=== PATIENT | female | born 1995 | race African-American/Black ===

== ENCOUNTER 2024-11-25 10:48 | Outpatient (OUT) | payer OTHER, SELFPAY ==
--- NOTE | 2024-11-25 10:51 | US_ITS ---
[address] [address] Patient Name: DANA RAVI MRN: [id number] date: 1995 Sex: F Assigned Patient Location: US Current Patient Location: US Accession/Order Number: [id number] Exam Date: 11/25/2024 12:55 Report Date: 11/25/2024 12:56 At the request of: ALFONSO CROWELL DO Procedure: US OB <= 14 weeks fetus OB ultrasound. Reason for exam:Missed menses. Comparison:None Technique: Transabdominal imaging of the gravid uterus was obtained. Findings: Single live intrauterine 10 weeks 6 days by CRL , DIANA 06/17/2025. heart rate 176 bpm. Cervix measures 4.5 cm without funneling. US/US OB <= 14 weeks fetus Impression: Single live intrauterine 10 weeks 6 days by CRL, DIANA 06/17/2025. Impression dictated by: Andrés Guerrero Jr., D.O.11/25/2024 12:56 PM Dictation Location: [address] Electronically authenticated by: [id number] Y Date: 11/25/2024 12:56
== END 2024-11-25 10:49 | disposition home or self-care (01) ==
LOC: US 10:48
PROVIDERS: Visit Provider Obstetrics & Gynecology
DX: Z34.01 Encounter for supervision of normal first pregnancy, first trimester (principal); Z3A.10 10 weeks gestation of pregnancy; N92.6 Irregular menstruation, unspecified
CPT/HCPCS: 76801

== ENCOUNTER 2024-12-02 21:08 | Emergency (ER) | payer OTHER, SELFPAY ==
[2024-12-02 21:14] VITALS: BP 118/78; PULSE 86; TEMP 36.7; O2SAT 99; BMI 24.8
--- NOTE | 2024-12-02 21:33 | ED.GENADUL1 ---
HPI HPI - General Adult General Chief complaint: Nausea/Vomiting/Diarrhea Stated complaint: 11 WKS PG, CRAMPING, NAUSEA Time Seen by Provider: 12/02/24 21:13 Source: patient Mode of arrival: walk-in Limitations: no limitations History of Present Illness HPI narrative: This 29-year-old female who is approximately 12 weeks and recently had an ultrasound on 11/25/2024 that showed a single live intrauterine at 10 weeks 6 days with a normal heart rate presents for evaluation of ongoing nausea and morning sickness. She states that she has been using Zofran but it is not helping her. She states she cannot eat or hardly drink anything. The symptoms have been present since the beginning of her . She is not having any abdominal pain but states she is having some cramps on the left side. There is been no vaginal bleeding or pelvic pain. She is not having any urinary symptoms. She has not had any fever. Related Data Home Medications ?Medication ?Instructions ?Recorded ?Confirmed ondansetron 4 mg disintegrating 4 mg PO Q6H PRN nausea and vomiting 12/02/24 12/02/24 tablet Allergies Allergy/AdvReac Type Severity Reaction Status Date / Time No Known Drug Allergies Allergy Verified 12/02/24 21:14 Opioid HPI Opioid Management Most Recent Opioid Data: No Data to Display Review of Systems ROS Status of ROS 10 or more systems reviewed and unremarkable except as noted in history and below PFSH PFSH Social History Little interest or pleasure in doing things: not at all Feeling down, depressed, or hopeless: not at all Exam Narrative Exam Narrative: Vital signs and Nursing Notes reviewed: Patient is afebrile with a normal pulse, normal blood pressure, she is not hypoxic with pulse ox of 99% on room air General: Thin -Welsh female, no respiratory distress, no active vomiting HEENT: Normocephalic atraumatic, mucous membranes are moist and pink, eyes are clear, normal conjunctiva, vision is grossly intact, posterior pharynx is normal in appearance. Chest: Lungs are clear to auscultation with good air entry, there is no wheezing rhonchi or rales appreciated no accessory muscle use, patient is speaking in complete sentences-no chest wall tenderness to palpation CVS: Regular rate and rhythm S1-S2, no murmurs rubs or gallops, pulses are brisk and equal bilaterally ABD: Soft, nondistended, nontender, no rebound guarding or rigidity, bowel sounds are normal, no pulsatile masses appreciated Extremities: Moving all extremities, no lower extremity tenderness or swelling noted, negative Homans' sign, pulses are brisk and equal bilaterally Skin: Normal in appearance without rash,pallor, petechiae or purpura Neuro: No focal deficits Constitutional Vital Signs, click to edit/add: Last Vital Signs Temp 98.1 F 12/02/24 21:14 Pulse 86 12/02/24 21:14 Resp 16 12/02/24 21:14 BP 118/78 12/02/24 21:14 Pulse Ox 99 12/02/24 21:14 O2 Del Method Room Air 12/02/24 21:14 Course Vital Signs Vital signs: Vital Signs Temperature 98.1 F 12/02/24 21:14 Pulse Rate 86 12/02/24 21:14 Respiratory Rate 16 12/02/24 21:14 Blood Pressure 118/78 12/02/24 21:14 Pulse Oximetry 99 12/02/24 21:14 Oxygen Delivery Method Room Air 12/02/24 21:14 Temperature 98.1 F 12/02/24 21:14 Pulse Rate 86 12/02/24 21:14 Respiratory Rate 16 12/02/24 21:14 Blood Pressure 118/78 12/02/24 21:14 Pulse Oximetry 99 12/02/24 21:14 Oxygen Delivery Method Room Air 12/02/24 21:[address] [facility] Narrative Medical decision making narrative: This 29-year-old female who is approximately 12 weeks presents for evaluation of morning sickness. She states she has been nauseated and cannot eat or drink throughout this . Symptoms started early in her and have persisted since that time. She denies any abdominal pain or vaginal bleeding. She has no abdominal pain but states she has some cramping on the left side of her abdomen. Her physical exam is benign. Vital signs are stable. Her mucous membranes are moist. An IV was placed and she was medicated with IV fluids and Zofran as well as Pepcid. The patient requested something to eat and was given crackers and clear liquids which she tolerated without difficulty. Routine labs are reviewed. She has normal white count and hemoglobin. Electrolytes and liver function tests are normal. Lipase is normal. Urine was ordered but she did not urinate while in the emergency department. On reevaluation she requested to be discharged home stating she was feeling better. She does have Zofran at home which she states has not been helping her so she was given a prescription for Reglan to use as needed. She was encouraged to follow-up closely with Dr. Tellez her [employer], drink plenty of clear liquids to stay hydrated and return to the emergency department as needed for worsening symptoms or any concerns. Lab Data Lab results reviewed: Yes I reviewed the patient's lab results Labs: Lab Results 12/02/24 Range/Units 21:40 WBC 7.3 (4.0-11.0) 10^3/uL RBC 4.16 L (4.20-5.40) 10^6/uL Hgb 12.3 (12.0-16.0) g/dL Hct 35.7 L (36.0-48.0) % MCV 85.8 (81.0-99.0) fL MCH 29.6 (26.7-34.0) pg MCHC 34.5 (29.9-35.2) g/dL RDW 12.1 (11.0-15.0) % Plt Count 215 (150-450) 10^3/uL MPV 9.3 L (9.5-13.5) fL Neut % (Auto) 85.2 H (43.0-75.0) % Lymph % (Auto) 10.3 L (20.5-60.0) % [place] % (Auto) 3.6 (1.7-12.0) % Eos % (Auto) 0.5 L (0.9-7.0) % Baso % (Auto) 0.1 L (0.2-2.0) % Neut # (Auto) 6.2 (1.4-6.5) 10^3/uL Lymph # (Auto) 0.8 L (1.2-3.8) 10^3/uL [place] # (Auto) 0.3 (0.3-0.8) 10^3/uL Eos # (Auto) 0.0 (0.0-0.7) 10^3/uL Baso # (Auto) 0.0 (0.0-0.1) 10^3/uL Abs Immat Gran (auto) 0.02 (0.00-0.03) 10^3/uL Imm/Tot Granulo (auto) 0.3 (0.0-0.5) % Sodium 135 L (136-145) mmol/L Potassium 3.8 (3.5-5.1) mmol/L Chloride 104 (98-107) mmol/L Carbon Dioxide 22.2 (21.0-32.0) mmol/L Anion Gap 12.6 BUN 12.0 (7.0-18.0) mg/dL Creatinine 0.77 (0.55-1.02) mg/dL Est GFR ( Amer) >60 (>=60 mL/min/1.73m^2) Est GFR (Non-Af Amer) >60 (>=60 mL/min/1.73m^2) BUN/Creatinine Ratio 15.6 Glucose 88 (74-106) mg/dL Calcium 8.5 (8.5-10.1) mg/dL Total Bilirubin 0.7 (0.2-1.0) mg/dL AST 13 L (15-37) U/L ALT 7 L (14-59) U/L Alkaline Phosphatase 46 (46-116) U/L Total Protein 7.0 (6.4-8.2) g/dL Albumin 3.4 (3.4-5.0) g/dL Globulin 3.6 g/dL Albumin/Globulin Ratio 0.9 Lipase 53.0 (16.0-77.0) U/L Discharge Plan Discharge Chief Complaint: Nausea/Vomiting/Diarrhea Clinical Impression: Hyperemesis gravidarum Patient Disposition: Home, Self-Care Time of Disposition Decision: 22:53 Condition: Good Prescriptions / Home Meds: No Action ondansetron 4 mg tablet,disintegrating 4 mg PO Q6H PRN (Reason: nausea and vomiting) Print Language: Upper Sorbian Instructions: Hyperemesis Gravidarum (ED) Referrals: Physician,Non-Staff, MD [Primary Care Provider] - 1 week Discharge Date/Time: 12/02/24 23:02
--- OUTSIDE RECORDS SUMMARY | 2024-12-02 21:43 | XMS_ITS | CCD ---
Author Organization [facility] [email or web address] ion Partnership [facility] Care Team Providers Care Division Operations Manager Name Role Phone BHARATI HESS Primary Care Unavailable DR DANNY SMITH Admitting Unavailable SARAH, DR DANNY Kerns Attending Unavailable MAGDI, DR CESAR Davila Consulting Unavailgildardo SMITH, DR DANNY Kerns Consulting Unavailable SHIRA MORENO Consulting Unavailable NO PCP, NO PCP Primary Care Unavailable CHRISTINE RUSSELL Attending Unavailable NO PCP, NO PCP Primary Care Unavailable RYANN CORBETT Attending Unavailable NO PCP, NO PCP Primary Care Unavailable GUERITA CEDEÑO Attending Unavailable Problems Active Problems Problem Classification Problem Date Documented Date Episodic/Chronic Abdominal pain (4 sources) Unspecified abdominal pain; Translations: [UNSPECIFIED ABDOMINAL PAIN] Onset: 07-29-2022 Episodic Alcohol-related disorders (1 source) Alcohol use, unspecified with intoxication, uncomplicated; Translations: [Alcohol use, unspecified with intoxication, uncomplicated] Onset: 09-20-2024 Episodic Noninfectious gastroenteritis (1 source) Noninfective gastroenteritis and colitis, unspecified; Translations: [NONINFECTIVE GE AND COLITIS UNS] Onset: 08-10-2022 Episodic Unclassified (1 source) CONTACT W/AND (SUSP) EXPOS COVID-19; Translations: [CONTACT W/AND (SUSP) EXPOS COVID-19] Onset: 08-10-2022 Unclassified (1 source) Acute Intoxication Onset: 09-20-2024 Urinary tract infections (1 source) Urinary tract infection, site not specified; Translations: [UTI SITE NOT SPECIFIED] Onset: 08-10-2022 Episodic Past or Other Problems Problem Classification Problem Date Documented Da te Episodic/Chronic Nonspecific chest pain (4 sources) Other chest pain; Translations: [Chest pain, unspecified] Onset: 06-06-2024 Episodic Other injuries and conditions due to external causes (1 source) Laceration - injury Onset: 06-22-2024 Episodic Other screening for suspected conditions (not mental disorders or infectious disease) (1 source) Encounter for screening, unspecified; Translations: [Encounter for screening, unspecified] Onset: 06-22-2024 Episodic Results Test Name Value Interpretation Reference Range Facil ity XR CHEST 2 VWSon 06-06-2024 XR CHEST 2 VWS XR CHEST 2 VWS XR CHEST 2 VWS 06/06/2024 2:23 AM INDICATION: chest pain COMPARISON: None. TECHNIQUE: PA upright and lateral view(s) obtained. FINDINGS: Lines/Tubes/Devices: None. Respiratory: No pneumothorax, pleural effusion, or focal consolidation. Cardiomediastinum: Nonenlarged. IMPRESSION: * No acute pulmonary process. Approved by Resident: Fred Corrales MD on 06/06/2024 3:31 AM I, Cesar Ward MD have personally reviewed the image(s) and agree with and/or edited the report Finalized by Cesar Ward MD on 06/06/2024 3:49 AM Normal [facility] CBC W MANUAL DIFFon 07-30-20 22 ATYPICAL LYMPH # Normal [facility] Comment on above: Performed By: #### C MP #### [facility] [address] [place] [address] Dr. Mary Ramsay ATYPICAL LYMPH % Normal [facility] Comment on above: Performed By: #### C MP #### [facility] [address] [address] [address] Mary Ramsay BAND # 2.6 103/ul Critically high 0.0-0.3 [facility] Comment on above: Performed By: #### C MP #### [facility] [address] [address] [address] Mray Ramsay BAND % 12 % Critically high 0-5 [facility] Comment on above: Performed By: #### C MP #### [facility] [address] [place] [address] Dr. Mary Ramsay BASOM # 0.00 103/ul Normal 0.00-0.10 [facility] Comment on above: Performed By: #### C MP #### [facility] [address] [address] [address] Mary Ramsay BASOM % 0.0 % Critically low 0.2-2.0 [facility] Comment on above: Performed By: #### C MP #### [facility] [address] [address] [address] Mary Ramsay BLAST # Normal [facility] Comment on above: Performed By: #### C MP #### [facility] [address] [address] [address] Mary Ramsay BLAST % Normal [facility] Comment on above: Performed By: #### C MP #### [facility] [address] [place] [address] Dr. Mary Ramsay CORRECTED WBC Normal 4.0-11.0 [facility] Comment on above: Performed By: #### C MP #### [facility] [address] [place] [address] Dr. Mary Ramsay EOS # 0.00 103/ul Normal 0.00-0.70 [facility] Comment on above: Performed By: #### C MP #### [facility] [address] [place] [address] Dr. Mary Ramsay EOS% 0.0 % Critically low 0.9-7.0 [facility] Comment on above: Performed By: #### C MP #### [facility] [address] [place] [address] Dr. Mary Ramsay HCT 34.4 % Critically low 36.0-48.0 [facility] Comment on above: Performed By: #### C MP #### [facility] [address] [place] [address] Dr. Mary Ramsay HGB 11.5 g/dl Critically low 12.0-16.0 [facility] Comment on above: Performed By: #### C MP #### [facility] [address] [place] [address] Dr. Mary Ramsay LYMPHM # 0.86 103/ul Critically low 1.20-3.80 [facility] Comment on above: Performed By: #### C MP #### [facility] [address] [address] [address] Mary Ramsay LYMPHM% 4.0 % Critically low 20.5-60.0 [facility] Comment on above: Performed By: #### C MP #### [facility] [address] [place] [address] Dr. Mary Ramsay MCH 29.6 pg Normal 26.7-34.0 [facility] Comment on above: Performed By: #### C MP #### [facility] [address] [place] [address] Dr. Mary Ramsay MCHC 33.4 g/dl Normal 29.9-35.2 [facility] Comment on above: Performed By: #### C MP #### [facility] [address] [place] [address] Dr. Mary Ramsay MCV 88.7 fL Normal 81.0-99.0 [facility] Comment on above: Performed By: #### C MP #### [facility] [address] [place] [address] Dr. Mary Ramsay METAMYELOCYTE # Normal [facility] Comment on above: Performed By: #### C MP #### [facility] [address] [place] [address] Dr. Mary Ramsay METAMYELOCYTE % Normal [facility] Comment on above: Performed By: #### C MP #### [facility] [address] [place] [address] Dr. Mary Ramsay MONOM# 0.21 103/ul Critically low 0.30-0.80 [facility] Comment on above: Performed By: #### C MP #### [facility] [address] [place] [address] Dr. Mary Ramsay MONOM% 1.0 % Critically low 1.7-12.0 [facility] Comment on above: Performed By: #### C MP #### [facility] [address] [place] [address] Dr. Mary Ramsay MPV 10.5 fL Normal 9.5-13.5 [facility] Comment on above: Performed By: #### C MP #### [facility] [address] [address] [address] Mary Ramsay MYELOCYTE # Normal [facility] Comment on above: Performed By: #### C MP #### [facility] [address] [address] [address] Mary Ramsay MYELOCYTE % Normal [facility] Comment on above: Performed By: #### C MP #### [facility] [address] [address] [address] Mary Ramsay NRBC Normal [facility] Comment on above: Performed By: #### C MP #### [facility] [address] [address] [address] Mary Ramsay PLT 195 103/ul Normal 150-450 [facility] Comment on above: Performed By: #### C MP #### [facility] [address] [place] [address] Dr. Mary Ramsay RBC 3.88 106/ul Critically low 4.20-5.40 [facility] Comment on above: Performed By: #### C MP #### [facility] [address] [place] [address] Dr. Mary Ramsay RDW 12.8 % Normal 11.0-15.0 [facility] Comment on above: Performed By: #### C MP #### [facility] [address] [address] [address] Mary Ramsay SEG # 17.76 103/ul Critically high 1.40-6.50 [facility] Comment on above: Performed By: #### C MP #### [facility] [address] [address] [address] Mary Ramsay SEG % 83.0 % Critically high 43.0-75.0 [facility] Comment on above: Performed By: #### C MP #### [facility] [address] [place] [address] Dr. Mary Ramsay WBC 21.4 103/ul Critically high 4.0-11.0 [facility] Comment on above: Performed By: #### C MP #### [facility] [address] [place] [address] Dr. Mary Ramsay IRON AND TIBCon 07-30-2022 % SATURATION 3.6 % Normal [facility] Comment on above: Performed By: #### F ETIBC, VITAD, B12FOL #### [facility] [address] [place] [address] Dr. Mary Ramsay Iron [Mass/Vol] 8.0 ug/dL Critically low 50.0-170.0 [facility] Comment on above: Performed By: #### F ETIBC, VITAD, B12FOL #### [facility] [address] [place] [address] Dr. Mary Ramsay TIBC DIRECT 221.0 ug/dL Critically low 250.0-450.0 [facility] Comment on above: Performed By: #### F ETIBC, VITAD, B12FOL #### [facility] [address] [place] [address] Dr. Mary Ramsay PROF 14(COMP METB)on 022 Albumin [Mass/Vol] 3.0 g/dL Critically low 3.4-5.0 [facility] Comment on above: Performed By: #### C MP #### [facility] [address] [place] [address] Dr. Mary Ramsay Albumin/Globulin [Mass ratio] 0.8 {ratio} Normal [facility] Comment on above: Performed By: #### C MP #### [facility] [address] [place] [address] Dr. Mary Ramsay ALP [Catalytic activity/Vol] 48 U/L Normal 46-116 [facility] Comment on above: Performed By: #### C MP #### [facility] [address] [place] [address] Dr. Mary Ramsay ALT [Catalytic activity/Vol] 9 U/L Critically low 14-59 [facility] Comment on above: Performed By: #### C MP #### [facility] [address] [place] [address] Dr. Mary Ramsay Anion gap [Moles/Vol] 12.2 mmol/L Normal [facility] Comment on above: Performed By: #### C MP #### [facility] [address] [place] [address] Dr. Mary Ramsay AST [Catalytic activity/Vol] 11 U/L Critically low 15-37 [facility] Comment on above: Performed By: #### C MP #### [facility] [address] [place] [address] Dr. Mary Ramsay Bilirubin [Mass/Vol] 0.4 mg/dL Normal 0.2-1.0 [facility] Comment on above: Performed By: #### C MP #### [facility] [address] [place] [address] Dr. Mary Ramsay Calcium [Mass/Vol] 8.2 mg/dL Critically low 8.5-10.1 [facility] Comment on above: Performed By: #### C MP #### [facility] [address] [place] [address] Dr. Mary Ramsay Chloride [Moles/Vol] 103 mmol/L Normal 98-107 [facility] Comment on above: Performed By: #### C MP #### [facility] [address] [place] [address] Dr. Mary Ramsay CO2 [Moles/Vol] 23.4 mmol/L Normal 21.0-32.0 [facility] Comment on above: Performed By: #### C MP #### [facility] [address] [place] [address] Dr. Mary Ramsay Creatinine [Mass/Vol] 0.75 mg/dL Normal 0.55-1.02 [facility] Comment on above: Performed By: #### C MP #### [facility] [address] [place] [address] Dr. Mary Ramsay EGFR-AF SPANISH >60 Normal >=[address] [facility] Comment on above: Performed By: #### C MP #### [facility] [address] [place] [address] Dr. Mary Ramsay EGFR-NON AF SPANISH >60 Normal >=60 [facility] Comment on above: Performed By: #### C MP #### [facility] [address] [address] [address] Mary Ramsay Globulin (S) [Mass/Vol] 3.7 g/dL Normal [facility] Comment on above: Performed By: #### C MP #### [facility] [address] [address] [address] Mary Ramsay Glucose [Mass/Vol] 160 mg/dL Critically high 74-106 T [facility] Comment on above: Performed By: #### C MP #### [facility] [address] [address] [address] Mary Ramsay Potassium [Moles/Vol] 3.6 mmol/L Normal 3.5-5.1 [facility] Comment on above: Performed By: #### C MP #### [facility] [address] [place] [address] Dr. Mary Ramsay Protein [Mass/Vol] 6.7 g/dL Normal 6.4-8.2 [facility] Comment on above: Performed By: #### C MP #### [facility] [address] [place] [address] Dr. Mary Ramsay Sodium [Moles/Vol] 135 mmol/L Critically low 136-145 Th [facility] Comment on above: Performed By: #### C MP #### [facility] [address] [place] [address] Dr. Mary Ramsay Urea nitrogen [Mass/Vol] 15.0 mg/dL Normal 7.0-18.0 [facility] Comment on above: Performed By: #### C MP #### [facility] [address] [place] [address] Dr. Mary Ramsay Urea nitrogen/Creatinine [Mass ratio] 20.0 mg/mg Normal [facility] Comment on above: Performed By: #### C MP #### [facility] [address] [place] [address] Dr. Mary Ramsay VIT B12 AND FOLATEon 022 Cobalamin (Vitamin B12) [Mass/Vol] 221.0 pg/mL Normal 193.0-986.0 [facility] Comment on above: Performed By: #### F ETIBC, VITAD, B12FOL #### [facility] [address] [place] [address] Dr. Mary Ramsay FOLATE 3.00 ng/mL Critically low 8.60-58.90 [facility] Comment on above: Performed By: #### F ETIBC, VITAD, B12FOL #### [facility] [address] [place] [address] Dr. Mary Ramsay VITAMIN D 25 OHon 07-30-2022 VIT D 25-OH 6.7 ng/mL Normal [facility] Comment on above: Performed By: #### F ETIBC, VITAD, B12FOL #### [facility] [address] [place] [address] Dr. Mary Ramsay VIT D RANGES SEE BELOW Normal [facility] Comment on above: Result Comment: <20 ng/mL Vit D deficient 20 - <30 ng/mL Vit D insufficient 30 - 100 ng/mL Vit D sufficient >100 ng/mL Potential Toxicity Performed By: #### F ETIBC, VITAD, B12FOL #### [facility] [address] [place] [address] Dr. Mary Ramsay CBC W MANUAL DIFFon 07-29-20 22 ATYPICAL LYMPH # Normal [facility] Comment on above: Performed By: #### C MP #### [facility] [address] [place] [address] Dr. Mayr Ramsay ATYPICAL LYMPH % Normal [facility] Comment on above: Performed By: #### C MP #### [facility] [address] [place] [address] Dr. Mary Ramsay BAND # 0.3 103/ul Normal 0.0-0.3 [facility] Comment on above: Performed By: #### C MP #### [facility] [address] [place] [address] Dr. Mary Ramsay BAND % 2 % Normal 0-5 [facility] Comment on above: Performed By: #### C MP #### [facility] [address] [place] [address] Dr. Mary Ramsay BASOM # 0.00 103/ul Normal 0.00-0.10 [facility] Comment on above: Performed By: #### C MP #### [facility] [address] [place] [address] Dr. Mary Ramsay BASOM % 0.0 % Critically low 0.2-2.0 [facility] Comment on above: Performed By: #### C MP #### [facility] [address] [place] [address] Dr. Mary Ramsay BLAST # Normal [facility] Comment on above: Performed By: #### C MP #### [facility] [address] [place] [address] Dr. Mary Ramsay BLAST % Normal [facility] Comment on above: Performed By: #### C MP #### [facility] [address] [place] [address] Dr. Mary Ramsay CORRECTED WBC Normal 4.0-11.0 [facility] Comment on above: Performed By: #### C MP #### [facility] [address] [place] [address] Dr. Mary Ramsay EOS # 0.00 103/ul Normal 0.00-0.70 [facility] Comment on above: Performed By: #### C MP #### [facility] [address] [place] [address] Dr. Mary Ramsay EOS% 0.0 % Critically low 0.9-7.0 [facility] Comment on above: Performed By: #### C MP #### [facility] [address] [place] [address] Dr. Mary Ramsay HCT 38.4 % Normal 36.0-48.0 [facility] Comment on above: Performed By: #### C MP #### [facility] [address] [place] [address] Dr. Mary Ramsay HGB 12.9 g/dl Normal 12.0-16.0 [facility] Comment on above: Performed By: #### C MP #### [facility] [address] [place] [address] Dr. Mary Ramsay LYMPHM # 0.64 103/ul Critically low 1.20-3.80 [facility] Comment on above: Performed By: #### C MP #### [facility] [address] [place] [address] Dr. Mary Ramsay LYMPHM% 4.0 % Critically low 20.5-60.0 [facility] Comment on above: Performed By: #### C MP #### [facility] [address] [place] [address] Dr. Mary Ramsay MCH 29.7 pg Normal 26.7-34.0 [facility] Comment on above: Performed By: #### C MP #### [facility] [address] [place] [address] Dr. Mary Ramsay MCHC 33.6 g/dl Normal 29.9-35.2 [facility] Comment on above: Performed By: #### C MP #### [facility] [address] [place] [address] Dr. Mary Ramsay MCV 88.3 fL Normal 81.0-99.0 [facility] Comment on above: Performed By: #### C MP #### [facility] [address] [place] [address] Dr. Mary Ramsay METAMYELOCYTE # Normal [facility] Comment on above: Performed By: #### C MP #### [facility] [address] [place] [address] Dr. Mary Ramsay METAMYELOCYTE % Normal [facility] Comment on above: Performed By: #### C MP #### [facility] [address] [place] [address] Dr. Mary Ramsay MONOM# 0.32 103/ul Normal 0.30-0.80 [facility] Comment on above: Performed By: #### C MP #### [facility] [address] [place] [address] Dr. Mary Ramsay MONOM% 2.0 % Normal 1.7-12.0 [facility] Comment on above: Performed By: #### C MP #### [facility] [address] [place] [address] Dr. Mary Ramsay MPV 10.1 fL Normal 9.5-13.5 [facility] Comment on above: Performed By: #### C MP #### [facility] [address] [place] [address] Dr. Mary Ramsay MYELOCYTE # Normal [facility] Comment on above: Performed By: #### C MP #### [facility] [address] [place] [address] Dr. Mary Ramsay MYELOCYTE % Normal [facility] Comment on above: Performed By: #### C MP #### [facility] [address] [place] [address] Dr. Mary Ramsay NRBC Normal [facility] Comment on above: Performed By: #### C MP #### [facility] [address] [place] [address] Dr. Mary Ramsay PLT 217 103/ul Normal 150-450 [facility] Comment on above: Performed By: #### C MP #### [facility] [address] [place] [address] Dr. Mary Ramsay RBC 4.35 106/ul Normal 4.20-5.40 [facility] Comment on above: Performed By: #### C MP #### [facility] [address] [place] [address] Dr. Mary Ramsay RDW 12.6 % Normal 11.0-15.0 [facility] Comment on above: Performed By: #### C MP #### [facility] [address] [place] [address] Dr. Mary Ramsay SEG # 14.81 103/ul Critically high 1.40-6.50 [facility] Comment on above: Performed By: #### C MP #### [facility] [address] [place] [address] Dr. Mary Ramsay SEG % 92.0 % Critically high 43.0-75.0 [facility] Comment on above: Performed By: #### C MP #### [facility] [address] [place] [address] Dr. Mary Ramsay WBC 16.1 103/ul Critically high 4.0-11.[address] [facility] Comment on above: Performed By: #### C MP #### [facility] [address] [place], [place] [address] Dr. Mary Ramsay CRPon 07-29-2022 CRP 8.1 mg/dL Critically high <=1.0 [facility] Comment on above: Performed By: #### C RP, CMP #### [facility] [address] [place], [place] [address] ABD/PELV W CONon 07-29-20 CT ABD/PELV W CON EXAMINATION: CT ABD/PELV W CON HISTORY: Generalized abdominal pain, cramping, diarrhea, symptoms for one day COMPARISON: CT abdomen and pelvis 09/15/2019. TECHNIQUE: Thin section axial images obtained through the abdomen and pelvis after administration of intravenous contrast. Helical acquisition technique was utilized with multiplanar reformatted images obtained. Dose reduction techniques were achieved by using automated exposure control and/or adjustment of mA and/or kV according to patient size and/or use of iterative reconstruction technique. FINDINGS: CT ABDOMEN: No acute lower lung pathology. Gallbladder, biliary tree are normal. Liver is normal in morphology. Adrenal glands, spleen are normal. Retained fluid is seen within nondistended stomach. Normal pancreas. The visualized abdominal aorta and inferior vena cava are normal in size and morphology. Periaortic abnormality is not evident. No nephrolithiasis, urinary tract calculus, obstructive uropathy is evident. CT PELVIS: Incomplete bladder distention is seen. Focal uterine or adnexal pathology is not evident. There is a paucity of fat in this patient. There is liquid stool within nondistended colon. Fluid-filled small bowel loops are present. Pelvic small bowel loop is mildly increased in caliber up to 3 cm. Transition point is not evident. There is mild wall thickening and mucosal hyperenhancement throughout small bowel loops. Separation of bowel loops is not seen. Appendix is normal in caliber. No secondary signs of acute appendicitis. Bowel pattern is nonobstructive. Lymphadenopathy, free fluid, abscess, ectopic gas are not evident. Dextroconvex thoracolumbar curvature the spine is seen. Acute osseous pathology is not evident. IMPRESSION: 1. There is mild mid small bowel prominence up to 3 cm without transition point. There is apparent mucosal hyperenhancement. Fluid-filled large and small bowel are present throughout with air-fluid levels. Etiology of this process remains indeterminate. Nonspecific enterocolitis is favored. This may be infectious inflammatory or less likely ischemic in morphology. A vascular abnormality is not identified to support ischemic disease. 2. Normal appendix with nonobstructive bowel pattern Electronically authenticated by: SHIRA MORENO Date: 2022-07-29 12:39 Normal The [facility] CULTURE URINEon 07-29-2022 CULTURE URINE Culture Observations: MODERATE GROWTH OF MIXED GENITAL SANNA. NO POTENTIAL PATHOGENS SEEN. Normal [facility] Comment on above: Performed By: #### U RCX #### [facility] [address] [address] [address] Mary Ramsay Covid-19 PCR ([facility])on 07-11 SARS-CoV-2 (COVID-19) RNA MAYRA+probe Ql (Unsp spec) Not detected Normal NOT DETECTED [facility] Comment on above: Result Comment: When diagnostic testing is negative, the possibility of a false negative should be considered in the context of a patient's recent exposures and the presence of clinical signs and symptoms consistent with SARS-CoV-2. This test is not yet approved or cleared by the [place] FDA. When there are no FDA-approved or cleared tests available, and other criteria are met, FDA can make tests available under an emergency access mechanism called an Emergency Use Authorization (EUA). The EUA for this test is supported by the Digital Field Service Technician of Health and Human Service's declaration that circumstances exist to justify the emergency use of in vitro diagnostics for the detection and/or diagnosis of the virus that causes COVID-19. This EUA will remain in effect for the duration of the COVID-19 declaration justifying emergency of IVDs, unless it is terminated or revoked by the FDA (after which the test may no longer be used). Performed By: #### C MP #### [facility] [address], [place] [address] Dr. Mary Ramsay ER URINE PROFILEon 2 Bilirubin Ql (U) Negative Normal NEGATIVE The [facility] Comment on above: Performed By: #### P REGU, ERUR, UMICRO #### [facility] [address] [address] [address] Mary Ramsay Clarity (U) SL CLOUDY Abnormal CLEAR [facility] Comment on above: Result Comment: Prev iously reported as: CLEAR On 07/29/2022 11:44 By [email or web address] Performed By: #### P REGU, ERUR, UMICRO #### [facility] [address] [address] [address] Mary Ramsay Color (U) YELLOW Normal YELLOW [facility] Comment on above: Performed By: #### P REGU, ERUR, UMICRO #### [facility] [address] [address] [address] Mary HADLEY A micrscopic examination will be performed if indicated. Normal [facility] Comment on above: Performed By: #### P REGU, ERUR, UMICRO #### [facility] [address] [address] [address] Mary Ramsay Glucose Ql (U) Negative Normal NEGATIVE [facility] Comment on above: Performed By: #### P REGU, ERUR, UMICRO #### [facility] [address] [address] [address] Mary Ramsay Hemoglobin Ql (U) MODERATE Abnormal NEGATIVE The [facility] Comment on above: Performed By: #### P REGU, ERUR, UMICRO #### [facility] [address] [address] [address] Mary Ramsay Ketones Ql (U) TRACE Abnormal NEGATIVE [facility] Comment on above: Performed By: #### P REGU, ERUR, UMICRO #### [facility] [address] [address] [address] Mary Ramsay LEUKOCYTES SMALL Abnormal NEGATIVE [facility] Comment on above: Performed By: #### P REGU, ERUR, UMICRO #### [facility] [address] [address] [address] Mary Ramsay Nitrite Ql (U) Negative Normal NEGATIVE [facility] Comment on above: Performed By: #### P REGU, ERUR, UMICRO #### [facility] [address] [address] [address] Mary Ramsay pH (U) 5.5 [pH] Normal 5-9 [facility] Comment on above: Performed By: #### P REGU, ERUR, UMICRO #### [facility] [address] [address] [address] Mary Ramsay SPEC GRAVITY 1.030 Abnormal 1.005-<=1.025 [facility] Comment on above: Performed By: #### P REGU, ERUR, UMICRO #### [facility] [address] [address] [address] Mary Ramsay UA PROTEIN TRACE Normal NEGATIVE/ TRACE [facility] Comment on above: Performed By: #### P REGU, ERUR, UMICRO #### [facility] [address] [place] [address] Dr. Mary Ramsay UR MICRO IND INDICATED Normal [facility] Comment on above: Performed By: #### P REGU, ERUR, UMICRO #### [facility] [address] [place] [address] Dr. Mary Ramsay Urobilinogen Qn (U) 0.2 {Obi'U}/dL Normal 0.2 - 1. 0 [facility] Comment on above: Performed By: #### P REGU, ERUR, UMICRO #### [facility] [address] [place] [address] Dr. Mary Ramsay URon 07-29-2022 , QUAL Negative Normal NEGATIVE [facility] Comment on above: Performed By: #### P REGU, ERUR, UMICRO #### [facility] [address] [address] [address] Mary Ramsay PROF 14(COMP METB)on 022 Albumin [Mass/Vol] 4.1 g/dL Normal 3.4-5.0 [facility] Comment on above: Performed By: #### C MP #### [facility] [address] [place] [address] Dr. Mary Ramsay Albumin/Globulin [Mass ratio] 1.1 {ratio} Normal [facility] Comment on above: Performed By: #### C MP #### [facility] [address] [address] [address] Mary Ramsay ALP [Catalytic activity/Vol] 58 U/L Normal 46-116 [facility] Comment on above: Performed By: #### C MP #### [facility] [address] [address] [address] Mary Ramsay ALT [Catalytic activity/Vol] 8 U/L Critically low 14-59 [facility] Comment on above: Performed By: #### C MP #### [facility] [address] [address] [address] Mary Ramsay Anion gap [Moles/Vol] 10.1 mmol/L Normal [facility] Comment on above: Performed By: #### C MP #### [facility] [address] [address] [address] Mary Ramsay AST [Catalytic activity/Vol] 10 U/L Critically low 15-37 [facility] Comment on above: Performed By: #### C MP #### [facility] [address] [address] [address] Mary Ramsay Bilirubin [Mass/Vol] 1.1 mg/dL Critically high 0.2-1.0 [facility] Comment on above: Performed By: #### C MP #### [facility] [address] [address] [address] Mary Ramsay Calcium [Mass/Vol] 8.7 mg/dL Normal 8.5-10.1 [facility] Comment on above: Performed By: #### C MP #### [facility] [address] [address] [address] Mary Ramsay Chloride [Moles/Vol] 104 mmol/L Normal 98-107 [facility] Comment on above: Performed By: #### C MP #### [facility] [address] [address] [address] Mary Ramsay CO2 [Moles/Vol] 26.1 mmol/L Normal 21.0-32.0 [facility] Comment on above: Performed By: #### C MP #### [facility] [address] [address] [address] Mary Ramsay Creatinine [Mass/Vol] 1.06 mg/dL Critically high 0.55-1.02 [facility] Comment on above: Performed By: #### C MP #### [facility] [address] [address] [address] Mary Ramsay EGFR-AF SPANISH >60 Normal >=60 [facility] Comment on above: Performed By: #### C MP #### [facility] [address] [address] [address] Mary Ramsay EGFR-NON AF SPANISH >60 Normal >=60 [facility] Comment on above: Performed By: #### C MP #### [facility] [address] [place] [address] Dr. Mary Ramsay Globulin (S) [Mass/Vol] 3.6 g/dL Normal [facility] Comment on above: Performed By: #### C MP #### [facility] [address] [address] [address] Mary Ramsay Glucose [Mass/Vol] 121 mg/dL Critically high 74-106 [facility] Comment on above: Performed By: #### C MP #### [facility] [address] [place] [address] Dr. Mary Ramsay Potassium [Moles/Vol] 3.2 mmol/L Critically low 3.5-5.1 [facility] Comment on above: Performed By: #### C MP #### [facility] [address] [place] [address] Dr. Mary Ramsay Protein [Mass/Vol] 7.7 g/dL Normal 6.4-8.2 [facility] Comment on above: Performed By: #### C MP #### [facility] [address] [place] [address] Dr. Mary Ramsay Sodium [Moles/Vol] 137 mmol/L Normal 136-145 [facility] Comment on above: Performed By: #### C MP #### [facility] [address] [place] [address] Dr. Mary Ramsay Urea nitrogen [Mass/Vol] 16.0 mg/dL Normal 7.0-18.0 [facility] Comment on above: Performed By: #### C MP #### [facility] [address] [place] [address] Dr. Mary Ramsay Urea nitrogen/Creatinine [Mass ratio] 15.1 mg/mg Normal [facility] Comment on above: Performed By: #### C MP #### [facility] [address] [address] [address] Mary Ramsay URINE MICROSCOPIC ONLYon BACTERIA SMALL Abnormal NONE SEEN [facility] Comment on above: Performed By: #### P REGU ERUR, UMICRO #### [facility] [address] [place] [address] Dr. Mary Ramsay Bacteria identified Cx Nom (U) INDICATED Normal [facility] Comment on above: Performed By: #### P REGU, ERUR, UMICRO #### [facility] [address] [place] [address] Dr. Mary Ramsay CAST NONE SEEN Normal NONE SEEN [facility] Comment on above: Performed By: #### P REGU, ERUR, UMICRO #### [facility] [address] [place] [address] Dr. Mary Ramsay Crystals LM Nom (Urine sed) NONE SEEN Normal NONE SEEN [facility] Comment on above: Performed By: #### P REGU, ERUR, UMICRO #### [facility] [address] [place] [address] Dr. Mary Ramsay Epithelial cells LM Ql (Urine sed) FEW Abnormal NONE SEEN /RARE [facility] Comment on above: Performed By: #### P REGU, ERUR, UMICRO #### [facility] [address] [place] [address] Dr. Mary Ramsay MUCOUS TRACE Abnormal NONE SEEN [facility] Comment on above: Performed By: #### P REGU, ERUR, UMICRO #### [facility] [address] [place] [address] Dr. Mary Ramsay RBC 0-2 Normal 0-2 [facility] Comment on above: Performed By: #### P REGJulian ERUR UMICRO #### [facility] [address], [place] [address] Dr. Mary Ramsay WBC 5-10 Abnormal NONE SEEN [facility] Comment on above: Performed By: #### P REGU, ERUR, UMICRO #### [facility] [address] [place], [place] [address] Dr. Mary Ramsay Encounters Encounter Date Encounter Type Care Provider Facility Start: 09-20-2024 End: 09-20-2024 Emergency department patient visit NO PCP NO PCP [facility] Start: 06-22-2024 End: 06-22-2024 Emergency department patient visit NO PCP NO PCP [facility] Start: 06-06-2024 End: 06-06-2024 Emergency department patient visit NO PCP NO PCP [facility] Start: 07-29-2022 End: 07-30-2022 [facility] Facility: Payers Date Payer Category Payer Unknown [id number] 1996 Unknown [id number] 1996 Unknown [id number] 1996 Unknown [id number] 1959 Unknown [id number] Summary Purpose Family History No Family History Records FoundNo Family History Records Found Advance Directives No Advanced Directives Records FoundNo Advanced Directives Records Found Additional Source Comments INFORMATION SOURCE (unrecogn ized section and content) DATE CREATED AUTHOR 08/11/2022 [facility] DATE CREATED AUTHOR AUTHOR'S ORGANIZ ATION 09/24/2024 [facility] FOR RECORDS PERTAINING TO PATIENTS WHO ARE OR HAVE BEEN ENROLLED IN A CHEMICAL DEPENDENCY/SUBSTANCEABUSE PROGRAM, SOME INFORMATION MAY BE OMITTED. This clinical summary was aggregated from multiple sources. Caution should be exercised in using it in the provision of clinical care. This summary normalizes information from multiple sources, and as a consequence, information in this document may materially change the coding, format and clinical context of patient data. In addition, data may be omitted in some cases. CLINICAL DECISIONS SHOULD BE BASED ON THE PRIMARY CLINICAL RECORDS. [facility]. provides no warranty or guarantee of the accuracy or completeness of information in this document.
[2024-12-02 21:46] LABS: Basophils Percent Auto 0.1 % (0.2-2.0); Eosinophils Percent Auto 0.5 % (0.9-7.0); Hematocrit 35.7 % (36.0-48.0); Hemoglobin 12.3 g/dL (12.0-16.0); Immature Granulocytes Abs Auto 0.02 10^3/uL (0.00-0.03); Immature Granulocytes Pct Auto 0.3 % (0.0-0.5); Lymphocytes Absolute Auto 0.8 10^3/uL (1.2-3.8); Lymphocytes Percent Auto 10.3 % (20.5-60.0); Mean Corpuscular HGB Conc 34.5 g/dL (29.9-35.2); Mean Corpuscular Hemoglobin 29.6 pg (26.7-34.0); Mean Corpuscular Volume 85.8 fL (81.0-99.0); Mean Platelet Volume 9.3 fL (9.5-13.5); Monocytes Absolute Auto 0.3 10^3/uL (0.3-0.8); Monocytes Percent Auto 3.6 % (1.7-12.0); Neutrophils Absolute Auto 6.2 10^3/uL (1.4-6.5); Neutrophils Percent Auto 85.2 % (43.0-75.0); Platelet Count 215 10^3/uL (150-450); Red Blood Count 4.16 10^6/uL (4.20-5.40); Red Cell Distribution Width 12.1 % (11.0-15.0); White Blood Count 7.3 10^3/uL (4.0-11.0)
[2024-12-02] MEDS: 0.9 % SODIUM CHLORIDE 1,000 ML 1000 ML IV (21:47)
[2024-12-02] MEDS: ONDANSETRON PF 4 MG/2 ML VIAL IV (21:47)
[2024-12-02] MEDS: FAMOTIDINE/PF 20 MG/2 ML VIAL IV (21:48)
[2024-12-02 22:02] LABS: Alanine Aminotransferase 7 U/L (14-59); Albumin Globulin Ratio 0.9; Albumin Level 3.4 g/dL (3.4-5.0); Alkaline Phosphatase 46 U/L (46-116); Anion Gap 12.6; Aspartate Amino Transferase 13 U/L (15-37); BUN Creatinine Ratio 15.6; Bilirubin Total 0.7 mg/dL (0.2-1.0); Calcium 8.5 mg/dL (8.5-10.1); Carbon Dioxide 22.2 mmol/L (21.0-32.0); Chloride 104 mmol/L (98-107); Estimated GFR (African America >60 (>=60 mL/min/1.73m^2); Estimated GFR (Non-African Ame >60 (>=60 mL/min/1.73m^2); Globulin 3.6 g/dL; Glucose 88 mg/dL (74-106); Potassium 3.8 mmol/L (3.5-5.1); Sodium 135 mmol/L (136-145)
== END 2024-12-02 23:02 | disposition home or self-care (01) ==
PROVIDERS: Emergency Provider Emergency Medicine
DX: O21.0 Mild hyperemesis gravidarum (principal); Z3A.11 11 weeks gestation of pregnancy
CPT/HCPCS: 36415; 80053; 81001; 83690; 85025; 96361; 96374; 96375; 99285; J2405; J3490

== ENCOUNTER 2024-12-04 14:28 | Outpatient (OUT) | payer OTHER, SELFPAY ==
[2024-12-04 15:30] LABS: Basophils Percent Auto 0.4 % (0.2-2.0); Eosinophils Absolute Auto 0.1 10^3/uL (0.0-0.7); Eosinophils Percent Auto 1.6 % (0.9-7.0); Hematocrit 31.9 % (36.0-48.0); Hemoglobin 11.3 g/dL (12.0-16.0); Immature Granulocytes Abs Auto 0.02 10^3/uL (0.00-0.03); Immature Granulocytes Pct Auto 0.4 % (0.0-0.5); Lymphocytes Absolute Auto 1.5 10^3/uL (1.2-3.8); Lymphocytes Percent Auto 26.7 % (20.5-60.0); Mean Corpuscular HGB Conc 35.4 g/dL (29.9-35.2); Mean Corpuscular Hemoglobin 29.7 pg (26.7-34.0); Mean Corpuscular Volume 83.7 fL (81.0-99.0); Mean Platelet Volume 9.9 fL (9.5-13.5); Monocytes Absolute Auto 0.4 10^3/uL (0.3-0.8); Monocytes Percent Auto 7.3 % (1.7-12.0); Neutrophils Absolute Auto 3.6 10^3/uL (1.4-6.5); Neutrophils Percent Auto 63.6 % (43.0-75.0); Platelet Count 211 10^3/uL (150-450); Red Blood Count 3.81 10^6/uL (4.20-5.40); Red Cell Distribution Width 12.1 % (11.0-15.0); White Blood Count 5.6 10^3/uL (4.0-11.0)
[2024-12-04 15:49] LABS: BOX Test Reference Lab UNITY; BOX Test Sent Out UNITY
[2024-12-04 16:03] LABS: Estimated Average Glucose 111 mg/dL; Glycohemoglobin A1C 5.5 % (4.5-6.2)
[2024-12-04 16:53] LABS: Amphetamine Screen Urine NEGATIVE (NEGATIVE); Barbiturates Screen Urine NEGATIVE (NEGATIVE); Benzodiazepines Screen Urine NEGATIVE (NEGATIVE); Buprenorphine Screen Urine NEGATIVE (NEGATIVE); Cannabinoid Screen Urine NEGATIVE (NEGATIVE); Cocaine Screen Urine NEGATIVE (NEGATIVE); Methadone Screen Urine NEGATIVE (NEGATIVE); Methamphetamines Screen Urine NEGATIVE (NEGATIVE); Opiate Screen Urine NEGATIVE (NEGATIVE); Oxycodone Screen Urine NEGATIVE (NEGATIVE); Phencyclidine Screen Urine NEGATIVE (NEGATIVE); Tricyclic Antidepressant Urine NEGATIVE (NEGATIVE)
[2024-12-05 05:10] LABS: HCV Ab Non Reactive (Non Reactive); HIV Ab/p24 Ag Screen Non Reactive (Non Reactive)
[2024-12-05 06:11] LABS: HBsAg Screen Negative (Negative)
[2024-12-05 11:08] LABS: Rapid Plasma Reagin, Quant Non Reactive titer (NonRea<1:1)
== END 2024-12-04 14:29 | disposition home or self-care (01) ==
LOC: LAB 14:30
PROVIDERS: Visit Provider Obstetrics & Gynecology
DX: Z34.01 Encounter for supervision of normal first pregnancy, first trimester (principal); Z36.0 Encounter for antenatal screening for chromosomal anomalies; N92.6 Irregular menstruation, unspecified
CPT/HCPCS: 36415; 80307; 83036; 85025; 86592; 86762; 86803; 86850; 86900; 86901; 87086; 87340; 87389

== ENCOUNTER 2025-01-08 10:50 | Emergency (ER) | payer OTHER, SELFPAY ==
[2025-01-08 11:05] VITALS: BP 111/68; PULSE 89; TEMP 37; O2SAT 100; BMI 24.1
[2025-01-08 13:50] VITALS: BP 118/66; PULSE 71; O2SAT 100
--- NOTE | 2025-01-08 13:57 | ED.PREGNANC1 ---
HPI - General Chief complaint: OB/Uterine Contractions Stated complaint: ABDOMINAL PAIN, DUE 06/17/25 Time Seen by Provider: 01/08/25 11:26 Source: patient Mode of arrival: walk-in History of Present Illness HPI Narrative: 29 year old female presents to the ED for left lower abdominal pain. Onset was 2-3 days ago. Denies fever, chills, injury, N/V/D, urinary symptoms. Denies vaginal bleeding or discharge. States she is 17 weeks . She is . Related Data Home Medications ?Medication ?Instructions ?Recorded ?Confirmed ondansetron 4 mg disintegrating 4 mg PO Q6H PRN nausea and vomiting 12/02/24 12/02/24 tablet Allergies Allergy/AdvReac Type Severity Reaction Status Date / Time No Known Drug Allergies Allergy Verified 12/02/24 21:14 Review of Systems ROS Constitutional Denies: fever or chills Ears, nose, mouth, and throat Denies: neck pain Cardiovascular Denies: chest pain Respiratory Denies: shortness of breath or cough Gastrointestinal Reports: abdominal pain; Denies: nausea, vomiting or diarrhea Genitourinary Denies: painful urination, urinary frequency, urinary urgency, urinary incontinence, blood in urine, vaginal bleeding, vaginal discharge or vaginal odor Musculoskeletal Denies: back pain Integumentary/Breast Denies: rash Neurological Denies: headache or dizziness PFSH PFSH Social History Little interest or pleasure in doing things: not at all Feeling down, depressed, or hopeless: not at all Exam Constitutional Vital Signs, click to edit/add: Last Vital Signs Temp 98.6 F 01/08/25 11:05 Pulse 71 01/08/25 13:50 Resp 16 01/08/25 13:50 BP 118/66 01/08/25 13:50 Pulse Ox 100 01/08/25 13:50 O2 Del Method Room Air 01/08/25 11:05 Common normals: no apparent distress and oriented x3 General appearance: cooperative HENMT Common normals: moist oral mucous membranes Eye Common normals: conjunctivae normal and no scleral icterus Neck & C-Spine Common normals: supple Chest Chest: symmetrical chest wall rise Respiratory Common normals: normal respiratory effort Effort & inspection: able to speak in complete sentences and symmetric chest movement Cardio Common normals: regular rate and regular rhythm GI Common normals: soft to palpation and non-tender Neuro Common normals: oriented x3, moves all extremities and no focal motor deficits Sensorium/orientation: awake and alert Speech: speech normal Course Vital Signs Vital signs: Vital Signs Temperature 98.6 F 01/08/25 11:05 Pulse Rate 89 01/08/25 11:05 Respiratory Rate 16 01/08/25 11:05 Blood Pressure 111/68 01/08/25 11:05 Pulse Oximetry 100 01/08/25 11:05 Oxygen Delivery Method Room Air 01/08/25 11:05 Temperature 98.6 F 01/08/25 11:05 Pulse Rate 71 01/08/25 13:50 Respiratory Rate 16 01/08/25 13:50 Blood Pressure 118/66 01/08/25 13:50 Pulse Oximetry 100 01/08/25 13:50 Oxygen Delivery Method Room Air 01/08/25 11:05 MDM - OB/Uterine Contractions MDM Narrative Medical decision making narrative: CBC, BMP, and urinalysis were unremarkable. Ultrasound was unremarkable. The patient was discussed with the ED attending who reported she was cleared to be discharged. Findings were discussed with the patient. She was encouraged to follow up with her CLOTHING WORKER for a recheck, further evaluation and treatment. Medical Records Attestation: I reviewed the patient's medical records. Lab Data Attestation: I reviewed the patient's lab results. Labs: Lab Results 01/08/25 01/08/25 Range/Units 14:05 14:08 WBC 8.1 (4.0-11.0) 10^3/uL RBC 3.51 L (4.20-5.40) 10^6/uL Hgb 10.5 L (12.0-16.0) g/dL Hct 30.3 L (36.0-48.0) % MCV 86.3 (81.0-99.0) fL MCH 29.9 (26.7-34.0) pg MCHC 34.7 (29.9-35.2) g/dL RDW 12.7 (11.0-15.0) % Plt Count 206 (150-450) 10^3/uL MPV 9.4 L (9.5-13.5) fL Neut % (Auto) 64.2 (43.0-75.0) % Lymph % (Auto) 28.0 (20.5-60.0) % [place] % (Auto) 6.2 (1.7-12.0) % Eos % (Auto) 1.2 (0.9-7.0) % Baso % (Auto) 0.2 (0.2-2.0) % Neut # (Auto) 5.2 (1.4-6.5) 10^3/uL Lymph # (Auto) 2.3 (1.2-3.8) 10^3/uL [place] # (Auto) 0.5 (0.3-0.8) 10^3/uL Eos # (Auto) 0.1 (0.0-0.7) 10^3/uL Baso # (Auto) 0.0 (0.0-0.1) 10^3/uL Abs Immat Gran (auto) 0.02 (0.00-0.03) 10^3/uL Imm/Tot Granulo (auto) 0.2 (0.0-0.5) % Sodium 136 (136-145) mmol/L Potassium 3.4 L (3.5-5.1) mmol/L Chloride 103 (98-107) mmol/L Carbon Dioxide 23.3 (21.0-32.0) mmol/L Anion Gap 13.1 BUN 9.0 (7.0-18.0) mg/dL Creatinine 0.55 (0.55-1.02) mg/dL Est GFR ( Amer) >60 (>=60 mL/min/1.73m^2) Est GFR (Non-Af Amer) >60 (>=60 mL/min/1.73m^2) BUN/Creatinine Ratio 16.4 Glucose 76 (74-106) mg/dL Calcium 8.3 L (8.5-10.1) mg/dL Urine Color Lt. yellow (YELLOW) Urine Clarity Clear (CLEAR) Urine pH 6.5 (5.0-9.0) Ur Specific [place] 1.020 (1.005-1.025) Urine Protein Negative (NEG/TRACE) mg/dL Urine Glucose (UA) Negative (NEGATIVE) mg/dL Urine Ketones Trace A (NEGATIVE) mg/dL Urine Occult Blood Negative (NEGATIVE) Urine Nitrite Negative (NEGATIVE) Urine Bilirubin Negative (NEGATIVE) Urine Urobilinogen 1.0 (0.2-1.0) EU/dL Ur Leukocyte Esterase Negative (NEGATIVE) Imaging Data US - abdomen: Attestation: I have reviewed the pertinent imaging results. Radiologist's impression: 1. Single live IUP seen wt EGA of 17 weeks 1 day. 2. No acute complication seen. Discharge Plan Discharge Chief Complaint: OB/Uterine Contractions Clinical Impression: Abdominal pain during Patient Disposition: Home, Self-Care Time of Disposition Decision: 15:06 Condition: Good Mode of Transportation: Private Vehicle Prescriptions / Home Meds: No Action ondansetron 4 mg tablet,disintegrating 4 mg PO Q6H PRN (Reason: nausea and vomiting) Print Language: Ethiopian Instructions: Abdominal Pain in (ED) Referrals: Sarath Tellez DO [Physician, CLOTHING WORKER] - 01/09/25 Physician,Non-Staff, MD [Primary Care Provider] - 1 week
[2025-01-08 14:16] LABS: Basophils Percent Auto 0.2 % (0.2-2.0); Eosinophils Absolute Auto 0.1 10^3/uL (0.0-0.7); Eosinophils Percent Auto 1.2 % (0.9-7.0); Hematocrit 30.3 % (36.0-48.0); Hemoglobin 10.5 g/dL (12.0-16.0); Immature Granulocytes Abs Auto 0.02 10^3/uL (0.00-0.03); Immature Granulocytes Pct Auto 0.2 % (0.0-0.5); Lymphocytes Absolute Auto 2.3 10^3/uL (1.2-3.8); Mean Corpuscular HGB Conc 34.7 g/dL (29.9-35.2); Mean Corpuscular Hemoglobin 29.9 pg (26.7-34.0); Mean Corpuscular Volume 86.3 fL (81.0-99.0); Mean Platelet Volume 9.4 fL (9.5-13.5); Monocytes Absolute Auto 0.5 10^3/uL (0.3-0.8); Monocytes Percent Auto 6.2 % (1.7-12.0); Neutrophils Absolute Auto 5.2 10^3/uL (1.4-6.5); Neutrophils Percent Auto 64.2 % (43.0-75.0); Platelet Count 206 10^3/uL (150-450); Red Blood Count 3.51 10^6/uL (4.20-5.40); Red Cell Distribution Width 12.7 % (11.0-15.0); White Blood Count 8.1 10^3/uL (4.0-11.0)
[2025-01-08 14:29] LABS: Bilirubin Urine NEGATIVE (NEGATIVE); Blood Urine NEGATIVE (NEGATIVE); Clarity Urine CLEAR (CLEAR); Color Urine LT. YELLOW (YELLOW); Glucose Urine UA NEGATIVE (NEGATIVE); Ketones Urine TRACE mg/dL (NEGATIVE); Leukocyte Esterase Urine NEGATIVE (NEGATIVE); Nitrite Urine NEGATIVE (NEGATIVE); Protein Urine NEGATIVE (NEG/TRACE); pH Urine 6.5 (5.0-9.0)
[2025-01-08 14:34] LABS: Urine Microscopic Indicated NO
[2025-01-08 14:34] LABS: Anion Gap 13.1; BUN Creatinine Ratio 16.4; Calcium 8.3 mg/dL (8.5-10.1); Carbon Dioxide 23.3 mmol/L (21.0-32.0); Chloride 103 mmol/L (98-107); Estimated GFR (African America >60 (>=60 mL/min/1.73m^2); Estimated GFR (Non-African Ame >60 (>=60 mL/min/1.73m^2); Glucose 76 mg/dL (74-106); Potassium 3.4 mmol/L (3.5-5.1); Sodium 136 mmol/L (136-145)
== END 2025-01-08 15:29 | disposition home or self-care (01) ==
PROVIDERS: Nurse Practitioner Family; Emergency Provider Emergency Medicine
DX: O26.892 Other specified pregnancy related conditions, second trimester (principal); R10.32 Left lower quadrant pain; Z3A.13 13 weeks gestation of pregnancy
CPT/HCPCS: 36415; 76815; 80048; 81003; 85025; 99285

== ENCOUNTER 2025-01-29 15:13 | Outpatient (REF) | payer OTHER, SELFPAY ==
--- OUTSIDE RECORDS SUMMARY | 2025-01-29 11:26 | XMS_ITS ---
Author Name Auto Generated Organization OHIP Care Team Providers Care Mortuary Technician Name Role Phone ALFONSO CROWELL Attending Unavailable CHARLINE SHIELDS Attending Unavailable NO PCP, NO PCP Primary Care Unavailable CHRISTINE RUSSELL Attending Unavailable NO PCP, NO PCP Primary Care Unavailable RYANN CORBETT Attending Unavailable NO PCP, NO PCP Primary Care Unavailable GUERITA CEDEÑO Attending Unavailable NO PCP, NO PCP Primary Care Unavailable RYANN CORBETT Attending Unavailable PROBLEMS DATE TYPE CONDITION / CODE ATTENDING STATUS [facility] 01/05/2025 Unknown Left lower quadr ant pain / R10.32(ICD-10) RYANN CORBETT [facility] 01/05/2025 Unknown Unspecified cond ition associated with female genital organs and menstrual cycle / N94.9(ICD-10) RYANN CORBETT [facility] 01/05/2025 Unknown Abdominal Pain / FREETEXT(AOF) RYANN CORBETT [facility] 09/20/2024 Unknown Alcohol use, unspecified with intoxication, uncomplicated / F10.920(ICD-10) GUERITA CEDEÑO [facility] 09/20/2024 Unknown Acute Intoxicati on / FREETEXT(AOF) GUERITA CEDEÑO [facility] 06/22/2024 Unknown Encounter for screening, unspecified / Z13.9(ICD-10) RYANN CORBETT [facility] 06/22/2024 Unknown Laceration / FREETEXT(AOF) RYANN CORBETT [facility] 06/06/2024 Unknown Other chest pain / R07.89(ICD-10) YVONNECHRISTINE [facility] 06/06/2024 Unknown Chest pain, unsp ecified / R07.9(ICD-10) DAIN RUSSELLA Naty [facility] 06/06/2024 Unknown Chest Pain / FREETEXT(AOF) CHRISTINE RUSSELL [facility] 06/06/2024 Unknown Chestpain / UNK(Unknown) YVONNE [facility] PROCEDURES No Procedure Records Found RESULTS POCT NURSING URINE MACROSCOPIC UA Collected: 01/05/2025 4:54 AM Status: COMPLETED Source: [facility] TYPE CODE TESTS RESULT OUT OF RANGE REFERENCE UNITS LAB SPGRN SPECIFIC GRAVITY KYLAH >=1.030 Abnormal (none) LAB LESTN LEUKOCYTE ESTERASE [facility] Negative Negative LAB NITN NITRITE [facility] Negative Negative LAB PHURN PH [facility] 6.0 5.0, 6.0, 6.5, 7.0, 7.5, 8.0, 8.5, 5.5 LAB PRURN PROTEIN KY[facility] 100 mg/dL Abnormal Negative LAB GLURN GLUCOSE [facility] Negative Negative LAB KETN KETONES [facility] Negative Negative LAB UROBN UROBILINOGEN [facility] 0.2 E.U./dL 0.2 E.U./dL, 1.0 E.U./dL LAB BILEN BILIRUBIN [facility] Negative Negative LAB BLURN BLOOD/HGB [facility] Trace Abnormal Negative Performed By: #### NUM #### [facility] ([facility]) [address] [place], [place] [address] [place] [address] VIR POCT NURSING URINE MACROSCOPIC UA Collected: 01/05/2025 4:54 AM Status: COMPLETED Source: [facility] TYPE CODE TESTS RESULT OUT OF RANGE REFERENCE UNITS LAB SPGRN SPECIFIC GRAVITY KYLAH >=1.030 Abnormal (none) LAB LESTN LEUKOCYTE ESTERASE [facility] Negative Negative LAB NITN NITRITE [facility] Negative Negative LAB PHURN PH [facility] 6.0 5.0, 6.0, 6.5, 7.0, 7.5, 8.0, 8.5, 5.5 LAB PRURN PROTEIN [facility] 100 mg/dL Abnormal Negative LAB GLURN GLUCOSE [facility] Negative Negative LAB KETN KETONES [facility] Negative Negative LAB UROBN UROBILINOGEN [facility] 0.2 E.U./dL 0.2 E.U./dL, 1.0 E.U./dL LAB BILEN BILIRUBIN [facility] Negative Negative LAB BLURN BLOOD/HGB [facility] Trace Abnormal Negative Performed By: #### NUM #### [address] [place] [address] VIR CBC WITH AUTO DIFFERENTIAL Collected: 0 01/05/2025 4:47 AM Status: COMPLETED Source: [facility] TYPE CODE TESTS RESULT OUT OF RANGE REFERENCE UNITS LAB WBC WBC 8.0 4-11 x10E9/L LAB RBC RBC COUNT 3.64 Low 3.8-5.2 X10E12/L LAB HGB HEMOGLOBIN 11.1 Low 11.7-15.5 g/dL LAB HCT HEMATOCRIT 31.6 Low 35-47 % LAB MCV MCV 87 80-100 fL LAB MCH MCH 30.5 27-34 pg LAB MCHC MCHC 35.1 32-36 g/dL LAB RDW RDW 13.3 11.5-15 % LAB PLTC PLATELET COUNT 230 150-450 X10E9/L LAB MPV MPV 7.7 7-12 fL LAB NEUT NEUTROPHILS RELATIVE PERCENT BY AUTOMATED COUNT 73.6 % LAB LYMP LYMPHOCYTES RELATIVE PERCENT BY AUTOMATED COUNT 19.6 % LAB MONO MONOCYTES RELATIVE PERCENT BY AUTOMATED COUNT 5.2 % LAB EOS EOSINOPHILS RELATIVE PERCENT BY AUTOMATED COUNT 1.3 % LAB BASO BASOPHILS RELATIVE PERCENT BY AUTOMATED COUNT 0.3 % LAB ANEUT NEUTROPHILS ABSOLUTE COUNT BY AUTOMATED COUNT 5.9 10*3/uL LAB ALYMP LYMPHOCYTES ABSOLUTE COUNT (10*3/UL) BY AUTOMATED COUNT 1.6 10*3/uL LAB AMONO MONOCYTES ABSOLUTE COUNT (10*3/UL) BY AUTOMATED COUNT 0.4 10*3/uL LAB AEOS EOSINOPHILS ABSOLUTE COUNT (10*3/UL) BY AUTOMATED COUNT 0.1 10*3/uL LAB ABASO BASOPHILS ABSOLUTE COUNT (10*3/UL) BY AUTOMATED COUNT 0.0 10*3/uL LAB DTYPE CELLAVISION DIFFERENTIAL TYPE AUTOMATED DIFFERENTIAL Performed By: #### CBCA #### [facility] ([facility]) [address] [place] [address]. [place] [address] VIR BASIC METABOLIC PANEL Collected: 01/05/2025 4:4 7 AM Status: COMPLETED Source: [facility] TYPE CODE TESTS RESULT OUT OF RANGE REFERENCE UNITS LAB NA SODIUM 133 Low 134-146 mmol/L LAB K POTASSIUM 3.6 3.5-5.0 mmol/L LAB CL CHLORIDE 108 98-109 mmol/L LAB CO2 CARBON DIOXIDE 21 Low 22-32 mmol/L LAB AGAP ANION GAP 4 Low 5-15 mmol/L LAB BUN BLOOD UREA NITROGEN 13 5-23 mg/dL LAB CRET CREATININE 0.68 0.40-1.00 mg/dL Result Comment: METHOD TRACE ABLE TO IDMS STANDARD LAB GLU GLUCOSE 93 65-99 mg/dL LAB CA CALCIUM 8.2 Low 8.5-10.5 mg/dL LAB EGFR EGFR (CKD-EPI) NON-RACE DEPENDENT >^90 >=60 ml/min/1. 73sq.m Result Comment: eGFR not rep orted due to non-numeric value for Creatinine. Reported eGFR is based on the CKD-EPI 2020 equation that does not use a race coefficient. Performed By: #### BMP #### [facility] ([address] [place] [address] VIR XR CHEST 2 VWS Observed: 06/06/2024 2:23 AM Status: COMPLETED Source: [facility] XR CHEST 2 VWS XR CHEST 2 [...] Cesar Ward MD on 06/06/2024 3:49 AM ALLERGIES DATE TYPE / CODE NAME / CODE REACTION SEVERITY SOURCE Drug Class/[id number](SNO MED CT) NO KNOWN ALLERGIES [facility] ENCOUNTERS ADMIT/DISCHARGE ACCOUNT NUMBER ADMITTING ENCOUNTER CLASS LOCATION SOURCE 01/29/2025/01/30/20 [id number] Ambulatory Building:[facility] 01/05/2025/01/06/20 [id number] Emergency Building:PFM _EDRoom: 12Bed: 12 [facility] 01/01/2025/01/02/20 [id number] Ambulatory Building:[facility] 12/04/2024/12/05/19 [id number] Ambulatory Building:[facility] 09/20/2024/09/20/19 [id number] Emergency Building:PFM _EDRoom: 3Bed: 03 [facility] 06/22/2024/06/22/20 24 [id number] Emergency Building:PFM _EDRoom: 10Bed: 10 [facility] 06/06/2024/06/06/20 24 [id number] Emergency Building:PFM _EDRoom: 6Bed: 06 [facility] PAYERS ENCOUNTER GUARANTOR PAYER SUBSCRIBER SOURCE 01/29/2025 [facility] [place] [place] [address]Wci: () Primary Insurance:[place] [employer] MEDICAIDPolicy Number: [id number] Date:2018-12-09 DANA ZHOUMANDOB: [id number] [place] [address] [facility] EPIC 01/05/2025 DANA [facility] [place] [address]Vdv: (HP) Primary Insurance:[place] MEDICAIDPolicy Number: [id number] Date:2018-12-09 [facility]NA [facility]: [id number] [facility] [place] [address]Oge: (WP) [facility] 01/01/2025 [facility], [place] [address]Ceg: (HP) Primary Insurance:[place] [employer] MEDICAIDPolicy Number: [id number] Date:2018-12-09 [facility]: [id number] [facility] [place] [address] [facility] 12/04/2024 [facility], [place] [address]Wcy: (HP) Primary Insurance:[place] MEDICAIDPolicy Number: [id number] Date:2018-12-09 [facility]NA [facility]: [id number] [facility] [address] [facility] 09/20/2024 [facility] [place] [address]Cof: (HP) Primary Insurance:[place] MEDICAIDPolicy Number: [id number] Date:2018-12-09 [facility]: [id number] [facility] [place] [address]Lpf: (HP) (WP) [facility] 06/22/2024 [facility] [address] [facility] [address]Nyi: (HP) Primary Insurance:[place] MEDICAIDPolicy Number: [id number] Date:2018-12-09 [facility]: [id number] [address] [facility] [address]Xgp: (HP) (WP) [facility] 06/06/2024 [facility] [address]Zea: (HP) Primary Insurance:[place] MEDICAIDPolicy Number: [id number] Date:2018-12-09 [facility]: [id number] [address] [facility] [address]Lay: (HP) (WP) [facility]
--- OUTSIDE RECORDS SUMMARY | 2025-01-29 11:30 | XMS_ITS | Encounter Summary ---
Author Organization [facility] Address [address] [place] [address] Care Team Providers Care Wax Room Supervisor Name Role Phone Unavailable Primary Care Provider Unavailabl e Reason for Visit * Reason Comments Routine Visit Encounter Details Date Type Department Care Team (Latest Contact Info) Description 01/29/2025 11:30 AM EDT Routine [facility] [address] [place] [address] Yee N[place] PA [address] [place] [address] 20 weeks gestation of ; Second trimester ; Screening, , for anatomic survey; Well woman exam with routine gynecological exam; Vaginal discharge; Exposure to STD Social History Tobacco Use Types Packs/Day Years Used Date Smoking Tobacco: Never Assessed Estimated Date of Delivery Comme nts Yes 06/17/2025 Based on Ultraso und Sex and Gender Information Value Date Recorded Sex Assigned at Not on file Legal Sex Female 11:47 PM EDT Gender Identity Not on file Sexual Orientation Not on file documented as of this encounter Last Filed Vital Signs Vital Sign Reading Time Taken Comments Blood Pressure 100/68 01/29/2025 12:02 PM EDT Pulse - - Temperature - - Respiratory Rate - - Oxygen Saturation - - Inhaled Oxygen Concentration - - Weight 64.1 kg (141 lb 6.4 oz) 01/29/2025 12:02 PM EDT Height - - Body Mass Index - - documented in this encounter Progress Notes * LUIGI Lyons - 01/29/2025 11:30 AM EDT Reason for Appointment: Patient ID: Melissa Chen is a 29 y.o. female who presents for Routine Visit Patient presents today for Annual Exam. and Return OB appointment. MEDICATIONS Current Outpatient Medications Medication Instructions metoclopramide (Reglan) 10 MG tablet metoclopramide (REGLAN) 10 mg, Oral, 3 times daily before meals, Take 1 tablet by mouth 30 minutes prior to meals 3 times daily as needed for nausea. ondansetron ODT (ZOFRAN-ODT) 4 mg, Oral, Every 6 hours PRN ALLERGIES No Known Allergies PROBLEMS Active Ambulatory Problems Diagnosis Date Noted Nausea and vomiting in 11/25/2024 Resolved Ambulatory Problems Diagnosis Date Noted No Resolved Ambulatory Problems No Additional Past Medical History HISTORY PAST MEDICAL HISTORY SOCIAL HISTORY History reviewed. No pertinent past medical history. Social History Tobacco Use Smoking status: Not on file Smokeless tobacco: Not on file Substance Use Topics Alcohol use: Not on file Drug use: Not on file FAMILY HISTORY No family history on file. SURGICAL HISTORY History reviewed. No pertinent surgical history. REVIEW OF SYSTEMS Review of Systems: Review of Systems Constitutional: Negative. HENT: Negative. Eyes: Negative. Respiratory: Negative. Cardiovascular: Negative. Gastrointestinal: Negative. Genitourinary: Negative. Musculoskeletal: Negative. Skin: Negative. Neurological: Negative. All other systems reviewed and are negative. Hematological: Negative. Endocrine: Negative. Allergic/Immunologic: Negative. OBJECTIVE Objective: Physical Exam Constitutional: Appearance: Normal appearance. She is normal weight. Genitourinary: Breasts: Breasts are soft. Right: Normal. Left: Normal. HENT: Head: Normocephalic. Cardiovascular: Rate and Rhythm: Normal rate. Pulses: Normal pulses. Pulmonary: Effort: Pulmonary effort is normal. Breath sounds: Normal breath sounds. Abdominal: Palpations: Abdomen is soft. Musculoskeletal: General: Normal range of motion. Neurological: General: No focal deficit present. Mental Status: She is alert and oriented to person, place, and time. Psychiatric: Mood and Affect: Mood normal. Behavior: Behavior normal. Thought Content: Thought content normal. Judgment: Judgment normal. Vitals and nursing note reviewed. Vitals: There is no height or weight on file to calculate BMI. BP: 100/68 Patient's last menstrual period was 10/09/2024. ASSESSMENT & PLAN ICD-10-CM 1. 20 weeks gestation of Z3A.20 POCT urinalysis dipstick manually resulted Alpha fetoprotein, maternal Alpha fetoprotein, maternal CANCELED: POCT urinalysis dipstick manually resulted 2. Second trimester Z34.92 POCT urinalysis dipstick manually resulted Alpha fetoprotein, maternal Alpha fetoprotein, maternal CANCELED: POCT urinalysis dipstick manually resulted 3. Screening, , for anatomic survey Z36.89 US OB 14+ weeks anatomy scan 4. Well woman exam with routine gynecological exam Z01.419 Pap Smear 5. Vaginal discharge N89.8 CHLAMYDIA TRACHOMATIS (GENITO/STI) Neisseria gonorrhea DNA probe, direct 6. Exposure to STD Z20.2 SURESWAB(R) ADVANCED VAGINITIS PLUS, TMA Return OB/Annual Exam: Patient presents today for an annual exam/routine obstetrics appointment. Patient is currently 20w1d . Patient is doing well and states she has no complaints. Pap/cultures was obtained without difficulty and patient was given [facility] order to have obtained. Patient voiced abdominal pain and recommended that patient obtain Patient going to obtain work note to be placed in a position at work that allows to bend/lift/turn.Patient would benefit from a position that Orders Placed This Encounter Procedures US OB 14+ weeks anatomy scan CHLAMYDIA TRACHOMATIS (GENITO/STI) Neisseria gonorrhea DNA probe, direct Alpha fetoprotein, maternal POCT urinalysis dipstick manually resulted Follow Up: Patient is to return to our office in 4 weeks for routine OB appointment Documented by Caryl Díaz LPN on behalf of: LUIGI Loyns documented in this encounter Plan of Treatment Upcoming Encounters Date Type Department Care Team (Late st Contact Info) Description 02/12/2025 11:00 AM EDT Ancillary Procedure [facility] [address] [place] [address] 02/26/2025 11:10 AM EDT Routine [facility] OB [address] [place] [address] Sarath Tellez, DO [address] [place] [address] Scheduled Orders Name Type Priority Associated Diagnoses Orde r Schedule SURESWAB(R) ADVANCED VAGINITIS PLUS, TMA Pathology and Cytology Routine Exposure to STD Ordered: 01/29/2025 CHLAMYDIA TRACHOMATIS (GENITO/STI) Lab Routine Vaginal discharge Ordered: 01/29/2025 Neisseria gonorrhea DNA probe, direct Lab Routine Vaginal discharge Ordered: 01/29/2025 Pap Smear Pathology and Cytology Routine Well woman exam with routine gynecological exam Ordered: 01/29/2025 US OB 14+ weeks anatomy scan Imaging Routine Screening, , for anatomic survey Expected: 01/29/2025, Expires: 05/01/2025 Alpha fetoprotein, maternal Lab Routine 20 weeks gestation of Second trimester Expected: 01/29/2025 (Approximate), Expires: 03/01/2025 documented as of this encounter Procedures Procedure Name Priority Date/Time Associated Diagnosis Comments POCT URINALYSIS DIPSTICK Routine 01/29/2025 12:09 PM EDT 20 weeks gestation of Second trimester documented in this encounter Results * POCT urinalysis dipstick manually resulted (01/29/2025 12:09 PM EDT) Color, UA Yellow Clarity, UA Cloudy Glucose, UA Negative Negative - 2000(110) ++++ mg/dL Bilirubin, UA Negative Negative - 4(70) +++ mg/dL Ketones, UA Negative Negative - 160(16) ++++ mg/dL Spec Grav, UA 1.020 1 - 1.03 Blood, UA Negative Negative - 50 Zack/mcL pH, UA 7.0 5 - 9 Protein, UA Negative Negative - 2000(20) ++++ mg/dL Urobilinogen, UA 0.2 0.2 - 12 mg/dL Leukocytes, UA Negative Negative - 500+++ Robi/mcL Nitrite, UA Negative Negative - Positive Urine 01/29/2025 12:0 9 PM EDT Yee MEYERS POINT OF CARE TEST ENTER/EDIT OR DERABLES Final Result documented in this encounter Visit Diagnoses Diagnosis 20 weeks gestation of Second trimester state, incidental Screening, , for anatomic survey Encounter for anatomic survey Well woman exam with routine gynecological exam Routine gynecological examination Vaginal discharge Leukorrhea, not specified as infective Exposure to STD documented in this encounter
--- OUTSIDE RECORDS SUMMARY | 2025-01-29 15:15 | XMS_ITS | Encounter Summary ---
Author Organization [facility] Address [address] [place] [address] Care Team Providers Care Gas Station Clerk Name Role Phone Unavailable Primary Care Provider Unavailabl e Encounter Details Date Type Department Care Team (Late st Contact Info) Description 12/11/2024 Abstract [facility] OB [address] [place] [address] Sarath Tellez DO [facility] [address] [place], [facility] Social History Tobacco Use Types Packs/Day Years Used Date Smoking Tobacco: Never Assessed Estimated Date of Delivery Comme nts Yes 06/17/2025 Based on Ultraso und Sex and Gender Information Value Date Recorded Sex Assigned at Not on file Legal Sex Female 11:47 PM EDT Gender Identity Not on file Sexual Orientation Not on file documented as of this encounter Plan of Treatment Upcoming Encounters Date Type Department Care Team (Late st Contact Info) Description 02/12/2025 11:00 AM EDT Ancillary Procedure [facility] OB [address] [place] [phone] 02/26/2025 11:10 AM EDT Routine [facility] OB [address] [place] [address] Sarath Tellez DO [address] [place] [address] documented as of this encounter Visit Diagnoses Not on filedocumented in this encounter
--- OUTSIDE RECORDS SUMMARY | 2025-01-29 15:15 | XMS_ITS | Encounter Summary ---
Author Organization [employer] [facility] Address [id number] [address] [place] [address] Care Team Providers Care Streetcar Motorman Name Role Phone No Pcp, No Pcp Primary Care Provider Unavailabl e Reason for Referral * Diagnostic Imaging (Routine) - Closed Specialty Diagnoses / Procedures Referred By Marj fields Referred To Contact Radiology Diagnoses Pain Procedures CT abdomen and pelvis with contrast [facility] [address] [place] [address] Phone: tel: fax: Referral ID Status Reason Start Date Expiration Date Visits Re quested Visits Authorized [id number] Closed 08/08/2022 08/08/2023 1 1 Encounter Details Date Type Department Care Team (Late st Contact Info) Description 08/08/2022 Orders Only [facility] [address] [place] [address] Transcribe, Orders Support User Pain (Primary Dx) Social History Tobacco Use Types Packs/Day Years Used Date Smoking Tobacco: Never Smokeless Tobacco: Never Alcohol Use Standard Drinks/Week Comments Not Currently 0 (1 standard drink = 0.6 oz pur e alcohol) Occasional PHQ-2 Answer Date Recorded Total Score 0 03/16/2022 Childcare Answer Date Recorded Childcare Unknown 02/19/2019 Employment Answer Date Recorded Employment Unknown 02/19/2019 Purpose - Life Answer Date Recorded Purpose and direction in life Unknown Comments No Sex and Gender Information Value Date Recorded Sex Assigned at Not on file Legal Sex Female 11:52 AM EDT Gender Identity Not on file Sexual Orientation Not on file COVID-19 Exposure Response Date Recorded In the last month, have you been in contact with someone who was confirmed or suspected to have Coronavirus / COVID-19? No / Unsure 08/08/2022 8:20 AM EST documented as of this encounter Plan of Treatment Not on file documented as of this encounter Results * CT abdomen and pelvis with contrast (07/29/2022 12:00 PM EST) us Scanning Provider External IMG CT ORDERABLES Fin al Result documented in this encounter Visit Diagnoses Diagnosis Pain- Primary Generalized pain documented in this encounter Additional Health Concerns Infection Onset Date Last Indicated Resolved Time COVID-19 Rule-Out 09/26/2022 09/26/2022 09/26/2022 10:48 AM EST Influenza 09/26/2022 09/26/2022 10/03/2022 11:1 3 PM EST Assessment Noted Time PHQ-9 Depression Total Score: 0 03/16/20 22 3:21 PM EDT documented as of this encounter Care Teams Streetcar Motorman Relationship Specialty Start Date End Date No Pcp, [place] [address] PCP - General Family Medicine 01/05/25 documented as of this encounter
--- OUTSIDE RECORDS SUMMARY | 2025-01-29 15:15 | XMS_ITS | Encounter Summary ---
Author Organization [employer] Address [id number] [address] [place] [address] Care Team Providers Care Vapor Coater Name Role Phone No Pcp, No Pcp Primary Care Provider Unavailabl e Encounter Details Date Type Department Care Team (Late st Contact Info) Description 10/05/2022 Telephone [facility] [address] [place] [phone] [place] [address] [place] [address], [address] [place] [address] Social History Tobacco Use Types Packs/Day Years [...] have Coronavirus / COVID-19? No / Unsure 10/05/2022 10:15 AM EST documented as of this encounter Miscellaneous Notes * Telephone Encounter - Kavita Javi - 10/05/2022 12:56 PM EST After OV scheduled COLON with BA for 11/16 at 1PM LUCRECIA. Instructions explained and given in office. Bowel prep sent to Patti Bradley. documented in this encounter Plan of Treatment Not on file documented as of this encounter Visit Diagnoses Not on filedocumented in this encounter Additional Health Concerns Assessment Noted Time PHQ-9 Depression Total Score: 0 03/16/20 22 3:21 PM EDT documented as of this encounter Care Teams Vapor Coater Relationship Specialty Start Date End Date No Pcp, [place] [address] PCP - General Family Medicine 01/05/25 documented as of this encounter
--- OUTSIDE RECORDS SUMMARY | 2025-01-29 15:15 | XMS_ITS | Encounter Summary ---
Author Organization [facility] [facility] Address [id number] [address] [place] [address] Care Team Providers Care Qlikview Developer Name Role Phone No Pcp, No Pcp Primary Care Provider Unavailabl e Encounter Details Date Type Department Care Team (Late st Contact Info) Description [facility] [address] [place] [address] [address] Craig Pritchard CMA Social History Tobacco Use Types Packs/Day Years Used Date Smoking Tobacco: Never Smokeless Tobacco: Never Alcohol Use Standard Drinks/Week Comments Yes 0 (1 standard drink = 0.6 oz pur e alcohol) Occasional PHQ-2 Answer Date Recorded Total Score 0 08/11/2021 Childcare Answer Date Recorded Childcare Unknown 02/19/2019 [...] have Coronavirus / COVID-19? No / Unsure 08/24/2021 9:19 AM EST documented as of this encounter Plan of Treatment Not on file documented as of this encounter Visit Diagnoses Not on filedocumented in this encounter Additional Health Concerns Infection Onset Date Last Indicated Resolved Time COVID-19 Rule-Out 09/26/2022 09/26/2022 09/26/2022 10:48 AM EST Influenza 09/26/2022 09/26/2022 10/03/2022 11:1 3 PM EST Assessment Noted Time PHQ-9 Depression Total Score: 0 08/11/20 21 9:13 AM EST documented as of this encounter Care Teams Qlikview Developer Relationship Specialty Start Date End Date No Pcp, [place] [address] PCP - General Family Medicine 01/05/25 documented as of this encounter
--- OUTSIDE RECORDS SUMMARY | 2025-01-29 15:15 | XMS_ITS | Encounter Summary ---
Author Organization [employer] [facility] Address [id number] [address] [place] [address] Care Team Providers Care Geography Teacher Name Role Phone No Pcp, No Pcp Primary Care Provider Unavailabl e Encounter Details Date Type Department Care Team (Late st Contact Info) Description 08/08/2022 Orders Only [facility] [address] [place] [address] [place] [address] External, Scanning Provider Social History Tobacco Use Types Packs/Day Years [...] documented as of this encounter Care Teams Geography Teacher Relationship Specialty Start Date End Date No Pcp, [place] [address] PCP - General Family Medicine 01/05/25 documented as of this encounter
--- OUTSIDE RECORDS SUMMARY | 2025-01-29 15:15 | XMS_ITS | Encounter Summary ---
Author Organization [employer] [facility] Address [facility]-[id number] [address] [place] [address] Care Team Providers Care Bearing Inspector Name Role Phone No Pcp, No Pcp Primary Care Provider Unavailabl e Encounter Details Date Type Department Care Team (Late st Contact Info) Description 09/21/2020 [facility] [address] [place] [address] Craig Pritchard CMA Social History Tobacco Use Types Packs/Day Years Used Date Smoking Tobacco: Never Smokeless Tobacco: Never Alcohol Use Standard Drinks/Week Comments Yes 0 (1 standard drink = 0.6 oz pur e alcohol) Occasional PHQ-2 Answer Date Recorded Total Score 0 07/27/2020 Childcare Answer Date Recorded Childcare Unknown 02/19/2019 Employment Answer Date Recorded Employment Unknown 02/19/2019 Purpose - Life Answer Date Recorded Purpose and direction in life Unknown Comments No Sex and Gender Information Value Date Recorded Sex Assigned at Not on file Legal Sex Female 11:52 AM EDT Gender Identity Not on file Sexual Orientation Not on file documented as of this encounter Miscellaneous Notes * Telephone Encounter - Craig Pritchard CMA - 09/21/2020 3:18 PM EST Patient wanted appt for nausea, fatigue, headache x 1 week. I advised she may need covid test first. Advise? Craig Pritchard CMA 09/21/20 1519 * Telephone Encounter - Jhoana Penny APRN-[employer] - 09/21/2020 3:18 PM EST Yes needs covid test * Telephone Encounter - Craig Pritchard CMA - 09/21/2020 3:18 PM EST Sent to [place], [facility] aware documented in this encounter Plan of Treatment Not on file documented as of this encounter Visit Diagnoses Not on filedocumented in this encounter Additional Health Concerns Infection Onset Date Last Indicated Resolved Time COVID-19 Rule-Out 09/26/2022 09/26/2022 09/26/2022 10:48 AM EST Influenza 09/26/2022 09/26/2022 10/03/2022 11:1 3 PM EST Assessment Noted Time PHQ-9 Depression Total Score: 0 07/27/20 20 3:00 PM EST documented as of this encounter Care Teams Bearing Inspector Relationship Specialty Start Date End Date No Pcp, [place] [address] PCP - General Family Medicine 01/05/25 documented as of this encounter
--- OUTSIDE RECORDS SUMMARY | 2025-01-29 15:15 | XMS_ITS | Encounter Summary ---
Author Organization [employer] [facility] Address [facility] [id number] [address] [place] [address] Care Team Providers Care Hand Stonecutter Name Role Phone No Pcp, No Pcp Primary Care Provider Unavailabl e Encounter Details Date Type Department Care Team (Late st Contact Info) Description 03/22/2021 Telephone [facility] [address] [place] [address] [place] [address] Dwight Johnson CMA Social History Tobacco Use Types Packs/Day [...] have Coronavirus / COVID-19? No / Unsure 03/22/2021 1:30 PM EDT documented as of this encounter Miscellaneous Notes * Telephone Encounter - Dwight Holman CMA - 03/22/2021 3:33 PM EDT Called pt to schedule er follow up next week for her headaches. No answer, couldn't leave a voicemail documented in this encounter Plan of Treatment [...] documented as of this encounter Care Teams Hand Stonecutter Relationship Specialty Start Date End Date No Pcp, [place] [address] PCP - General Family Medicine 01/05/25 documented as of this encounter
--- OUTSIDE RECORDS SUMMARY | 2025-01-29 15:15 | XMS_ITS ---
Author Organization [employer] Source Produ ction (ClinicalSummary Clone) Address Unknown Care Team Providers Care Billing Specialist Name Role Phone Unavailable Primary Care Physician Unavailab le Results * [UNITY] ANEUPLOIDY NIPT Performed by: [employer] Component Value Range Date Fraction 11.3% 12/11/2024 06 :17 am UT Rh(D) NIPT RhD DETECTED 12/11/2024 06:1 7 am UT Sex Chromosome Aneuploidy NOT DETECTED 06:17 am UT Monosomy X LOW RISK <1 in 10,000 2024 06:17 am UTC Trisomy 13 LOW RISK <1 in 10,000 2024 06:17 am UTC Trisomy 18 LOW RISK <1 in 10,000 2024 06:17 am UT Trisomy 21 LOW RISK <1 in 10,000 2024 06:17 am UT Sex MALE 12/11/2024 06:1 7 am UT Gestation SANCHEZ 12/12/19 06:17 am [facility] For detailed report, see PDF See PDF 12/11/2024 06:17 am UTC 12/11/2024 06:1 7 am [facility] Social History Observation Value Start Date End Date
--- OUTSIDE RECORDS SUMMARY | 2025-01-29 15:15 | XMS_ITS | Encounter Summary ---
Author Organization [facility] Address [address] [place] [address] Care Team Providers Care Senior Control Systems Engineer Name Role Phone Unavailable Primary Care Provider Unavailabl e Encounter Details Date Type Department Care Team (Late st Contact Info) Description 12/02/2024 Abstract [facility] [address] [place] [id number] Sarath Tellez DO [facility] Charles Gustafson, [facility] Social History Tobacco Use Types Packs/Day Years Used Date Smoking Tobacco: Never Assessed Comments Unknown Sex and Gender Information Value Date Recorded Sex Assigned at Not on file Legal Sex Female 11:47 PM EDT Gender Identity Not on file Sexual Orientation Not on file documented as of this encounter Plan of Treatment Upcoming Encounters Date Type Department Care Team (Late st Contact Info) Description 02/12/2025 11:00 AM EDT Ancillary Procedure [facility] [address] [place] [phone] 02/26/2025 11:10 AM EDT Routine [facility] [address] [place] [id number] Sarath Tellez DO [address], [facility] documented as of this encounter Visit Diagnoses Not on filedocumented in this encounter
--- OUTSIDE RECORDS SUMMARY | 2025-01-29 15:15 | XMS_ITS | Encounter Summary ---
Author Organization [employer] [facility] Address [id number] [address] [place] [address] Care Team Providers Care Electrical Accessories Assembler Name Role Phone No Pcp, No Pcp Primary Care Provider Unavailabl e Encounter Details Date Type Department Care Team (Late st Contact Info) Description 10/05/2020 [facility] [address] [place] [address] [place] [address] Ref Prov, [place] [address] Social History Tobacco Use Types Packs/Day Years [...] have Coronavirus / COVID-19? No / Unsure 10/04/2020 9:48 AM EST documented as of this encounter Plan of Treatment Not on file documented as of this encounter Procedures Procedure Name Priority Date/Time Associated Diagnosis Comments SARS COV 2 (COVID-19) Routine 10/05/2020 documented in this encounter Results * SARS COV 2 (COVID-19) (10/05/2020) NASOPHARYNGEAL us Not In System Ref Prov MICROBIOLOGY - GENERAL OR DERABLES Final Result MANUALLY TRANSCRIBED RESULTS documented in this encounter Visit Diagnoses Not on filedocumented in this encounter Additional Health Concerns Infection Onset Date Last Indicated Resolved Time COVID-19 Rule-Out 09/26/2022 09/26/2022 09/26/2022 10:48 AM EST Influenza 09/26/2022 09/26/2022 10/03/2022 11:1 3 PM EST Assessment Noted Time PHQ-9 Depression Total Score: 0 07/27/20 20 3:00 PM EST documented as of this encounter Care Teams Electrical Accessories Assembler Relationship Specialty Start Date End Date No Pcp, [place] [address] PCP - General Family Medicine 01/05/25 documented as of this encounter
--- OUTSIDE RECORDS SUMMARY | 2025-01-29 15:16 | XMS_ITS | Encounter Summary ---
Author Organization [facility] Address [address] [facility] [place] [address] Care Team Providers Care Mortgage Manager Name Role Phone Unavailable Primary Care Provider Unavailabl e Encounter Details Date Type Department Care Team (Late st Contact Info) Description 01/29/2025 Bamboo flowsheet [facility] [address] [facility] [place] [address] Yee Nj PA [address] [facility] [address] [place], [facility] Social History Tobacco Use Types Packs/Day Years [...] 02/12/2025 11:00 AM EDT Ancillary Procedure [facility] [address] [place] [address] [place] [address] 02/26/2025 11:10 AM EDT Routine [facility] [address] [place], [place] [address] [address] Sarath Tellez DO [address] [facility] [address] Gustafson, [facility] documented as of this encounter Visit Diagnoses Not on filedocumented in this encounter
--- OUTSIDE RECORDS SUMMARY | 2025-01-29 15:16 | XMS_ITS | Clinical Summary ---
Author Organization [facility] Healthcare Address [address] [address] Care Team Providers Care Wet Mixer Name Role Phone Unavailable Primary Care Provider Unavailabl e Allergies No known active allergies Medications ondansetron ODT (Zofran-ODT) 4 MG disintegrating tabletIndications: Nausea and vomiting in Take 1 tablet (4 mg) by mouth every 6 (six) hours if needed for nausea or vomiting for up to 30 doses 30 tablet 2 11/26/19 25 Active metoclopramide (Reglan) 10 MG tablet 12/04/19 25 Active metoclopramide (Reglan) 10 MG tabletIndications: Nausea Take 1 tablet (10 mg) by mouth in the morning and 1 tablet (10 mg) at noon and 1 tablet (10 mg) in the evening. Take before meals. Take 1 tablet by mouth 30 minutes prior to meals 3 times daily as needed for nausea. 90 tablet 01/02/20 25 025 Active naproxen (Naprosyn) 500 MG tablet Take 500 mg by mouth in the morning and 500 mg in the evening. Take with meals. 06/06/20 24 025 Discontinued MV & Min w/FA-DHA ( Gummies) 0.18-25 MG chewable tabletIndications: Encounter for supervision of normal first in first trimester Chew 1 tablet Daily 30 tablet 11 12/05/19 25 025 Active Problems Problem Noted Date Diagnosed Date Nausea and vomiting in 11/25/2024 Estimated Date of Delivery Comme nts Yes 06/17/2025 Based on Ultraso und Encounters Date Type Department Care Team Description 01/29/2025 11:30 AM EDT Routine [facility] [address] [place] [address] Yee Nj PA 20 weeks gestation of ; Second trimester ; Screening, , for anatomic survey; Well woman exam with routine gynecological exam; Vaginal discharge; Exposure to STD 01/29/2025 Bamboo flowsheet [facility] [address] [place] [address] Yee Nj PA 01/08/2025 Telephone [facility] [address] [place] [place] [address] Kasandra Mcdonough MA 01/01/2025 11:20 AM EDT Routine [facility] [address] [place] [address] Alfonso Tellez, Second trimester ; 16 weeks gestation of ; Nausea 01/01/2025 Bamboo flowsheet [facility] [address] [place] [address] Alfonso Tellez, 12/18/2024 Telephone [facility] [address] [place] [place] [address] Dana Flores MA 12/11/2024 Abstract [facility] [address] [place] [address] Alfonso Tellez, 12/04/2024 2:00 PM EDT Initial [facility] OB [address] [place] [address] GA: 12w1d 12/04/2024 Clinisync Result Encounter [facility] External Department Unsolicited Alfonso Tellez, DO 12/02/2024 Abstract [facility] OB [address] [place] [address] Alfonso Tellez, DO 11/25/2024 Clinisync Result Encounter [facility]S External Department Unsolicited Alfonso Tellez, DO 11/25/2024 Telephone [facility] [address] [place] [address] Caryl Díaz LPN 11/21/2024 Telephone [facility] [address] [place] [address] Kasandra Mcdonough MA from Last 3 Months Social History Tobacco Use Types Packs/Day Years Used Date Smoking Tobacco: Never Assessed Estimated Date of Delivery Comme nts Yes 06/17/2025 Based on Ultraso und Sex and Gender Information Value Date Recorded Sex Assigned at Not on file Legal Sex Female 11:47 PM EDT Gender Identity Not on file Sexual Orientation Not on file Last Filed Vital Signs Vital Sign Reading Time Taken Comments Blood Pressure 100/68 01/29/2025 12:02 PM EDT Pulse - - Temperature - - Respiratory Rate - - Oxygen Saturation - - Inhaled Oxygen Concentration - - Weight 64.1 kg (141 lb 6.4 oz) 01/29/2025 12:02 PM EDT Height - - Body Mass Index - - Plan of Treatment Upcoming Encounters Date Type Department Care Team (Late st Contact Info) Description 02/12/2025 11:00 AM EDT Ancillary Procedure [facility] [address] [place] [place] [address] 02/26/2025 11:10 AM EDT Routine [facility] [address] [place] [address] Alfonso Tellez, DO [address] [place] [address] [place] [address] Procedures Procedure Name Priority Date/Time Associated Diagnosis Comments POCT URINALYSIS DIPSTICK Routine 01/29/2025 12:09 PM EDT 20 weeks gestation of Second trimester POCT URINALYSIS DIPSTICK Routine 01/01/2025 11:54 AM EDT Second trimester HBSAG SCREEN Routine 12/04/2024 2:51 PM EDT RAPID PLASMA REAGIN, QUANT Routine 12/04/2024 2:51 PM EDT HCV ANTIBODY RFX TO QUANT PCR Routine 12/04/2024 2:51 PM EDT HIV AB/P24 AG WITH REFLEX Routine 12/04/2024 2:51 PM EDT ALL RUBELLA IGG AB Routine 12/04/2024 2: 51 PM EDT MLR HEMOGLOBIN A1C Routine 12/04/2024 2: 51 PM EDT ALL TYPE AND SCREEN Routine 12/04/2024 2 :51 PM EDT BOX TEST Routine 12/04/2024 2:51 PM EDT ALL CBC WITH AUTO DIFF Routine 12/04/2024 2:51 PM EDT [facility] DRUG SCREEN RAPID (URINE) Routine 12/04/2024 2:35 PM EDT POCT URINALYSIS DIPSTICK Routine 12/04/2024 2:25 PM EDT Missed menses POCT , URINE Routine 12/04/2024 2:24 PM EDT Missed menses US OB L= 14 WEEKS FETUS 11/25/2024 12:56 PM EDT from Last 3 Months Results * POCT urinalysis dipstick manually resulted (01/29/2025 12:09 PM EDT) Only the most recent of3 resultswithin the time period is included. Color, UA Yellow Clarity, UA Cloudy Glucose, UA Negative Negative - 1999(110) ++++ mg/dL Bilirubin, UA Negative Negative - 4(70) +++ mg/dL Ketones, UA Negative Negative - 160(16) ++++ mg/dL Spec Grav, UA 1.020 1 - 1.03 Blood, UA Negative Negative - 50 Zack/mcL pH, UA 7.0 5 - 9 Protein, UA Negative Negative - 1999(20) ++++ mg/dL Urobilinogen, UA 0.2 0.2 - 12 mg/dL Leukocytes, UA Negative Negative - 500+++ Robi/mcL Nitrite, UA Negative Negative - Positive Urine 01/29/2025 12:0 9 PM EDT Yee MEYERS POINT OF CARE TEST ENTER/EDIT OR DERABLES Final Result * BOX TEST (12/04/2024 2:51 PM EDT) [facility] BOX TEST SENT OUT [facility] BOX1 [facility] B[address] 12/04/2024 [facility] 12/04/2024 2:51 PM EDT 12/04/2024 3:02 PM EDT [facility] - 12/04/2024 3:50 PM EDT [facility] Result [facility] Alfonso Rosalinda DO LAB BLOOD ORDERABLES Final Resul t Performing Organization Address [facility]/ZIP Co de Phone Number [facility] * HBSAG SCREEN (12/04/2024 2:51 PM EDT) [facility] HBSAG SCREEN Negative Negative [facility] Comment: Performed at: [address] [id number] Mortgage Originator: Alin Chávez PhD, Phone: [phone] 12/04/2024 2:51 PM EDT 12/04/2024 3:02 PM EDT Narrative [facility] - 12/05/2024 11:08 AM EDT Result [facility] Alfonso Rosalinda DO LAB BLOOD ORDERABLES Final Resul t [facility] * RAPID PLASMA REAGIN, QUANT (12/04/2024 2:51 PM EDT) [facility] RAPID PLASMA REAGIN, QUANT Non Reactive NonRea<1: 1 titer [facility] Comment: Please Note: This test does not meet current guidelines for screening and diagnosis of syphilis. This test is intended for following treatment response in patients being treated for syphilis infection. To screen for syphilis infection, a reflex cascade that includes both RPR and a treponema-specific assay should be utilized, such as Treponema pallidum (Syphilis) Screening [place] (683296) or Rapid Plasma Reagin (RPR) Test With Reflex to Quantitative RPR and Confirmatory Treponema pallidum Antibodies (454504). Performed at: [address] [id number] Mortgage Originator: Alin Chávez PhD, Phone: [phone] 12/04/2024 2:51 PM EDT 12/04/2024 3:02 PM EDT Narrative [facility] - 12/05/2024 11:08 AM EDT Alfonso Rosalinda DO LAB BLOOD ORDERABLES Final Resul t Performing Organization Address [facility] Co de Phone Number [facility] * HIV AB/P24 AG WITH REFLEX (12/04/2024 2:51 PM EDT) Pathologist [facility] HIV AB/P24 AG SCREEN Non Reactive Non Reactive [facility] Comment: HIV-1/HIV-2 antibodies and HIV-1 p24 antigen were NOT detected. There is no laboratory evidence of HIV infection. HIV Negative Performed at: [address] [id number] Mortgage Originator: Alin Chávez PhD, Phone: [phone] 12/04/2024 2:51 PM EDT 12/04/2024 3:02 PM EDT Narrative [facility] - 12/05/2024 5:10 AM EDT us Alfonso Rosalinda DO LAB BLOOD ORDERABLES Final Resul t Performing Organization Address City/[facility]/ZIP Co de Phone Number [facility] * HCV ANTIBODY RFX TO QUANT PCR (12/04/2024 2:51 PM EDT) Pathologist [facility] HCV AB Non Reactive Non Reactive [facility] INTERPRETATION: Comment . TB Comment: Not infected with HCV unless early or acute infection is suspected (which may be delayed in an immunocompromised individual), or other evidence exists to indicate HCV infection. 12/04/2024 2:51 PM EDT 12/04/2024 3:02 PM EDT Narrative [facility] - 12/05/2024 5:10 AM EDT Alfonso Rosalinda DO LAB BLOOD ORDERABLES Final Resul t Performing Organization Address City/[facility]/ZIP Co de Phone Number [facility] * MLR HEMOGLOBIN A1C (12/04/2024 2:51 PM EDT) [facility] GLYCOHEMOGLOBIN A1C 5.5 4.5 - 6.2 % [facility] Comment: ADA RECOMMENDED LIMIT 4.0 - 6.0 ADA THERAPEUTIC TARGET < 7.0 ACTION SUGGESTED > 7.0 ESTIMATED AVERAGE GLUCOSE 111 mg/dL TB 12/04/2024 2:51 PM EDT 12/04/2024 3:02 PM EDT Narrative [facility] - 12/04/2024 4:09 PM EDT [facility] Rosalinda DO CLINISYNC Final Result Performing Organization Address [facility] de Phone Number [facility] * ALL TYPE AND SCREEN (12/04/2024 2:51 PM EDT) [facility] BLOOD TYPE A Positive [facility] ANTIBODY SCREEN NEGATIVE TB 12/04/2024 2:51 PM EDT 12/04/2024 3:02 PM EDT Narrative [facility] - 12/04/2024 4:05 PM EDT [facility] , Alfonso Rosalinda DO CLINISYNC Final Result Performing Organization Address City/[facility] de Phone Number [facility] * ALL RUBELLA IGG AB (12/04/2024 2:51 PM EDT) [facility] RUBELLA ANTIBODIES, IGG 13.70 Immune >0.99 index [facility] Comment: Non-immune <0.90 Equivocal 0.90 - 0.99 Immune >0.99 Performed at: [facility] [address] [id number] Mortgage Originator: Alin Chávez PhD, Phone: [phone] 12/04/2024 2:51 PM EDT 12/04/2024 3:02 PM EDT Narrative [facility] - 12/05/2024 5:10 AM EDT us Alfonso Rosalinda DO CLINISYNC Final Result [facility]NC [facility] * (ABNORMAL) ALL CBC WITH AUTO DIFF (12/04/2024 2:51 PM EDT) TB WBC 5.6 4.0 - 11.0 10 3/uL TBH TBH RBC 3.81(L) 4.20 - 5.40 10 6/uL TBH TBH HGB 11.3(L) 12.0 - 16.0 g/dL TBH TBH HCT 31.9(L) 36.0 - 48.0 % TBH TBH MCV 83.7 81.0 - 99.0 fL TBH TBH MCH 29.7 26.7 - 34.0 pg TBH TBH MCHC 35.4(H) 29.9 - 35.2 g/dL TBH TBH RDW 12.1 11.0 - 15.0 % TBH TBH PLT 211 150 - 450 10 3/uL TBH TBH MPV 9.9 9.5 - 13.5 fL TBH NEUTROPHILS PERCENT AUTO 63.6 43.0 - 75.0 % TBH LYMPHOCYTES PERCENT AUTO 26.7 20.5 - 60.0 % TBH MONOCYTES PERCENT AUTO 7.3 1.7 - 12.0 % TBH TBH EO % 1.6 0.9 - 7.0 % TBH BASOPHILS PERCENT AUTO 0.4 0.2 - 2.0 % TBH IMMATURE GRANULOCYTES PCT AUTO 0.4 0.0 - 0.5 % TBH NEUTROPHILS ABSOLUTE AUTO 3.6 1.4 - 6.5 10 3/uL TBH LYMPHOCYTES ABSOLUTE AUTO 1.5 1.2 - 3.8 10 3/uL TBH MONOCYTES ABSOLUTE AUTO 0.4 0.3 - 0.8 10 3/uL TBH TBH EO # 0.1 0.0 - 0.7 10 3/uL TBH BASOPHILS ABSOLUTE AUTO 0.0 0.0 - 0.1 10 3/uL TBH IMMATURE GRANULOCYTES ABS AUTO 0.02 0.00 - 0.03 10 3/uL [facility]H 12/04/2024 2:51 PM EDT 12/04/2024 3:02 PM EDT Narrative [facility] - 12/04/2024 3:49 PM EDT Alfonso Rosalinda DO CLINISYNC Final Result [facility] TB * TBH DRUG SCREEN RAPID (URINE) (12/04/2024 2:35 PM EDT) CANNABINOID SCREEN URINE NEGATIVE NEGATIVE TBH PHENCYCLIDINE SCREEN URINE NEGATIVE NEGATIVE TBH COCAINE SCREEN URINE NEGATIVE NEGATIVE TBH METHAMPHETAMINES SCREEN URINE NEGATIVE NEGATIVE TBH OPIATE SCREEN URINE NEGATIVE NEGATIVE TBH AMPHETAMINE SCREEN URINE NEGATIVE NEGATIVE TBH BENZODIAZEPINES SCREEN URINE NEGATIVE NEGATIVE TBH TRICYCLIC ANTIDEPRESSANT URINE NEGATIVE NEGATIVE TBH METHADONE SCREEN URINE NEGATIVE NEGATIVE TBH BARBITURATES SCREEN URINE NEGATIVE NEGATIVE TBH OXYCODONE SCREEN URINE NEGATIVE NEGATIVE TBH BUPRENORPHINE SCREEN URINE NEGATIVE NEGATIVE TBH Comment: DRUG CLASS TEST SYSTEM CUT-OFF CONCENTRATIONS ARE FOLLOWS: AMP (Amphetamine): 500 ng/mL BAR (Barbiturates): 200 ng/mL BZO (Benzodiazepines): 150 ng/mL BUP (Buprenorphine): 10 ng/mL MARYANN (Cocaine): 150 ng/mL mAMP (Methamphetamine): 500 ng/mL MTD (Methadone): 200 ng/mL OPI (Opiates): 100 ng/mL OXY (Oxycodone): 100 ng/mL PCP (Phencyclidine): 25 ng/mL THC (Cannabinoids): 50 ng/mL TCA (Trycyclic Antidepressants): 300 ng/mL 12/04/2024 2:35 PM EDT 12/04/2024 3:02 PM EDT Narrative [facility] - 12/04/2024 4:53 PM EDT us Alfonso Rosalinda DO CLINISYNC Final Result [facility] TB * (ABNORMAL) POCT , urine manually resulted (12/04/2024 2:24 PM EDT) Preg Test, Ur Positive Negative Urine 12/04/2024 2:24 PM EDT us Alfonso Tellez DO POINT OF CARE TEST ENTER/EDIT OR DERABLES Final Result * US OB L= 14 WEEKS FETUS (11/25/2024 12:56 PM EDT) Anatomical Region Laterality Modality Other 11/25/2024 12:5 6 PM EDT Narrative 11/25/2024 12:59 [place] [address] Ultrasound Report Signed Patient: MELISSA RAVI MR#: [id number] : 1995 Acct:[id number] Age/Sex: 29 / F ADM Date: 11/25/24 Loc: US Attending Dr: Alfonso Tellez D.O. Ordering Physician: Alfonso Tellez D.O. Date of Service: 11/25/24 Procedure(s): US OB <= 14 weeks fetus Accession Number(s): [id number] cc: Alfonso Tellez D.O.; Physician,Non-Staff MBernard [address] [address] Patient Name: MELISSA RAVI MRN: [facility]:[id number] date: 1995 Sex: F Assigned Patient Location: US Current Patient Location: US Accession/Order Number: [id number] Exam Date: 11/25/2024 12:55 Report Date: 11/25/2024 12:56 At the request of: ALFONSO TELLEZ DO Procedure: US OB <= 14 weeks fetus OB ultrasound. Reason for exam:Missed menses. Comparison:None Technique: Transabdominal imaging of the gravid uterus was obtained. Findings: Single live intrauterine 10 weeks 6 days by CRL , DIANA 06/17/2025. heart rate 176 bpm. Cervix measures 4.5 cm without funneling. US/US OB <= 14 weeks fetus Impression: Single live intrauterine 10 weeks 6 days by CRL, DIANA 06/17/2025. Impression dictated by: Andrés Guerrero Jr., D.O.11/25/2024 12:56 PM Dictation Location: [place] [address] Electronically authenticated by: [id number] Y Date: 11/25/2024 12:56 Dictated By: Andrés Guerrero M.D. Signed By: 11/25/24 1259 DD/ 1256 TD/TT: Instrument Man: Procedure Note Radiology, Radiologist, MD - 11/25/2024 [place] [address] Ultrasound Report Signed Patient: MELISSA RAVI NMR#: [id number] : 1995Acct:[id number] Age/Sex: 29 / FADM Date: 11/25/24 Loc: US Attending Dr: Alfonso Tellez D.O. Ordering Physician: Alfonso Tellez D.O. Date of Service: 11/25/24 Procedure(s): US OB <= 14 weeks fetus Accession Number(s): [id number] cc: Alfonso Tellez D.O.; Physician,Non-Staff Manoj The [address] [id number] Patient Name: MELISSA RAVI MRN: [facility]:[id number] date: 1995 Sex: F Assigned Patient Location: US Current Patient Location: US Accession/Order Number: [id number] Exam Date: 11/25/2024 12:55 Report Date: 11/25/2024 12:56 At the request of: ALFONSO TELLEZ DO Procedure: US OB <= 14 weeks fetus OB ultrasound. Reason for exam:Missed menses. Comparison:None Technique: Transabdominal imaging of the gravid uterus was obtained. Findings: Single live intrauterine 10 weeks 6 days by CRL , DIANA 06/17/2025. heart rate 176 bpm. Cervix measures 4.5 cm without funneling. US/US OB <= 14 weeks fetus Impression: Single live intrauterine 10 weeks 6 days by CRL, DIANA 06/17/2025. Impression dictated by: Andrés Guerrero Jr., D.O.11/25/2024 12:56 PM Dictation Location: [place] [address] Electronically authenticated by: [id number] Y Date: 2:56 Dictated By: Andrés Guerrero M.D. Signed By:11/25/24 1259 DD/ 1256 TD/TT: Instrument Man: us Alfonso Rosalinda DO [facility] IMAGING Final Result from Last 3 Months Insurance [employer]
[2025-02-03 12:08] LABS: Age Gdln ACOG Testing Note (.); IGP, rfx Aptima HPV ASCU Note (.)
== END 2025-01-29 15:14 | disposition home or self-care (01) ==
LOC: LAB 15:13
PROVIDERS: Visit Provider Physician Assistant
DX: Z01.419 Encounter for gynecological examination (general) (routine) without abnormal findings (principal)
CPT/HCPCS: 88175

== ENCOUNTER 2025-05-18 08:42 | Observation (INO) | payer OTHER, SELFPAY ==
--- OUTSIDE RECORDS SUMMARY | 2025-05-12 10:50 | XMS_ITS | Encounter Summary ---
Author Organization [facility] Address [address] [place] [address] Care Team Providers Care Receivable Executive Name Role Phone Jj Mitchell FOOD WRITER Unavailable Reason for Visit * Reason Comments Routine Visit Encounter Details Date Type Department Care Team (Late st Contact Info) Description 05/12/2025 10:50 AM EDT Routine [facility] Janay OBQUINN [address] [place] [phone] Yee Nj PA [address] [place], [facility] 34 weeks gestation of ([facility]); Third trimester ([facility]); H/O cold sores Social History Tobacco Use Types Packs/Day Years [...] Sign Reading Time Taken Comments Blood Pressure 110/70 05/12/2025 11:20 AM EDT Pulse - - Temperature - - Respiratory Rate - - Oxygen Saturation - - Inhaled Oxygen Concentration - - Weight 67.5 kg (148 lb 12.8 oz) 025 11:20 AM EDT Height - - Body Mass Index 26.36 03/11/2025 4:18 PM EDT documented in this encounter Progress Notes * LUIGI Lyons - 05/12/2025 10:50 AM EDT Reason for Appointment: Patient ID: Melissa Chen is a 29 y.o. female who presents for Routine Visit Patient presents today for Post Follow Up appointment. MEDICATIONS Current Outpatient Medications Medication Instructions metoclopramide (Reglan) 10 MG tablet metoclopramide (REGLAN) 10 mg, Oral, 3 times daily before meals, Take 1 tablet by mouth 30 minutes prior to meals 3 times daily as needed for nausea. ondansetron ODT (ZOFRAN-ODT) 4 mg, Oral, Every 6 hours PRN Vit-Fe Fumarate-FA ( 19) chewable tablet valACYclovir (VALTREX) 500 mg, Oral, Daily ALLERGIES No Known Allergies PROBLEMS Active Ambulatory Problems Diagnosis Date Noted Nausea and vomiting in ([facility]) 11/25/2024 History of canker sores 03/11/2025 Resolved Ambulatory Problems Diagnosis Date Noted No Resolved Ambulatory Problems Past Medical History: Diagnosis Date H/O cold sores HISTORY PAST MEDICAL HISTORY SOCIAL HISTORY Past Medical History: Diagnosis Date H/O cold sores Verified with pt 04/27/2025 Social History Tobacco Use Smoking status: Not [...] Appearance: Normal appearance. She is normal weight. HENT: Head: Normocephalic. Cardiovascular: Rate and Rhythm: [...] normal. Vitals and nursing note reviewed. Vitals: Estimated body mass index is 26.36 kg/m?? as calculated from the following: Height as of 7/2/25: 5' 3 . Weight as of this encounter: 148 lb 12.8 oz. BP: 110/70 Patient's last menstrual period was 10/09/2024. ASSESSMENT & PLAN ICD-10-CM 1. 34 weeks gestation of ([facility]) Z3A.34 POCT urinalysis dipstick manually resulted 2. Third trimester ([facility]) Z34.93 POCT urinalysis dipstick manually resulted 3. H/O cold sores Z86.19 Return OB: Patient presents today for a routine obstetrics appointment. Patient is currently 34w6d . Patient states she is doing well but has complaints of being tired due to current . Patient has verbalizes frequent movement. labor precautions was discussed/given and patient was instructed to perform kick counts three times a day. Orders Placed This Encounter Procedures POCT urinalysis dipstick manually resulted Follow Up: Patient is to return to office in 2 week for routine OB appointment. Documented by LUIGI Lyons on behalf of: LUIGI Lyons documented in this encounter Plan of Treatment Upcoming Encounters Date Type Department Care Team (Late st Contact Info) Description 05/26/2025 10:50 AM EDT Routine [facility] Janay OBGYN [address] [place] [phone] Sarath Tellez DO [address] [place], [place] [id number] documented as of this encounter Procedures Procedure Name Priority Date/Time Associated Diagnosis Comments POCT URINALYSIS DIPSTICK Routine 05/12/2025 11:27 AM EDT 34 weeks gestation of ([facility]) Third trimester ([facility]) documented in this encounter Results * (ABNORMAL) POCT urinalysis dipstick manually resulted (05/12/2025 11:27 AM EDT) Color, UA [place] Clarity, UA Clear Glucose, UA Negative Negative - 2000(110) ++++ mg/dL Bilirubin, UA Negative Negative - 4(70) +++ mg/dL Ketones, UA Negative Negative - 160(16) ++++ mg/dL Spec Grav, UA 1.030 1 - 1.03 Blood, UA Negative Negative - 50 Zack/mcL pH, UA 6.0 5 - 9 Protein, UA Positive Negative - 2000(20) ++++ mg/dL Urobilinogen, UA >=8.0 0.2 - 12 mg/dL Comment:17 Leukocytes, UA Negative Negative - 500+++ Robi/mcL Nitrite, UA Negative Negative - Positive Urine 05/12/2025 11:2 7 AM EDT Yee MEYERS POINT OF CARE TEST ENTER/EDIT OR DERABLES Final Result documented in this encounter Visit Diagnoses Diagnosis 34 weeks gestation of ([facility]) Third trimester ([facility]) state, incidental H/O cold sores documented in this encounter Care Teams Receivable Executive Relationship Specialty Start Date End Date Jj Mitchell NP PCP - [facility] 12/09/2408/09 documented as of this encounter
--- OUTSIDE RECORDS SUMMARY | 2025-05-18 08:45 | XMS_ITS | Encounter Summary ---
Author Organization [employer] [facility] Address [id number] [address] [place] [address] Care Team Providers Care Marketing Development Representative Name Role Phone No Pcp, No Pcp Primary Care Provider Unavailabl e Reason for Referral * Diagnostic Imaging (Routine) - Closed Specialty Diagnoses / Procedures Referred By Marj fields Referred To Contact Radiology Diagnoses Pain Procedures CT abdomen and pelvis with contrast [facility] [address] [place] [address] Phone: tel: fax: Referral ID Status Reason Start Date Expiration Date Visits Re quested Visits Authorized [id number] Closed 08/08/2022 08/08/2023 1 1 Encounter Details Date Type Department Care Team (Late st Contact Info) Description 08/08/2022 Orders Only [facility] [address] [place] [address] Transcribe, Orders Support User Pain [...] documented as of this encounter Care Teams Marketing Development Representative Relationship Specialty Start Date End Date No Pcp, [place] [address] PCP - General Family Medicine 01/05/25 documented as of this encounter
--- OUTSIDE RECORDS SUMMARY | 2025-05-18 08:45 | XMS_ITS | Encounter Summary ---
Author Organization [employer] [facility] Address [id number] [address] [place] [address] Care Team Providers Care Forensic Computer Examiner Name Role Phone No Pcp, No Pcp Primary Care Provider Unavailabl e Encounter Details Date Type Department Care Team (Late st Contact Info) Description 10/05/2020 [facility] [address] [place] [address] [address] [address] Ref Prov, [place] [address] Social History Tobacco Use Types Packs/Day Years [...] documented as of this encounter Care Teams Forensic Computer Examiner Relationship Specialty Start Date End Date No Pcp, [place] [address] PCP - General Family Medicine 01/05/25 documented as of this encounter
--- OUTSIDE RECORDS SUMMARY | 2025-05-18 08:45 | XMS_ITS | Encounter Summary ---
Author Organization [facility] Address [id number] [address] [place] [address] Care Team Providers Care Generating Plant Superintendent Name Role Phone No Pcp, No Pcp Primary Care Provider Unavailabl e Encounter Details Date Type Department Care Team (Late st Contact Info) Description 03/22/2021 Telephone [facility] [address] [place] [address] Dwight Johnson CMA Social History [...] documented as of this encounter Care Teams Generating Plant Superintendent Relationship Specialty Start Date End Date No Pcp, [place] [address] PCP - General Family Medicine 01/05/25 documented as of this encounter
--- OUTSIDE RECORDS SUMMARY | 2025-05-18 08:45 | XMS_ITS | Encounter Summary ---
Author Organization [facility] Address [address] [place] [address] Care Team Providers Care Motor Polarizer Name Role Phone Jj Mitchell SCRAP COLLECTOR Unavailable Encounter Details Date Type Department Care Team (Late st Contact Info) Description 02/10/2025 Orders Only SENAIT LEBRON [address] [place] [address] Robyn Welch LPN [address] [place] [facility]11 Social History Tobacco Use Types Packs/Day Years [...] Info) Description 05/26/2025 10:50 AM EDT Routine NOMBenji LEBRON [address] [facility] [place] [address] Sarath Tellez DO [address] [facility] [address] [place], [place] [address] documented as of this encounter Procedures Procedure Name Priority Date/Time Associated Diagnosis Comments PAP SMEAR Routine 01/29/2025 12:00 AM EDT documented in this encounter Results * Pap Smear (01/29/2025 12:00 AM EDT) Swab Cervical swab / Unknown us Rosalinda Nurse Noms Bcp Ob LAB CYTOLOGY ORDERABLES Final Result EXTERNAL LAB documented in this encounter Visit Diagnoses Not on filedocumented in this encounter Care Teams Motor Polarizer Relationship Specialty Start Date End Date Jj Mitchell [facility] 12/09/2408/09 documented as of this encounter
--- OUTSIDE RECORDS SUMMARY | 2025-05-18 08:45 | XMS_ITS | Encounter Summary ---
Author Organization [employer] [facility] Address [id number] [address] [place] [address] Care Team Providers Care Security Control Assessor Name Role Phone No Pcp, No Pcp Primary Care Provider Unavailabl e Encounter Details Date Type Department Care Team (Late st Contact Info) Description 08/23/2021 [facility]phone [facility] [address] [place] [address] [address] [place] [address] Craig Pritchard CMA Social History [...] documented as of this encounter Care Teams Security Control Assessor Relationship Specialty Start Date End Date No Pcp, [place] [address] PCP - General Family Medicine 01/05/25 documented as of this encounter
--- OUTSIDE RECORDS SUMMARY | 2025-05-18 08:45 | XMS_ITS | Encounter Summary ---
Author Organization [facility] Address [address] [place] [address] Care Team Providers Care Stone And Plate Preparer Apprentice Name Role Phone Jj Mitchell TICKET DISPATCHER Unavailable Encounter Details Date Type Department Care Team (Late st Contact Info) Description 03/18/2025 Abstract NOMBenji LEBRON [address] [facility] [place] [address] Dana Flores MA Social History Tobacco Use Types Packs/Day Years [...] Info) Description 05/26/2025 10:50 AM EDT Routine SENAIT LEBRON [address] [facility] [place] [phone] Sarath Tellez DO [address] [facility] [address] [place], [place] [phone] documented as of this encounter Visit Diagnoses Not on filedocumented in this encounter Care Teams Stone And Plate Preparer Apprentice Relationship Specialty Start Date End Date Jj Mitchell NP PCP - [facility] 12/09/2408/09 documented as of this encounter
--- OUTSIDE RECORDS SUMMARY | 2025-05-18 08:45 | XMS_ITS | Clinical Summary ---
Author Organization [facility] Address [address] [place] [address] Care Team Providers Care Otologist Name Role Phone Edwin Mitchell PHARMACY SERVICE ASSOCIATE Unavailable Allergies No known active allergies Medications ondansetron ODT (Zofran-ODT) 4 MG disintegrating tabletIndications:N ausea and vomiting in ([facility]) Take 1 tablet (4 mg) by mouth every 6 (six) hours if needed for nausea or vomiting for up to 30 doses 30 tablet 2 5 Active metoclopramide (Reglan) 10 MG tablet 5 Active metoclopramide (Reglan) 10 MG tabletIndications:N ausea Take 1 tablet (10 mg) by mouth in the morning and 1 tablet (10 mg) at noon and 1 tablet (10 mg) in the evening. Take before meals. Take 1 tablet by mouth 30 minutes prior to meals 3 times daily as needed for nausea. 90 tablet 5 Active Vit-Fe Fumarate-FA ( 19) chewable tablet 5 Active valACYclovir (Valtrex) 500 MG tabletIndications:H /O cold sores Take 1 tablet (500 mg) by mouth Daily 30 tablet 11 5 05/27/20 25 Active Active Problems Problem Noted Date Diagnosed Date History of canker sores 03/11/2025 Nausea and vomiting in ([facility]) 11/25 Estimated Date of Delivery Comme nts Yes 06/17/2025 Based on Ultraso und Encounters Date Type Department Care Team Description 05/12/2025 10:50 AM EDT Routine SENAIT Gustafson OBGYWilli [address] [facility] [facility] [place] [address] Yee Nj PA 34 weeks gestation of ([facility]); Third trimester ([facility]); H/O cold sores 05/12/2025 Bamboo flowsheet [facility] Janay LEBRON [address] [place] [address] Yee Nj PA 04/27/2025 10:50 AM EDT Routine [facility] Janay Skinner [facility] [place] [address] Sarath Tellez, Third trimester ([facility]); 32 weeks gestation of ([facility]); H/O cold sores 04/27/2025 Bamboo flowsheet [facility] Janay Skinner [facility] [place] [address] Sarath Tellez DO 04/09/2025 9:40 AM EDT Routine [facility] Janay Skinner [facility] [place] [address] Yee Nj PA Third trimester ([facility]); 30 weeks gestation of ([facility]) 04/09/2025 9:00 AM EDT Ancillary Procedure [facility] Janay Skinner [facility] [place] [address] Size of fetus inconsistent with dates in first trimester ([facility]) 03/26/2025 2:00 PM EDT Routine [facility] Janay Skinner [facility] [place] [address] Yee Nj PA Size of fetus inconsistent with dates in first trimester ([facility]) (Primary Dx); Third trimester ([facility]); 28 weeks gestation of ([facility]) 03/26/2025 Bamboo flowsheet [facility] Janay DUPREEGYN [address] [facility] [place] [address] Yee Nj PA 03/18/2025 Abstract [facility] Janay Skinner [facility] [place] [address] Dana Flores MA 03/11/2025 4:00 PM EDT [facility] [address] [place] [address] [place] [phone] Sarath Tellez DO Third trimester ([facility] 26 weeks gestation of ([facility]); History of canker sores; Diabetes mellitus screening 03/11/2025 Bamboo flowsheet N[facility] Janay LEBRON [address] [place] [address] [place] [phone] Sarath Tellez DO 03/10/2025 Abstract [place] [address] [place] [address] Yee Chen LPN 03/10/2025 Patient Outreach [place] [address] [place] [address] Yee Chen LPN from Last 3 Months Social History Tobacco [...] 12.8 oz) 025 11:20 AM EDT Height 160 cm (5' 3 ) 03/11/2025 4:18 PM EDT Body Mass Index 26.36 03/11/2025 4:18 PM EDT Plan of Treatment Upcoming Encounters Date Type Department Care Team (Late st Contact Info) Description 05/26/2025 10:50 AM EDT [facility] [address] [place] [address] [place] [phone] Sarath Tellez DO [address] [facility] [place] [address] Health Maintenance Due Date Last Done Comments Influenza Vaccine (#1) 2025 Procedures Procedure Name Priority Date/Time Associated Diagnosis Comments POCT URINALYSIS DIPSTICK Routine 05/12/2025 11:27 AM EDT 34 weeks gestation of ([facility]) Third trimester ([facility]) POCT URINALYSIS DIPSTICK Routine 04/27/2025 1:44 PM EDT Third trimester ([facility]) 32 weeks gestation of ([facility]) US OB FOLLOW UP TRANSABDOMINAL APPROACH Routine 04/09/2025 9:25 AM EDT Size of fetus inconsistent with dates in first trimester ([facility]) GLU 1 H POST 50G LOAD ([facility]) Routine 03/17/2025 9:44 AM EDT CBC WITH AUTO DIFFERENTIAL Routine 03/17/2025 9:44 AM EDT POCT URINALYSIS DIPSTICK Routine 03/11/2025 4:23 PM EDT Third trimester ([facility]) from Last 3 Months Results * (ABNORMAL) POCT urinalysis dipstick manually resulted (05/12/2025 11:27 AM EDT) Only the most recent of3 resultswithin the time period is included. Color, UA [place]ara Clarity, UA Clear Glucose, UA Negative Negative - 1999(110) ++++ mg/dL Bilirubin, UA Negative Negative - 4(70) +++ mg/dL Ketones, UA Negative Negative - 160(16) ++++ mg/dL Spec Grav, UA 1.030 1 - 1.03 Blood, UA Negative Negative - 50 Zack/mcL pH, UA 6.0 5 - 9 Protein, UA Positive Negative - 1999(20) ++++ mg/dL Urobilinogen, UA >=8.0 0.2 - 12 mg/dL Comment:17 Leukocytes, UA Negative Negative - 500+++ Robi/mcL Nitrite, UA Negative Negative - Positive Urine 05/12/2025 11:2 7 AM EDT Yee MEYERS POINT OF CARE TEST ENTER/EDIT OR DERABLES Final Result * US OB follow up transabdominal approach (04/09/2025 9:25 AM EDT) Anatomical Region Laterality Modality Body Ultrasound 04/10/2025 8:26 AM EDT Narrative 04/10/2025 8:26 AM EDT EXAM: US OB FOLLOW UP TRANSABDOMINAL APPROACH HISTORY: Inconsistent size. COMPARISON: Ob ultrasound 02/12/2025. TECHNIQUE: Two-dimensional transabdominal grayscale ultrasound imaging of the pelvis was performed. FINDINGS: Gestation: Single Presentation: Cephalic Cardiac Activity: 138 beats per minute Amniotic Fluid Index: 17.7 cm MEASUREMENTS: BPD: 7.0 cm EGA: 28 weeks 2 days HC: 26.8 cm EGA: 29 weeks 1 days AC: 26.0 cm EGA: 30 weeks 1 days FL: 5.8 cm EGA: 30 weeks 4 days HC/AC Ratio: 1.03 The gestational age by today's ultrasound is 29 weeks 4 days (+/- 14 days gestation). Estimated Weight: 1498 grams, +/- 225 grams ( 3 lb 5 oz). Weight Percentile for gestational age: 33 % IMPRESSION: 1. Single, live intrauterine gestation 30 weeks, 1 days by LMP. Today's ultrasound measurements correlate with a gestational age of 29 weeks 4 days. Estimated weight is 1498 grams, +/- 225 grams ( 3 lb 5 oz) which correlates to 33 %. DIANA by today's ultrasound is 06/21/2025. Interpreted by: Electronically signed by EDWIN GATICA II, MD, PHD at 10-Apr-2025 08:25:24 AM [facility] Procedure Note Edwin Gatica MD - 04/10/2025 EXAM: US OB FOLLOW UP TRANSABDOMINAL APPROACH HISTORY: Inconsistent size. COMPARISON: Ob ultrasound 02/12/2025. TECHNIQUE: Two-dimensional transabdominal grayscale ultrasound imaging ofthe pelvis was performed. FINDINGS: Gestation: Single Presentation: Cephalic Cardiac Activity: 138 beats per minute Amniotic Fluid Index: 17.7 cm MEASUREMENTS: BPD: 7.0 cm EGA: 28 weeks 2 days HC: 26.8 cm EGA: 29 weeks 1 days AC: 26.0 cm EGA: 30 weeks 1 days FL: 5.8 cm EGA: 30 weeks 4 days HC/AC Ratio: 1.03 The gestational age by today's ultrasound is 29 weeks 4 days (+/- 14 daysgestation). Estimated Weight: 1498 grams, +/- 225 grams ( 3 lb 5 oz). Weight Percentile for gestational age: 33 % IMPRESSION: 1. Single, live intrauterine gestation 30 weeks, 1 days by LMP. Today'sultrasound measurements correlate with a gestational age of 29 weeks 4days. Estimated weight is 1498 grams, +/- 225 grams ( 3 lb 5 oz)which correlates to 33 %. DIANA by today's ultrasound is 06/21/2025. Interpreted by: Electronically signed by EDWIN GATICA II, MD, PHD [id number] 08:25:24 AM [facility] us Yee MEYERS IMG OB US PROCEDURES Final Resul t * GLU 1 H POST 50G LOAD ([facility]) (03/17/2025 9:44 AM EDT) GLU 1 H POST 50G LOAD 132 65 - 139 mg/dL [facility] Comment: PERFORMED AT [facility] [address],[place] [address] 03/17/2025 9:44 AM EDT 03/17/2025 12:56 PM EDT us Sarath Rosalinda DO LAB BLOOD ORDERABLES Final Resul t [facility] * (ABNORMAL) CBC auto differential (03/17/2025 9:44 AM EDT) WHITE BLOOD CELL COUNT, WBC 8.8 4 - 11 x10E9/L [facility] RED BLOOD CELL COUNT, RBC 3.79(L) 3.8 - 5.2 X10E12/L [facility] HEMOGLOBIN 11.4(L) 11.7 - 15.5 g/dL [facility] HEMATOCRIT 33.3(L) 35 - 47 % [facility] MEAN CELL VOLUME, MCV 88 80 - 100 fL [facility] MEAN CELL HEMOGLOBIN, MCH 29.9 27 - 34 pg [facility] MEAN CELL HEMOGLOGIN CONCENTRATION, MCHC 34.1 32 - 36 g/dL [facility] RED CELL DISTRIBUTION WIDTH, RDW 13.2 11.5 - 15 % [facility] PLATELET COUNT 201 150 - 450 X10E9/L [facility] MEAN PLATELET VOLUME, MPV 9.1 7 - 12 fL [facility] % NEUTROPHILS 74.9 % [facility] % LYMPHOCYTES 18.9 % [facility] % MONOCYTES 4.8 % [facility] % EOSINOPHILS 1.2 % [facility] % BASOPHILS 0.2 % [facility] ABSOLUTE NEUTROPHIL 6.6 1.5 - 6.6 10*3/uL [facility] ABSOLUTE LYMPHOCYTE 1.7 1.0 - 3.5 10*3/uL [facility] ABSOLUTE MONOCYTE 0.4 0.0 - 0.9 10*3/uL [facility] ABSOLUTE EOSINOPHIL 0.1 0.0 - 0.4 10*3/uL [facility] ABSOLUTE BASOPHIL 0.0 0.0 - 0.2 10*3/uL [facility] DIFFERENTIAL TYPE AUTOMATED DIFFERENTIAL [facility] Comment: PERFORMED AT [facility] [address],[place] [address] 03/17/2025 9:44 AM EDT 03/17/2025 12:56 PM EDT us Sarath Rosalinda DO LAB BLOOD ORDERABLES Final Resul t [facility] from Last 3 Months Insurance [employer] Care Teams Otologist Relationship Specialty Start Date End Date Edwin Mitchell NP [facility] 12/09/2408/09
--- OUTSIDE RECORDS SUMMARY | 2025-05-18 08:45 | XMS_ITS ---
Author Organization [facility] Source Produ ction (ClinicalSummary Clone) Address Unknown Care Team Providers Care Tank House Operator Name Role Phone Unavailable Primary Care Physician Unavailab le Results * [UNITY] ANEUPLOIDY NIPT Performed by: [employer] Value Range Date Fraction 11.3% 12/11/2024 [...] am UT Gestation SANCHEZ 12/12/19 06:17 am [facility] For detailed report, see PDF See PDF 12/11/2024 06:17 am UTC 12/11/2024 06:1 7 am [facility] Social History Observation Value Start Date End Date
--- OUTSIDE RECORDS SUMMARY | 2025-05-18 08:45 | XMS_ITS | Encounter Summary ---
Author Organization [facility] Address [address] [place] [address] Care Team Providers Care Collection Specialist Name Role Phone Jj Mitchell RECREATION THERAPIST Unavailable Encounter Details Date Type Department Care Team (Late st Contact Info) Description 12/11/2024 Abstract NOMBenji LEBRON [address] [facility] [place] [phone] Sarath Tellez DO [address] [facility] [address] [place], [place] [address] Social History Tobacco Use Types Packs/Day Years [...] 10:50 AM EDT Routine SENAIT LEBRON [address] [facility] [place] [phone] Sarath Tellez DO [address] [facility] [address] [place], [place] [address] documented as of this encounter Visit Diagnoses Not on filedocumented in this encounter Care Teams Collection Specialist Relationship Specialty Start Date End Date jJ Mitchell NP PCP - [facility] 12/09/2408/09 documented as of this encounter
--- OUTSIDE RECORDS SUMMARY | 2025-05-18 08:45 | XMS_ITS | Clinical Summary ---
Author Organization [employer] Address [id number] [address] [place] [address] Care Team Providers Care Professional Application Designer Name Role Phone No Pcp, No Pcp Primary Care Provider Unavailabl e Allergies No known active allergies Medications ondansetron (ZOFRAN) 4 mg tablet Take 1 tablet (4 mg total) by mouth every 8 (eight) hours as needed for nausea or vomiting. Active Active Problems Problem Noted Date Diagnosed Date Lower abdominal pain 08/08/2022 Family history of Crohn's disease 08/08/2022 Slow transit constipation 08/08/2022 Enterocolitis 08/08/2022 Herpes simplex infection 12/07/2021 Vaginal burning 08/24/2021 Dysuria 08/24/2021 Cold sore 08/17/2021 Gardnerella associated vaginal discharge 021 Exposure to genital herpes 08/11/2021 Well woman exam with routine gynecological exam 08/11/2021 Vitamin B 12 deficiency 05/03/2021 Urinary frequency 05/02/2021 Vaginal itching 05/02/2021 Chronic daily headache 10/04/2020 Nausea 09/21/2020 Other headache syndrome 09/21/2020 Corns and callus 07/27/2020 History of self-harm 07/11/2017 Estimated Date of Delivery Comme nts Yes 06/17/2025 Based on Ultraso und Resolved Problems Problem Noted Date Diagnosed Date Resolved Date Wound check, abscess 04/14/2020 021 Poor growth affecting management of mother in second trimester 08/10/2017 10/04/2020 Late care affecting in second trimester 05/30/2017 10/04/2020 Encounters Date Type Department Care Team Description 04/05/2025 11:28 PM EDT - 04/06/2025 1:31 AM EDT Hospital Encounter [facility] [address] [place] [phone] Shanelle Varma, ALEXEI-Hanna Lacey MD Discharge Disposition: Home 03/17/2025 Travel from Last 3 Months Family History Medical History Relation Name Comments No Known Problems Brother Diabetes Mother Hypertension Mother No Known Problems Sister Relation Name Status Comments Brother Mother Sister Social History Tobacco Use Types Packs/Day Years Used Date Smoking Tobacco: Never Smokeless Tobacco: Never Tobacco Cessation:Counseling Given: Not Answered Alcohol Use Standard Drinks/Week Comments Not Currently 0 (1 standard drink = 0.6 oz pur e alcohol) Occasional PHQ-2 Answer Date Recorded Total Score 0 03/16/2022 Housing Instability Answer Date Recorde d Are you worried or concerned that in the next two months you may not have stable housing that you own, rent or stay in as a part of a household? No 04/05/2025 Childcare Answer Date Recorded Childcare Unknown 02/19/2019 Employment Answer Date Recorded Employment Unknown 02/19/2019 Hunger Screening Answer Date Recorded Within the past 12 months we worried whether our food would run out before we got money to buy more. Never True 04/05/2025 Within the past 12 months th e food we bought just didn't last and we didn't have money to get more. Never True 04/05/2025 Purpose - Life Answer Date Recorded Purpose and direction in life Unknown Estimated Date of Delivery Comme nts Yes 06/17/2025 Based on Ultraso und Sex and Gender Information Value Date Recorded Sex Assigned at Not on file Legal Sex Female 11:52 AM EDT Gender Identity Not on file Sexual Orientation Not on file Last Filed Vital Signs Vital Sign Reading Time Taken Comments Blood Pressure 118/68 04/05/2025 11:37 PM EDT Pulse 90 04/05/2025 11:37 PM EDT Temperature 36.7 C (98 F) 04/05/2025 11:37 PM EDT Respiratory Rate 18 04/05/2025 11:37 PM EDT Oxygen Saturation 100% 04/05/2025 11:37 PM EDT Inhaled Oxygen Concentration - - Weight 61.7 kg (136 lb) 01/05/2025 4:30 AM EDT Height 160 cm (5' 3 ) 01/05/2025 4:30 AM EDT Body Mass Index 24.09 01/05/2025 4:30 AM EDT Plan of Treatment Health Maintenance Due Date Last Done Comments Depression Screening 2008 DTaP,Tdap and Td Vaccines (1 - Tdap) 2015 Influenza Vaccine 05/11/2025 Adult BMI Screening 01/05/2026 01/05/2025 Tobacco Screening 04/06/2026 04/06/2025 Pap Smear 01/30/2028 01/29/2025, 08/11/2021 Medical Devices Not on file Procedures Procedure Name Priority Date/Time Associated Diagnosis Comments URINALYSIS STAT 04/06/2025 12:09 AM EDT URINE CULTURE STAT 04/06/2025 12:09 AM EDT GLU 1H POST 50G LOAD Routine 03/17/2025 9:44 AM EDT Encounter for screening for diabetes mellitus CBC WITH AUTO DIFFERENTIAL Routine 03/17/2025 9:44 AM EDT Encounter for screening for diabetes mellitus GLUCOSE TOLERANCE, 1 HR 50GM LOAD ( PATIENTS ONLY) Routine 03/17/2025 9:44 AM EDT Encounter for screening for diabetes mellitus PAP SMEAR Routine 08/11/2021 10:45 AM EST Well woman exam with routine gynecological exam from Last 3 Months or Most Recently Relevant to Health Maintenance Results * Urinalysis (04/06/2025 12:09 AM EDT) COLOR Yellow Yellow, Colorless 04/06/2025 1:02 AM EDT [facility] TURBIDITY Clear Clear 04/06/2025 1:02 AM EDT [facility] SPECIFIC GRAVITY 1.025 1.003 - 1.035 04/06 1:02 AM EDT [facility] NITRITE Negative Negative 04/06/2025 1:02 AM EDT [facility] PH,URINE 6.0 5.0 - 8.5 04/06/2025 1:02 AM EDT [facility] LEUKOCYTE ESTERASE Negative Negative 04/06/2025 1:02 AM EDT [facility] PROTEIN Negative Negative 04/06/2025 1:02 AM EDT [facility] KETONES (URINE) Negative Negative 1:02 AM EDT [facility] UROBILINOGEN 1.0 eu/dL 0.2 eu/dL, 1.0 eu/dL 04/06/2025 1:02 AM EDT [facility] BILIRUBIN (URINE) Negative Negative 04/06/2025 1:02 AM EDT [facility] BLOOD/HGB Negative Negative 04/06/2025 1:02 AM EDT [facility] GLUCOSE (URINE) Negative Negative, 250 mg/dL 04/06/2025 1:02 AM EDT [facility] Urine Urine specimen collection, clean catch / Unknown 04/06/2025 12:09 AM EDT 04/06/2025 12:14 AM EDT us Shanelle STEVENS URINE ORDERABLES Fin al Result [facility] [address] [place] [address], [place] * Urine Culture Urine, Clean Catch Midstream (04/06/2025 12:09 AM EDT) CULTURE RESULTS 10-50,000 ORGANISMS/mL NORMAL UROGENITAL SUNDEEP 04/07/2025 6:36 AM EDT [facility] Urine Urine specimen collection, clean catch / Unknown 04/06/2025 12:09 AM EDT 04/06/2025 12:14 AM EDT Shanelle A Kojo READING INTERVENTION TEACHER-CNM MICROBIOLOGY - GENER AL ORDERABLES Final Result [facility] [address] [place] [address], * Glucose 1h post 50g load (03/17/2025 9:44 AM EDT) GLUCOSE, 1HR POST 50GM LOAD 132 65 - 139 mg/dL 03/17/2025 2:01 PM EDT [facility] Blood Venous blood / Unknown Venipuncture / Unknown 03/17/2025 9:44 AM EDT 03/17/2025 9:44 AM EDT us Sarath Tellez DO LAB BLOOD ORDERABLES Final Resu lt Performing Organization Address City/[facility]/ZIP Co de Phone Number [facility] [address] [place] [address], * (ABNORMAL) CBC auto differential (03/17/2025 9:44 AM EDT) WBC 8.8 4 - 11 x10E9/L 03/17/2025 1:18 PM EDT [facility] RBC Count 3.79(L) 3.8 - 5.2 X10E12/L 03/17/2025 1:18 PM EDT [facility] Hemoglobin 11.4(L) 11.7 - 15.5 g/dL 03/17/2025 1:18 PM EDT [facility] Hematocrit 33.3(L) 35 - 47 % 03/17/2025 1:18 PM EDT [facility] MCV 88 80 - 100 fL 03/17/2025 1:18 PM EDT [facility] MCH 29.9 27 - 34 pg 03/17/2025 1:18 PM EDT [facility] MCHC 34.1 32 - 36 g/dL 03/17/2025 1:18 PM EDT [facility] RDW 13.2 11.5 - 15 % 03/17/2025 1:18 PM EDT [facility] Platelet Count 201 150 - 450 X10E9/L 03/17/2025 1:18 PM EDT [facility] MPV 9.1 7 - 12 fL 03/17/2025 1:18 PM EDT [facility] Neutrophils % 74.9 % 03/17/2025 1:18 PM EDT [facility] Lymphocytes % 18.9 % 03/17/2025 1:18 PM EDT [facility] Monocytes % 4.8 % 03/17/2025 1:18 PM EDT [facility] Eosinophils % 1.2 % 03/17/2025 1:18 PM EDT [facility] Basophils % 0.2 % 03/17/2025 1:18 PM EDT [facility] Neutrophils Absolute (A) 6.6 1.5 - 6.6 10*3/uL 03/17/2025 1:18 PM EDT [facility] Lymphocytes Absolute 1.7 1.0 - 3.5 10*3/uL 03/17/2025 1:18 PM EDT [facility] Monocytes Absolute 0.4 0.0 - 0.9 10*3/uL 03/17/2025 1:18 PM EDT [facility] Eosinophils Absolute 0.1 0.0 - 0.4 10*3/uL 03/17/2025 1:18 PM EDT [facility] Basophils Absolute 0.0 0.0 - 0.2 10*3/uL 03/17/2025 1:18 PM EDT [facility] Differential Type AUTOMATED DIFFERENTIAL 03/17/2025 1:18 PM EDT [facility] Blood Venous blood / Unknown Venipuncture / Unknown 03/17/2025 9:44 AM EDT 03/17/2025 9:44 AM EDT us Sarath R Rosalinda DO LAB BLOOD ORDERABLES Final Resu lt [facility] [address] [place] [address], * Pap Smear (08/11/2021 10:45 AM EST) 08/11/2021 10:4 5 AM EST 08/12/2021 10:46 AM EST Narrative COP[facility] - 08/16/2021 1:56 PM EST [facility] [address] [place] [address] Gynecologic Cytology Consultation Patient Name: MELISSA RAVI : 1995 (Age: 25) Gender: F Taken: 08/11/2021 Reported: 08/16/2021 Physician(s): Jhoana Penny CNP ([phone]) Copy To: [facility]. Rec. #: [id number] Acct: # [id number] Final Cytologic Interpretation ThinPrep Pap Test (Vaginal/Cervical): Satisfactory for evaluation. A transformation zone component was not noted. NEGATIVE FOR INTRAEPITHELIAL LESION OR MALIGNANCY. Shift in sundeep suggestive of bacterial vaginosis. Anucleate squamous cells consistent with hyperkeratosis are present. Comment: This ThinPrep slide could not be successfully imaged by the [employer] Imaging System so it was manually screened. [facility]/08/16/2021 Interpretation performed at [facility], [address] [place] [address], License number: [id number]. Electronically Signed Out By PILAR Emmanuel(ASCP) Date of Last Menstrual Period: 08/03/2021 Other Clinical Conditions: Z01.419 Ordering Machine Operator exam wo/abn findings Source of Specimen ThinPrep Pap Test (Vaginal/Cervical) Thin Prep Pap (GAS TRANSFER OPERATOR) Fee Code(s): G0145, G0145 <CR>, G0123 The Pap test is a screening test with an inherent, but low, probability of error. The Pap test is primarily effective for the diagnosis and prevention of squamous cell carcinoma. Regular screening is critical for prevention. ThinPrep liquid-based slides, which meet the Store Receiving Specialist criteria for automated screening, have been screened by the ThinPrep Imaging System (as of 05/27/07) along with an additional manual rescreening by a conveyor belt operator and, if indicated, by a pathologist. Jhoana Penny READING INTERVENTION TEACHER-COAL DRIER OPERATOR PATHOLOGY/CYTOLOGY ORDERABLES Final Result [facility] from Last 3 Months or Most Recently Relevant to Health Maintenance Insurance [place] [employer] [employer] Care Teams Professional Application Designer Relationship Specialty Start Date End Date No Pcp, No Pcp JUAN [place] [id number] PCP - General Family Medicine 01/05/25
--- OUTSIDE RECORDS SUMMARY | 2025-05-18 08:45 | XMS_ITS | Encounter Summary ---
Author Organization [employer] [facility] Address [id number] [address] [place] [address] Care Team Providers Care Sedimentationist Name Role Phone No Pcp, No Pcp Primary Care Provider Unavailabl e Encounter Details Date Type Department Care Team (Late st Contact Info) Description 08/08/2022 Orders Only [facility] [address] [place] [address] [address] [place] [address] External, Scanning Provider Social History [...] documented as of this encounter Care Teams Sedimentationist Relationship Specialty Start Date End Date No Pcp, [place] [id number] PCP - General Family Medicine 01/05/25 documented as of this encounter
--- OUTSIDE RECORDS SUMMARY | 2025-05-18 08:45 | XMS_ITS | Encounter Summary ---
Author Organization [facility] Address [address] [place] [address] Care Team Providers Care Slitting Machine Operator Helper Name Role Phone Jj Mitchell SMALL KICK PRESS OPERATOR Unavailable Encounter Details Date Type Department Care Team (Late st Contact Info) Description 03/10/2025 Abstract [facility] [address] [place] [id number] Yee Chen, SANDRA [address] [facility] [address] Social History Tobacco Use Types Packs/Day Years [...] AM EDT Routine [facility] [address] [place] [address] Sarath Tellez DO [address] [place] [address] documented as of this encounter Visit Diagnoses Not on filedocumented in this encounter Care Teams Slitting Machine Operator Helper Relationship Specialty Start Date End Date Jj Mitchell NP PCP - [facility] 12/09/2408/09 documented as of this encounter
--- OUTSIDE RECORDS SUMMARY | 2025-05-18 08:45 | XMS_ITS | Encounter Summary ---
Author Organization [facility] Address [address] [place] [address] Care Team Providers Care Hotel Operation Manager Name Role Phone Jj Mitchell QUALITY ASSURANCE MONITOR CHASSIS Unavailable Encounter Details Date Type Department Care Team (Late st Contact Info) Description 12/02/2024 Abstract [facility] [address] [place] [address] [place] [phone] Sarath Tellez DO [facility] [address] [place], [facility] Social History Tobacco Use Types Packs/Day Years [...] 05/26/2025 10:50 AM EDT Routine [facility] LE[facility] [address] [place], [place] [address] [phone] Sarath Tellez DO [address] [place], [place] [address] documented as of this encounter Visit Diagnoses Not on filedocumented in this encounter Care Teams Hotel Operation Manager Relationship Specialty Start Date End Date Jj Mitchell NP PCP - [facility] 12/09/2408/09 documented as of this encounter
--- OUTSIDE RECORDS SUMMARY | 2025-05-18 08:45 | XMS_ITS | Encounter Summary ---
Author Organization [facility] Address [address] [facility] [place] [address] Care Team Providers Care Form Grader Name Role Phone Jj Mitchell HEEL CASER Unavailable Encounter Details Date Type Department Care Team (Late st Contact Info) Description 05/12/2025 Bamboo flowsheet [facility]ON [address] [place] [place] [address] Yee Nj PA [address] [place], [place] [address] Social History Tobacco Use Types Packs/Day Years [...] 10:50 AM EDT Routine [facility] LE[facility]ON [address] [place], [phone] Sarath Tellez DO [address] [place], [place] [address] documented as of this encounter Visit Diagnoses Not on filedocumented in this encounter Care Teams Form Grader Relationship Specialty Start Date End Date Jj Mitchell NP PCP - [facility] 12/09/2408/09 documented as of this encounter
--- OUTSIDE RECORDS SUMMARY | 2025-05-18 08:45 | XMS_ITS | Encounter Summary ---
Author Organization [email or web address] Address [id number] [address] [place] [address] Care Team Providers Care Wire Lather Name Role Phone No Pcp, No Pcp Primary Care Provider Unavailabl e Encounter Details Date Type Department Care Team (Late st Contact Info) Description 10/05/2022 Telephone [facility] [address] [place] [phone] [place] [address] [place] [address], [address] [place] [address] Social History Tobacco Use Types [...] documented as of this encounter Care Teams Wire Lather Relationship Specialty Start Date End Date No Pcp, [place] [address] PCP - General Family Medicine 01/05/25 documented as of this encounter
--- OUTSIDE RECORDS SUMMARY | 2025-05-18 08:48 | XMS_ITS | CCD ---
Author Organization [facility] Care Team Providers Care Sales Support Representative Name Role Phone BHARATI HESS Primary Care Unavailable DR DANNY SMITH Admitting Unavailable SARAH, DR DANNY Kerns Attending Unavailable MAGDI, DR CESAR Davila Consulting Unavailabl e NADERER, DR DANNY Kerns Consulting Unavailable SHIRA MORENO Consulting Unavailable Unavailable Primary Care Provider Unavailabl e NO PCP, NO PCP Primary Care Unavailable CHRISTINE RUSSLEL Attending Unavailable NO PCP, NO PCP Primary Care Unavailable RYANN CORBETT Attending Unavailable NO PCP, NO PCP Primary Care Unavailable GUERITA CEDEÑO Attending Unavailable NO PCP, NO PCP Primary Care Unavailable RYANN CORBETT Attending Unavailable ALFONSO TELLEZ Referring Unavailable NO PCP, NO PCP Primary Care Unavailable JOSH HATFIELD Admitting Unavailable JOSH HATFIELD Attending Unavailable NO PCP, NO PCP Primary Care Unavailable Edwin Mitchell NP Unavailable ALFONSO TELLEZ Attending Unavailable YEE SHIELDS Attending Unavailable ALFONSO TELLEZ Attending Unavailable YEE SHIELDS Attending Unavailable YEE SHIELDS Attending Unavailable ALFONSO TELLEZ Attending Unavailable YEE SHIELDS Attending Unavailable Medications Current Medications Medication Drug Class(es) Dates Sig (Normalized) Sig (Original) metoclopramide 10 mg oral tablet (20 sources) Dopamine-2 Receptor Antagonist Start: 12-03-2024 End: 01-31-2025 metoclopramide (Reglan) 10 MG tablet Indications: Nausea Take 1 tablet (10 mg) by mouth in the morning and 1 tablet (10 mg) at noon and 1 tablet (10 mg) in the evening. Take before meals. Take 1 tablet by mouth 30 minutes prior to meals 3 times daily as needed for nausea. 90 tablet 01/01/2025 Active naproxen 500 mg oral tablet (5 sources) Nonsteroidal Anti-inflammatory Drug Start: 06-06-2024 take 1 tablet by mouth in the morning naproxen (Naprosyn) 500 MG tablet Take 500 mg by mouth in the morning and 500 mg in the evening. Take with meals. 06/06/2024 Active ondansetron 4 mg disintegrating oral tablet (20 sources) Serotonin-3 Receptor Antagonist Start: 11-25-2024 take 1 tablet by mouth every six hours for nausea ondansetron ODT (Zofran-ODT) 4 MG disintegrating tablet Indications: Nausea and vomiting in ([facility]) Take 1 tablet (4 mg) by mouth every 6 (six) hours if needed for nausea or vomiting for up to 30 doses 30 tablet 2 11/25/2024 Active Vit-Fe Fumarate-FA ( 19) chewable tablet (13 sources) Start: 12-08-2024 Vit-Fe Fumarate-FA ( 19) chewable tablet 12/08/2024 Active valACYclovir 500 mg oral tablet (5 sources) Herpesvirus Nucleoside Analog DNA Polymerase Inhibitor, Herpes Simplex Virus Nucleoside Analog DNA Polymerase Inhibitor, Herpes Zoster Virus Nucleoside Analog DNA Polymerase Inhibitor Start: 04-27-2025 End: 05-27-2025 take 1 tablet by mouth once daily valACYclovir (Valtrex) 500 MG tablet Indications: H/O cold sores Take 1 tablet (500 mg) by mouth Daily 30 tablet 11 04/27/2025 05/27/2025 Active Completed/Discontinued Medications Medication Drug Class(es) Dates Sig (Normalized) Sig (Original) MV & Min w/FA-DHA ( Gummies) 0.18-25 MG chewable tablet (5 sources) Start: 12-04-2024 End: 01-03-2025 MV & Min w/FA-DHA ( Gummies) 0.18-25 MG chewable tablet Indications: Encounter for supervision of normal first in first trimester Chew 1 tablet Daily 30 tablet 11 12/04/2024 01/03/2025 Start: 12-04-2024 End: 01-03-2025 MV & Min w/FA-DHA ( Gummies) 0.18-25 MG chewable tablet Indications: Encounter for supervision of normal first in first trimester Chew 1 tablet Daily 30 tablet 11 12/04/2024 01/03/2025 Active Problems Active Problems Problem Classification Problem Date Documented Da te Episodic/Chronic Abdominal pain (7 sources) Unspecified abdominal pain; Translations: [Right lower quadrant pain] Onset: 07-29-2022 Episodic Menstrual disorders (1 source) Missed period; Translations: [Irregular menstruation, unspecified] 12-04-2024 Chronic Nausea and vomiting (2 sources) Nausea; Translations: [Nausea] 01-01-2025 Episodic Noninfectious gastroenteritis (1 source) Noninfective gastroenteritis and colitis, unspecified; Translations: [NONINFECTIVE GE AND COLITIS UNS] Onset: 08-10-2022 Episodic Other complications of (2 sources) size does not accord with dates; Translations: [Uterine size-date discrepancy, first trimester] 03-26-2025 Episodic Other complications of (1 source) Other specified related conditions, third trimester; Translations: [Other specified related conditions, third trimester] Onset: 04-05-2025 Episodic Other gastrointestinal disorders (15 sources) H/O: Disorder; Translations: [Personal history of other diseases of the digestive system] Onset: 03-11-2025 03-11-2025 Episodic Other infections; including parasitic (4 sources) H/O: viral illness; Translations: [Personal history of other infectious and parasitic diseases] 04-27-2025 Episodic Other and delivery including normal (14 sources) ; Translations: [Encounter for supervision of normal , unspecified, unspecified trimester] 12-04-2024 Episodic Other screening for suspected conditions (not mental disorders or infectious disease) (4 sources) Patient encounter status; Translations: [Encounter for screening for diabetes mellitus] Onset: 06-22-2024 03-11-2025 Episodic Residual codes; unclassified (2 sources) Gestation period, 16 weeks; Translations: [16 weeks gestation of ] 01-01-2025 Episodic Residual codes; unclassified (2 sources) Gestation period, 26 weeks; Translations: [26 weeks gestation of ] 03-11-2025 Episodic Residual codes; unclassified (2 sources) Gestation period, 28 weeks; Translations: [28 weeks gestation of ] 03-26-2025 Episodic Residual codes; unclassified (2 sources) Gestation period, 30 weeks; Translations: [30 weeks gestation of ] 04-09-2025 Episodic Residual codes; unclassified (2 sources) Gestation period, 32 weeks; Translations: [32 weeks gestation of ] 04-27-2025 Episodic Residual codes; unclassified (2 sources) Gestation period, 34 weeks; Translations: [34 weeks gestation of ] 05-12-2025 Episodic Unclassified (1 source) CONTACT W/AND (SUSP) EXPOS COVID-19; Translations: [CONTACT W/AND (SUSP) EXPOS COVID-19] Onset: 08-10-2022 Unclassified (1 source) Acute Intoxication Onset: 09-20-2024 Urinary tract infections (1 source) Urinary tract infection, site not specified; Translations: [UTI SITE NOT SPECIFIED] Onset: 08-10-2022 Episodic Past or Other Problems Problem Classification Problem Date Documented Da te Episodic/Chronic Alcohol-related disorders (1 source) Alcohol use, unspecified with intoxication, uncomplicated; Translations: [Alcohol use, unspecified with intoxication, uncomplicated] Onset: 09-20-2024 Episodic Nonspecific chest pain (4 sources) Other chest pain; Translations: [Chest pain, unspecified] Onset: 06-06-2024 Episodic Other complications of (20 sources) Vomiting of , unspecified; Translations: [Unspecified vomiting of , unspecified as to episode of care or not applicable] Onset: 11-25-2024 11-25-2024 Episodic Other female genital disorders (1 source) Unspecified condition associated with female genital organs and menstrual cycle; Translations: [Unspecified condition associated with female genital organs and menstrual cycle] Onset: 01-05-2025 Episodic Other injuries and conditions due to external causes (1 source) Laceration - injury Onset: 06-22-2024 Episodic Results Test Name Value Interpretation Reference Range Facility Urinalysis macro (dipstick) panel (U)on 05-12-2025 Bilirubin, UA Negative Negative - 4(70) +++ mg/dL [facility] Blood, UA Negative Negative - 50 Zack/mcL [facility] Clarity, UA Clear [facility] Color, UA [facility] Glucose, UA Negative Negative - 2000(110) ++++ mg/dL [facility] Interpretation and review of laboratory results Abnormal [facility] Ketones, UA Negative Negative - 160(16) ++++ mg/dL [facility] Leukocytes, UA Negative Negative - 500+++ Robi/mcL [facility] Nitrite, UA Negative Negative - Positive [facility] pH, UA 6 5 - 9 [facility] Protein, UA Positive Negative - 1999(20) ++++ mg/dL [facility] Spec Grav, UA 1.03 1 - 1.03 [facility] Urobilinogen, UA >=8.0 0.2 - 12 mg/dL [facility] Comment on above: 17 [facility] Urinalysis macro (dipstick) panel (U)on 04-27-2025 Bilirubin, UA Negative Negative - 4(70) +++ mg/dL [facility] Blood, UA Negative Negative - 50 Zakc/mcL [facility] Clarity, UA Clear [facility] re Color, UA Yellow [facility] Gl[facility], UA Negative Negative - 1999(110) ++++ mg/dL [facility] Interpretation and review of laboratory results Normal [facility] Ketones, UA Negative Negative - 160(16) ++++ mg/dL [facility] Leukocytes, UA Negative Negative - 500+++ Robi/mcL [facility] Nitrite, UA Negative Negative - Positive [facility] pH, UA 5.5 5 - 9 [facility] Protein, UA Negative Negative - 1999(20) ++++ mg/dL [facility] Spec Grav, UA 1.02 1 - 1.03 [facility] Urobilinogen, UA 1.0 0.2 - 12 mg/dL [facility] OB FOLLOW UP TRANSABDOMIN AL APPROACHon 04-09-2025 US OB FOLLOW UP TRANSABDOMINAL APPROACH EXAM: US OB FOLLOW UP TRANSABDOMINAL APPROACH [...] II, MD, PHD at 10-Apr-2025 08:25:24 AM [facility] Normal Not Available Comment on above: Order Comment: US OB SCAN FOR GROWTH Estimated Date of Delivery: 06/17/25 Gestational Age as of 03/26/2025: 28w1d URINALYSISon 04-06-2025 Bilirubin Ql (U) Negative Normal Negative [facility] Comment on above: Performed By: #### U A #### [facility] ([address] [address] VIR BLOOD/HGB Negative Normal Negative [facility] Comment on above: Performed By: #### U A #### [facility] ([address] [address] VIR Color (U) Yellow Normal Yellow, Colorless [facility] Comment on above: Performed By: #### U A #### [facility] ([address] [address] VIR Glucose Ql (U) Negative Normal Negative, 250 mg/dL [facility] Comment on above: Performed By: #### U A #### [facility] ([address] [address] VIR Ketones Ql (U) Negative Normal Negative [facility] Comment on above: Performed By: #### U A #### [facility] ([address] [address] VIR Leukocyte esterase Test strip Ql (U) Negative Normal Negative [facility] Comment on above: Performed By: #### U A #### [facility] ([facility]) [address] [place] [address] VIR Nitrite Ql (U) Negative Normal Negative [facility] Comment on above: Performed By: #### U A #### [facility] ([facility]) [address] [place] [address] [place] [address] VIR PH,URINE 6.0 Normal 5.0-8.5 [facility] Comment on above: Performed By: #### U A #### [facility] ([facility]) [address] [place] [address] [place] [address] VIR Protein Ql (U) Negative Normal Negative [facility] Comment on above: Performed By: #### U A #### [facility] ([facility]) [address] [place] [address] [place] [address] VIR Specific gravity (U) [Rel density] 1.025 Normal 1.003-1.035 [facility] Comment on above: Performed By: #### U A #### [facility] ([facility]) [address] [place] [address]. [place] [address] VIR TURBIDITY Clear Normal Clear [facility] Comment on above: Performed By: #### U A #### [facility] ([facility]) [address] [place] [address]. [place] [address] VIR UROBILINOGEN 1.0 eu/dL Normal 0.2 eu/dL, 1.0 eu/dL [facility] Comment on above: Performed By: #### U A #### [facility] ([facility]) [address] [place] [address]. [place] [address] VIR URINE CULTUREon 04-06-2025 Bacteria identified Cx Nom (U) CULTURE RESULTS 10-50,000 ORGANISMS/mL NORMAL UROGENITAL SANNA Normal [facility] Comment on above: Performed By: #### U C #### [facility] ([facility]) [address] [place] [address] VIR CBC WITH AUTO DIFFERENTIALon 03-17-2025 BASOPHILS ABSOLUTE COUNT (10*3/UL) BY AUTOMATED COUNT 0.0 10*3/uL Normal 0.0-0.2 [facility] Comment on above: Performed By: #### C BCA #### [facility] ([facility]) [address] [place] [address] VIR BASOPHILS RELATIVE PERCENT BY AUTOMATED COUNT 0.2 % Normal [facility] Comment on above: Performed By: #### C BCA #### [facility] ([facility]) [address] [place] [address] VIR CELLAVISION DIFFERENTIAL TYPE AUTOMATED DIFFERENTIAL Normal [facility] Comment on above: Performed By: #### C BCA #### [facility] ([facility]) [address] [place] [address] VIR Eosinophils (Bld) [#/Vol] 0.1 10*3/uL Normal 0.0-0.4 [facility] Comment on above: Performed By: #### C BCA #### [facility] ([facility]) [address] [place] [address] VIR EOSINOPHILS RELATIVE PERCENT BY AUTOMATED COUNT 1.2 % Normal [facility] Comment on above: Performed By: #### C BCA #### [facility] ([facility]) [address] [place] [address] VIR Erythrocyte distribution width (RBC) [Ratio] 13.2 % Normal 11.5-15 [facility] Comment on above: Performed By: #### C BCA #### [facility] ([facility]) [address] [place] [address] VIR Hematocrit (Bld) [Volume fraction] 33.3 % Low 35-47 [facility] Comment on above: Performed By: #### C BCA #### [facility] ([facility]) [address] [place] [address] VIR Hemoglobin (Bld) [Mass/Vol] 11.4 g/dL Low 11.7-15.5 [facility] Comment on above: Performed By: #### C BCA #### [facility] ([facility]) [address] [place] [address] VIR LYMPHOCYTES ABSOLUTE COUNT (10*3/UL) BY AUTOMATED COUNT 1.7 10*3/uL Normal 1.0-3.5 [facility] Comment on above: Performed By: #### C BCA #### [facility] ([facility]) [address] [place] [address] VIR LYMPHOCYTES RELATIVE PERCENT BY AUTOMATED COUNT 18.9 % Normal [facility] Comment on above: Performed By: #### C BCA #### [facility] ([facility]) [address] [place] [address] VIR MCH (RBC) [Entitic mass] 29.9 pg Normal 27-34 [facility] Comment on above: Performed By: #### C BCA #### [facility] ([facility]) [address] [place] [address] VIR MCHC (RBC) [Mass/Vol] 34.1 g/dL Normal 32-36 [facility] Comment on above: Performed By: #### C BCA #### [facility] ([facility]) [address] [place] [address] VIR MCV (RBC) [Entitic vol] 88 fL Normal 80-100 [facility] Comment on above: Performed By: #### C BCA #### [facility] ([facility]) [address] [place] [address] VIR MONOCYTES ABSOLUTE COUNT (10*3/UL) BY AUTOMATED COUNT 0.4 10*3/uL Normal 0.0-0.9 [facility] Comment on above: Performed By: #### C BCA #### [facility] ([facility]) [address] [place] [address] VIR MONOCYTES RELATIVE PERCENT BY AUTOMATED COUNT 4.8 % Normal [facility] Comment on above: Performed By: #### C BCA #### [facility] ([facility]) [address] [place] [address] VIR NEUTROPHILS ABSOLUTE COUNT BY AUTOMATED COUNT 6.6 10*3/uL Normal 1.5-6.6 [facility] Comment on above: Performed By: #### C BCA #### [facility] ([facility]) [address] [place] [address] VIR NEUTROPHILS RELATIVE PERCENT BY AUTOMATED COUNT 74.9 % Normal [facility] Comment on above: Performed By: #### C BCA #### [facility] ([facility]) [address] [place] [address] VIR Platelet mean volume (Bld) [Entitic vol] 9.1 fL Normal 7-12 [facility] Comment on above: Performed By: #### C BCA #### [facility] ([facility]) [address] [place] [address] VIR Platelets (Bld) [#/Vol] 201 10*3/uL Normal 150-450 [facility] Comment on above: Performed By: #### C BCA #### [facility] ([facility]) [address] [place] [address] VIR RBC COUNT 3.79 X10E12/L Low 3.8-5.2 [facility] Comment on above: Performed By: #### C BCA #### [facility] ([facility]) [address] [place] [address] VIR WBC (Bld) [#/Vol] 8.8 10*3/uL Normal 4-11 [facility] Comment on above: Performed By: #### C BCA #### [facility] ([facility]) [address] [place] [address] VIR GLU 1H POST 50G LOADon 03-17 GLUCOSE, 1HR POST 50GM LOAD 132 mg/dL Normal 65-139 [facility] Comment on above: Performed By: #### G L1 #### [facility] ([facility]) [address] [place] [address] VIR Urinalysis macro (dipstick) panel (U)on 03-11-2025 Bilirubin, UA Negative Negative - 4(70) +++ mg/dL [facility] Blood, UA Negative Negative - 50 Zack/mcL [facility] Clarity, UA Clear [facility] Color, UA Yellow [facility] Glucose, UA Negative Negative - 1999(110) ++++ mg/dL [facility] Interpretation and review of laboratory results Normal [facility] Ketones, UA Negative Negative - 160(16) ++++ mg/dL [facility] Leukocytes, UA Negative Negative - 500+++ Robi/mcL [facility] Nitrite, UA Negative Negative - Positive [facility] pH, UA 6 5 - 9 [facility] Protein, UA Negative Negative - 2000(20) ++++ mg/dL [facility] Spec Grav, UA 1.025 1 - 1.03 [facility] Urobilinogen, UA 1.0 0.2 - 12 mg/dL [facility] US OB 14+ WEEKS ANATOMY SCAN on 02-12-2025 US OB 14+ WEEKS ANATOMY SCAN EXAM: US OB 14+ WEEKS ANATOMY SCAN HISTORY: anatomy. COMPARISON: None available. TECHNIQUE: Two-dimensional transabdominal grayscale ultrasound imaging of the pelvis was performed. FINDINGS: Gestation: Single Presentation: Cephalic Cardiac Activity: 150 beats per minute Placental Location: Anterior with no sonographic abnormalities identified. Distance from Placental Tip to Cervix: 3.6 cm Cervical Length: 4.1 cm Amniotic Fluid: Appears adequate MEASUREMENTS: BPD: 5.2 cm EGA: 21 weeks 6 days HC: 19.3 cm EGA: 21 weeks 4 days AC: 16.9 cm EGA: 21 weeks 6 days FL: 3.9 cm EGA: 22 weeks 4 days HC/AC Ratio: 1.14 The gestational age by today's ultrasound is 22 weeks 0 days (+/- 11 days gestation). Estimated Weight: 475 grams, +/- 71 grams ( 1 lb 1 oz). Weight Percentile for gestational age: 41 % ANATOMY C-Spine: Unremarkable T-Spine: Unremarkable L-Spine: Unremarkable Sacrum: Unremarkable Four Chamber Heart: Unremarkable LVOT: Unremarkable RVOT: Unremarkable Stomach: Unremarkable Kidneys: Unremarkable Bladder: Unremarkable Diaphragm: Unremarkable Cord insertion: Unremarkable Cord vessels: Three Lateral Ventricles: Unremarkable Cerebellum: Unremarkable Cisterna Magna: Unremarkable Posterior Fossa: Unremarkable Right Femur: Unremarkable Left Femur: Unremarkable Right Tib/Fib: Unremarkable Left Tib/Fib: Unremarkable Right Rad/Ulnar: Unremarkable Left Rad/Ulnar: Unremarkable Right Humerus: Unremarkable Left Humerus: Unremarkable Nose/Lips: Unremarkable Profile: Unremarkable Orbits: Unremarkable IMPRESSION: 1. Single, live intrauterine gestation 22 weeks, 1 days by LMP. Today's ultrasound measurements correlate with a gestational age of 22 weeks 0 days. Estimated weight is 475 grams, +/- 71 grams ( 1 lb 1 oz) which correlates to 41 %. DIANA is 06/18/2025. 2. Unremarkable ultrasound of the anatomy. Interpreted by: Electronically signed by EDWIN GATICA II, MD, PHD at 13-Feb-2025 08:26:15 AM [facility] Normal Not Available Comment on above: Order Comment: US OB ANATOMY SINGLE W US OB CERVICAL LENGTH Estimated Date of Delivery: 06/17/25 Gestational Age as of 01/29/2025: 20w1d IGP,APTIMA HPV,AGE GDLNon AGE GDLN ACOG TESTING Note . [facility] Comment on above: TESTS RESULT FLAG UN ITS REF RANGE LAB Clinician Provided Cytology Information Source.............End[facility]ix Other.............. No. of containers..01 ThinPrep Vial Age Algo ACOG Teresa... FLAG LEGEND: L-Low Normal,H-High Normal,LL-Alert Low,HH-Alert High <-Panic Low,>-Panic High,A-Abnormal,AA-Critical Abnormal Performed at: 01 =G [facility] [place] [address] Anju Capps MD, IGP, RFX APTIMA HPV ASCU Note . [facility] Comment on above: TESTS RESULT FLAG UN ITS REF RANGE LAB DIAGNOSIS: 02 NEGATIVE FOR INTRAEPITHELIAL LESION OR MALIGNANCY. THIS SPECIMEN WAS RESCREENED PART OF OUR [employer]AC[employer] MEMBER PROGRAM. Specimen adequacy: 02 Satisfactory for evaluation. Endocervical and/or squamous metaplastic cells (endocervical component) are present. Performed by: Maru Charles, Strategic Communications Specialist QC reviewed by: Maru Sargent, Strategic Communications Specialist ([facility]) . 02 Note: Note 02 The Pap smear is a screening test designed to aid in the detection of premalignant and malignant conditions of the uterine cervix. It is not a diagnostic procedure and should not be used as the sole means of detecting cervical cancer. Both false-positive and false-negative reports do occur. Test Methodology: Note 02 This liquid based ThinPrep(R) pap test was screened with the use of an image guided system. . 02 The HPV DNA reflex criteria were not met with this specimen result therefore, no HPV testing was performed. FLAG LEGEND: L-Low Normal,H-High Normal,LL-Alert Low,HH-Alert High <-Panic Low,>-Panic High,A-Abnormal,AA-Critical Abnormal Performed at: [address] [facility] [address] [address] Anju Capps MD, Performed at: =G - [facility] [address] [id number] Building Wrecker: Anju Capps MD, Phone: [phone] Performed at: - [facility] [address] [id number] Building Wrecker: Anju Capps MD, Phone: [phone] [facility] BASIC METABOLIC PANELon -2 Anion gap [Moles/Vol] 4 mmol/L Low 5-15 [facility] Comment on above: Performed By: #### B MP #### [facility] ([address] [address] VIR Calcium [Mass/Vol] 8.2 mg/dL Low 8.5-10.5 [facility] Comment on above: Performed By: #### B MP #### [facility] ([address] [place] [address] VIR Chloride [Moles/Vol] 108 mmol/L Normal 98-109 [facility] Comment on above: Performed By: #### B MP #### [facility] ([address] [place] [address] VIR CO2 [Moles/Vol] 21 mmol/L Low 22-32 [facility] Comment on above: Performed By: #### B MP #### [facility] ([address] [place] [address] VIR Creatinine [Mass/Vol] 0.68 mg/dL Normal 0.40-1.00 [facility] Comment on above: Result Comment: METH OD TRACEABLE TO IDMS STANDARD Performed By: #### B MP #### [facility] ([address] [address] VIR EGFR (CKD-EPI) NON-RACE DEPENDENT >^90 Normal >=60 [facility] Comment on above: Result Comment: eGFR not reported due to non-numeric value for Creatinine. Reported eGFR is based on the CKD-EPI 2020 equation that does not use a race coefficient. Performed By: #### B MP #### [facility] ([address] [address] VIR Glucose [Mass/Vol] 93 mg/dL Normal 65-99 [facility] Comment on above: Performed By: #### B MP #### [address] [address] VIR Potassium [Moles/Vol] 3.6 mmol/L Normal 3.5-5.0 [facility] Comment on above: Performed By: #### B MP #### [facility] ([address] [address] VIR Sodium [Moles/Vol] 133 mmol/L Low 134-146 [facility] Comment on above: Performed By: #### B MP #### [facility] ([address] [address] VIR Urea nitrogen [Mass/Vol] 13 mg/dL Normal 5-23 [facility] Comment on above: Performed By: #### B MP #### [facility] ([address] [address] VIR CBC WITH AUTO DIFFERENTIALon 01-05-2025 BASOPHILS ABSOLUTE COUNT (10*3/UL) BY AUTOMATED COUNT 0.0 10*3/uL Normal [facility] Comment on above: Performed By: #### C BCA #### [facility] ([facility]) [address] [place], [place] [address] [address] VIR BASOPHILS RELATIVE PERCENT BY AUTOMATED COUNT 0.3 % Normal [facility] Comment on above: Performed By: #### C BCA #### [facility] ([facility]) [address] [place] [address] [place] [address] VIR CELLAVISION DIFFERENTIAL TYPE AUTOMATED DIFFERENTIAL Normal [facility] Comment on above: Performed By: #### C BCA #### [facility] ([facility]) [address] [place], [place] [address]E. [place] [address] VIR Eosinophils (Bld) [#/Vol] 0.1 10*3/uL Normal [facility] Comment on above: Performed By: #### C BCA #### [facility] ([address] [place] [address] VIR EOSINOPHILS RELATIVE PERCENT BY AUTOMATED COUNT 1.3 % Normal [facility] Comment on above: Performed By: #### C BCA #### [facility] ([address] [place] [address] VIR Erythrocyte distribution width (RBC) [Ratio] 13.3 % Normal 11.5-15 [facility] Comment on above: Performed By: #### C BCA #### [facility] ([address] [place] [address] VIR Hematocrit (Bld) [Volume fraction] 31.6 % Low 35-47 [facility] Comment on above: Performed By: #### C BCA #### [facility] ([facility]) [address] [place] [address] [place] [address] VIR Hemoglobin (Bld) [Mass/Vol] 11.1 g/dL Low 11.7-15.5 [facility] Comment on above: Performed By: #### C BCA #### [facility] ([address] [place] [address] VIR LYMPHOCYTES ABSOLUTE COUNT (10*3/UL) BY AUTOMATED COUNT 1.6 10*3/uL Normal [facility] Comment on above: Performed By: #### C BCA #### [facility] ([address] [address] VIR LYMPHOCYTES RELATIVE PERCENT BY AUTOMATED COUNT 19.6 % Normal [facility] Comment on above: Performed By: #### C BCA #### [facility] ([address] [address] VIR MCH (RBC) [Entitic mass] 30.5 pg Normal 27-34 [facility] Comment on above: Performed By: #### C BCA #### [facility] ([address] [address] VIR MCHC (RBC) [Mass/Vol] 35.1 g/dL Normal 32-36 [facility] Comment on above: Performed By: #### C BCA #### [facility] ([address] [address] VIR MCV (RBC) [Entitic vol] 87 fL Normal 80-100 [facility] Comment on above: Performed By: #### C BCA #### [facility] ([address] [address] VIR MONOCYTES ABSOLUTE COUNT (10*3/UL) BY AUTOMATED COUNT 0.4 10*3/uL Normal [facility] Comment on above: Performed By: #### C BCA #### [facility] ([address] [address] VIR MONOCYTES RELATIVE PERCENT BY AUTOMATED COUNT 5.2 % Normal [facility] Comment on above: Performed By: #### C BCA #### [facility] ([address] [address] VIR NEUTROPHILS ABSOLUTE COUNT BY AUTOMATED COUNT 5.9 10*3/uL Normal [facility] Comment on above: Performed By: #### C BCA #### [facility] ([address] [place] [address] VIR NEUTROPHILS RELATIVE PERCENT BY AUTOMATED COUNT 73.6 % Normal [facility] Comment on above: Performed By: #### C BCA #### [facility] ([address] [place] [address] VIR Platelet mean volume (Bld) [Entitic vol] 7.7 fL Normal 7-12 [facility] Comment on above: Performed By: #### C BCA #### [facility] ([address] [place] [address] VIR Platelets (Bld) [#/Vol] 230 10*3/uL Normal 150-450 [facility] Comment on above: Performed By: #### C BCA #### [facility] ([address] [address] VIR RBC COUNT 3.64 X10E12/L Low 3.8-5.2 [facility] Comment on above: Performed By: #### C BCA #### [facility] ([address] [address] VIR WBC (Bld) [#/Vol] 8.0 10*3/uL Normal 4-11 [facility] Comment on above: Performed By: #### C BCA #### [facility] ([address] [address] VIR POCT NURSING URINE MACROSCOP IC UAon 01-05-2025 BILIRUBIN KYLAH Negative Normal Negative [facility] Comment on above: Performed By: #### N UM #### [facility] ([address] [address] VIR BLOOD/HGB KYLAH Trace Abnormal Negative [facility] Comment on above: Performed By: #### N UM #### [facility] ([address] [place] [address] VIR GLUCOSE [place] Negative Normal Negative [facility] Comment on above: Performed By: #### N UM #### [facility] ([address] [place] [address] VIR KETONES [place] Negative Normal Negative [facility] Comment on above: Performed By: #### N UM #### [facility] ([address] [place] [address] VIR LEUKOCYTE ESTERASE [place] Negative Normal Negative [facility] Comment on above: Performed By: #### N UM #### [facility] ([address] [place] [address] VIR NITRITE [place] Negative Normal Negative [facility] Comment on above: Performed By: #### N UM #### [facility] ([address] [place] [address] VIR PH KYLAH 6.0 Normal 5.0, 6.0, 6.5, 7.0, 7.5, 8.0, 8.5, 5.5 [facility] Comment on above: Performed By: #### N UM #### [facility] ([address] [place] [address] VIR PROTEIN KYLAH 100 mg/dL Abnormal Negative [facility] Comment on above: Performed By: #### N UM #### [facility] ([address] [place] [address] VIR SPECIFIC GRAVITY KYLAH >=1.030 Abnormal (none) [facility] Comment on above: Performed By: #### N UM #### [facility] ([address] [place] [address] VIR UROBILINOGEN KYLAH 0.2 E.U./dL Normal 0.2 E.U./dL , 1.0 E.U./dL [facility] Comment on above: Performed By: #### N UM #### [facility] ([facility]) [address] [place] [address] VIR Urinalysis macro (dipstick) panel (U)on 01-01-2025 Bilirubin, UA Negative Negative - 4(70) +++ mg/dL [facility] Blood, UA Negative Negative - 50 Zack/mcL [facility] Clarity, UA Clear [facility], UA Yellow [facility] Healthcar e Glucose, UA Negative Negative - 1999(110) ++++ mg/dL [facility] Interpretation and review of laboratory results Abnormal [facility] Ketones, UA Positive Negative - 160(16) ++++ mg/dL [facility] Comment on above: 160mg/dL Leukocytes, UA Negative Negative - 500+++ Robi/mcL [facility] Nitrite, UA Negative Negative - Positive [facility] pH, UA 5.5 5 - 9 [facility] Protein, UA Positive Negative - 1999(20) ++++ mg/dL [facility] Comment on above: 30mg/dL Spec Grav, UA 1.03 1 - 1.03 [facility] Urobilinogen, UA 0.2 0.2 - 12 mg/dL [facility] Healthcar e ALL CBC WITH AUTO DIFFon BASOPHILS ABSOLUTE AUTO 0 [facility] Basophils/100 WBC (Bld) 0.4 % 0.2 - 2.0 % [facility] Eosinophils/100 WBC (Bld) 1.6 % 0.9 - 7.0 % [facility] Erythrocyte distribution width (RBC) [Ratio] 12.1 % 11.0 - 15.0 % [facility] Hematocrit (Bld) [Volume fraction] 31.9 % Low 36.0 - 48.0 % [facility] Health[facility] e Hemoglobin (Bld) [Mass/Vol] 11.3 g/dL Low 12.0 - 16.0 g/dL [facility] IMMATURE GRANULOCYTES ABS AUTO 0.02 [facility] Immature granulocytes/100 WBC (Bld) 0.4 % 0.0 - 0.5 % [facility] Interpretation and review of laboratory results Abnormal [facility] LYMPHOCYTES ABSOLUTE AUTO 1.5 [facility] Lymphocytes/100 WBC (Bld) 26.7 % 20.5 - 60.0 % [facility] MCH (RBC) [Entitic mass] 29.7 pg 26.7 - 34.0 pg [facility] MCHC (RBC) [Mass/Vol] 35.4 g/dL High 29.9 - 35.2 g/dL [facility] MCV (RBC) [Entitic vol] 83.7 fL 81.0 - 99.0 fL [facility] MONOCYTES ABSOLUTE AUTO 0.4 [facility] Monocytes/100 WBC (Bld) 7.3 % 1.7 - 12.0 % [facility] NEUTROPHILS ABSOLUTE AUTO 3.6 [facility] Neutrophils/100 WBC (Bld) 63.6 % 43.0 - 75.0 % [facility] Platelet mean volume (Bld) [Entitic vol] 9.9 fL 9.5 - 13.5 fL [facility] EO # 0.1 [facility] TB PLT 211 [facility] TB RBC 3.81 Low [facility] e TB WBC 5.6 [facility] e [facility]IS[facility]NC [facility] e BOX TESTon 12-04-2024 BOX TEST SENT OUT [facility]care BOX1 [facility] e BOX2 12/04/2024 [facility] e UNITY BOX [facility] e HCG ( test) Ql (U)o n 12-04-2024 Interpretation and review of laboratory results Abnormal [facility] Preg Test, Ur Positive Negative [facility] Urinalysis macro (dipstick) panel (U)on 12-04-2024 Bilirubin, UA Negative Negative - 4(70) +++ mg/dL [facility] Blood, UA Negative Negative - 50 Zack/mcL [facility] Clarity, UA Clear [facility] re Color, UA Yellow [facility] e Glucose, UA Negative Negative - 1999(110) ++++ mg/dL [facility] Interpretation and review of laboratory results Normal [facility] Ketones, UA Negative Negative - 160(16) ++++ mg/dL [facility] Leukocytes, UA Negative Negative - 500+++ Robi/mcL [facility] Nitrite, UA Negative Negative - Positive [facility] pH, UA 7.5 5 - 9 [facility] e Protein, UA Negative Negative - 1999(20) ++++ mg/dL [facility] Spec Grav, UA 1.02 1 - 1.03 [facility] Urobilinogen, UA 1.0 0.2 - 12 mg/dL [facility] XR CHEST 2 VWSon 06-06-2024 XR CHEST [...] Ward MD on 06/06/2024 3:49 AM Normal [facility] CBC W MANUAL DIFFon 07-30-20 ATYPICAL LYMPH # Normal [facility] Comment on above: Performed By: #### C MP #### [facility] [address] [place] [address] Dr. Mary Ramsay ATYPICAL LYMPH % Normal [facility] Comment on above: Performed By: #### C MP #### [facility] [address] [address] [address] Mary Ramsay BAND # 2.6 103/ul Critically high 0.0-0.3 [facility] Comment on above: Performed By: #### C MP #### [facility] [address] [address] [address] Mary Ramsay BAND % 12 % Critically high 0-5 [facility] Comment on above: Performed By: #### C MP #### [facility] [address] [address] [address] Mary Ramsay BASOM # 0.00 103/ul Normal 0.00-0.10 [facility] Comment on above: Performed By: #### C MP #### [facility] [address] [place] [address] Dr. Mary Ramsay BASOM % 0.0 % Critically low 0.2-2.0 [facility] Comment on above: Performed By: #### C MP #### [facility] [address] [address] [address] Mary Ramsay BLAST # Normal [facility] Comment on above: Performed By: #### C MP #### [facility] [address] [address] [address] Mary Ramsay BLAST % Normal [facility] Comment on above: Performed By: #### C MP #### [facility] [address] [place] [address] Dr. Mary Ramsay CORRECTED WBC Normal 4.0-11.0 [facility] Comment on above: Performed By: #### C MP #### [facility] [address] [place] [address] Dr. Mary Ramsay EOS # 0.00 103/ul Normal 0.00-0.70 [facility] Comment on above: Performed By: #### C MP #### [facility] [address] [place] [address] Dr. Mary Ramsay EOS% 0.0 % Critically low 0.9-7.0 [facility] Comment on above: Performed By: #### C MP #### [facility] [address] [place] [address] Dr. Mary Ramsay HCT 34.4 % Critically low 36.0-48.0 [facility] Comment on above: Performed By: #### C MP #### [facility] [address] [place] [address] Dr. Mary Ramsay HGB 11.5 g/dl Critically low 12.0-16.0 [facility] Comment on above: Performed By: #### C MP #### [facility] [address] [place] [address] Dr. Mary Ramsay LYMPHM # 0.86 103/ul Critically low 1.20-3.80 [facility] Comment on above: Performed By: #### C MP #### [facility] [address] [place] [address] Dr. Mary Ramsay LYMPHM% 4.0 % Critically low 20.5-60.0 [facility] Comment on above: Performed By: #### C MP #### [facility] [address] [place] [address] Dr. Mary Ramsay MCH 29.6 pg Normal 26.7-34.0 [facility] Comment on above: Performed By: #### C MP #### [facility] [address] [place] [address] Dr. Mary Ramsay MCHC 33.4 g/dl Normal 29.9-35.2 [facility] Comment on above: Performed By: #### C MP #### [facility] [address] [place] [address] Dr. Mary Ramsay MCV 88.7 fL Normal 81.0-99.0 [facility] Comment on above: Performed By: #### C MP #### [facility] [address] [place] [address] Dr. Mary Ramsay METAMYELOCYTE # Normal [facility] Comment on above: Performed By: #### C MP #### [facility] [address] [place] [address] Dr. Mary Ramsay METAMYELOCYTE % Normal [facility] Comment on above: Performed By: #### C MP #### [facility] [address] [place] [address] Dr. Mary Ramsay MONOM# 0.21 103/ul Critically low 0.30-0.80 [facility] Comment on above: Performed By: #### C MP #### [facility] [address] [place] [address] Dr. Mary Ramsay MONOM% 1.0 % Critically low 1.7-12.0 [facility] Comment on above: Performed By: #### C MP #### [facility] [address] [place] [address] Dr. Mary Ramsay MPV 10.5 fL Normal 9.5-13.5 [facility] Comment on above: Performed By: #### C MP #### [facility] [address] [place] [address] Dr. Mary Ramsay MYELOCYTE # Normal [facility] Comment on above: Performed By: #### C MP #### [facility] [address] [address] [address] Mary Ramsay MYELOCYTE % Normal [facility] Comment on above: Performed By: #### C MP #### [facility] [address] [address] [address] Mary Ramsay NRBC Normal [facility] Comment on above: Performed By: #### C MP #### [facility] [address] [address] [address] Mary Ramsay PLT 195 103/ul Normal 150-450 [facility] Comment on above: Performed By: #### C MP #### [facility] [address] [address] [address] Mary Ramsay RBC 3.88 106/ul Critically low 4.20-5.40 [facility] Comment on above: Performed By: #### C MP #### [facility] [address] [address] [address] Mary Ramsay RDW 12.8 % Normal 11.0-15.0 [facility] Comment on above: Performed By: #### C MP #### [facility] [address] [address] [address] Mary Ramsay SEG # 17.76 103/ul Critically high 1.40-6.50 [facility] Comment on above: Performed By: #### C MP #### [facility] [address] [address] [address] Mary Ramsay SEG % 83.0 % Critically high 43.0-75.0 [facility] Comment on above: Performed By: #### C MP #### [facility] [id number] Mary Ramsay WBC 21.4 103/ul Critically high 4.0-11.0 [facility] Comment on above: Performed By: #### C MP #### [facility] [address] [address] [address] Mary Ramsay IRON AND TIBCon 11-20-2022 % SATURATION 3.6 % Normal [facility] Comment on above: Performed By: #### F ETIBC, VITAD, B12FOL #### [facility] [address] [place] [address] Dr. Mary Ramsay Iron [Mass/Vol] 8.0 ug/dL Critically low 50.0-170.0 [facility] Comment on above: Performed By: #### F ETIBC, VITAD, B12FOL #### [facility] [address] [place] [address] Dr. Mary Ramsay TIBC DIRECT 221.0 ug/dL Critically low 250.0-450.0 [facility] Comment on above: Performed By: #### F ETIBC, VITAD, B12FOL #### [facility] [address] [place] [address] Dr. Mary Ramsay PROF 14(COMP METB)on 022 Albumin [Mass/Vol] 3.0 g/dL Critically low 3.4-5.0 [facility] Comment on above: Performed By: #### C MP #### [facility] [address] [place] [address] Dr. Mary Ramsay Albumin/Globulin [Mass ratio] 0.8 {ratio} Normal [facility] Comment on above: Performed By: #### C MP #### [facility] [address] [place] [address] Dr. Mary Ramsay ALP [Catalytic activity/Vol] 48 U/L Normal 46-116 [facility] Comment on above: Performed By: #### C MP #### [facility] [address] [place] [address] Dr. Mary Ramsay ALT [Catalytic activity/Vol] 9 U/L Critically low 14-59 [facility] Comment on above: Performed By: #### C MP #### [facility] [address] [place] [address] Dr. Mary Ramsay Anion gap [Moles/Vol] 12.2 mmol/L Normal [facility] Comment on above: Performed By: #### C MP #### [facility] [address] [place] [address] Dr. Mary Ramsay AST [Catalytic activity/Vol] 11 U/L Critically low 15-37 [facility] Comment on above: Performed By: #### C MP #### [facility] [address] [address] [address] Mary Ramsay Bilirubin [Mass/Vol] 0.4 mg/dL Normal 0.2-1.0 [facility] Comment on above: Performed By: #### C MP #### [facility] [address] [address] [address] Mary Ramsay Calcium [Mass/Vol] 8.2 mg/dL Critically low 8.5-10.1 [facility] Comment on above: Performed By: #### C MP #### [facility] [address] [place] [address] Dr. Mary Ramsay Chloride [Moles/Vol] 103 mmol/L Normal 98-107 [facility] Comment on above: Performed By: #### C MP #### [facility] [address] [address] [address] Mary Ramsay CO2 [Moles/Vol] 23.4 mmol/L Normal 21.0-32.0 [facility] Comment on above: Performed By: #### C MP #### [facility] [address] [place] [address] Dr. Mary Ramsay Creatinine [Mass/Vol] 0.75 mg/dL Normal 0.55-1.02 [facility] Comment on above: Performed By: #### C MP #### [facility] [address] [address] [address] Mary Ramsay EGFR-AF TRISTANIAN >60 Normal >=60 [facility] Comment on above: Performed By: #### C MP #### [facility] [address] [place] [address] Dr. Mary Ramsay EGFR-NON AF TRISTANIAN >60 Normal >=60 [facility] Comment on above: Performed By: #### C MP #### [facility] [address] [place] [address] Dr. Mary Ramsay Globulin (S) [Mass/Vol] 3.7 g/dL Normal [facility] Comment on above: Performed By: #### C MP #### [facility] [address] [address] [address] Mary Ramsay Glucose [Mass/Vol] 160 mg/dL Critically high 74-[address] [facility] Comment on above: Performed By: #### C MP #### [facility] [address] [address] [address] Mary Ramsay Potassium [Moles/Vol] 3.6 mmol/L Normal 3.5-5.1 [facility] Comment on above: Performed By: #### C MP #### [facility] [address] [address] [address] Mary Ramsay Protein [Mass/Vol] 6.7 g/dL Normal 6.4-8.2 [facility] Comment on above: Performed By: #### C MP #### [facility] [address] [place] [address] Dr. Mary Ramsay Sodium [Moles/Vol] 135 mmol/L Critically low 136-145 [facility] Comment on above: Performed By: #### C MP #### [facility] [address] [place] [address] Dr. Mary Ramsay Urea nitrogen [Mass/Vol] 15.0 mg/dL Normal 7.0-18.0 [facility] Comment on above: Performed By: #### C MP #### [facility] [address] [place] [address] Dr. Mary Ramsay Urea nitrogen/Creatinine [Mass ratio] 20.0 mg/mg Normal [facility] Comment on above: Performed By: #### C MP #### [facility] [address] [address] [address] Mary Ramsay VIT B12 AND FOLATEon 022 Cobalamin (Vitamin B12) [Mass/Vol] 221.0 pg/mL Normal 193.0-986.0 [facility] Comment on above: Performed By: #### F ETIBC, VITAD, B12FOL #### [facility] [address] [place] [address] Dr. Mary Ramsay FOLATE 3.00 ng/mL Critically low 8.60-58.90 [facility] Comment on above: Performed By: #### F ETIBC, VITAD, B12FOL #### [facility] [address] [place] [address] Dr. Mary Ramsay VITAMIN D 25 OHon 07-30-2022 VIT D 25-OH 6.7 ng/mL Normal [facility] Comment on above: Performed By: #### F ETIBC, VITAD, B12FOL #### [facility] [address] [place] [address] Dr. Mary Ramsay VIT D RANGES SEE BELOW Normal [facility] Comment on above: Result Comment: <20 ng/mL Vit D deficient 20 - <30 ng/mL Vit D insufficient 30 - 100 ng/mL Vit D sufficient >100 ng/mL Potential Toxicity Performed By: #### F ETIBC, VITAD, B12FOL #### [facility] [address] [place] [address] Dr. Mary Ramsay CBC W MANUAL DIFFon 07-29-20 ATYPICAL LYMPH # Normal [facility] Comment on above: Performed By: #### C MP #### [facility] [address] [place] [address] Dr. Mary Ramsay ATYPICAL LYMPH % Normal [facility] Comment on above: Performed By: #### C MP #### [facility] [address] [place] [address] Dr. Mary Ramsay BAND # 0.3 103/ul Normal 0.0-0.3 [facility] Comment on above: Performed By: #### C MP #### [facility] [address] [place] [address] Dr. Mary Ramsay BAND % 2 % Normal 0-5 [facility] Comment on above: Performed By: #### C MP #### [facility] [address] [place] [address] Dr. Mary Ramsay BASOM # 0.00 103/ul Normal 0.00-0.10 [facility] Comment on above: Performed By: #### C MP #### [facility] [address] [place] [address] Dr. Mary Ramsay BASOM % 0.0 % Critically low 0.2-2.0 [facility] Comment on above: Performed By: #### C MP #### [facility] [address] [place] [address] Dr. Mary Ramsay BLAST # Normal [facility] Comment on above: Performed By: #### C MP #### [facility] [address] [place] [address] Dr. Mary Ramsay BLAST % Normal [facility] Comment on above: Performed By: #### C MP #### [facility] [address] [place] [address] Dr. Mary Ramsay CORRECTED WBC Normal 4.0-11.0 [facility] Comment on above: Performed By: #### C MP #### [facility] [address] [place] [address] Dr. Mary Ramsay EOS # 0.00 103/ul Normal 0.00-0.70 [facility] Comment on above: Performed By: #### C MP #### [facility] [address] [place] [address] Dr. Mary Ramsay EOS% 0.0 % Critically low 0.9-7.0 [facility] Comment on above: Performed By: #### C MP #### [facility] [address] [place] [address] Dr. Mary Ramsay HCT 38.4 % Normal 36.0-48.0 [facility] Comment on above: Performed By: #### C MP #### [facility] [address] [place] [address] Dr. Mary Ramsay HGB 12.9 g/dl Normal 12.0-16.0 [facility] Comment on above: Performed By: #### C MP #### [facility] [address] [place] [address] Dr. Mary Ramsay LYMPHM # 0.64 103/ul Critically low 1.20-3.80 [facility] Comment on above: Performed By: #### C MP #### [facility] [address] [address] [address] Mary Ramsay LYMPHM% 4.0 % Critically low 20.5-60.0 [facility] Comment on above: Performed By: #### C MP #### [facility] [address] [place] [address] Dr. Mary Ramsay MCH 29.7 pg Normal 26.7-34.0 [facility] Comment on above: Performed By: #### C MP #### [facility] [address] [place] [address] Dr. Mary Ramsay MCHC 33.6 g/dl Normal 29.9-35.2 [facility] Comment on above: Performed By: #### C MP #### [facility] [address] [place] [address] Dr. Mary Ramsay MCV 88.3 fL Normal 81.0-99.0 [facility] Comment on above: Performed By: #### C MP #### [facility] [address] [place] [address] Dr. Mary Ramsay METAMYELOCYTE # Normal [facility] Comment on above: Performed By: #### C MP #### [facility] [address] [place] [address] Dr. Mary Ramsay METAMYELOCYTE % Normal [facility] Comment on above: Performed By: #### C MP #### [facility] [address] [place] [address] Dr. Mary Ramsay MONOM# 0.32 103/ul Normal 0.30-0.80 [facility] Comment on above: Performed By: #### C MP #### [facility] [address] [place] [address] Dr. Mary Ramsay MONOM% 2.0 % Normal 1.7-12.0 [facility] Comment on above: Performed By: #### C MP #### [facility] [address] [place] [address] Dr. Mary Ramsay MPV 10.1 fL Normal 9.5-13.5 [facility] Comment on above: Performed By: #### C MP #### [facility] [address] [address] [address] Mary Ramsay MYELOCYTE # Normal [facility] Comment on above: Performed By: #### C MP #### [facility] [address] [address] [address] Mary Ramsay MYELOCYTE % Normal [facility] Comment on above: Performed By: #### C MP #### [facility] [address] [address] [address] Mary Ramsay NRBC Normal [facility] Comment on above: Performed By: #### C MP #### [facility] [address] [address] [address] Mary Ramsay PLT 217 103/ul Normal 150-450 [facility] Comment on above: Performed By: #### C MP #### [facility] [address] [address] [address] Mary Ramsay RBC 4.35 106/ul Normal 4.20-5.40 [facility] Comment on above: Performed By: #### C MP #### [facility] [address] [address] [address] Mary Ramsay RDW 12.6 % Normal 11.0-15.0 [facility] Comment on above: Performed By: #### C MP #### [facility] [address] [address] [address] Mary Ramsay SEG # 14.81 103/ul Critically high 1.40-6.50 [facility] Comment on above: Performed By: #### C MP #### [facility] [address] [place] [address] Dr. Mary Ramsay SEG % 92.0 % Critically high 43.0-75.0 [facility] Comment on above: Performed By: #### C MP #### [facility] [address] [address] [address] Mary Ramsay WBC 16.1 103/ul Critically high 4.0-11.0 [facility] Comment on above: Performed By: #### C MP #### [facility] [address] [address] [address] Mary Ramsay CRPon 07-29-2022 CRP 8.1 mg/dL Critically high <=1.0 [facility] Comment on above: Performed By: #### C RP, CMP #### [facility] [address] [place], [place] [address] ABD/PELV W CONon [...] Date: 2022-07-29 12:39 Normal [facility] CULTURE URINEon 07-29-2022 CULTURE URINE Culture Observations: MODERATE GROWTH OF MIXED GENITAL SANNA. NO POTENTIAL PATHOGENS SEEN. Normal [facility] Comment on above: Performed By: #### U RCX #### [facility] [address] [place] [address] Dr. Mary Ramsay Covid-19 PCR ([facility])on 07-11 SARS-CoV-2 (COVID-19) RNA MAYRA+probe Ql (Unsp spec) Not detected Normal NOT DETECTED [facility] Comment on above: Result Comment: When diagnostic [...] for this test is supported by the [employer] of Health and Human Service's declaration that [...] By: #### C MP #### [facility] [address] [place] [id number] [address] Mary Ramsay ER URINE PROFILEon 2 Bilirubin Ql (U) Negative Normal NEGATIVE [facility] Comment on above: Performed By: #### P CAMILO MILLIGAN UMICRO #### [facility] [address] [place] [id number] [address] Mary Ramsay Clarity (U) SL CLOUDY Abnormal CLEAR [facility] Comment on above: Result Comment: Prev iously reported as: CLEAR On 07/29/2022 11:44 By [email or web address] Performed By: #### P REGU, ERUR, UMICRO #### [facility] [address] [address] [address] Mary Ramsay Color (U) YELLOW Normal YELLOW [facility] Comment on above: Performed By: #### P REGU, ERUR, UMICRO #### [facility] [address] [address] [address] Mary HADLEY A micrscopic examination will be performed if indicated. Normal [facility] Comment on above: Performed By: #### P REGU, ERUR, UMICRO #### [facility] [address] [place] [address] Dr. Mary Ramsay Glucose Ql (U) Negative Normal NEGATIVE [facility] Comment on above: Performed By: #### P REGU, ERUR, UMICRO #### [facility] [address] [place] [address] Dr. Mary Ramsay Hemoglobin Ql (U) MODERATE Abnormal NEGATIVE [facility] Comment on above: Performed By: #### P REGU, ERUR, UMICRO #### [facility] [address] [address] [address] Mary Ramsay Ketones Ql (U) TRACE Abnormal NEGATIVE [facility] Comment on above: Performed By: #### P REGU, ERUR, UMICRO #### [facility] [address] [address] [address] Mary Ramsay LEUKOCYTES SMALL Abnormal NEGATIVE [facility] Comment on above: Performed By: #### P REGU, ERUR, UMICRO #### [facility] [address] [address] [address] Mary Ramsay Nitrite Ql (U) Negative Normal NEGATIVE [facility] Comment on above: Performed By: #### P REGU, ERUR, UMICRO #### [facility] [address] [address] [address] Mary Ramsay pH (U) 5.5 [pH] Normal 5-9 [facility] Comment on above: Performed By: #### P REGU, ERUR, UMICRO #### [facility] [address] [place] [address] Dr. Mary Ramsay SPEC GRAVITY 1.030 Abnormal 1.005-<=1.025 [facility] Comment on above: Performed By: #### P REGU, ERUR, UMICRO #### [facility] [address] [place] [address] Dr. Mary Ramsay UA PROTEIN TRACE Normal NEGATIVE/ TRACE [facility] Comment on above: Performed By: #### P REGU, ERUR, UMICRO #### [facility] [address] [place] [address] Dr. Mary Ramsay UR MICRO IND INDICATED Normal [facility] Comment on above: Performed By: #### P REGU, ERUR, UMICRO #### [facility] [address] [place] [address] Dr. Mary Ramsay Urobilinogen Qn (U) 0.2 {Obi'U}/dL Normal 0.2 - 1. 0 [facility] Comment on above: Performed By: #### P REGU, ERUR, UMICRO #### [facility] [address] [place] [address] Dr. Mary Ramsay URon 07-29-2022 , QUAL Negative Normal NEGATIVE [facility] Comment on above: Performed By: #### P REGU, ERUR, UMICRO #### [facility] [address] [place] [address] Dr. Mary Ramsay PROF 14(COMP METB)on 022 Albumin [Mass/Vol] 4.1 g/dL Normal 3.4-5.0 [facility] Comment on above: Performed By: #### C MP #### [facility] [address] [place] [address] Dr. Mary Ramsay Albumin/Globulin [Mass ratio] 1.1 {ratio} Normal [facility] Comment on above: Performed By: #### C MP #### [facility] [address] [place] [address] Dr. Mary Ramsay ALP [Catalytic activity/Vol] 58 U/L Normal 46-116 [facility] Comment on above: Performed By: #### C MP #### [facility] [address] [address] [address] Mary Ramsay ALT [Catalytic activity/Vol] 8 U/L Critically low 14-59 [facility] Comment on above: Performed By: #### C MP #### [facility] [address] [address] [address] Mayr Ramsay Anion gap [Moles/Vol] 10.1 mmol/L Normal [facility] Comment on above: Performed By: #### C MP #### [facility] [address] [address] [address] Mary Ramsay AST [Catalytic activity/Vol] 10 U/L Critically low 15-37 [facility] Comment on above: Performed By: #### C MP #### [facility] [address] [address] [address] Mary Ramsay Bilirubin [Mass/Vol] 1.1 mg/dL Critically high 0.2-1.0 [facility] Comment on above: Performed By: #### C MP #### [facility] [address] [place] [address] Dr. Mary Ramsay Calcium [Mass/Vol] 8.7 mg/dL Normal 8.5-10.1 [facility] Comment on above: Performed By: #### C MP #### [facility] [address] [address] [address] Mary Ramsay Chloride [Moles/Vol] 104 mmol/L Normal 98-107 [facility] Comment on above: Performed By: #### C MP #### [facility] [address] [address] [address] Mary Ramsay CO2 [Moles/Vol] 26.1 mmol/L Normal 21.0-32.0 [facility] Comment on above: Performed By: #### C MP #### [facility] [address] [address] [address] Mary Ramsay Creatinine [Mass/Vol] 1.06 mg/dL Critically high 0.55-1.02 [facility] Comment on above: Performed By: #### C MP #### [facility] [address] [address] [address] Mary Ramsay EGFR-AF TRISTANIAN >60 Normal >=60 [facility] Comment on above: Performed By: #### C MP #### [facility] [address] [address] [address] Mary Ramsay EGFR-NON AF TRISTANIAN >60 Normal >=60 [facility] Comment on above: Performed By: #### C MP #### [facility] [address] [address] [address] Mary Ramsay Globulin (S) [Mass/Vol] 3.6 g/dL Normal [facility] Comment on above: Performed By: #### C MP #### [facility] [address] [address] [address] Mary Ramasy Glucose [Mass/Vol] 121 mg/dL Critically high 74-106 [facility] Comment on above: Performed By: #### C MP #### [facility] [address] [address] [address] Mary Ramsay Potassium [Moles/Vol] 3.2 mmol/L Critically low 3.5-5.1 [facility] Comment on above: Performed By: #### C MP #### [facility] [address] [address] [address] Mary Ramsay Protein [Mass/Vol] 7.7 g/dL Normal 6.4-8.2 [facility] Comment on above: Performed By: #### C MP #### [facility] [address] [address] [address] Mary Ramsay Sodium [Moles/Vol] 137 mmol/L Normal 136-145 [facility] Comment on above: Performed By: #### C MP #### [facility] [address] [address] [address] Mary Ramsay Urea nitrogen [Mass/Vol] 16.0 mg/dL Normal 7.0-18.0 [facility] Comment on above: Performed By: #### C MP #### [facility] [address] [address] [address] Mary Ramsay Urea nitrogen/Creatinine [Mass ratio] 15.1 mg/mg Normal [facility] Comment on above: Performed By: #### C MP #### [facility] [address] [address] [address] Mary Ramsay URINE MICROSCOPIC ONLYon BACTERIA SMALL Abnormal NONE SEEN [facility] Comment on above: Performed By: #### P REGU, ERUR, UMICRO #### [facility] [address] [address] [address] Mary Ramsay Bacteria identified Cx Nom (U) INDICATED Normal [facility] Comment on above: Performed By: #### P REGU, ERUR, UMICRO #### [facility] [address] [address] [address] Mary Ramsay CAST NONE SEEN Normal NONE SEEN [facility] Comment on above: Performed By: #### P REGU, ERUR, UMICRO #### [facility] [address] [address] [address] Mary Ramsay Crystals LM Nom (Urine sed) NONE SEEN Normal NONE SEEN [facility] Comment on above: Performed By: #### P REGU, ERUR, UMICRO #### [facility] [address] [address] [address] Mary Ramsay Epithelial cells LM Ql (Urine sed) FEW Abnormal NONE SEEN /RARE [facility] Comment on above: Performed By: #### P REGU, ERUR, UMICRO #### [facility] [address] [address] [address] Mary Ramsay MUCOUS TRACE Abnormal NONE SEEN [facility] Comment on above: Performed By: #### P REGU, ERUR, UMICRO #### [facility] [address] [address] [address] Mary Ramsay RBC 0-2 Normal 0-2 [facility] Comment on above: Performed By: #### P REGU, ERUR, UMICRO #### [facility] [address] [address] [address] Mary Ramsay WBC 5-10 Abnormal NONE SEEN [facility] Comment on above: Performed By: #### P CAMILO MILLIGAN UMICRO #### [facility] [address] [address] [address] Mary Ramsay Vital Signs Date Time Vital Sign Value Performing Clinician Gavin coelho 05-12-2025 11:20-0400 Body mass index (BMI) [Ratio] 26.36 kg/m2 Yee MEYERS Work Phone: [facility] 05-12-2025 11:20-0400 Body weight 67.5 kg Yee Shields PA Work Phone: [facility] 05-12-2025 11:20-0400 Diastolic blood pressure 70 mm[Hg] Yee Shields PA Work Phone: [facility] 05-12-2025 11:20-0400 Systolic blood pressure 110 mm[Hg] Yee Shields PA Work Phone: [facility] 04-27-2025 11:04-0400 Body mass index (BMI) [Ratio] 26.11 kg/m2 Alfonso Rosalinda DO Work Phone: [facility] 04-27-2025 11:04-0400 Body weight 66.86 kg Alfonso Rosalinda DO Work Phone: [facility] 04-27-2025 11:04-0400 Diastolic blood pressure 72 mm[Hg] Alfonso Rosalinda DO Work Phone: [facility] 04-27-2025 11:04-0400 Systolic blood pressure 110 mm[Hg] Alfonso Rosalinda DO Work Phone: [facility] 04-09-2025 09:37-0400 Body mass index (BMI) [Ratio] 25.86 kg/m2 Yee Shields PA Work Phone: [facility] 04-09-2025 09:37-0400 Body weight 66.22 kg Yee MEYERS Work Phone: [facility] 04-09-2025 09:37-0400 Diastolic blood pressure 74 mm[Hg] Yee Shields PA Work Phone: [facility] 04-09-2025 09:37-0400 Systolic blood pressure 116 mm[Hg] Yee Shields PA Work Phone: [facility] 03-26-2025 14:14-0400 Body mass index (BMI) [Ratio] 25.24 kg/m2 Yee Clem PA Work Phone: [facility] 03-26-2025 14:14-0400 Body weight 64.64 kg Yee Shields PA Work Phone: [facility] 03-26-2025 14:14-0400 Diastolic blood pressure 70 mm[Hg] Yee Shields PA Work Phone: [facility] 03-26-2025 14:14-0400 Systolic blood pressure 102 mm[Hg] Yee Shields PA Work Phone: [facility] 03-11-2025 16:18-0400 Body height 160 cm Alfonso Rosalinda DO Work Phone: [facility] 03-11-2025 16:17-0400 Body mass index (BMI) [Ratio] 24.98 kg/m2 Alfonso Rosalinda DO Work Phone: [facility] 03-11-2025 16:17-0400 Body weight 63.96 kg Alfonso Rosalinda DO Work Phone: [facility] 03-11-2025 16:17-0400 Diastolic blood pressure 68 mm[Hg] Alfonso Rosalinda DO Work Phone: [facility] 03-11-2025 16:17-0400 Systolic blood pressure 110 mm[Hg] Alfonso Rosalinda DO Work Phone: [facility] 01-01-2025 11:40-0400 Body weight 59.88 kg Alfnoso Rosalinda DO Work Phone: [facility] 01-01-2025 11:40-0400 Diastolic blood pressure 76 mm[Hg] Alfonso Rosalinda DO Work Phone: [facility] 01-01-2025 11:40-0400 Systolic blood pressure 100 mm[Hg] Alfonso Rosalinda DO Work Phone: [facility] 12-04-2024 14:18-0400 Body weight 62.14 kg Noms Nurse [facility] 12-04-2024 14:18-0400 Diastolic blood pressure 62 mm[Hg] Noms Nurse [facility] 12-04-2024 14:18-0400 Systolic blood pressure 116 mm[Hg] Noms Nurse [facility] Encounters Encounter Date Encounter Type Care Provider Facility Start: 05-12-2025 End: 05-12-2025 Bamboo flowsheet Yee MEYERS Work Phone: [facility] Start: 05-12-2025 End: 05-12-2025 Bamboo flowsheet Yee MEYERS Work Phone: [facility] Start: 05-12-2025 End: 05-12-2025 ambulatory YEE SHIELDS Not Available Start: 05-12-2025 End: 05-12-2025 Office outpatient visit 15 minutes Yee MEYERS Work Phone: [facility] Comment on above: 34 weeks gestation o f ([facility]); Third trimester ([facility]); H/O cold sores Start: 04-27-2025 End: 04-27-2025 Bamboo flowsheet Alfonso Rosalinda DO Work Phone: [facility] Start: 04-27-2025 End: 04-27-2025 Bamboo flowsheet Alfonso Rosalinda DO Work Phone: [facility] Start: 04-27-2025 End: 04-27-2025 ambulatory ALFONSO ROSALINDA Not Available Start: 04-27-2025 End: 04-27-2025 Office outpatient visit 15 minutes Alfonso Rosalinda DO Work Phone: [facility] Comment on above: Third trimester preg scott ([facility]); 32 weeks gestation of ([facility]); H/O cold sores Start: 04-09-2025 End: 04-09-2025 Office outpatient visit 15 minutes Yee MEYERS Work Phone: [facility] Comment on above: Third trimester preg scott ([facility] 30 weeks gestation of ([facility]) Start: 04-09-2025 End: 04-09-2025 ambulatory YEE SHIELDS Not Available Start: 04-05-2025 End: 04-06-2025 ambulatory [facility] Start: 03-26-2025 End: 03-26-2025 Bamboo flowsheet Yee MEYERS Work Phone: [facility] Start: 03-26-2025 End: 03-26-2025 Bamboo flowsheet Yee MEYERS Work Phone: [facility] Start: 03-26-2025 End: 03-26-2025 Office outpatient visit 15 minutes Yee MEYERS Work Phone: [facility] Comment on above: Size of fetus incons istent with dates in first trimester ([facility]) (Primary Dx); Third trimester ([facility]); 28 weeks gestation of ([facility]) Start: 03-26-2025 End: 03-26-2025 ambulatory YEE SHIELDS Not Available Start: 03-17-[address] [facility] Start: 03-11-2025 End: 03-11-2025 ambulatory ALFONSO ROSALINDA Not Available Start: 03-11-2025 End: 03-11-2025 Office outpatient visit 15 minutes Alfonso Rosalinda DO Work Phone: [facility] Comment on above: Third trimester preg scott ([facility]); 26 weeks gestation of ([facility]); History of canker sores; Diabetes mellitus screening Start: 03-11-2025 End: 03-11-2025 Bamboo flowsheet Alfonso Rosalinda DO Work Phone: [facility] Start: 03-11-2025 End: 03-11-2025 Bamboo flowsheet Alfonso Rosalinda DO Work Phone: [facility] Start: 02-12-2025 End: 02-12-2025 ambulatory ALFONSO ROSALINDA Not Available Start: 01-29-2025 End: 02-03-2025 Clinisync Result Encounter Yee Shields LUIGI Work Phone: [facility] Unsolicited Start: 01-29-2025 End: 02-03-2025 Clinisync Result Encounter Yee Shields LUIGI Work Phone: [facility] Unsolicited Start: 01-29-2025 End: 01-29-2025 ambulatory YEE SHIELDS Not Available Start: 01-05-2025 End: 01-05-2025 Emergency department patient visit NO PCP NO PCP [facility] Start: 01-01-2025 End: 01-01-2025 Bamboo flowsheet Alfonso Rosalinda DO Work Phone: [facility] Start: 01-01-2025 End: 01-01-2025 Bamboo flowsheet Alfonso Rosalinda DO Work Phone: [facility] Start: 01-01-2025 End: 01-01-2025 ambulatory ALFONSO ROSALINDA Not Available Start: 01-01-2025 End: 01-01-2025 Office outpatient visit 15 minutes Alfonso Rosalinda DO Work Phone: [facility] Comment on above: Second trimester pre gnancy; 16 weeks gestation of ; Nausea Start: 12-04-2024 End: 12-04-2024 Clinisync Result Encounter Alfonso Rosalinda DO Work Phone: [facility] Unsolicited Start: 12-04-2024 End: 12-04-2024 Clinisync Result Encounter Alfonso Rosalinda DO Work Phone: [facility] Unsolicited Start: 12-04-2024 End: 12-04-2024 Office outpatient visit 5 minutes [facility] Rosalinda Nurse [facility] Comment on above: GA: 12w1d Start: 12-04-2024 End: 12-04-2024 ambulatory ALFONSO ROSALINDA Not Available Start: 09-20-2024 End: 09-20-2024 Emergency department patient visit NO PCP NO PCP [facility] Start: 06-22-2024 End: 06-22-2024 Emergency department patient visit NO PCP NO PCP [facility] Start: 06-06-2024 End: 06-06-2024 Emergency department patient visit NO PCP NO PCP [facility] Start: 07-29-2022 End: 07-30-2022 ambulatory [facility] Facility:H1 Procedures Date Procedure Procedure Detail Performing Clinician Start: 05-12-2025 Urnls dip stick/tabl et rgnt non-auto w/o micrscp Yee MEYERS Work Phone: Start: 04-27-2025 Urnls dip stick/tabl et rgnt non-auto w/o micrscp Alfonso Rosalinda DO Work Phone: Start: 03-11-2025 Urnls dip stick/tabl et rgnt non-auto w/o micrscp Alfonso Rosalinda DO Work Phone: Start: 01-29-2025 IGP,APTIMA HPV,AGE GDLN Yee MEYERS Work Phone: Start: 01-01-2025 Urnls dip stick/tabl et rgnt non-auto w/o micrscp Alfonso Rosalinda DO Work Phone: Start: 12-04-2024 ALL CBC WITH AUTO DIFF Alfonso Rosalinda DO Work Phone: Start: 12-04-2024 BOX TEST Alfonso Fazi o DO Work Phone: Start: 12-04-2024 End: 12-04-2024 Urnls dip stick/tablet rgnt non-auto w/o micrscp Alfonso Rosalinda DO Work Phone: Plan of Treatment Date Care Activity Detail Author Start: 05-26-2025 End: 05-26-2025 Patient encounter procedure 05/26/2025 10:50 AM EDT Routine [facility] [address] [place] [phone] Alfonso Tellez, DO [address] [place] [address] [facility] [place] [facility] Start: 05-12-2025 End: 05-12-2025 Patient encounter procedure 05/12/2025 10:50 AM EDT Routine [facility] [address] [phone] Yee Shields, PA [address] [place], [facility] Start: 05-11-2025 Influenza vaccination Influenza Vacc ine (#1) [facility] Start: 04-27-2025 End: 04-27-2025 Patient encounter procedure 04/27/2025 10:50 AM EDT Routine [facility] [address] [facility] [phone] Alfonso Tellez, DO [address] [facility] [address] [place], [place] [id number] [facility] Start: 03-26-2025 End: 03-26-2025 Patient encounter procedure 03/26/2025 2:00 PM EDT Routine [facility] [address] [facility] [phone] Yee Shields, PA [address] [place] [address] [facility] Start: 03-26-2025 End: 07-27-2025 US for US OB follow up transabdominal approach Imaging Routine Size of fetus inconsistent with dates in first trimester ([facility]) Expected: 03/26/2025, Expires: 07/27/2025 [facility] Work Phone: Comment on above: Expected: 03/26/2025 , Expires: 07/27/2025 Start: 03-11-2025 End: 03-11-2026 CBC panel - Blood by Automated count CBC Lab Routine Diabetes mellitus screening Expected: 03/11/2025 (Approximate), Expires: 03/11/2026 [facility] Work Phone: Comment on above: Expected: 03/11/2025 (Approximate), Expires: 03/11/2026 Start: 03-11-2025 End: 03-11-2026 Measurement of glucose 1 hour after glucose challenge for glucose tolerance test Glucose tolerance, 1 hour Lab Routine Diabetes mellitus screening Expected: 03/11/2025 (Approximate), Expires: 03/11/2026 [facility] Comment on above: Expected: 03/11/2025 (Approximate), Expires: 03/11/2026 Start: 02-26-2025 End: 02-26-2025 Patient encounter procedure 02/26/2025 11:10 AM EDT Routine [facility] [address] [facility] [address] [place] [place] [phone] Alfonso Tellez DO [address] [place] [address] [facility] Start: 02-12-2025 End: 02-12-2025 Professional / ancillary services management 02/12/2025 11:00 AM EDT Ancillary Procedure [facility] [address] [place] [phone] [facility] Start: 01-29-2025 End: 01-29-2025 Patient encounter procedure 01/29/2025 11:30 AM EDT Routine [facility] [address] [place] [phone] Yee Shields PA [address] [place] [address] [facility] Start: 01-01-2025 End: 01-01-2025 Patient encounter procedure 01/01/2025 11:20 AM EDT Routine [facility] [address] [facility] [phone] Alfonso Tellez, DO [address] [place] [address] [place] [address] [facility] Start: 12-04-2024 End: 12-04-2025 ABO/Rh ABO/Rh Lab Routine Missed menses , unspecified gestational age Expected: 12/04/2024 (Approximate), Expires: 12/04/2025 [facility] Comment on above: Expected: 12/04/2024 (Approximate), Expires: 12/04/2025 Start: 12-04-2024 End: 12-04-2025 Blood type and Indirect antibody screen panel - Blood Type and screen Lab Routine Missed menses , unspecified gestational age Expected: 12/04/2024 (Approximate), Expires: 12/04/2025 [facility] Work Phone: Comment on above: Expected: 12/04/2024 (Approximate), Expires: 12/04/2025 Start: 12-04-2024 End: 12-04-2025 Drugs of abuse panel - Urine by Screen method Rapid drug screen, urine Lab Routine , unspecified gestational age Encounter for supervision of normal first in first trimester Expected: 12/04/2024 (Approximate), Expires: 12/04/2025 [facility] Comment on above: Expected: 12/04/2024 (Approximate), Expires: 12/04/2025 Bacteria identified in Urine by Culture Urine culture Microbiology Routine Missed menses Ordered: 12/04/2024 [facility] Comment on above: Ordered: 12/04/2024 CBC W Auto Different ial panel - Blood CBC and differential Lab Routine Missed menses , unspecified gestational age Ordered: 12/04/2024 [facility] Comment on above: Ordered: 12/04/2024 Hemoglobin A1c/Hemoglobin.total in Blood Hemoglobin A1c Lab Routine Missed menses , unspecified gestational age Ordered: 12/04/2024 [facility] Comment on above: Ordered: 12/04/2024 Hepatitis B virus surface Ag [Presence] in Serum or Plasma by Immunoassay Hepatitis B surface antigen Lab Routine Missed menses , unspecified gestational age Ordered: 12/04/2024 [facility] Comment on above: Ordered: 12/04/2024 Hepatitis C virus Ab [Presence] in Serum or Plasma by Immunoassay Hepatitis C antibody Lab Routine Missed menses , unspecified gestational age Ordered: 12/04/2024 [facility] Comment on above: Ordered: 12/04/2024 HIV-1/HIV-2 antigen/antibody combination immunoassay HIV-1 and HIV-2 antibodies Lab Routine Missed menses , unspecified gestational age Ordered: 12/04/2024 [facility] Comment on above: Ordered: 12/04/2024 Reagin Ab [Presence] in Serum by RPR RPR Lab Routine Missed menses , unspecified gestational age Ordered: 12/04/2024 [facility] Comment on above: Ordered: 12/04/2024 Rubella antibody, IgG Rubella an tibody, IgG Lab Routine Missed menses , unspecified gestational age Ordered: 12/04/2024 [facility] Comment on above: Ordered: 12/04/2024 Payers Date Payer Category Payer Medicaid (Managed Care) [employer] [id number] 1996 Unknown [id number] [id number]. 593 1996 Unknown [id number] 2.16.840.1.413668.3.579.2. 1286 1996 Unknown [id number] 2.16.840.1.343285.3.579.2. 1286 1996 Unknown [id number] 2.16.840.1.591009.3.579.2. 1286 1996 Unknown [id number] 2.16.840.1.629419.3.579.2. 1286 1996 Unknown [id number] 2.16.840.1.379066.3.579.2. 1286 1996 Unknown [id number] 2.16.840.1.294034.3.579.2. 1286 1996 Unknown [id number] 2.16.840.1.953675.3.579.2. 1259 1996 Unknown [id number] 2.16.840.1.829631.3.579.2. 9 1996 Unknown [id number] 2.16.840.1.507228.3.579.2. 9 1996 Unknown [id number] 2.16.840.1.065113.3.579.2. 9 1996 Unknown [id number] 2.16.840.1.283790.3.579.2. 9 1996 Unknown [id number] 2.16.840.1.298396.3.579.2. 9 1996 Unknown [id number] 2.16.840.1.589770.3.579.2. 9 1996 Unknown [id number] 2.16.840.1.287683.3.579.2. 9 1996 Unknown [id number] 2.16.840.1.334588.3.579.2. 9 1996 Unknown [id number] 2.16.840.1.037253.3.579.2. 9 1959 Unknown [id number] Social History Date Type Detail Facility Tobacco smoking stat [facility] Tobacco smoking consumption unknown [facility] Start: 09-24-2024 [facility] Start: 1996 Sex assigned at Not on file [facility] Gender identity Not on file [facility] Clinical Notes 12-04-2024 to 05-12-2025 Yee Shields, LUIGI - 05/12/2025 10:50 AM JESUSElzajohn Bre, LUMBER TAILER - 04/27/2025 10:50 AM LUIGI Newton - 04/09/2025 9:40 AM Belinda Shields, LUIGI - 03/26/2025 2:00 PM EDTJulianna Cloud, LUMBER TAILER - 03/11/2025 4:00 PM EDT Note Date & Type Note Facility 05-12-2025 History of Presen t illness Narrative Reason for Appointment: Patient ID: Melissa Chen [...] Diagnosis Date Noted Nausea and vomiting in ([facility]) 11/25/2024 History of canker sores 03/11/2025 Resolved [...] Vitals: Estimated body mass index is 26.36 kg/m as calculated from the following: Height as of 03/11/25: 5' 3 . Weight as of this encounter: 148 lb 12.8 oz. BP: 110/70 Patient's last menstrual period was 10/09/2024. ASSESSMENT & PLAN ICD-10-CM 1. 34 weeks gestation of ([facility]) Z3A.34 POCT urinalysis dipstick manually resulted 2. Third trimester ([facility]) Z34.93 POCT urinalysis dipstick manually resulted [...] of: LUIGI Lyons documented in this encounter [facility] 04-27-2025 History of Presen t illness Narrative Reason for Appointment: Patient ID: Melissa Chen is a 29 y.o. female who presents for Routine Visit Patient presents today for Return OB appointment. MEDICATIONS Current Outpatient Medications Medication Instructions metoclopramide (Reglan) 10 MG tablet metoclopramide (REGLAN) 10 mg, Oral, 3 times daily before meals, Take 1 tablet by mouth 30 minutes prior to meals 3 times daily as needed for nausea. ondansetron ODT (ZOFRAN-ODT) 4 mg, Oral, Every 6 hours PRN Vit-Fe Fumarate-FA ( 19) chewable tablet ALLERGIES No Known Allergies PROBLEMS Active Ambulatory Problems Diagnosis Date Noted Nausea and vomiting in ([facility]) 11/25/2024 History of canker sores 03/11/2025 Resolved [...] Exam Constitutional: Appearance: Normal appearance. She is well-developed. Cardiovascular: Rate and Rhythm: Normal rate and regular rhythm. Pulmonary: Effort: Pulmonary effort is normal. Breath sounds: Normal breath sounds. Abdominal: General: Bowel sounds are normal. There is no distension. Palpations: Abdomen is soft. Tenderness: There is no abdominal tenderness. There is no guarding or rebound. Musculoskeletal: General: No swelling. Normal range of motion. Right lower leg: No edema. Left lower leg: No edema. Neurological: Mental Status: She is alert and oriented to person, place, and time. Skin: General: Skin is warm and dry. Psychiatric: Mood and Affect: Mood normal. Behavior: Behavior normal. Vitals and nursing note reviewed. Exam conducted with a lace tearing supervisor present. Vitals: Estimated body mass index is 26.11 kg/m as calculated from the following: Height as of 03/11/25: 5' 3 . Weight as of this encounter: 147 lb 6.4 oz. BP: 110/72 Patient's last menstrual period was 10/09/2024. ASSESSMENT & PLAN ICD-10-CM 1. Third trimester ([facility]) Z34.93 POCT urinalysis dipstick manually resulted 2. 32 weeks gestation of ([facility]) Z3A.32 POCT urinalysis dipstick manually resulted Patient presents today for a routine obstetrics appointment. Patient is currently 32w5d with a Estimated Date of Delivery: 06/17/25. Patient to start medication for cold sores. Patient had last scan on 04/09/25 and baby was 33%tile. Patient to return to clinic in 2 weeks for routine OB appointment. Documented by Caryl Díaz LPN on behalf of: Alfonso Tellez DO documented in this encounter [facility] 04-09-2025 History of Presen t illness Narrative Reason for Appointment: Patient ID: Melissa Chen is a 29 y.o. female who presents for Routine Visit Patient presents today for Return OB appointment. MEDICATIONS Current Outpatient Medications Medication Instructions metoclopramide (Reglan) 10 MG tablet metoclopramide (REGLAN) 10 mg, Oral, 3 times daily before meals, Take 1 tablet by mouth 30 minutes prior to meals 3 times daily as needed for nausea. ondansetron ODT (ZOFRAN-ODT) 4 mg, Oral, Every 6 hours PRN Vit-Fe Fumarate-FA ( 19) chewable tablet ALLERGIES No Known Allergies PROBLEMS Active Ambulatory Problems Diagnosis Date Noted Nausea and vomiting in ([facility]) 11/25/2024 History of canker sores 03/11/2025 Resolved Ambulatory Problems Diagnosis Date Noted No Resolved Ambulatory Problems No Additional Past Medical History HISTORY PAST MEDICAL HISTORY SOCIAL HISTORY No past medical history on file. Social History Tobacco Use Smoking status: Not on file Smokeless tobacco: Not on file Substance Use Topics Alcohol use: Not on file Drug use: Not on file FAMILY HISTORY No family history on file. SURGICAL HISTORY No past surgical history on file. REVIEW OF SYSTEMS Review of Systems: Review [...] reviewed. Vitals: Estimated body mass index is 25.86 kg/m as calculated from the following: Height as of 03/11/25: 5' 3 . Weight as of this encounter: 146 lb. BP: 116/74 Patient's last menstrual period was 10/09/2024. ASSESSMENT & PLAN ICD-10-CM 1. Third trimester ([facility]) Z34.93 2. 30 weeks gestation of ([facility]) Z3A.30 Return OB: Patient presents today for a routine obstetrics appointment. Patient is currently 30w1d . Patient states she is doing well but has complaints of being tired due to current . Patient has verbalizes frequent movement. labor precautions was discussed/given and patient was instructed to perform kick counts three times a day. No orders of the defined types were placed in this encounter. Follow Up: Patient is to return to office in 2 week for routine OB appointment. Documented by LUIGI Lyons on behalf of: LUIGI Lyons documented in this encounter [facility] 03-26-2025 History of Presen t illness Narrative Reason for Appointment: Patient ID: Melissa Chen is a 29 y.o. female who presents for Routine Visit Patient presents today for Return OB appointment. MEDICATIONS Current Outpatient Medications Medication Instructions metoclopramide (Reglan) 10 MG tablet metoclopramide (REGLAN) 10 mg, Oral, 3 times daily before meals, Take 1 tablet by mouth 30 minutes prior to meals 3 times daily as needed for nausea. ondansetron ODT (ZOFRAN-ODT) 4 mg, Oral, Every 6 hours PRN Vit-Fe Fumarate-FA ( 19) chewable tablet ALLERGIES No Known Allergies PROBLEMS Active Ambulatory Problems Diagnosis Date Noted Nausea and vomiting in ([facility]) 11/25/2024 History of canker sores 03/11/2025 Resolved Ambulatory Problems Diagnosis Date Noted No Resolved Ambulatory Problems No Additional Past Medical History HISTORY PAST MEDICAL HISTORY SOCIAL HISTORY No past medical history on file. Social History Tobacco Use Smoking status: Not on file Smokeless tobacco: Not on file Substance Use Topics Alcohol use: Not on file Drug use: Not on file FAMILY HISTORY No family history on file. SURGICAL HISTORY No past surgical history on file. REVIEW OF SYSTEMS Review of Systems: Review [...] reviewed. Vitals: Estimated body mass index is 25.24 kg/m as calculated from the following: Height as of 03/11/25: 5' 3 . Weight as of this encounter: 142 lb 8 oz. BP: 102/70 Patient's last menstrual period was 10/09/2024. ASSESSMENT & PLAN ICD-10-CM 1. Size of fetus inconsistent with dates in first trimester ([facility]) O26.841 US OB follow up transabdominal approach 2. Third trimester ([facility]) Z34.93 3. 28 weeks gestation of ([facility]) Z3A.28 Documented by LUIGI Lyons on behalf of: LUIGI Lyons documented in this encounter [facility] 03-11-2025 History of Presen t illness Narrative Reason for Appointment: Patient ID: Melissa Chen is a 29 y.o. female who presents for Routine Visit Patient presents today for Return OB appointment. MEDICATIONS Current Outpatient Medications Medication Instructions metoclopramide (Reglan) 10 MG tablet metoclopramide (REGLAN) 10 mg, Oral, 3 times daily before meals, Take 1 tablet by mouth 30 minutes prior to meals 3 times daily as needed for nausea. ondansetron ODT (ZOFRAN-ODT) 4 mg, Oral, Every 6 hours PRN Vit-Fe Fumarate-FA ( 19) chewable tablet ALLERGIES No Known Allergies PROBLEMS Active Ambulatory Problems Diagnosis Date Noted Nausea and vomiting in ([facility]) 11/25/2024 History of canker sores 03/11/2025 Resolved Ambulatory Problems Diagnosis Date Noted No Resolved Ambulatory Problems No Additional Past Medical History HISTORY PAST MEDICAL HISTORY SOCIAL HISTORY No past medical history on file. Social History Tobacco Use Smoking status: Not [...] Exam Constitutional: Appearance: Normal appearance. She is well-developed. Cardiovascular: Rate and Rhythm: Normal rate and regular rhythm. Pulmonary: Effort: Pulmonary effort is normal. Breath sounds: Normal breath sounds. Abdominal: General: Bowel sounds are normal. There is no distension. Palpations: Abdomen is soft. Tenderness: There is no abdominal tenderness. There is no guarding or rebound. Musculoskeletal: General: No swelling. Normal range of motion. Right lower leg: No edema. Left lower leg: No edema. Neurological: Mental Status: She is alert and oriented to person, place, and time. Skin: General: Skin is warm and dry. Psychiatric: Mood and Affect: Mood normal. Behavior: Behavior normal. Vitals and nursing note reviewed. Exam conducted with a lace tearing supervisor present. Vitals: Estimated body mass index is 24.98 kg/m as calculated from the following: Height as of this encounter: 5' 3 . Weight as of this encounter: 141 lb. BP: 110/68 Patient's last menstrual period was 10/09/2024. ASSESSMENT & PLAN ICD-10-CM 1. Third trimester ([facility]) Z34.93 POCT urinalysis dipstick manually resulted 2. 26 weeks gestation of ([facility]) Z3A.26 3. History of canker sores Z87.19 4. Diabetes mellitus screening Z13.1 CBC Glucose tolerance, 1 hour CBC Glucose tolerance, 1 hour Return OB: Patient presents today for a routine obstetrics appointment. Patient is currently 26w0d . Patient states she is doing well but has complaints of being tired due to current . Patient has verbalizes frequent movement. labor precautions was discussed/given. Pt given glucola and cbc orders to have obtained. Orders Placed This Encounter Procedures CBC Glucose tolerance, 1 hour POCT urinalysis dipstick manually resulted Follow Up: Patient is to return to office in 2 week for routine OB appointment. Documented by Julianna Cloud LPN on behalf of: Alfonso Tellez DO documented in this encounter [facility] 01-01-2025 History of Presen t illness Narrative Reason for Appointment: Patient ID: Melissa Chen is a 29 y.o. female who presents for Routine Visit Patient presents today for Return OB appointment. MEDICATIONS Current Outpatient Medications Medication Instructions metoclopramide (Reglan) 10 MG tablet naproxen (NAPROSYN) 500 mg, 2 times daily with meals ondansetron ODT (ZOFRAN-ODT) 4 mg, Oral, Every 6 hours PRN MV & Min w/FA-DHA ( Gummies) 0.18-25 MG chewable tablet 1 tablet, Oral, Daily ALLERGIES No Known Allergies PROBLEMS Active Ambulatory Problems Diagnosis Date Noted Nausea and vomiting in 11/25/2024 Resolved Ambulatory Problems Diagnosis Date Noted No Resolved Ambulatory Problems No Additional Past Medical History HISTORY PAST MEDICAL HISTORY SOCIAL HISTORY No past medical history on file. Social History Tobacco Use Smoking status: Not on file Smokeless tobacco: Not on file Substance Use Topics Alcohol use: Not on file Drug use: Not on file FAMILY HISTORY No family history on file. SURGICAL HISTORY No past surgical history on file. REVIEW OF SYSTEMS Review of Systems: Review of Systems OBJECTIVE Objective: OBGyn Exam Vitals: There is no height or weight on file to calculate BMI. BP: 100/76 Patient's last menstrual period was 10/09/2024. ASSESSMENT & PLAN ICD-10-CM 1. Second trimester Z34.92 POCT urinalysis dipstick manually resulted 2. 16 weeks gestation of Z3A.16 New OB: Patient presents today for 1st time obstetrics appointment with provider. Patient is currently 16w1d . Patients history has been reviewed in great detail including any potential risks. Patient stated she currently has no complaints. Expectations throughout regarding labs, ultrasounds, and appointments have been discussed with the patient in detail. It was reiterated that the patient is to drink 6-8 glasses of water a day, eat 6 small meals a day, do not consume raw or undercooked meat, and stay away from formerly [facility]. Patient has been consulted regarding any further do's and don'ts of . Patient voiced understanding and all questions and concerns were answered. --Patient to start Valtrex at 32 weeks gestation, and patient to contact office if she has outbreak throughout .-- Orders Placed This Encounter Procedures POCT urinalysis dipstick manually resulted Follow Up: Patient is to return in 4 weeks for routine OB appointment. Documented by Caryl Díaz LPN on behalf of: Alfonso Tellez DO documented in this encounter [facility] 12-04-2024 History of Presen t illness Narrative Reason for Appointment: Patient ID: Melissa Chen is a 29 y.o. female who presents for Amenorrhea Patient presents today for a Nurse OB Intake appointment. Patient is 12w1d with a Estimated Date of Delivery: 06/17/25 OB History Para Term AB Living 3 1 1 1 1 SAB IAB Ectopic Multiple Live Births 1 1 # Outcome Date GA Lbr Sergio/2nd Weight Sex Type Anes PTL Lv 3 Current 2 IAB 2019 1 Term 11/02/17 38w6d 5 lb 13 oz M Vag-Spont EPI [facility] Current Medications: has a current medication list which includes the following prescription(s): metoclopramide, naproxen, ondansetron odt, and gummies. Medical History: Active Ambulatory Problems Diagnosis Date Noted Nausea and vomiting in 11/25/2024 Resolved Ambulatory Problems Diagnosis Date Noted No Resolved Ambulatory Problems No Additional Past Medical History No family history on file. Social History Tobacco Use Smoking status: Not on file Smokeless tobacco: Not on file Substance Use Topics Alcohol use: Not on file Drug use: Not on file No past surgical history on file. No Known Allergies Vitals: There is no height or weight on file to calculate BMI. BP: 116/62 Patient's last menstrual period was 10/09/2024. Assessment/Plan Diagnoses and all orders for this visit: Missed menses - Type and screen; Future - ABO/Rh; Future - CBC and differential - Hemoglobin A1c - RPR - Rubella antibody, IgG - Hepatitis B surface antigen - Hepatitis C antibody - HIV-1 and HIV-2 antibodies - Urine culture - POCT , urine manually resulted - POCT urinalysis dipstick manually resulted , unspecified gestational age - Type and screen; Future - ABO/Rh; Future - CBC and differential - Hemoglobin A1c - RPR - Rubella antibody, IgG - Hepatitis B surface antigen - Hepatitis C antibody - HIV-1 and HIV-2 antibodies - Rapid drug screen, urine; Future Encounter for supervision of normal first in first trimester - Rapid drug screen, urine; Future - MV & Min w/FA-DHA ( Gummies) 0.18-25 MG chewable tablet; Chew 1 tablet Daily Nurse Note: Pt desires pills to be sent to pharmacy. Pt desires [place] billion to one. Pt was advised to have both the labs and [place] done at the same time. PVU. OB Intake: Patient presents today for first OB visit. Patients history has been reviewed in great detail including any potential risks. Patient signed consent forms and patient desires testing in both trimesters. Patient currently has no complaints and has been advised to drink 6-8 glasses of water a day, eat no raw or undercooked meat, and stay away from [facility]. Patient has also been advised to not change litter boxes and eat 6 small meals a day. Patient has been consulted regarding the do's and don'ts of . Patient was given labs and all questions and concerns were answered. Follow Up: Patient is to return in 4 weeks for routine OB appointment. Follow Up: Patient is to have labs drawn at directed and return to office for initial OB appointment with provider. Patient may call office as needed with any concerns or questions. Nurse Visit Completed by: Kasandra Mcdonough MA documented in this encounter [facility] Healthcare Evaluation note Diagnosis Missed menses , unspecified gestational age Encounter for supervision of normal first in first trimester documented [facility] Diagnosis Second trimester state, incidental 16 weeks gestation of Nausea Nausea alone documented [facility] this [facility]* Diagnosis Third trimester ([facility]HS-HCC) state, incidental 26 weeks gestation of (HHS-HCC) History of canker sores Diabetes mellitus screening Screening for diabetes mellitus documented in this [facility]* Diagnosis Size of fetus inconsistent with dates in first trimester (HHS-HCC)- Primary Third trimester (HHS-HCC) state, incidental 28 weeks gestation of ([facility]HS-HCC) documented [facility]* Diagnosis Third trimester (HHS-HCC) state, incidental 30 weeks gestation of ([facility]HS-HCC) documented [facility]* Diagnosis Third trimester (HHS-HCC) state, incidental 32 weeks gestation of (HHS-HCC) H/O cold sores documented in this [facility]* Diagnosis 34 weeks gestation of (HHS-HCC) Third trimester (HHS-HCC) state, incidental H/O cold sores documented in this encounter [facility] Summary Purpose Family History No Family History Records FoundNo Family History Records FoundNo Family History Records Found Advance Directives No Advanced Directives Records FoundNo Advanced Directives Records FoundNo Advanced Directives Records Found Additional Source Comments INFORMATION SOURCE (unrecogn ized section and content) DATE CREATED AUTHOR 08/11/2022 [facility] DATE CREATED AUTHOR AUTHOR'S ORGANIZ ATION 04/08/2025 [facility] DATE CREATED AUTHOR AUTHOR'S ORGANIZ ATION 05/13/2025 [facility] EPIC Reason for Visit (unrecogniz ed section and content) Reason Comments Amenorrhea Reason Comments Routine Visit Care Teams (unrecognized sec tion and content) Sales Support Representative Relationship Specialty Start Date End Date Edwin iMtchell NP PCP [facility] 12/09/2408/09 Sales Support Representative Relationship Specialty Start Date End Date Edwin Mitchell NP [facility] 12/09/2408/09 Sales Support Representative Relationship Specialty Start Date End Date Edwin Mitchell NP [facility] 12/09/2408/09 Sales Support Representative Relationship Specialty Start Date End Date Edwin Mitchell NP [facility] 12/09/2408/09 FOR RECORDS PERTAINING TO PATIENTS WHO ARE [...] BE BASED ON THE PRIMARY CLINICAL RECORDS. [facility] [employer] provides no warranty or guarantee of the accuracy or completeness of information in this document.
[2025-05-18 08:56] VITALS: BP 101/65; PULSE 91; TEMP 36.7
[2025-05-18 10:15] LABS: Glucose Urine UA NEGATIVE (NEGATIVE)
== END 2025-05-18 11:52 | disposition home or self-care (01) ==
PROVIDERS: Admitting Provider Obstetrics & Gynecology; Visit Provider Obstetrics & Gynecology
DX: O47.03 False labor before 37 completed weeks of gestation, third trimester (principal); Z3A.35 35 weeks gestation of pregnancy
CPT/HCPCS: 59025; 81003; G0378; G0379

== ENCOUNTER 2025-05-26 19:53 | Outpatient (REF) | payer OTHER, SELFPAY ==
--- OUTSIDE RECORDS SUMMARY | 2025-05-26 10:50 | XMS_ITS | Encounter Summary ---
Author Organization [facility] Address [address] [place] [address] Care Team Providers Care Tune Up Mechanic Name Role Phone Jj Mitchell STRUCTURES ENGINEER Unavailable Reason for Visit * Reason Comments Routine Visit Encounter Details Date Type Department Care Team (Late st Contact Info) Description 05/26/2025 10:50 AM EDT Routine [facility] [address] [place] [address] Sarath Tellez DO [address] [facility] [address] [place] [phone] Third trimester ([facility]); 36 weeks gestation of ([facility]) Social History Tobacco Use Types Packs/Day Years [...] Sign Reading Time Taken Comments Blood Pressure 106/68 05/26/2025 11:22 AM EDT Pulse - - Temperature - - Respiratory Rate - - Oxygen Saturation - - Inhaled Oxygen Concentration - - Weight 71.8 kg (158 lb 6.4 oz) 05/26/2025 11:22 AM EDT Height - - Body Mass Index 28.06 03/11/2025 4:18 PM EDT documented in this encounter Progress Notes * Julianna Cloud LPN - 05/26/2025 10:50 AM EDT Reason for Appointment: Patient [...] Noted Nausea and vomiting in ([facility]) 11/25/2024 [...] Constitutional: Appearance: Normal appearance. She is well-developed. Genitourinary: Vulva normal. Cardiovascular: Rate and Rhythm: Normal rate and [...] nursing note reviewed. Exam conducted with a 7th grade teacher present. Vitals: Estimated body mass index is 28.06 kg/m?? as calculated from the following: Height as of 03/11/25: 5' 3 . Weight as of this encounter: 158 lb 6.4 oz. BP: 106/68 Patient's last menstrual period was 10/09/2024. ASSESSMENT & PLAN ICD-10-CM 1. Third trimester ([facility]) Z34.93 POCT urinalysis dipstick manually resulted CULTURE, GROUP B STREP WITH SUSCEPTIBLITY CULTURE, GROUP B STREP WITH SUSCEPTIBLITY 2. 36 weeks gestation of ([facility]) Z3A.36 POCT urinalysis dipstick manually resulted Patient is doing well but has complaints of being tired and having maternal discomfort due to . Patient verbalized frequent movement and was instructed to perform kick counts three times per day. labor precautions were given, LARC consent was signed/declined, and GBS was obtained. Cervical check was performed and patient is 0cm dilated. Orders Placed This Encounter Procedures CULTURE, GROUP B STREP WITH SUSCEPTIBLITY POCT urinalysis dipstick manually resulted Follow Up: Patient is to return to office in 1 week for routine OB appointment Documented by Julianna Cloud LPN on behalf of: Yee Nj PA-C documented in this encounter Plan of Treatment Upcoming Encounters Date Type Department Care Team (Late st Contact Info) Description 06/01/2025 9:30 AM EDT Routine [facility] [address] [place] [address] Sarath Tellez DO [address] [facility] [place] [address] Scheduled Orders Name Type Priority Associated Diagnoses Orde r Schedule CULTURE, GROUP B STREP WITH SUSCEPTIBLITY Lab Routine Third trimester ([facility]) Expected: 05/26/2025, Expires: 05/26/2026 documented as of this encounter Procedures Procedure Name Priority Date/Time Associated Diagnosis Comments POCT URINALYSIS DIPSTICK Routine 05/26/2025 11:30 AM EDT Third trimester (HHS-HCC) 36 weeks gestation of ([facility]) documented in this encounter Results * (ABNORMAL) POCT urinalysis dipstick manually resulted (05/26/2025 11:30 AM EDT) Color, UA Yellow Clarity, UA Clear Glucose, UA Negative Negative - 2000(110) ++++ mg/dL Bilirubin, UA Negative Negative - 4(70) +++ mg/dL Ketones, UA Negative Negative - 160(16) ++++ mg/dL Spec Grav, UA 1.020 1 - 1.03 Blood, UA Negative Negative - 50 Zack/mcL pH, UA 6.5 5 - 9 Protein, UA Trace Negative - 2000(20) ++++ mg/dL Urobilinogen, UA 1.0 0.2 - 12 mg/dL Leukocytes, UA Negative Negative - 500+++ Robi/mcL Nitrite, UA Negative Negative - Positive Urine 05/26/2025 11:3 0 AM EDT us Sarath Tellez DO POINT OF CARE TEST ENTER/EDIT OR DERABLES Final Result documented in this encounter Visit Diagnoses Diagnosis Third trimester ([facility]) state, incidental 36 weeks gestation of ([facility]) documented in this encounter Care Teams Tune Up Mechanic Relationship Specialty Start Date End Date Jj Mitchell NP PCP - Brayan Horvath [facility] 12/09/2408/09 documented as of this encounter
--- OUTSIDE RECORDS SUMMARY | 2025-05-29 08:44 | XMS_ITS | Encounter Summary ---
Author Organization [facility] Address [address] [place] [address] Care Team Providers Care Utility Assembler Name Role Phone Jj Mitchell MANAGER CHINESE Unavailable Encounter Details Date Type Department Care Team (Late st Contact Info) Description 05/18/2025 Clinisync Result Encounter [facility] External Department Unsolicited Sarath Tellez DO [address] [place] [address] [place], [place] [phone] Social History Tobacco Use Types Packs/Day Years [...] Info) Description 06/01/2025 9:30 AM EDT Routine [facility] [place] [facility] [address] [place] [address] [place] [phone] Sarath Tellez DO [address] [place] [address] [place] [address] documented as of this encounter Procedures Procedure Name Priority Date/Time Associated Diagnosis Comments TBH UA (CLEAN/CATCH) CLOTH EXAMINER MACHINE/MICRO IF IND. Routine 05/18/2025 9:55 AM EDT documented in this encounter Results * TBH UA (CLEAN/CATCH) CLOTH EXAMINER MACHINE/MICRO IF IND. (05/18/2025 9:55 AM EDT) COLOR URINE LT. YELLOW YELLOW TBH CLARITY URINE CLEAR CLEAR TBH SPECIFIC GRAVITY URINE 1.015 1.005 - 1.025 TBH PH URINE 6.0 5.0 - 9.0 TBH PROTEIN URINE NEGATIVE NEG/TRACE mg/dL TBH GLUCOSE URINE UA NEGATIVE NEGATIVE mg/dL TBH BILIRUBIN URINE NEGATIVE NEGATIVE TBH KETONES URINE NEGATIVE NEGATIVE mg/dL TBH BLOOD URINE NEGATIVE NEGATIVE TBH NITRITE URINE NEGATIVE NEGATIVE TBH UROBILINOGEN URINE 1.0 0.2 - 1.0 EU/dL TBH LEUKOCYTE ESTERASE URINE NEGATIVE NEGATIVE TBH URINE MICROSCOPIC INDICATED NO TBH 05/18/2025 9:55 AM EDT 05/18/2025 10:03 AM EDT Narrative [facility] - 05/18/2025 10:16 AM EDT us Sarath Rosalinda DO [facility] Final Result Performing Organization Address City/State/[facility] Co de Phone Number [facility] documented in this encounter Visit Diagnoses Not on filedocumented in this encounter Care Teams Utility Assembler Relationship Specialty Start Date End Date Jj Mitchell NP PCP - Brayan Horvath [facility] 12/09/2408/09 documented as of this encounter
--- OUTSIDE RECORDS SUMMARY | 2025-05-29 08:44 | XMS_ITS | Encounter Summary ---
Author Organization [facility] Address [id number] [address] [place] [address] Care Team Providers Care Petroleum Geologist Name Role Phone No Pcp, No Pcp Primary Care Provider Unavailabl e Encounter Details Date Type Department Care Team (Late st Contact Info) Description 10/05/2020 [facility] [address] [place] [address] [place] [address] Ref Prov, [place] [address] Social History Tobacco Use Types Packs/Day Years [...] documented as of this encounter Care Teams Petroleum Geologist Relationship Specialty Start Date End Date No Pcp, [place] [address] PCP - General Family Medicine 01/05/25 documented as of this encounter
--- OUTSIDE RECORDS SUMMARY | 2025-05-29 08:44 | XMS_ITS | Encounter Summary ---
Author Organization [facility] Address [id number] [address] [place] [address] Care Team Providers Care Corrections Unit Supervisor Name Role Phone No Pcp, No Pcp Primary Care Provider Unavailabl e Encounter Details Date Type Department Care Team (Late st Contact Info) Description 09/21/2020 [facility] [address] [place] [address] [address] [place] [address] Craig Pritchard CMA Social History [...] [phone] * Telephone Encounter - Jhoana Penny APRN-STEAM CLEANER - 09/21/2020 3:18 PM EST Yes needs covid test * Telephone Encounter - Craig Pritchard CMA - 09/21/2020 3:18 PM EST Sent to [place], [facility] aware documented in this encounter Plan of [...] documented as of this encounter Care Teams Corrections Unit Supervisor Relationship Specialty Start Date End Date No Pcp, [place] [address] PCP - General Family Medicine 01/05/25 documented as of this encounter
--- OUTSIDE RECORDS SUMMARY | 2025-05-29 08:44 | XMS_ITS | Encounter Summary ---
Author Organization [facility] Address [id number] [address] [place] [address] Care Team Providers Care Residential Carpet Installer Name Role Phone No Pcp, No Pcp Primary Care Provider Unavailabl e Encounter Details Date Type Department Care Team (Late st Contact Info) Description 03/22/2021 Telephone [facility] [address] [place] [address] [place] [address] Dwight Johnson CMA Social History [...] documented as of this encounter Care Teams Residential Carpet Installer Relationship Specialty Start Date End Date No Pcp, [place] [address] PCP - General Family Medicine 01/05/25 documented as of this encounter
--- OUTSIDE RECORDS SUMMARY | 2025-05-29 08:44 | XMS_ITS | Encounter Summary ---
Author Organization [facility] Address [address] [place] [address] Care Team Providers Care Party Coordinator Name Role Phone Jj Mitchell SAPPHIRE STYLUS GRINDER Unavailable Encounter Details Date Type Department Care Team (Late st Contact Info) Description 05/20/2025 Telephone [facility]ay [facility] [place] [place] [address] Keily Mulligan LPN [address] [place] [address] Social History Tobacco Use Types Packs/Day Years [...] encounter Miscellaneous Notes * Telephone Encounter - Keily Mulligan LPN - 05/20/2025 1:20 PM EDT Pt called wanting to be taken off of work. She said she has been having contractions here and thereand is just ready to be done working. I told her we could do that and explained to her that this will cut into her maternity leave. PVU Pt then had questions about short term disability and I transferred her to our orientation and mobility specialist. documented in this encounter Plan of Treatment Upcoming Encounters Date Type Department Care Team (Late st Contact Info) Description 06/01/2025 9:30 AM EDT Routine [facility] [place] [address] Sarath Tellez, [address] [place] [address] documented as of this encounter Visit Diagnoses Not on filedocumented in this encounter Care Teams Party Coordinator Relationship Specialty Start Date End Date Jj Mitchell NP PCP - [facility] 12/09/2408/09 documented as of this encounter
--- OUTSIDE RECORDS SUMMARY | 2025-05-29 08:44 | XMS_ITS | Encounter Summary ---
Author Organization [facility] Address [address] [place] [address] Care Team Providers Care Cattle Care Worker Name Role Phone Jj Mitchell DECONTAMINATION WORKER Unavailable Encounter Details Date Type Department Care Team (Late st Contact Info) Description 05/26/2025 Bamboo flowsheet [facility] [address] [facility] [place] [address] Sarath Tellez, DO [address] [facility] [address] [place], [facility] Social History Tobacco Use Types [...] Description 06/01/2025 9:30 AM EDT Routine SENAIT LEBRON [address] [facility] [place] [phone] Sarath Tellez, DO [address] [facility] [address] [place], [facility] documented as of this encounter Visit Diagnoses Not on filedocumented in this encounter Care Teams Cattle Care Worker Relationship Specialty Start Date End Date Jj Mitchell NP PCP - [facility] 12/09/2408/09 documented as of this encounter
--- OUTSIDE RECORDS SUMMARY | 2025-05-29 08:45 | XMS_ITS | Encounter Summary ---
Author Organization [facility] Address [address] [place] [address] Care Team Providers Care Physically Impaired Teacher Name Role Phone Jj Mitchell REAL ESTATE INSTRUCTOR Unavailable Encounter Details Date Type Department Care Team (Late st Contact Info) Description 03/10/2025 Abstract [facility] [address] [place] [phone] Yee Chen, SANDRA [address] [place] [place] [address] Social History Tobacco Use Types Packs/Day Years [...] AM EDT Routine [facility] [address] [facility] [place] [phone] Sarath Tellez DO [address] [facility] [place] [address] documented as of this encounter Visit Diagnoses Not on filedocumented in this encounter Care Teams Physically Impaired Teacher Relationship Specialty Start Date End Date Jj Mitchell NP PCP - [facility] 12/09/2408/09 documented as of this encounter
--- OUTSIDE RECORDS SUMMARY | 2025-05-29 08:45 | XMS_ITS | CCD ---
Author Organization [facility] Care Team Providers Care Bellows Charger Assembler Name Role Phone BHARATI HESS Primary Care Unavailable DR DANNY SMITH Admitting Unavailable SARAH, DR DANNY Kerns Attending Unavailable MAGDI, DR CESAR Davila Consulting Unavailabl e NADERER, DR DANNY Kerns Consulting Unavailable SHIRA MORENO Unavailable Unavailable Primary Care Provider Unavailabl e [...] TELLEZ Attending Unavailable YEE SHIELDS Attending Unavailable ROSALINDA, ALFONSO Attending Unavailable YEE SHIELDS Attending Unavailable YEE SHIELDS Attending Unavailable ALFONSO TELLEZ Attending Unavailable YEE SHIELDS Attending Unavailable ALFONSO TELLEZ Attending Unavailable Medications Current Medications Medication Drug [...] disintegrating tablet Indications: Nausea and vomiting in ([facility]) Take 1 tablet (4 mg) by mouth every 6 (six) hours if needed for nausea or vomiting for up to 30 doses 30 tablet 2 11/25/2024 Active Vit-Fe Fumarate-FA ( 19) chewable tablet (17 sources) Start: 12-08-2024 Vit-Fe Fumarate-FA ( 19) chewable tablet 12/08/2024 Active valACYclovir 500 mg oral tablet (9 sources) Herpesvirus Nucleoside Analog DNA Polymerase Inhibitor, [...] trimester] Onset: 04-05-2025 Episodic Other gastrointestinal disorders (19 sources) H/O: Disorder; Translations: [Personal history of other diseases of the digestive system] Onset: 03-11-2025 03-11-2025 Episodic Other infections; including parasitic (4 sources) H/O: viral illness; Translations: [Personal history of other infectious and parasitic diseases] 04-27-2025 Episodic Other and delivery including normal (16 sources) ; Translations: [Encounter for supervision of [...] [34 weeks gestation of ] 05-12-2025 Episodic Residual codes; unclassified (2 sources) Gestation period, 36 weeks; Translations: [36 weeks gestation of ] 05-26-2025 Episodic Unclassified (1 source) CONTACT W/AND (SUSP) [...] Range Facility Urinalysis macro (dipstick) panel (U)on 05-26-2025 Bilirubin, UA Negative Negative - 4(70) +++ mg/dL [facility] Blood, UA Negative Negative - 50 Zack/mcL [facility] Clarity, UA Clear [facility] re Color, UA Yellow [facility]car [facility] Glucose, UA Negative Negative - 2000(110) ++++ mg/dL [facility] Interpretation and review of laboratory results Abnormal [facility] Ketones, UA Negative Negative - 160(16) ++++ mg/dL [facility] Leukocytes, UA Negative Negative - 500+++ Robi/mcL [facility] Nitrite, UA Negative Negative - Positive [facility] pH, UA 6.5 5 - 9 [facility] Healthcar e Protein, UA Trace Negative - 1999(20) ++++ mg/dL [facility] Spec Grav, UA 1.02 1 - 1.03 [facility] Urobilinogen, UA 1.0 0.2 - 12 mg/dL [facility] UA (CLEAN/CATCH) DUMP MOTORMAN/MERI RO IF IND.on 05-18-2025 BILIRUBIN URINE Negative NEGATIVE [facility] thcare BLOOD URINE Negative NEGATIVE [facility] Healthca re Clarity (U) CLEAR CLEAR [facility] Health[facility] re Color (U) LT. YELLOW YELLOW [facility] Healthcar e GLUCOSE URINE UA Negative NEGATIVE mg/dL [facility] Ketones Ql (U) Negative NEGATIVE mg/dL [facility] Leukocyte esterase Test strip Ql (U) Negative NEGATIVE [facility] Healthcar e NITRITE URINE Negative NEGATIVE [facility] Health care pH (U) 6.0 [pH] 5.0 - 9.0 [facility] Healthcar e PROTEIN URINE Negative NEG/TRACE mg/dL [facility] SPECIFIC GRAVITY URINE 1.015 1.005 - 1.025 [facility] URINE MICROSCOPIC INDICATED NO [facility] UROBILINOGEN URINE 1.0 EU/dL 0.2 - 1.0 EU/dL [facility] Healthcar e Urinalysis macro (dipstick) panel (U)on 05-12-2025 Bilirubin, UA Negative Negative - 4(70) +++ mg/dL [facility] Blood, UA Negative Negative - 50 Zack/mcL [facility] Clarity, UA Clear [facility] Healthca re Color, UA [place] [facility] Glucose, UA Negative Negative - 1999(110) ++++ mg/dL [facility] Interpretation and review of laboratory results Abnormal [facility] Ketones, UA Negative Negative - 160(16) ++++ mg/dL [facility] Leukocytes, UA Negative Negative - 500+++ Robi/mcL [facility] Nitrite, UA Negative Negative - Positive [facility] pH, UA 6 5 - 9 [facility] Protein, UA Positive Negative - 1999(20) ++++ mg/dL [facility] Spec Grav, UA 1.03 1 - 1.03 [facility] Urobilinogen, UA >=8.0 0.2 - 12 mg/dL [facility] Comment on above: 17 [facility] Urinalysis macro (dipstick) panel (U)on 04-27-2025 Bilirubin, UA Negative Negative - 4(70) +++ mg/dL [facility] Blood, UA Negative Negative - 50 Zack/mcL [facility] Clarity, UA Clear [facility] re Color, UA Yellow [facility] Glucose, UA Negative Negative - 1999(110) ++++ mg/dL [facility] Interpretation and review of laboratory results Normal [facility] Ketones, UA Negative Negative - 160(16) ++++ mg/dL [facility] Leukocytes, UA Negative Negative - 500+++ Robi/mcL [facility] Nitrite, UA Negative Negative - Positive [facility] pH, UA 5.5 5 - 9 [facility] e Protein, UA Negative Negative - 1999(20) ++++ mg/dL [facility] Spec Grav, UA 1.02 1 - 1.03 [facility] Urobilinogen, UA 1.0 0.2 - 12 mg/dL [facility] Health[facility] e US OB FOLLOW UP TRANSABDOMIN [...] II, MD, PHD at 10-Apr-2025 08:25:24 AM [facility] Normal Not Available Comment on above: Order Comment: US OB SCAN FOR GROWTH Estimated Date of Delivery: 06/17/25 Gestational Age as of 03/26/2025: 28w1d URINALYSISon 04-06-2025 Bilirubin Ql (U) Negative Normal Negative [facility] Comment on above: Performed By: #### U A #### [facility] ([address] [address] VIR BLOOD/HGB Negative Normal Negative [facility] Comment on above: Performed By: #### U A #### [facility] ([address] [address] VIR Color (U) Yellow Normal Yellow, Colorless [facility] Comment on above: Performed By: #### U A #### [facility] ([address] [address] VIR Glucose Ql (U) Negative Normal Negative, 250 mg/dL [facility] Comment on above: Performed By: #### U A #### [facility] ([address] [address] VIR Ketones Ql (U) Negative Normal Negative [facility] Comment on above: Performed By: #### U A #### [facility] ([address] [address] VIR Leukocyte esterase Test strip Ql (U) Negative Normal Negative [facility] Comment on above: Performed By: #### U A #### [facility] ([address] [place] [address] VIR Nitrite Ql (U) Negative Normal Negative [facility] Comment on above: Performed By: #### U A #### [facility] ([address] [address] VIR PH,URINE 6.0 Normal 5.0-8.5 [facility] Comment on above: Performed By: #### U A #### [facility] ([address] [address] VIR Protein Ql (U) Negative Normal Negative [facility] Comment on above: Performed By: #### U A #### [facility] ([address] [address] VIR Specific gravity (U) [Rel density] 1.025 Normal 1.003-1.035 [facility] Comment on above: Performed By: #### U A #### [facility] ([address] [address] VIR TURBIDITY Clear Normal Clear [facility] Comment on above: Performed By: #### U A #### [facility] ([address] [address] VIR UROBILINOGEN 1.0 eu/dL Normal 0.2 eu/dL, 1.0 eu/dL [facility] Comment on above: Performed By: #### U A #### [facility] ([address] [address] VIR URINE CULTUREon 04-06-2025 Bacteria identified Cx Nom (U) CULTURE RESULTS 10-50,000 ORGANISMS/mL NORMAL UROGENITAL SANNA Normal [facility] Comment on above: Performed By: #### U C #### [facility] ([facility]) [address] [place] [address] VIR CBC WITH AUTO DIFFERENTIALon 03-17-2025 BASOPHILS ABSOLUTE COUNT (10*3/UL) BY AUTOMATED COUNT 0.0 10*3/uL Normal 0.0-0.2 [facility] Comment on above: Performed By: #### C BCA #### [facility] ([facility]) [address] [place] [address] VIR BASOPHILS RELATIVE PERCENT BY AUTOMATED COUNT 0.2 % Normal [facility] Comment on above: Performed By: #### C BCA #### [facility] ([facility]) [address] [place] [address] VIR CELLAVISION DIFFERENTIAL TYPE AUTOMATED DIFFERENTIAL Normal [facility] Comment on above: Performed By: #### C BCA #### [facility] ([facility]) [address] [place] [address] VIR Eosinophils (Bld) [#/Vol] 0.1 10*3/uL Normal 0.0-0.4 [facility] Comment on above: Performed By: #### C BCA #### [facility] ([facility]) [address] [place] [address] VIR EOSINOPHILS RELATIVE PERCENT BY AUTOMATED COUNT 1.2 % Normal [facility] Comment on above: Performed By: #### C BCA #### [facility] ([facility]) [address] [place] [address] VIR Erythrocyte distribution width (RBC) [Ratio] 13.2 % Normal 11.5-15 [facility] Comment on above: Performed By: #### C BCA #### [facility] ([facility]) [address] [place] [address] VIR Hematocrit (Bld) [Volume fraction] 33.3 % Low 35-47 [facility] Comment on above: Performed By: #### C BCA #### [facility] ([facility]) [address] [place] [address] VIR Hemoglobin (Bld) [Mass/Vol] 11.4 g/dL Low 11.7-15.5 [facility] Comment on above: Performed By: #### C BCA #### [facility] ([facility]) [address] [place] [address] VIR LYMPHOCYTES ABSOLUTE COUNT (10*3/UL) BY AUTOMATED COUNT 1.7 10*3/uL Normal 1.0-3.5 [facility] Comment on above: Performed By: #### C BCA #### [facility] ([facility]) [address] [place] [address] VIR LYMPHOCYTES RELATIVE PERCENT BY AUTOMATED COUNT 18.9 % Normal [facility] Comment on above: Performed By: #### C BCA #### [facility] ([facility]) [address] [place] [address] VIR MCH (RBC) [Entitic mass] 29.9 pg Normal 27-34 [facility] Comment on above: Performed By: #### C BCA #### [facility] ([facility]) [address] [place] [address] VIR MCHC (RBC) [Mass/Vol] 34.1 g/dL Normal 32-36 [facility] Comment on above: Performed By: #### C BCA #### [facility] ([facility]) [address] [place] [address] VIR MCV (RBC) [Entitic vol] 88 fL Normal 80-100 [facility] Comment on above: Performed By: #### C BCA #### [facility] ([facility]) [address] [place] [address] VIR MONOCYTES ABSOLUTE COUNT (10*3/UL) BY AUTOMATED COUNT 0.4 10*3/uL Normal 0.0-0.9 [facility] Comment on above: Performed By: #### C BCA #### [facility] ([facility]) [address] [place] [address] VIR MONOCYTES RELATIVE PERCENT BY AUTOMATED COUNT 4.8 % Normal [facility] Comment on above: Performed By: #### C BCA #### [facility] ([facility]) [address] [place] [address] VIR NEUTROPHILS ABSOLUTE COUNT BY AUTOMATED COUNT 6.6 10*3/uL Normal 1.5-6.6 [facility] Comment on above: Performed By: #### C BCA #### [facility] ([facility]) [address] [place] [address] VIR NEUTROPHILS RELATIVE PERCENT BY AUTOMATED COUNT 74.9 % Normal [facility] Comment on above: Performed By: #### C BCA #### [facility] ([facility]) [address] [place] [address] VIR Platelet mean volume (Bld) [Entitic vol] 9.1 fL Normal 7-12 [facility] Comment on above: Performed By: #### C BCA #### [facility] ([facility]) [address] [place] [address] VIR Platelets (Bld) [#/Vol] 201 10*3/uL Normal 150-450 [facility] Comment on above: Performed By: #### C BCA #### [facility] ([facility]) [address] [place] [address] VIR RBC COUNT 3.79 X10E12/L Low 3.8-5.2 [facility] Comment on above: Performed By: #### C BCA #### [facility] ([facility]) [address] [place] [address] VIR WBC (Bld) [#/Vol] 8.8 10*3/uL Normal 4-11 [facility] Comment on above: Performed By: #### C BCA #### [facility] ([facility]) [address] [place] [address] VIR GLU 1H POST 50G LOADon 03-17 GLUCOSE, 1HR POST 50GM LOAD 132 mg/dL Normal 65-139 [facility] Comment on above: Performed By: #### G L1 #### [facility] ([facility]) [address] [place] [address] VIR Urinalysis macro (dipstick) panel (U)on 03-11-2025 Bilirubin, UA Negative Negative - 4(70) +++ mg/dL [facility] Blood, UA Negative Negative - 50 Zack/mcL [facility] Clarity, UA Clear [facility] Healthca re Color, UA Yellow [facility] Glucose, UA Negative Negative - 1999(110) ++++ mg/dL [facility] Interpretation and review of laboratory results Normal [facility] Ketones, UA Negative Negative - 160(16) ++++ mg/dL [facility] Leukocytes, UA Negative Negative - 500+++ Robi/mcL [facility] Nitrite, UA Negative Negative - Positive [facility] pH, UA 6 5 - 9 [facility] e Protein, UA Negative Negative - 1999(20) ++++ mg/dL [facility] Spec Grav, UA 1.025 1 - 1.03 [facility] Urobilinogen, UA 1.0 0.2 - 12 mg/dL [facility] Health[facility] US OB 14+ WEEKS ANATOMY [...] II, MD, PHD at 13-Feb-2025 08:26:15 AM [facility] Normal Not Available Comment on above: Order Comment: US OB ANATOMY SINGLE W US OB CERVICAL LENGTH Estimated Date of Delivery: 06/17/25 Gestational Age as of 01/29/2025: 20w1d IGP,APTIMA HPV,AGE GDLNon AGE GDLN ACOG TESTING Note . [facility] Comment on above: TESTS RESULT FLAG UN ITS REF RANGE LAB Clinician Provided Cytology Information Source.............[employer] Other.............. No. of containers..01 ThinPrep Vial Age Algo ACOG Teresa... -08 10 FLAG LEGEND: L-Low Normal,H-High Normal,LL-Alert Low,HH-Alert High <-Panic Low,>-Panic High,A-Abnormal,AA-Critical Abnormal Performed at: 01 =[facility] [address] [facility] [place] [address] Anju Capps MD, IGP, RFX APTIMA HPV ASCU Note . [facility] Comment on above: TESTS RESULT FLAG UN ITS REF RANGE LAB DIAGNOSIS: 02 NEGATIVE FOR INTRAEPITHELIAL LESION OR MALIGNANCY. THIS SPECIMEN WAS RESCREENED PART OF OUR GLASS CUT OFF TENDER PROGRAM. Specimen adequacy: 02 Satisfactory for evaluation. Endocervical and/or squamous metaplastic cells (endocervical component) are present. Performed by: Maru Charles Acute Care Nurse QC reviewed by: Maru Sargent, Acute Care Nurse ([facility]) . 02 Note: Note 02 The [...] Low,>-Panic High,A-Abnormal,AA-Critical Abnormal Performed at: [address] [facility] [address] [id number] Anju Capps MD, Performed at: =G - [facility] [address] [id number] Custom Furrier: Anju Capps MD, Phone: [phone] Performed at: WB - [facility] [address] [id number] Custom Furrier: Anju Capps MD, Phone: [phone] [facility] BASIC METABOLIC PANELon 12-10 Anion gap [Moles/Vol] 4 mmol/L Low 5-15 [facility] Comment on above: Performed By: #### B MP #### [facility] ([address] [address] VIR Calcium [Mass/Vol] 8.2 mg/dL Low 8.5-10.5 [facility] Comment on above: Performed By: #### B MP #### [facility] ([address] [address] VIR Chloride [Moles/Vol] 108 mmol/L Normal 98-109 [facility] Comment on above: Performed By: #### B MP #### [facility] ([address] [address] VIR CO2 [Moles/Vol] 21 mmol/L Low 22-32 [facility] Comment on above: Performed By: #### B MP #### [facility] ([address] [address] VIR Creatinine [Mass/Vol] 0.68 mg/dL Normal 0.40-1.00 [facility] Comment on above: Result Comment: METH OD TRACEABLE TO IDMS STANDARD Performed By: #### B MP #### [facility] ([address] [place] [address] VIR EGFR (CKD-EPI) NON-RACE DEPENDENT >^90 Normal >=60 [facility] Comment on above: Result Comment: eGFR not reported due to non-numeric value for Creatinine. Reported eGFR is based on the CKD-EPI 2020 equation that does not use a race coefficient. Performed By: #### B MP #### [facility] ([address] [place] [address] VIR Glucose [Mass/Vol] 93 mg/dL Normal 65-99 [facility] Comment on above: Performed By: #### B MP #### [address] [place] [address] VIR Potassium [Moles/Vol] 3.6 mmol/L Normal 3.5-5.0 [facility] Comment on above: Performed By: #### B MP #### [facility] ([address] [place] [address] VIR Sodium [Moles/Vol] 133 mmol/L Low 134-146 [facility] Comment on above: Performed By: #### B MP #### [facility] ([address] [place] [address] VIR Urea nitrogen [Mass/Vol] 13 mg/dL Normal 5-23 [facility] Comment on above: Performed By: #### B MP #### [facility] ([address] [place] [address] VIR CBC WITH AUTO DIFFERENTIALon 01-05-2025 BASOPHILS ABSOLUTE COUNT (10*3/UL) BY AUTOMATED COUNT 0.0 10*3/uL Normal [facility] Comment on above: Performed By: #### C BCA #### [facility] ([address] [place] [address] VIR BASOPHILS RELATIVE PERCENT BY AUTOMATED COUNT 0.3 % Normal [facility] Comment on above: Performed By: #### C BCA #### [facility] ([address] [address] VIR CELLAVISION DIFFERENTIAL TYPE AUTOMATED DIFFERENTIAL Normal [facility] Comment on above: Performed By: #### C BCA #### [facility] ([address] [address] VIR Eosinophils (Bld) [#/Vol] 0.1 10*3/uL Normal [facility] Comment on above: Performed By: #### C BCA #### [facility] ([address] [address] VIR EOSINOPHILS RELATIVE PERCENT BY AUTOMATED COUNT 1.3 % Normal [facility] Comment on above: Performed By: #### C BCA #### [facility] ([address] [address] VIR Erythrocyte distribution width (RBC) [Ratio] 13.3 % Normal 11.5-15 [facility] Comment on above: Performed By: #### C BCA #### [facility] ([address] [address] VIR Hematocrit (Bld) [Volume fraction] 31.6 % Low 35-47 [facility] Comment on above: Performed By: #### C BCA #### [facility] ([address] [address] VIR Hemoglobin (Bld) [Mass/Vol] 11.1 g/dL Low 11.7-15.5 [facility] Comment on above: Performed By: #### C BCA #### [facility] ([address] [address] VIR LYMPHOCYTES ABSOLUTE COUNT (10*3/UL) BY AUTOMATED COUNT 1.6 10*3/uL Normal [facility] Comment on above: Performed By: #### C BCA #### [facility] ([address] [place] [address] VIR LYMPHOCYTES RELATIVE PERCENT BY AUTOMATED COUNT 19.6 % Normal [facility] Comment on above: Performed By: #### C BCA #### [facility] ([address] [place] [address] VIR MCH (RBC) [Entitic mass] 30.5 pg Normal 27-34 [facility] Comment on above: Performed By: #### C BCA #### [facility] ([address] [place] [address] VIR MCHC (RBC) [Mass/Vol] 35.1 g/dL Normal 32-36 [facility] Comment on above: Performed By: #### C BCA #### [facility] ([address] [place] [address] VIR MCV (RBC) [Entitic vol] 87 fL Normal 80-100 [facility] Comment on above: Performed By: #### C BCA #### [facility] ([address] [place] [address] VIR MONOCYTES ABSOLUTE COUNT (10*3/UL) BY AUTOMATED COUNT 0.4 10*3/uL Normal [facility] Comment on above: Performed By: #### C BCA #### [facility] ([address] [place] [address] VIR MONOCYTES RELATIVE PERCENT BY AUTOMATED COUNT 5.2 % Normal [facility] Comment on above: Performed By: #### C BCA #### [facility] ([address] [place] [address] VIR NEUTROPHILS ABSOLUTE COUNT BY AUTOMATED COUNT 5.9 10*3/uL Normal [facility] Comment on above: Performed By: #### C BCA #### [facility] ([address] [place] [address] VIR NEUTROPHILS RELATIVE PERCENT BY AUTOMATED COUNT 73.6 % Normal [facility] Comment on above: Performed By: #### C BCA #### [facility] ([facility]) [address] [place], [place] [address]. [place] [address] VIR Platelet mean volume (Bld) [Entitic vol] 7.7 fL Normal 7-12 [facility] Comment on above: Performed By: #### C BCA #### [facility] ([address] [place] [address] VIR Platelets (Bld) [#/Vol] 230 10*3/uL Normal 150-450 [facility] Comment on above: Performed By: #### C BCA #### [facility] ([address] [place] [address] VIR RBC COUNT 3.64 X10E12/L Low 3.8-5.2 [facility] Comment on above: Performed By: #### C BCA #### [facility] ([address] [place] [address] VIR WBC (Bld) [#/Vol] 8.0 10*3/uL Normal 4-11 [facility] Comment on above: Performed By: #### C BCA #### [facility] ([address] [place] [address] VIR POCT NURSING URINE MACROSCOP IC UAon 01-05-2025 BILIRUBIN [place]LA[place] Negative Normal Negative [facility] Comment on above: Performed By: #### N UM #### [facility] ([address] [place] [address] VIR BLOOD/HGB [place] Trace Abnormal Negative [facility] Comment on above: Performed By: #### N UM #### [facility] ([facility]) [address] [place] [address]. [place] [address] VIR GLUCOSE KYLA[facility] Negative Normal Negative [facility] Comment on above: Performed By: #### N UM #### [facility] ([address] [place] [address] VIR KETONES [place] Negative Normal Negative [facility] Comment on above: Performed By: #### N UM #### [facility] ([address] [place] [address] VIR LEUKOCYTE ESTERASE [place] Negative Normal Negative [facility] Comment on above: Performed By: #### N UM #### [facility] ([address] [place] [address] VIR NITRITE [place] Negative Normal Negative [facility] Comment on above: Performed By: #### N UM #### [facility] ([address] [place] [address] VIR PH KYLAH 6.0 Normal 5.0, 6.0, 6.5, 7.0, 7.5, 8.0, 8.5, 5.5 [facility] Comment on above: Performed By: #### N UM #### [facility] ([address] [place] [address] VIR PROTEIN KYLAH 100 mg/dL Abnormal Negative [facility] Comment on above: Performed By: #### N UM #### [facility] ([address] [place] [address] VIR SPECIFIC GRAVITY KYLAH >=1.030 Abnormal (none) [facility] Comment on above: Performed By: #### N UM #### [facility] ([address] [place] [address] VIR UROBILINOGEN KYLAH 0.2 E.U./dL Normal 0.2 E.U./dL , 1.0 E.U./dL [facility] Comment on above: Performed By: #### N UM #### [facility] ([address] [place] [address] VIR Urinalysis macro (dipstick) panel (U)on 01-01-2025 Bilirubin, UA Negative Negative - 4(70) +++ mg/dL [facility] Blood, UA Negative Negative - 50 Zack/mcL [facility] Clarity, UA Clear Located within [facility] re Color, UA Yellow [facility] Healthcar e Glucose, UA Negative Negative - 1999(110) ++++ mg/dL [facility] Interpretation and review of laboratory results Abnormal [facility] Ketones, UA Positive Negative - 160(16) ++++ mg/dL [facility] Comment on above: 160mg/dL Leukocytes, UA Negative Negative - 500+++ Robi/mcL [facility] Nitrite, UA Negative Negative - Positive [facility] pH, UA 5.5 5 - 9 [facility] e Protein, UA Positive Negative - 1999(20) ++++ mg/dL [facility] Comment on above: 30mg/dL Spec Grav, UA 1.03 1 - 1.03 [facility] Urobilinogen, UA 0.2 0.2 - 12 mg/dL [facility] Healthcar e ALL CBC WITH AUTO DIFFon BASOPHILS ABSOLUTE AUTO 0 [facility] Basophils/100 WBC (Bld) 0.4 % 0.2 - 2.0 % [facility] Eosinophils/100 WBC (Bld) 1.6 % 0.9 - 7.0 % [facility] Erythrocyte distribution width (RBC) [Ratio] 12.1 % 11.0 - 15.0 % [facility] Hematocrit (Bld) [Volume fraction] 31.9 % Low 36.0 - 48.0 % [facility] Hemoglobin (Bld) [Mass/Vol] 11.3 g/dL Low 12.0 - 16.0 g/dL [facility] IMMATURE GRANULOCYTES ABS AUTO 0.02 [facility] Immature granulocytes/100 WBC (Bld) 0.4 % 0.0 - 0.5 % [facility] Interpretation and review of laboratory results Abnormal [facility] LYMPHOCYTES ABSOLUTE AUTO 1.5 [facility] Lymphocytes/100 WBC (Bld) 26.7 % 20.5 - 60.0 % [facility] MCH (RBC) [Entitic mass] 29.7 pg 26.7 - 34.0 pg [facility] MCHC (RBC) [Mass/Vol] 35.4 g/dL High 29.9 - 35.2 g/dL [facility] MCV (RBC) [Entitic vol] 83.7 fL 81.0 - 99.0 fL [facility] MONOCYTES ABSOLUTE AUTO 0.4 [facility] Monocytes/100 WBC (Bld) 7.3 % 1.7 - 12.0 % [facility] NEUTROPHILS ABSOLUTE AUTO 3.6 [facility] Neutrophils/100 WBC (Bld) 63.6 % 43.0 - 75.0 % [facility] Platelet mean volume (Bld) [Entitic vol] 9.9 fL 9.5 - 13.5 fL [facility]H EO # 0.1 [facility] TBH PLT 211 [facility] TB RBC 3.81 Low [facility] TB WBC 5.6 [facility] e [facility] BOX TESTon 12-04-2024 BOX TEST SENT OUT [facility] BOX1 [facility] e BOX2 12/04/2024 [facility] HAY[facility] BOX [facility] HCG ( test) Ql (U)o n 12-04-2024 Interpretation and review of laboratory results Abnormal [facility] Preg Test, Ur Positive Negative [facility] Urinalysis macro (dipstick) panel (U)on 12-04-2024 Bilirubin, UA Negative Negative - (70) +++ mg/dL [facility] Blood, UA Negative Negative - 50 Zack/mcL [facility] Clarity, UA Clear Located within [facility] re Color, UA Yellow [facility] Glucose, UA Negative Negative - 1999(110) ++++ mg/dL [facility] Interpretation and review of laboratory results Normal [facility] Ketones, UA Negative Negative - 160(16) ++++ mg/dL [facility] Leukocytes, UA Negative Negative - 500+++ Robi/mcL [facility] Nitrite, UA Negative Negative - Positive [facility] pH, UA 7.5 5 - 9 [facility] Healthcar e Protein, UA Negative Negative - 1999(20) ++++ mg/dL [facility] Spec Grav, UA 1.02 1 - 1.03 [facility] Urobilinogen, UA 1.0 0.2 - 12 mg/dL [facility] XR CHEST 2 VWSon 09-27-2024 XR CHEST 2 VWS XR CHEST 2 [...] Ward MD on 06/06/2024 3:49 AM Normal [facility] CBC W MANUAL DIFFon 07-30-20 ATYPICAL LYMPH # Normal [facility] Comment on above: Performed By: #### C MP #### [facility] [address] [place] [address] Dr. Mary Ramsay ATYPICAL LYMPH % Normal [facility] Comment on above: Performed By: #### C MP #### [facility] [address] [place] [address] Dr. Mary Ramsay BAND # 2.6 103/ul Critically high 0.0-0.3 [facility] Comment on above: Performed By: #### C MP #### [facility] [address] [place] [address] Dr. Mary Ramsay BAND % 12 % Critically high 0-5 [facility] Comment on above: Performed By: #### C MP #### [facility] [address] [place] [address] Dr. Mary Ramsay BASOM # 0.00 103/ul Normal 0.00-0.10 [facility] Comment on above: Performed By: #### C MP #### [facility] [address] [place] [address] Dr. Mary Ramsay BASOM % 0.0 % Critically low 0.2-2.0 The [facility] Comment on above: Performed By: #### C MP #### [facility] [address] [address] [address] Mary Ramsay BLAST # Normal [facility] Comment on above: Performed By: #### C MP #### [facility] [address] [place] [address] Dr. Mary Ramsay BLAST % Normal [facility] Comment on above: Performed By: #### C MP #### [facility] [address] [place] [address] Dr. Mary Ramsay CORRECTED WBC Normal 4.0-11.0 [facility] Comment on above: Performed By: #### C MP #### [facility] [address] [place] [address] Dr. Mary Ramsay EOS # 0.00 103/ul Normal 0.00-0.70 [facility] Comment on above: Performed By: #### C MP #### [facility] [address] [place] [address] Dr. Mary Ramsay EOS% 0.0 % Critically low 0.9-7.0 [facility] Comment on above: Performed By: #### C MP #### [facility] [address] [place] [address] Dr. Mary Ramsay HCT 34.4 % Critically low 36.0-48.0 [facility] Comment on above: Performed By: #### C MP #### [facility] [address] [place] [address] Dr. Mary Ramsay HGB 11.5 g/dl Critically low 12.0-16.0 The [facility] Comment on above: Performed By: #### C MP #### [facility] [address] [place] [address] Dr. Mary Ramsay LYMPHM # 0.86 103/ul Critically low 1.20-3.80 [facility] Comment on above: Performed By: #### C MP #### [facility] [address] [place] [address] Dr. Mary Ramsay LYMPHM% 4.0 % Critically low 20.5-60.0 The [facility] Comment on above: Performed By: #### C MP #### [facility] [address] [address] [address] Mary Ramsay MCH 29.6 pg Normal 26.7-34.0 [facility] Comment on above: Performed By: #### C MP #### [facility] [address] [address] [address] Mary Ramsay MCHC 33.4 g/dl Normal 29.9-35.2 [facility] Comment on above: Performed By: #### C MP #### [facility] [address] [address] [address] Mary Ramsay MCV 88.7 fL Normal 81.0-99.0 [facility] Comment on above: Performed By: #### C MP #### [facility] [address] [place] [address] Dr. Mary Ramsay METAMYELOCYTE # Normal [facility] Comment on above: Performed By: #### C MP #### [facility] [address] [place] [address] Dr. Mary Ramsay METAMYELOCYTE % Normal [facility] Comment on above: Performed By: #### C MP #### [facility] [address] [place] [address] Dr. Mary Ramsay MONOM# 0.21 103/ul Critically low 0.30-0.80 [facility] Comment on above: Performed By: #### C MP #### [facility] [address] [place] [address] Dr. Mary Ramsay MONOM% 1.0 % Critically low 1.7-12.0 The [facility] Comment on above: Performed By: #### C MP #### [facility] [address] [place] [address] Dr. Mary Ramsay MPV 10.5 fL Normal 9.5-13.5 [facility] Comment on above: Performed By: #### C MP #### [facility] [address] [place] [address] Dr. Mary Ramsay MYELOCYTE # Normal [facility] Comment on above: Performed By: #### C MP #### [facility] [address] [address] [address] Mary Ramsay MYELOCYTE % Normal [facility] Comment on above: Performed By: #### C MP #### [facility] [address] [address] [address] Mary Ramsay NRBC Normal [facility] Comment on above: Performed By: #### C MP #### [facility] [address] [address] [address] Mary Ramsay PLT 195 103/ul Normal 150-450 [facility] Comment on above: Performed By: #### C MP #### [facility] [address] [address] [address] Mary Ramsay RBC 3.88 106/ul Critically low 4.20-5.40 [facility] Comment on above: Performed By: #### C MP #### [facility] [address] [place] [address] Dr. Mary Ramsay RDW 12.8 % Normal 11.0-15.0 [facility] Comment on above: Performed By: #### C MP #### [facility] [address] [address] [address] Mary Ramsay SEG # 17.76 103/ul Critically high 1.40-6.50 [facility] Comment on above: Performed By: #### C MP #### [facility] [address] [address] [address] Mary Ramsay SEG % 83.0 % Critically high 43.0-75.0 [facility] Comment on above: Performed By: #### C MP #### [facility] [address] [place] [address] Dr. Mary Ramsay WBC 21.4 103/ul Critically high 4.0-11.[address] [facility] Comment on above: Performed By: #### C MP #### [facility] [address] [place] [address] Dr. Mary Ramsay IRON AND TIBCon 07-30-2022 % SATURATION 3.6 % Normal [facility] Comment on above: Performed By: #### F ETIBC, VITAD, B12FOL #### [facility] [address] [address] [address] Mary Ramsay Iron [Mass/Vol] 8.0 ug/dL Critically low 50.0-170.[address] [facility] Comment on above: Performed By: #### F ETIBC, VITAD, B12FOL #### [facility] [address] [address] [address] Mary Ramsay TIBC DIRECT 221.0 ug/dL Critically low 250.0-450.0 [facility] Comment on above: Performed By: #### F ETIBC, VITAD, B12FOL #### [facility] [address] [address] [address] Mary Ramsay PROF 14(COMP METB)on 022 Albumin [Mass/Vol] 3.0 g/dL Critically low 3.4-5.0 [facility] Comment on above: Performed By: #### C MP #### [facility] [address] [place] [address] Dr. Mary Ramsay Albumin/Globulin [Mass ratio] 0.8 {ratio} Normal [facility] Comment on above: Performed By: #### C MP #### [facility] [address] [place] [address] Dr. Mary Ramsay ALP [Catalytic activity/Vol] 48 U/L Normal 46-116 [facility] Comment on above: Performed By: #### C MP #### [facility] [address] [address] [address] Mary Ramsay ALT [Catalytic activity/Vol] 9 U/L Critically low 14-59 [facility] Comment on above: Performed By: #### C MP #### [facility] [address] [address] [address] Mary Ramsay Anion gap [Moles/Vol] 12.2 mmol/L Normal [facility] Comment on above: Performed By: #### C MP #### [facility] [address] [place] [address] Dr. Mary Ramsay AST [Catalytic activity/Vol] 11 U/L Critically low 15-37 [facility] Comment on above: Performed By: #### C MP #### [facility] [address] [address] [address] Mary Ramsay Bilirubin [Mass/Vol] 0.4 mg/dL Normal 0.2-1.0 [facility] Comment on above: Performed By: #### C MP #### [facility] [address] [address] [address] Mary Ramsay Calcium [Mass/Vol] 8.2 mg/dL Critically low 8.5-10.1 [facility] Comment on above: Performed By: #### C MP #### [facility] [address] [address] [address] Mary Ramsay Chloride [Moles/Vol] 103 mmol/L Normal 98-107 [facility] Comment on above: Performed By: #### C MP #### [facility] [address] [place] [address] Dr. Mary Ramsay CO2 [Moles/Vol] 23.4 mmol/L Normal 21.0-32.0 [facility] Comment on above: Performed By: #### C MP #### [facility] [address] [address] [address] Mary Ramsay Creatinine [Mass/Vol] 0.75 mg/dL Normal 0.55-1.02 [facility] Comment on above: Performed By: #### C MP #### [facility] [address] [address] [address] Mary Ramsay EGFR-AF SURINAMESE >60 Normal >=[address] [facility] Comment on above: Performed By: #### C MP #### [facility] [address] [address] [address] Mary Ramsay EGFR-NON AF SURINAMESE >60 Normal >=60 [facility] Comment on above: Performed By: #### C MP #### [facility] [address] [place] [address] Dr. Mary Ramsay Globulin (S) [Mass/Vol] 3.7 g/dL Normal [facility] Comment on above: Performed By: #### C MP #### [facility] [address] [address] [address] Mary Ramsay Glucose [Mass/Vol] 160 mg/dL Critically high 74-106 [facility] Comment on above: Performed By: #### C MP #### [facility] [address] [place] [address] Dr. Mary Ramsay Potassium [Moles/Vol] 3.6 mmol/L Normal 3.5-5.1 [facility] Comment on above: Performed By: #### C MP #### [facility] [address] [place] [address] Dr. Mary Ramsay Protein [Mass/Vol] 6.7 g/dL Normal 6.4-8.2 [facility] Comment on above: Performed By: #### C MP #### [facility] [address] [place] [address] Dr. Mary Ramsay Sodium [Moles/Vol] 135 mmol/L Critically low 136-145 Th [facility] Comment on above: Performed By: #### C MP #### [facility] [address] [place] [address] Dr. Mary Ramsay Urea nitrogen [Mass/Vol] 15.0 mg/dL Normal 7.0-18.0 [facility] Comment on above: Performed By: #### C MP #### [facility] [address] [place] [address] Dr. Mary Ramsay Urea nitrogen/Creatinine [Mass ratio] 20.0 mg/mg Normal [facility] Comment on above: Performed By: #### C MP #### [facility] [address] [place] [address] Dr. Mary Ramsay VIT B12 AND FOLATEon 022 Cobalamin (Vitamin B12) [Mass/Vol] 221.0 pg/mL Normal 193.0-986.0 [facility] Comment on above: Performed By: #### F ETIBC, VITAD, B12FOL #### [facility] [address] [place] [address] Dr. Mary Ramsay FOLATE 3.00 ng/mL Critically low 8.60-58.90 [facility] Comment on above: Performed By: #### F ETIBC, VITAD, B12FOL #### [facility] [address] [place] [address] Dr. Mary Ramsay VITAMIN D 25 OHon 07-30-2022 VIT D 25-OH 6.7 ng/mL Normal [facility] Comment on above: Performed By: #### F ETIBC, VITAD, B12FOL #### [facility] [address] [place] [address] Dr. Mary Ramsay VIT D RANGES SEE BELOW Normal [facility] Comment on above: Result Comment: <20 ng/mL Vit D deficient 20 - <30 ng/mL Vit D insufficient 30 - 100 ng/mL Vit D sufficient >100 ng/mL Potential Toxicity Performed By: #### F ETIBC, VITAD, B12FOL #### [facility] [address] [place] [address] Dr. Mary Ramsay CBC W MANUAL DIFFon 07-29-20 ATYPICAL LYMPH # Normal [facility] Comment on above: Performed By: #### C MP #### [facility] [address] [place] [address] Dr. Mary Ramsay ATYPICAL LYMPH % Normal [facility] Comment on above: Performed By: #### C MP #### [facility] [address] [place] [address] Dr. Mary Ramsay BAND # 0.3 103/ul Normal 0.0-0.3 [facility] Comment on above: Performed By: #### C MP #### [facility] [address] [place] [address] Dr. Mary Ramsay BAND % 2 % Normal 0-5 [facility] Comment on above: Performed By: #### C MP #### [facility] [address] [place] [address] Dr. Mary Ramsay BASOM # 0.00 103/ul Normal 0.00-0.10 [facility] Comment on above: Performed By: #### C MP #### [facility] [address] [place] [address] Dr. Mary Ramsay BASOM % 0.0 % Critically low 0.2-2.0 [facility] Comment on above: Performed By: #### C MP #### [facility] [address] [address] [address] Mary Ramsay BLAST # Normal [facility] Comment on above: Performed By: #### C MP #### [facility] [address] [address] [address] Mary Ramsay BLAST % Normal [facility] Comment on above: Performed By: #### C MP #### [facility] [address] [address] [address] Mary Ramsay CORRECTED WBC Normal 4.0-11.0 [facility] Comment on above: Performed By: #### C MP #### [facility] [address] [place] [address] Dr. Mary Ramsay EOS # 0.00 103/ul Normal 0.00-0.70 [facility] Comment on above: Performed By: #### C MP #### [facility] [address] [place] [address] Dr. Mary Ramsay EOS% 0.0 % Critically low 0.9-7.0 [facility] Comment on above: Performed By: #### C MP #### [facility] [address] [place] [address] Dr. Mary Ramsay HCT 38.4 % Normal 36.0-48.0 [facility] Comment on above: Performed By: #### C MP #### [facility] [address] [place] [address] Dr. Mary Ramsay HGB 12.9 g/dl Normal 12.0-16.0 [facility] Comment on above: Performed By: #### C MP #### [facility] [address] [address] [address] Mary Ramsay LYMPHM # 0.64 103/ul Critically low 1.20-3.80 [facility] Comment on above: Performed By: #### C MP #### [facility] [address] [place] [address] Dr. Mary Ramsay LYMPHM% 4.0 % Critically low 20.5-60.0 The [facility] Comment on above: Performed By: #### C MP #### [facility] [address] [address] [address] Mary Ramsay MCH 29.7 pg Normal 26.7-34.0 [facility] Comment on above: Performed By: #### C MP #### [facility] [address] [place] [address] Dr. Mary Ramsay MCHC 33.6 g/dl Normal 29.9-35.2 [facility] Comment on above: Performed By: #### C MP #### [facility] [address] [place] [address] Dr. Mary Ramsay MCV 88.3 fL Normal 81.0-99.0 [facility] Comment on above: Performed By: #### C MP #### [facility] [address] [place] [address] Dr. Mary Ramsay METAMYELOCYTE # Normal [facility] Comment on above: Performed By: #### C MP #### [facility] [address] [place] [address] Dr. Mary Ramsay METAMYELOCYTE % Normal [facility] Comment on above: Performed By: #### C MP #### [facility] [address] [place] [address] Dr. Mary Ramsay MONOM# 0.32 103/ul Normal 0.30-0.80 [facility] Comment on above: Performed By: #### C MP #### [facility] [address] [place] [address] Dr. Mary Ramsay MONOM% 2.0 % Normal 1.7-12.0 [facility] Comment on above: Performed By: #### C MP #### [facility] [address] [place] [address] Dr. Mary Ramsay MPV 10.1 fL Normal 9.5-13.5 [facility] Comment on above: Performed By: #### C MP #### [facility] [address] [place] [address] Dr. Mary Ramsay MYELOCYTE # Normal [facility] Comment on above: Performed By: #### C MP #### [facility] [address] [address] [address] Mary Ramsay MYELOCYTE % Normal [facility] Comment on above: Performed By: #### C MP #### [facility] [address] [address] [address] Mary Ramsay NRBC Normal [facility] Comment on above: Performed By: #### C MP #### [facility] [address] [address] [address] Mary Ramsay PLT 217 103/ul Normal 150-450 [facility] Comment on above: Performed By: #### C MP #### [facility] [address] [address] [address] Mary Ramsay RBC 4.35 106/ul Normal 4.20-5.40 [facility] Comment on above: Performed By: #### C MP #### [facility] [address] [address] [address] Mary Ramsay RDW 12.6 % Normal 11.0-15.0 [facility] Comment on above: Performed By: #### C MP #### [facility] [address] [address] [address] Mary Ramsay SEG # 14.81 103/ul Critically high 1.40-6.50 [facility] Comment on above: Performed By: #### C MP #### [facility] [address] [address] [address] Mary Ramsay SEG % 92.0 % Critically high 43.0-75.0 The [facility] Comment on above: Performed By: #### C MP #### [facility] [address] [address] [address] Mary Ramsay WBC 16.1 103/ul Critically high 4.0-11.0 [facility] Comment on above: Performed By: #### C MP #### [facility] [address] [address] [address] Mary Ramsay CRPon 07-29-2022 CRP 8.1 mg/dL Critically high <=1.0 [facility] Comment on above: Performed By: #### C RP, [facility] #### [facility] [address] [address] [address] ABD/PELV W CONon [...] SHIRA MORENO Date: 2022-07-29 12:39 Normal The [facility] CULTURE URINEon 07-29-2022 CULTURE URINE Culture Observations: MODERATE GROWTH OF MIXED GENITAL SANNA. NO POTENTIAL PATHOGENS SEEN. Normal The [facility] Comment on above: Performed By: #### U RCX #### [facility] [address], [place] [address] Dr. Mary Ramsay Covid-19 PCR ([facility])on 07-11 SARS-CoV-2 (COVID-19) RNA MAYRA+probe Ql (Unsp spec) Not detected Normal NOT DETECTED The [facility] Comment on above: Result Comment: When diagnostic [...] for this test is supported by the [employer] of Health and Human Service's declaration that [...] used). Performed By: #### C MP #### [facility] [address] [address] [address] Mary Ramsay ER URINE PROFILEon 2 Bilirubin Ql (U) Negative Normal NEGATIVE The [facility] Comment on above: Performed By: #### P CAMILO MILLIGAN UMICRO #### [facility] [address], [place] [address] Dr. Mary Ramsay Clarity (U) SL CLOUDY Abnormal CLEAR The [facility] Comment on above: Result Comment: Prev iously reported as: CLEAR On 07/29/2022 11:44 By [email or web address] Performed By: #### P CAMILO MILLIGAN UMICRO #### [facility] [address] [address] [address] Mary Ramsay Color (U) YELLOW Normal YELLOW The [facility] Comment on above: Performed By: #### P REGU, ERUR, UMICRO #### [facility] [address] [address] [address] Mary HADLEY A micrscopic examination will be performed if indicated. Normal The [facility] Comment on above: Performed By: #### P REGU, ERUR, UMICRO #### [facility] [address] [address] [address] Mary Ramsay Glucose Ql (U) Negative Normal NEGATIVE The [facility] Comment on above: Performed By: #### P REGU, ERUR, UMICRO #### [facility] [address] [address] [address] Mary Ramsay Hemoglobin Ql (U) MODERATE Abnormal NEGATIVE The [facility] Comment on above: Performed By: #### P REGU, ERUR, UMICRO #### [facility] [address] [address] [address] Mary Ramsay Ketones Ql (U) TRACE Abnormal NEGATIVE The [facility] Comment on above: Performed By: #### P REGU, ERUR, UMICRO #### [facility] [address] [place] [address] Dr. Mary Ramsay LEUKOCYTES SMALL Abnormal NEGATIVE The [facility] Comment on above: Performed By: #### P REGU, ERUR, UMICRO #### [facility] [address] [address] [address] Mary Ramsay Nitrite Ql (U) Negative Normal NEGATIVE The [facility] Comment on above: Performed By: #### P REGU, ERUR, UMICRO #### [facility] [address] [address] [address] Mary Ramsay pH (U) 5.5 [pH] Normal 5-9 [facility] Comment on above: Performed By: #### P REGU, ERUR, UMICRO #### [facility] [address] [address] [address] Mary Ramsay SPEC GRAVITY 1.030 Abnormal 1.005-<=1.025 The [facility] Comment on above: Performed By: #### P CAMILO MILLIGAN UMICRO #### [facility] [address] [place] [address] Dr. Mary Ramsay UA PROTEIN TRACE Normal NEGATIVE/ TRACE [facility] Comment on above: Performed By: #### P REGLISSETH JordanR, UMICRO #### [facility] [address] [place] [address] Dr. Mary Ramsay UR MICRO IND INDICATED Normal [facility] Comment on above: Performed By: #### P REGLISSETH JordanR UMICRO #### [facility] [address] [place] [address] Dr. Mary Ramsay Urobilinogen Qn (U) 0.2 {Obi'U}/dL Normal 0.2 - 1. 0 [facility] Comment on above: Performed By: #### P CAMILO MILLIGAN UMICRO #### [facility] [address] [place] [address] Dr. Mary Ramsay URon 07-29-2022 , QUAL Negative Normal NEGATIVE The [facility] Comment on above: Performed By: #### P CAMILO MILLIGAN, UMICRO #### [facility] [address] [place] [address] Dr. Mary Ramsay PROF 14(COMP METB)on 022 Albumin [Mass/Vol] 4.1 g/dL Normal 3.4-5.0 [facility] Comment on above: Performed By: #### C MP #### [facility] [address] [place] [address] Dr. Mary Ramsay Albumin/Globulin [Mass ratio] 1.1 {ratio} Normal The [facility] Comment on above: Performed By: #### C MP #### [facility] [address] [place] [address] Dr. Mary Ramsay ALP [Catalytic activity/Vol] 58 U/L Normal 46-116 [facility] Comment on above: Performed By: #### C MP #### [facility] [address] [address] [address] Mary Ramsay ALT [Catalytic activity/Vol] 8 U/L Critically low 14-59 [facility] Comment on above: Performed By: #### C MP #### [facility] [address] [address] [address] Mary Ramsay Anion gap [Moles/Vol] 10.1 mmol/L Normal [facility] Comment on above: Performed By: #### C MP #### [facility] [address] [address] [address] Mary Ramsay AST [Catalytic activity/Vol] 10 U/L Critically low 15-37 [facility] Comment on above: Performed By: #### C MP #### [facility] [address] [address] [address] Mary Ramsay Bilirubin [Mass/Vol] 1.1 mg/dL Critically high 0.2-1.0 [facility] Comment on above: Performed By: #### C MP #### [facility] [address] [address] [address] Mary Ramsay Calcium [Mass/Vol] 8.7 mg/dL Normal 8.5-10.1 [facility] Comment on above: Performed By: #### C MP #### [facility] [address] [address] [address] Mary Ramsay Chloride [Moles/Vol] 104 mmol/L Normal 98-107 [facility] Comment on above: Performed By: #### C MP #### [facility] [address] [address] [address] Mary Ramsay CO2 [Moles/Vol] 26.1 mmol/L Normal 21.0-32.[address] [facility] Comment on above: Performed By: #### C MP #### [facility] [address] [address] [address] Mary Ramsay Creatinine [Mass/Vol] 1.06 mg/dL Critically high 0.55-1.02 [facility] Comment on above: Performed By: #### C MP #### [facility] [address] [address] [address] Mary Ramsay EGFR-AF SURINAMESE >60 Normal >=60 [facility] Comment on above: Performed By: #### C MP #### [facility] [address] [address] [address] Mary Ramsay EGFR-NON AF SURINAMESE >60 Normal >=60 [facility] Comment on above: Performed By: #### C MP #### [facility] [address] [address] [address] Mary Ramsay Globulin (S) [Mass/Vol] 3.6 g/dL Normal [facility] Comment on above: Performed By: #### C MP #### [facility] [address] [address] [address] Mary Ramsay Glucose [Mass/Vol] 121 mg/dL Critically high 74-106 [facility] Comment on above: Performed By: #### C MP #### [facility] [address] [address] [address] Mary Ramsay Potassium [Moles/Vol] 3.2 mmol/L Critically low 3.5-5.1 [facility] Comment on above: Performed By: #### C MP #### [facility] [address] [address] [address] Mary Ramsay Protein [Mass/Vol] 7.7 g/dL Normal 6.4-8.2 [facility] Comment on above: Performed By: #### C MP #### [facility] [address] [address] [address] Mary Ramsay Sodium [Moles/Vol] 137 mmol/L Normal 136-145 [facility] Comment on above: Performed By: #### C MP #### [facility] [address] [address] [address] Mayr Ramsay Urea nitrogen [Mass/Vol] 16.0 mg/dL Normal 7.0-18.0 [facility] Comment on above: Performed By: #### C MP #### [facility] [address] [address] [address] Mary Ramsay Urea nitrogen/Creatinine [Mass ratio] 15.1 mg/mg Normal [facility] Comment on above: Performed By: #### C MP #### [facility] [address] [address] [address] Mary Ramsay URINE MICROSCOPIC ONLYon BACTERIA SMALL Abnormal NONE SEEN The [facility] Comment on above: Performed By: #### P REGU, ERUR, UMICRO #### [facility] [address] [place] [address] Dr. Mary Ramsay Bacteria identified Cx Nom (U) INDICATED Normal [facility] Comment on above: Performed By: #### P REGU, ERUR, UMICRO #### [facility] [address] [place] [address] Dr. Mary Ramsay CAST NONE SEEN Normal NONE SEEN The [facility] Comment on above: Performed By: #### P REGU, ERUR, UMICRO #### [facility] [address] [place] [address] Dr. Mary Ramsay Crystals LM Nom (Urine sed) NONE SEEN Normal NONE SEEN The [facility] Comment on above: Performed By: #### P REGU, ERUR, UMICRO #### [facility] [address] [place] [address] Dr. Mary Ramsay Epithelial cells LM Ql (Urine sed) FEW Abnormal NONE SEEN /RARE The [facility] Comment on above: Performed By: #### P REGU, ERUR, UMICRO #### [facility] [address] [place] [address] Dr. Mary Ramsay MUCOUS TRACE Abnormal NONE SEEN The [facility] Comment on above: Performed By: #### P REGU, ERUR, UMICRO #### [facility] [address] [address] [address] Mary Ramsay RBC 0-2 Normal 0-2 [facility] Comment on above: Performed By: #### P REGU, ERUR, UMICRO #### [facility] [address] [place] [address] Dr. Mary Ramsay WBC 5-10 Abnormal NONE SEEN The [facility] Comment on above: Performed By: #### P REGU, ERURLESLEY #### [facility] [address] [place] [address] Dr. Mary Ramsay Vital Signs Date Time Vital Sign Value Performing Clinician Gavin coelho 05-26-2025 11:22-0400 Body mass index (BMI) [Ratio] 28.06 kg/m2 Alfonso Rosalinda DO Work Phone: [facility] 05-26-2025 11:22-0400 Body weight 71.85 kg Alfonso Rosalinda DO Work Phone: [facility] 05-26-2025 11:22-0400 Diastolic blood pressure 68 mm[Hg] Alfonso Rosalinda DO Work Phone: [facility] 05-26-2025 11:22-0400 Systolic blood pressure 106 mm[Hg] Alfonso Rosalinda DO Work Phone: [facility] 05-12-2025 11:20-0400 Body mass index (BMI) [Ratio] 26.36 kg/m2 Yee MEYERS Work Phone: [facility] 05-12-2025 11:20-0400 Body weight 67.5 kg Yee Shields PA Work Phone: [facility] 05-12-2025 11:20-0400 Diastolic blood pressure 70 mm[Hg] Yee Shields PA Work Phone: [facility] 05-12-2025 11:20-0400 Systolic blood pressure 110 mm[Hg] Yee Shields PA Work Phone: [facility] 04-27-2025 11:04-0400 Body mass index (BMI) [Ratio] 26.11 kg/m2 Alfonso Rosalinda DO Work Phone: [facility] 04-27-2025 11:04-0400 Body weight 66.86 kg Alfonso Rosalinda DO Work Phone: [facility] 04-27-2025 11:04-0400 Diastolic blood pressure 72 mm[Hg] Alfonso Rosalinda DO Work Phone: [facility] 04-27-2025 11:04-0400 Systolic blood pressure 110 mm[Hg] Alfonso Rosalinda DO Work Phone: [facility] 04-09-2025 09:37-0400 Body mass index (BMI) [Ratio] 25.86 kg/m2 Yee Clem PA Work Phone: [facility] 04-09-2025 09:37-0400 Body weight 66.22 kg Yee Clem PA Work Phone: [facility] 04-09-2025 09:37-0400 Diastolic blood pressure 74 mm[Hg] Yee Mantador PA Work Phone: [facility] 04-09-2025 09:37-0400 Systolic blood pressure 116 mm[Hg] Yee Mantador PA Work Phone: [facility] 03-26-2025 14:14-0400 Body mass index (BMI) [Ratio] 25.24 kg/m2 Yee Clem PA Work Phone: [facility] 03-26-2025 14:14-0400 Body weight 64.64 kg Yee Clem PA Work Phone: [facility] 03-26-2025 14:14-0400 Diastolic blood pressure 70 mm[Hg] Yee Mantador PA Work Phone: [facility] 03-26-2025 14:14-0400 Systolic blood pressure 102 mm[Hg] Yee Clem PA Work Phone: [facility] 03-11-2025 16:18-0400 Body height 160 cm Alfonso Rosalinda DO Work Phone: [facility] 03-11-2025 16:17-0400 Body mass index (BMI) [Ratio] 24.98 kg/m2 Alfonso Rosalinda DO Work Phone: [facility] 03-11-2025 16:17-0400 Body weight 63.96 kg Alfonso Rosalinda DO Work Phone: [facility] 03-11-2025 16:17-0400 Diastolic blood pressure 68 mm[Hg] Alfonso Rosalinda DO Work Phone: [facility] 03-11-2025 16:17-0400 Systolic blood pressure 110 mm[Hg] Alfonso Rosalinda DO Work Phone: [facility] 01-01-2025 11:40-0400 Body weight 59.88 kg Alfonso Rosalinda DO Work Phone: [facility] 01-01-2025 11:40-0400 Diastolic blood pressure 76 mm[Hg] Alfonso Rosalinda DO Work Phone: [facility] 01-01-2025 11:40-0400 Systolic blood pressure 100 mm[Hg] Alfonso Rosalinda DO Work Phone: [facility] 12-04-2024 14:18-0400 Body weight 62.14 kg Noms Nurse [facility] 12-04-2024 14:18-0400 Diastolic blood pressure 62 mm[Hg] Noms Nurse [facility] 12-04-2024 14:18-0400 Systolic blood pressure 116 mm[Hg] [facility] Encounters Encounter Date Encounter Type Care Provider Facility Start: 05-26-2025 End: 05-26-2025 Bamboo flowsheet Alfonso Rosalinda DO Work Phone: [facility] Start: 05-26-2025 End: 05-26-2025 Bamboo flowsheet Alfonso Rosalinda DO Work Phone: [facility] Start: 05-26-2025 End: 05-26-2025 ambulatory ALFONSO ROSALINDA Not Available Start: 05-26-2025 End: 05-26-2025 Office outpatient visit 15 minutes Alfonso Rosalinda DO Work Phone: [facility] Comment on above: Third trimester preg scott ([facility]); 36 weeks gestation of ([facility]) Start: 05-18-2025 End: 05-18-2025 Clinisync Result Encounter Alfonso Rosalinda DO Work Phone: [facility] External Department Unsolicited Start: 05-18-2025 End: 05-18-2025 Clinisync Result Encounter Alfonso Rosalinda DO Work Phone: [facility] External Department Unsolicited Start: 05-12-2025 End: 05-12-2025 Bamboo flowsheet Yee Shields PA Work Phone: [facility] Start: 05-12-2025 End: 05-12-2025 Bamboo flowsheet Yee MEYERS Work Phone: [facility] Start: 05-12-2025 End: 05-12-2025 ambulatory YEE SHIELDS Not Available Start: 05-12-2025 End: 05-12-2025 Office outpatient visit 15 minutes Yee MEYERS Work Phone: [facility] Comment on above: 34 weeks gestation o f ([facility]); Third trimester ([facility]); H/O cold sores Start: 04-27-2025 End: 04-27-2025 Bamboo flowsheet Alfonso Rosalinda DO Work Phone: [facility] Start: 04-27-2025 End: 04-27-2025 Bamboo flowsheet Alfonso Rosalinda DO Work Phone: [facility] Start: 04-27-2025 End: 04-27-2025 ambulatory ALFONSO ROSALINDA Not Available Start: 04-27-2025 End: 04-27-2025 Office outpatient visit 15 minutes Alfonso Rosalinda DO Work Phone: [facility] Comment on above: Third trimester preg scott ([facility]); 32 weeks gestation of ([facility]); H/O cold sores Start: 04-09-2025 End: 04-09-2025 Office outpatient visit 15 minutes Yee MEYERS Work Phone: [facility] Comment on above: Third trimester preg scott ([facility]); 30 weeks gestation of ([facility]) Start: 04-09-2025 End: 04-09-2025 ambulatory YEE SHIELDS Not Available Start: 04-05-2025 End: 04-06-2025 ambulatory JOSH HATFIELD [facility] Start: 03-26-2025 End: 03-26-2025 Bamboo flowsheet Yee MEYERS Work Phone: [facility] Start: 03-26-2025 End: 03-26-2025 Bamboo flowsheet Yee MEYERS Work Phone: [facility] Start: 03-26-2025 End: 03-26-2025 Office outpatient visit 15 minutes Yee MEYERS Work Phone: [facility] Comment on above: Size of fetus incons istent with dates in first trimester ([facility]) (Primary Dx); Third trimester ([facility]); 28 weeks gestation of ([facility]) Start: 03-26-2025 End: 03-26-2025 ambulatory YEE SHIELDS Not Available Start: 03-17-2025 [facility] Start: 03-11-2025 End: 03-11-2025 ambulatory ALFONSO ROSALINDA Not Available Start: 03-11-2025 End: 03-11-2025 Office outpatient visit 15 minutes Alfonso Rosalinda DO Work Phone: [facility] Comment on above: Third trimester preg scott ([facility]); 26 weeks gestation of ([facility]); History of canker sores; Diabetes mellitus screening Start: 03-11-2025 End: 03-11-2025 Bamboo flowsheet Alfonso Rosalinda DO Work Phone: [facility] Start: 03-11-2025 End: 03-11-2025 Bamboo flowsheet Alfonso Rosalinda DO Work Phone: [facility] Start: 02-12-2025 End: 02-12-2025 ambulatory ALFONSO ROSALINDA Not Available Start: 01-29-2025 End: 02-03-2025 Clinisync Result Encounter Yee MEYERS Work Phone: [facility] External Department Unsolicited Start: 01-29-2025 End: 02-03-2025 Clinisync Result Encounter Yee Shields PA Work Phone: [facility] External Department Unsolicited Start: 01-29-2025 End: 01-29-2025 ambulatory YEE SHIELDS Not Available Start: 01-05-2025 End: 01-05-2025 Emergency department patient visit NO PCP NO PCP [facility] Start: 01-01-2025 End: 01-01-2025 Bamboo flowsheet Alfonso [...] department patient visit NO PCP NO PCP [facility] Start: 06-22-2024 End: 06-22-2024 Emergency department patient visit NO PCP NO PCP [facility] Start: 06-06-2024 End: 06-06-2024 Emergency department patient visit NO PCP NO PCP [facility] Start: 07-29-2022 End: 07-30-2022 ambulatory BHARATI WESTONLER Facility:[facility]1 Procedures Date Procedure Procedure Detail Performing Clinician Start: 05-26-2025 Urnls dip stick/tabl et rgnt non-auto w/o micrscp Alfonso Rosalinda DO Work Phone: Start: 05-18-2025 [facility] UA (CLEAN/CATCH) DUMP MOTORMAN/MICRO IF IND. Alfonso Rosalinda DO Work Phone: Start: 05-12-2025 Urnls dip stick/tabl et rgnt non-auto w/o micrscp Yee MEYERS Work Phone: Start: 04-27-2025 Urnls dip stick/tabl et rgnt non-auto w/o micrscp Alfonso Rosalinda DO Work Phone: Start: 03-11-2025 Urnls dip stick/tabl et rgnt non-auto w/o micrscp Alfonso Rosalnida DO Work Phone: Start: 01-29-2025 IGP,APTIMA HPV,AGE [...] Treatment Date Care Activity Detail Author Start: 06-01-2025 End: 06-01-2025 Patient encounter procedure 06/01/2025 9:30 AM EDT Routine [facility] [address] [place] [address] [place] [phone] Alfonso Tellez, DO [address] [place] [address] [facility] Start: 05-26-2025 End: 05-26-2026 CULTURE, GROUP B STREP WITH SUSCEPTIBLITY CULTURE, GROUP B STREP WITH SUSCEPTIBLITY Lab Routine Third trimester ([facility]) Expected: 05/26/2025, Expires: 05/26/2026 [facility] Work Phone: Comment on above: Expected: 05/26/2025 , Expires: 05/26/2026 Start: 05-26-2025 End: 05-26-2025 Patient encounter procedure 05/26/2025 10:50 AM EDT Routine [facility] [address] [place] [phone] Alfonso Tellez, DO [address] [place] [address] [facility] Start: 05-12-2025 End: 05-12-2025 Patient encounter procedure 05/12/2025 10:50 AM EDT Routine [facility] [address] [place] [phone] Yee Shields PA [address] [place] [address] [facility] Start: 05-11-2025 Influenza vaccination Influenza Vacc ine (#1) [facility] Start: 04-27-2025 End: 04-27-2025 Patient encounter procedure 04/27/2025 10:50 AM EDT Routine [facility] [address] [place] [phone] Alfonso Tellez, DO [address] [place], [place] [id number] [facility] [place] [facility] Start: 03-26-2025 End: 03-26-2025 Patient encounter procedure 03/26/2025 2:00 PM EDT Routine [facility] [address] [place] [phone] Yee Shields PA [address] [place], [place] [id number] [facility] Start: 03-26-2025 End: 07-27-2025 US for US OB follow up transabdominal approach Imaging Routine Size of fetus inconsistent with dates in first trimester ([facility]) Expected: 03/26/2025, Expires: 07/27/2025 [facility] Work Phone: Comment on above: Expected: 03/26/2025 , Expires: 07/27/2025 Start: 03-11-2025 End: 03-11-2026 CBC panel - Blood by Automated count CBC Lab Routine Diabetes mellitus screening Expected: 03/11/2025 (Approximate), Expires: 03/11/2026 [facility] Work Phone: Comment on above: Expected: 03/11/2025 (Approximate), Expires: 03/11/2026 Start: 03-11-2025 End: 03-11-2026 Measurement of glucose 1 hour after glucose challenge for glucose tolerance test Glucose tolerance, 1 hour Lab Routine Diabetes mellitus screening Expected: 03/11/2025 (Approximate), Expires: 03/11/2026 [facility] Comment on above: Expected: 03/11/2025 (Approximate), Expires: 03/11/2026 Start: 02-26-2025 End: 02-26-2025 Patient encounter procedure 02/26/2025 11:10 AM EDT Routine [facility] [address] [place] [phone] Alfonso Tellez DO [address] [place] [address] [facility] Start: 02-12-2025 End: 02-12-2025 Professional / ancillary services management 02/12/2025 11:00 AM EDT Ancillary Procedure [facility] [address] [place] [phone] [facility] OB Start: 01-29-2025 End: 01-29-2025 Patient encounter procedure 01/29/2025 11:30 AM EDT Routine [facility] [address] [place] [phone] Yee Shields PA [address] [place] [address] [facility] OB Start: 01-01-2025 End: 01-01-2025 Patient encounter procedure 01/01/2025 11:20 AM EDT Routine [facility] [address] [place] [phone] Alfonso Tellez DO [address] [place] [address] [facility] OB Start: 12-04-2024 End: 12-04-2025 ABO/Rh ABO/Rh Lab Routine Missed menses , unspecified gestational age Expected: 12/04/2024 (Approximate), Expires: 12/04/2025 [facility] Comment on above: Expected: 12/04/2024 (Approximate), Expires: 12/04/2025 Start: 12-04-2024 End: 12-04-2025 Blood type and Indirect antibody screen panel - Blood Type and screen Lab Routine Missed menses , unspecified gestational age Expected: 12/04/2024 (Approximate), Expires: 12/04/2025 [facility] Work Phone: Comment on above: Expected: 12/04/2024 (Approximate), Expires: 12/04/2025 Start: 12-04-2024 End: 12-04-2025 Drugs of abuse panel - Urine by Screen method Rapid drug screen, urine Lab Routine , unspecified gestational age Encounter for supervision of normal first in first trimester Expected: 12/04/2024 (Approximate), Expires: 12/04/2025 [facility] Comment on above: Expected: 12/04/2024 (Approximate), Expires: 12/04/2025 Bacteria identified in Urine by Culture Urine culture Microbiology Routine Missed menses Ordered: 12/04/2024 [facility] Comment on above: Ordered: 12/04/2024 CBC W Auto Different ial panel - Blood CBC and differential Lab Routine Missed menses , unspecified gestational age Ordered: 12/04/2024 [facility] Comment on above: Ordered: 12/04/2024 Hemoglobin A1c/Hemoglobin.total in Blood Hemoglobin A1c Lab Routine Missed menses , unspecified gestational age Ordered: 12/04/2024 [facility] Comment on above: Ordered: 12/04/2024 Hepatitis B virus surface Ag [Presence] in Serum or Plasma by Immunoassay Hepatitis B surface antigen Lab Routine Missed menses , unspecified gestational age Ordered: 12/04/2024 [facility] Comment on above: Ordered: 12/04/2024 Hepatitis C virus Ab [Presence] in Serum or Plasma by Immunoassay Hepatitis C antibody Lab Routine Missed menses , unspecified gestational age Ordered: 12/04/2024 [facility] Comment on above: Ordered: 12/04/2024 HIV-1/HIV-2 antigen/antibody combination immunoassay HIV-1 and HIV-2 antibodies Lab Routine Missed menses , unspecified gestational age Ordered: 12/04/2024 [facility] Comment on above: Ordered: 12/04/2024 Reagin Ab [Presence] in Serum by RPR RPR Lab Routine Missed menses , unspecified gestational age Ordered: 12/04/2024 [facility] Comment on above: Ordered: 12/04/2024 Rubella antibody, IgG Rubella an tibody, IgG Lab Routine Missed menses , unspecified gestational age Ordered: 12/04/2024 [facility] Comment on above: Ordered: 12/04/2024 Payers Date Payer Category Payer Medicaid (Managed Care) [employer] [id number] 1995 Unknown [id number] 2.16.840.1.995987.3.579.2. 593 1996 Unknown [id number] 2.16.840.1.049490.3.579.2. 1286 1996 Unknown [id number] 2.16.840.1.162122.3.579.2. 1285 1996 Unknown [id number] 2.16.840.1.328121.3.579.2. 1285 1996 Unknown [id number] 2.16.840.1.898363.3.579.2. 1285 1996 Unknown [id number] 2.16.840.1.743206.3.579.2. 6 1996 Unknown [id number] 2.16.840.1.930308.3.579.2. 1285 1996 Unknown [id number] 2.16.840.1.948737.3.579.2. 9 1996 Unknown [id number] 2.16.840.1.264084.3.579.2. 1258 1996 Unknown [id number] 2.16.840.1.396818.3.579.2. 9 1996 Unknown [id number] 2.16.840.1.093582.3.579.2. 1258 1996 Unknown [id number] 2.16.840.1.172064.3.579.2. 9 1996 Unknown [id number] 2.16.840.1.875839.3.579.2. 1258 1996 Unknown [id number] 2.16.840.1.479082.3.579.2. 1259 1996 Unknown [id number] 2.16.840.1.969854.3.579.2. 1259 1996 Unknown [id number] 2.16.840.1.050934.3.579.2. 1259 1996 Unknown [id number] 2.16.840.1.140507.3.579.2. 1259 1996 Unknown [id number] 2.16.840.1.799671.3.579.2. 1259 1959 Unknown [id number] Social History Date Type Detail Facility Tobacco smoking stat [facility] Tobacco smoking consumption unknown [facility] Start: 09-24-2024 [facility] Start: 1995 Sex assigned at Not on file [facility] Gender identity Not on file [facility] Clinical Notes 12-04-2024 to 05-26-2025 Julianna Cloud, [facility] - 05/26/2025 10:50 AM LUIGI Newton - 05/12/2025 10:50 AM EDTSsean Díaz TWINE REELING MACHINE OPERATOR - 04/27/2025 10:50 AM LUIGI Newton - 04/09/2025 9:40 AM EDT Note Date & Type Note Facility 05-26-2025 History of Presen t illness Narrative Reason [...] Diagnosis Date Noted Nausea and vomiting in ([facility]) 11/25/2024 History of canker sores 03/11/2025 [...] nursing note reviewed. Exam conducted with a corrosion control specialist present. Vitals: Estimated body mass index is 28.06 kg/m as calculated from the following: Height as of 03/11/25: 5' 3 . Weight as of this encounter: 158 lb 6.4 oz. BP: 106/68 Patient's last menstrual period was 10/09/2024. ASSESSMENT & PLAN ICD-10-CM 1. Third trimester ([facility]) Z34.93 POCT urinalysis dipstick manually resulted CULTURE, GROUP B STREP WITH SUSCEPTIBLITY CULTURE, GROUP B STREP WITH SUSCEPTIBLITY 2. 36 weeks gestation of ([facility]) Z3A.36 POCT urinalysis dipstick manually resulted Patient [...] Julianna Cloud LPN on behalf of: Yee Shields PA-C documented in this encounter [facility] 05-12-2025 History of Presen t illness Narrative [...] Diagnosis Date Noted Nausea and vomiting in ([facility]) 11/25/2024 History of canker sores 03/11/2025 [...] calculated from the following: Height as of 25: 5' 3 . Weight as of this encounter: 148 lb 12.8 oz. BP: 110/70 Patient's last menstrual period was 10/09/2024. ASSESSMENT & PLAN ICD-10-CM 1. 34 weeks gestation of ([facility]) Z3A.34 POCT urinalysis dipstick manually resulted 2. Third trimester ([facility]) Z34.93 POCT urinalysis dipstick manually resulted [...] of: LUIGI Lyons documented in this encounter [facility] 04-27-2025 History of Presen t illness Narrative [...] Diagnosis Date Noted Nausea and vomiting in ([facility]) 11/25/2024 History of canker sores 03/11/2025 [...] nursing note reviewed. Exam conducted with a corrosion control specialist present. Vitals: Estimated body mass index is 26.11 kg/m as calculated from the following: Height as of 03/11/25: 5' 3 . Weight as of this encounter: 147 lb 6.4 oz. BP: 110/72 Patient's last menstrual period was 10/09/2024. ASSESSMENT & PLAN ICD-10-CM 1. Third trimester ([facility]) Z34.93 POCT urinalysis dipstick manually resulted 2. 32 weeks gestation of ([facility]) Z3A.32 POCT urinalysis dipstick manually resulted [...] Alfonso Tellez DO documented in this encounter [facility] 04-09-2025 History of Presen t illness Narrative [...] Diagnosis Date Noted Nausea and vomiting in ([facility]) 11/25/2024 History of canker sores 03/11/2025 [...] ASSESSMENT & PLAN ICD-10-CM 1. Third trimester ([facility]) Z34.93 2. 30 weeks gestation of ([facility]) Z3A.30 Return OB: Patient presents today [...] of: LUIGI Lyons documented in this encounter [facility] 03-26-2025 History of Presen t illness Narrative [...] Diagnosis Date Noted Nausea and vomiting in ([facility]) 11/25/2024 History of canker sores 03/11/2025 [...] fetus inconsistent with dates in first trimester ([facility]) O26.841 US OB follow up transabdominal approach 2. Third trimester ([facility]) Z34.93 3. 28 weeks gestation of ([facility]) Z3A.28 Documented by LUIGI Lyons on behalf of: LUIGI Lyons documented in this encounter [facility] 03-11-2025 History of Presen t illness Narrative [...] Diagnosis Date Noted Nausea and vomiting in ([facility]) 11/25/2024 History of canker sores 03/11/2025 [...] nursing note reviewed. Exam conducted with a corrosion control specialist present. Vitals: Estimated body mass index is 24.98 kg/m as calculated from the following: Height as of this encounter: 5' 3 . Weight as of this encounter: 141 lb. BP: 110/68 Patient's last menstrual period was 10/09/2024. ASSESSMENT & PLAN ICD-10-CM 1. Third trimester ([facility]) Z34.93 POCT urinalysis dipstick manually resulted 2. 26 weeks gestation of ([facility]) Z3A.26 3. History of canker sores [...] Alfonso Tellez DO documented in this encounter [facility] 01-01-2025 History of Presen t illness Narrative [...] or undercooked meat, and stay away from [facility]. Patient has been consulted regarding any [...] Alfonso Tellez DO documented in this encounter [facility] 12-04-2024 History of Presen t illness Narrative [...] to be sent to pharmacy. Pt desires Alvord billion to one. Pt was advised to have both the labs and Alvord done at the same time. PVU. OB [...] or undercooked meat, and stay away from [facility]. Patient has also been advised to [...] Kasandra Mcdonough MA documented in this encounter [facility] Healthcare Evaluation note Diagnosis Missed menses , unspecified gestational age Encounter for supervision of normal first in first trimester documented [facility] encounter [facility] Diagnosis Second trimester state, incidental 16 weeks gestation of Nausea Nausea alone documented in this encounter [facility]* Diagnosis Third trimester ([facility]) state, incidental 26 weeks gestation of ([facility]) History of canker sores Diabetes mellitus screening [...] note* Diagnosis Third trimester ([facility]) state, incidental 36 weeks gestation of ([facility]) documented in this encounter [facility] Summary Purpose Family History No Family History Records FoundNo Family History Records FoundNo Family History Records Found Advance Directives No Advanced Directives Records FoundNo Advanced Directives Records FoundNo Advanced Directives Records Found Additional Source Comments INFORMATION SOURCE (unrecogn ized section and content) DATE CREATED AUTHOR 08/11/2022 [facility] DATE CREATED AUTHOR AUTHOR'S ORGANIZ ATION 04/08/2025 [facility] DATE CREATED AUTHOR AUTHOR'S ORGANIZ ATION 05/27/2025 [facility] Special[facility] EPIC Reason for Visit (unrecogniz ed section and content) Reason Comments Amenorrhea Reason Comments Routine Visit Care Teams (unrecognized sec tion and content) Bellows Charger Assembler Relationship Specialty Start Date End Date Edwin Mitchell NP [facility] 12/09/2408/09 Bellows Charger Assembler Relationship Specialty Start Date End Date Edwin Mitchell NP [facility] 12/09/2408/09 Bellows Charger Assembler Relationship Specialty Start Date End Date Edwin Mitchell NP [facility] 12/09/2408/09 Bellows Charger Assembler Relationship Specialty Start Date End Date Edwin Mitchell NP [facility] 12/09/2408/09 Bellows Charger Assembler Relationship Specialty Start Date End Date Edwin Mitchell NP [facility] 12/09/2408/09 FOR RECORDS PERTAINING TO PATIENTS [...] BE BASED ON THE PRIMARY CLINICAL RECORDS. [employer] [facility]. provides no warranty or guarantee of the accuracy or completeness of information in this document.
--- OUTSIDE RECORDS SUMMARY | 2025-05-29 08:45 | XMS_ITS | Encounter Summary ---
Author Organization [employer] [facility] Address [id number] [address] [place] [address] Care Team Providers Care Tacker Elastic Band Name Role Phone No Pcp, No Pcp Primary Care Provider Unavailabl e Encounter Details Date Type Department Care Team (Late st Contact Info) Description 08/08/2022 Orders Only [facility] [address] [place] [address] [place] [address] External, Scanning Provider Social History [...] documented as of this encounter Care Teams Tacker Elastic Band Relationship Specialty Start Date End Date No Pcp, [place] [address] PCP - General Family Medicine 01/05/25 documented as of this encounter
--- OUTSIDE RECORDS SUMMARY | 2025-05-29 08:45 | XMS_ITS | Clinical Summary ---
Author Organization [facility] Address [id number] [address] [place] [address] Care Team Providers Care Distribution Estimator Name Role Phone No Pcp, No Pcp [...] - 04/06/2025 1:31 AM EDT Hospital Encounter [facility] [address] [place] [phone] Shanelle Varma, ALEXEI-Hanna Lacey MD Discharge Disposition: [...] Yellow Yellow, Colorless 04/06/2025 1:02 AM EDT [facility] TURBIDITY Clear Clear 04/06/2025 1:02 AM EDT [facility] SPECIFIC GRAVITY 1.025 1.003 - 1.035 04/06 1:02 AM EDT [facility] NITRITE Negative Negative 04/06/2025 1:02 AM EDT [facility] PH,URINE 6.0 5.0 - 8.5 04/06/2025 1:02 AM EDT [facility] LEUKOCYTE ESTERASE Negative Negative 04/06/2025 1:02 AM EDT [facility] PROTEIN Negative Negative 04/06/2025 1:02 AM EDT [facility] KETONES (URINE) Negative Negative 1:02 AM EDT [facility] UROBILINOGEN 1.0 eu/dL 0.2 eu/dL, 1.0 eu/dL 04/06/2025 1:02 AM EDT [facility] BILIRUBIN (URINE) Negative Negative 04/06/2025 1:02 AM EDT [facility] BLOOD/HGB Negative Negative 04/06/2025 1:02 AM EDT [facility] GLUCOSE (URINE) Negative Negative, 250 mg/dL 04/06/2025 1:02 AM EDT [facility] Urine Urine specimen collection, clean catch / Unknown 04/06/2025 12:09 AM EDT 04/06/2025 12:14 AM EDT us Shanelle STEVENS URINE ORDERABLES Fin al Result [facility] [address] [place] [address], [place] * Urine Culture Urine, Clean Catch Midstream (04/06/2025 12:09 AM EDT) CULTURE RESULTS 10-50,000 ORGANISMS/mL NORMAL UROGENITAL SUNDEEP 04/07/2025 6:36 AM EDT [facility] Urine Urine specimen collection, clean catch / Unknown 04/06/2025 12:09 AM EDT 04/06/2025 12:14 AM EDT Shanelle A Kojo ELECTRONICS MAINTENANCE TECHNICIAN-CNM MICROBIOLOGY - GENER AL ORDERABLES Final Result [facility] [address] [place] [address], * Glucose 1h post 50g load (03/17/2025 9:44 AM EDT) GLUCOSE, 1HR POST 50GM LOAD 132 65 - 139 mg/dL 03/17/2025 2:01 PM EDT [facility] Blood Venous blood / Unknown Venipuncture / Unknown 03/17/2025 9:44 AM EDT 03/17/2025 9:44 AM EDT us Sarath Tellez DO LAB BLOOD ORDERABLES Final Resu lt Performing Organization Address City/[facility]/ZIP Co de Phone Number [facility] [address] [place] [address], * (ABNORMAL) CBC auto differential (03/17/2025 9:44 AM EDT) WBC 8.8 4 - 11 x10E9/L 03/17/2025 1:18 PM EDT [facility] RBC Count 3.79(L) 3.8 - 5.2 X10E12/L 03/17/2025 1:18 PM EDT [facility] Hemoglobin 11.4(L) 11.7 - 15.5 g/dL 03/17/2025 1:18 PM EDT [facility] Hematocrit 33.3(L) 35 - 47 % 03/17/2025 1:18 PM EDT [facility] MCV 88 80 - 100 fL 03/17/2025 1:18 PM EDT [facility] MCH 29.9 27 - 34 pg 03/17/2025 1:18 PM EDT [facility] MCHC 34.1 32 - 36 g/dL 03/17/2025 1:18 PM EDT [facility] RDW 13.2 11.5 - 15 % 03/17/2025 1:18 PM EDT [facility] Platelet Count 201 150 - 450 X10E9/L 03/17/2025 1:18 PM EDT [facility] MPV 9.1 7 - 12 fL 03/17/2025 1:18 PM EDT [facility] Neutrophils % 74.9 % 03/17/2025 1:18 PM EDT [facility] Lymphocytes % 18.9 % 03/17/2025 1:18 PM EDT [facility] Monocytes % 4.8 % 03/17/2025 1:18 PM EDT [facility] Eosinophils % 1.2 % 03/17/2025 1:18 PM EDT [facility] Basophils % 0.2 % 03/17/2025 1:18 PM EDT [facility] Neutrophils Absolute (A) 6.6 1.5 - 6.6 10*3/uL 03/17/2025 1:18 PM EDT [facility] Lymphocytes Absolute 1.7 1.0 - 3.5 10*3/uL 03/17/2025 1:18 PM EDT [facility] Monocytes Absolute 0.4 0.0 - 0.9 10*3/uL 03/17/2025 1:18 PM EDT [facility] Eosinophils Absolute 0.1 0.0 - 0.4 10*3/uL 03/17/2025 1:18 PM EDT [facility] Basophils Absolute 0.0 0.0 - 0.2 10*3/uL 03/17/2025 1:18 PM EDT [facility] Differential Type AUTOMATED DIFFERENTIAL 03/17/2025 1:18 PM EDT [facility] Blood Venous blood / Unknown Venipuncture / Unknown 03/17/2025 9:44 AM EDT 03/17/2025 9:44 AM EDT us Sarath R Rosalinda DO LAB BLOOD ORDERABLES Final Resu lt [facility] [address] [place] [address], * Pap Smear (08/11/2021 10:45 AM EST) 08/11/2021 10:4 5 AM EST 08/12/2021 10:46 AM EST Narrative COPATH - 08/16/2021 1:56 PM EST [facility] [address] [place] [address] Gynecologic Cytology Consultation Patient Name: MELISSA RAVI : 1995 (Age: 25) Gender: F Taken: 08/11/2021 Reported: 08/16/2021 Physician(s): Jhoana Penny CNP ([phone]) Copy To: [facility]. Rec. #: [id number] Acct: # [id number] Final Cytologic Interpretation ThinPrep Pap Test (Vaginal/Cervical): Satisfactory for evaluation. A transformation zone component was not noted. NEGATIVE FOR INTRAEPITHELIAL LESION OR MALIGNANCY. Shift in sundeep suggestive of bacterial vaginosis. Anucleate squamous cells consistent with hyperkeratosis are present. Comment: This ThinPrep slide could not be successfully imaged by the [employer] Media[employer] Imaging System so it was manually screened. [facility]/08/16/2021 Interpretation performed at [facility], [address] [place] [address], License number: [id number]. Electronically Signed Out By PILAR Emmanuel(ASCP) Date of Last Menstrual Period: 08/03/2021 Other Clinical Conditions: Z01.419 Oracle Technical Architect exam wo/abn findings Source of Specimen ThinPrep Pap Test (Vaginal/Cervical) Thin Prep Pap (POMOLOGIST) Fee Code(s): G0145, G0145 <CR>, G0123 The Pap test is a screening test with an inherent, but low, probability of error. The Pap test is primarily effective for the diagnosis and prevention of squamous cell carcinoma. Regular screening is critical for prevention. ThinPrep liquid-based slides, which meet the Biological Sciences Professor criteria for automated screening, have been screened by the ThinPrep Imaging System (as of 05/27/07) along with an additional manual rescreening by a sanding line operator and, if indicated, by a pathologist. Jhoana Penny ELECTRONICS MAINTENANCE TECHNICIAN-WHITE SHOE RAGGER PATHOLOGY/CYTOLOGY ORDERABLES Final Result COPATH from Last 3 Months or Most Recently Relevant to Health Maintenance Insurance [employer] Care Teams Distribution Estimator Relationship Specialty Start Date End Date No Pcp, No Pcp JUAN [place] [id number] PCP - General Family Medicine 01/05/25
--- OUTSIDE RECORDS SUMMARY | 2025-05-29 08:45 | XMS_ITS | Encounter Summary ---
Author Organization [employer] [facility] Address [id number] [address] [place] [address] Care Team Providers Care Phlebotomist Name Role Phone No Pcp, No Pcp Primary Care Provider Unavailabl e Encounter Details Date Type Department Care Team (Late st Contact Info) Description [facility]20[facility] [address] [place] [place] [address] Craig Pritchard CMA Social History [...] documented as of this encounter Care Teams Phlebotomist Relationship Specialty Start Date End Date No Pcp, [place] [address] PCP - General Family Medicine 01/05/25 documented as of this encounter
--- OUTSIDE RECORDS SUMMARY | 2025-05-29 08:45 | XMS_ITS | Encounter Summary ---
Author Organization [facility] Address [address] [place] [address] Care Team Providers Care Retail Brand Ambassador Name Role Phone Jj Mitchell BOBBIN HAULER Unavailable Encounter Details Date Type Department Care Team (Late st Contact Info) Description 12/11/2024 Abstract [facility] [address] [facility] [place] [phone] Sarath Tellez DO [address] [place], [place] [address] Social History Tobacco Use Types Packs/Day Years [...] 9:30 AM EDT Routine SENAIT LEBRON [address] [place] [phone] Sarath Tellez DO [address] [place], [place] [address] documented as of this encounter Visit Diagnoses Not on filedocumented in this encounter Care Teams Retail Brand Ambassador Relationship Specialty Start Date End Date Jj Mitchell NP PCP - [facility] 12/09/2408/09 documented as of this encounter
--- OUTSIDE RECORDS SUMMARY | 2025-05-29 08:45 | XMS_ITS | Clinical Summary ---
Author Organization [facility] Healthcare Address [address] [place] [address] Care Team Providers Care Cdl Dedicated Truck Driver Name Role Phone Edwin Mitchell SUPERVISOR [employer]INTING Unavailable Allergies No known active allergies Medications ondansetron ODT (Zofran-ODT) 4 MG disintegrating tabletIndications: Nausea and vomiting in ([facility]) Take 1 tablet (4 mg) by mouth every 6 (six) hours if needed for nausea or vomiting for up to 30 doses 30 tablet 2 5 Active metoclopramide (Reglan) 10 MG tablet 5 Active metoclopramide (Reglan) 10 MG tabletIndications: Nausea [...] tablet 5 Active valACYclovir (Valtrex) 500 MG tabletIndications: H/O cold sores Take 1 tablet (500 mg) by mouth Daily 30 tablet 11 5 05/27/20 25 Active Problems Problem Noted Date Diagnosed Date History of canker sores 03/11/2025 Nausea and vomiting in ([facility]) 11/25 Estimated Date of Delivery Comme nts Yes 06/17/2025 Based on Ultraso und Encounters Date Type Department Care Team Description 05/26/2025 10:50 AM EDT Routine [facility] [address] [place] [address] Rosalinda, Sarath, DO Third trimester ([facility]); 36 weeks gestation of ([facility]) 05/26/2025 Bamboo flowsheet [facility] [place] [address] Sarath Tellez, DO 05/20/2025 Telephone [facility] [address] [place] [address] Keiyl Mulligan LPN 05/18/2025 Clinisync Result Encounter [facility] External Department Unsolicited Sarath Tellez, DO 05/12/2025 10:50 AM EDT Routine [facility] [place] [address] Yee Nj PA 34 weeks gestation of ([facility]); Third trimester ([facility]); H/O cold sores 05/12/2025 Bamboo flowsheet [facility] [place] [address] Yee Nj PA 04/27/2025 10:50 AM EDT Routine [facility] [place] [address] Sarath Tellez, DO Third trimester ([facility]); 32 weeks gestation of ([facility]); H/O cold sores 04/27/2025 Bamboo flowsheet [facility] [place] [address] Sarath Tellez, DO 04/09/2025 9:40 AM EDT [facility] [place] [address] Yee Nj PA Third trimester ([facility]); 30 weeks gestation of ([facility]) 04/09/2025 9:00 AM EDT Ancillary Procedure [facility] [place] [address] Size of fetus inconsistent with dates in first trimester ([facility]) 03/26/2025 2:00 PM EDT Routine [facility] [address] [place] [address] Yee Nj PA Size of fetus inconsistent with dates in first trimester ([facility]) (Primary Dx); Third trimester ([facility]); 28 weeks gestation of ([facility]) 03/26/2025 Bamboo flowsheet [facility] [place] [facility] [address] [place] [address] Yee Nj PA 03/18/2025 Abstract [facility] [address] [place] [address] [place] [address] Dana Flores MA 03/11/2025 4:00 PM EDT Routine [facility] [address] [place] [address] [place] [address] Sarath Tellez DO Third trimester ([facility]); 26 weeks gestation of ([facility]); History of canker sores; Diabetes mellitus screening 03/11/2025 Bamboo flowsheet [facility] [address] [place] [address] [place] [address] Sarath Tellez DO 03/10/2025 Abstract [facility] [address] [place] [address] Yee Chen LPN 03/10/2025 Patient Outreach [facility] [address] [place] [address] Yee Chen LPN from Last 3 Months [...] 6.4 oz) 05/26/2025 11:22 AM EDT Height 160 cm (5' 3 ) 03/11/2025 4:18 PM EDT Body Mass Index 28.06 03/11/2025 4:18 PM EDT Plan of Treatment Upcoming Encounters Date Type Department Care Team (Late st Contact Info) Description 06/01/2025 9:30 AM EDT Routine [facility] [address] [place] [address] Sarath Tellez DO [address] [place] [address] Health Maintenance Due Date Last Done Comments Influenza Vaccine (#1) 2025 Procedures Procedure Name Priority Date/Time Associated Diagnosis Comments POCT URINALYSIS DIPSTICK Routine 05/26/2025 11:30 AM EDT Third trimester ([facility]) 36 weeks gestation of ([facility]) [facility] UA (CLEAN/CATCH) PRICING INTERN/MICRO IF IND. Routine 05/18/2025 9:55 AM EDT POCT URINALYSIS DIPSTICK Routine 05/12/2025 11:27 AM EDT 34 weeks gestation of ([facility]) Third trimester ([facility]) POCT URINALYSIS DIPSTICK Routine 04/27/2025 1:44 PM EDT Third trimester ([facility]) 32 weeks gestation of ([facility]) OB FOLLOW UP TRANSABDOMINAL APPROACH Routine 04/09/2025 9:25 AM EDT Size of fetus inconsistent with dates in first trimester ([facility]) GLU 1 H POST 50G LOAD ([facility]) Routine 03/17/2025 9:44 AM EDT CBC WITH AUTO DIFFERENTIAL Routine 03/17/2025 9:44 AM EDT POCT URINALYSIS DIPSTICK Routine 03/11/2025 4:23 PM EDT Third trimester ([facility]) from Last 3 Months Results * (ABNORMAL) POCT urinalysis dipstick manually resulted (05/26/2025 11:30 AM EDT) Only the most recent of4 resultswithin the time period is included. Color, UA Yellow Clarity, UA Clear Glucose, [...] Positive Urine 05/26/2025 11:3 0 AM EDT Sarath Tellez DO POINT OF CARE TEST ENTER/EDIT OR DERABLES Final Result * [facility] UA (CLEAN/CATCH) PRICING INTERN/MICRO IF IND. (05/18/2025 9:55 AM EDT) COLOR [...] AM EDT 05/18/2025 10:03 AM EDT Narrative [facility] - 05/18/2025 10:16 AM EDT us Sarath Rosalinda DO [facility]IS[facility] Final Result [facility] * US OB follow up transabdominal approach [...] II, MD, PHD at 10-Apr-2025 08:25:24 AM [facility] Procedure Note Edwin Gatica MD - [...] signed by EDWIN GATICA II, MD, PHD [id number] 08:25:24 AM [facility] us Yee MEYERS IMG OB US PROCEDURES Final Resul t * GLU 1 H POST 50G LOAD ([facility]) (03/17/2025 9:44 AM EDT) GLU 1 H POST 50G LOAD 132 65 - 139 mg/dL [facility] Comment: PERFORMED AT [facility] [address],[place] [address] 03/17/2025 9:44 AM EDT 03/17/2025 12:56 PM [...] TYPE AUTOMATED DIFFERENTIAL [facility] Comment: PERFORMED AT [facility] [address],[place] [address] 03/17/2025 9:44 AM EDT 03/17/2025 12:56 PM EDT us Sarath Rosalinda DO LAB BLOOD ORDERABLES Final Resul t [facility] from Last 3 Months Insurance [employer] Care Teams Cdl Dedicated Truck Driver Relationship Specialty Start Date End Date Edwin Mitchell NP PCP - [facility] 12/09/2408/09
--- OUTSIDE RECORDS SUMMARY | 2025-05-29 08:45 | XMS_ITS | Encounter Summary ---
Author Organization [facility] Address [id number] [place] [address] Care Team Providers Care Tenderizer Tender Name Role Phone No Pcp, No Pcp Primary Care Provider Unavailabl e Encounter Details Date Type Department Care Team (Late st Contact Info) Description 10/05/2022 Telephone [facility] [address] [place] [address] [place] [address] [place] [address], [address] [place] [address] Social History Tobacco Use Types [...] documented as of this encounter Care Teams Tenderizer Tender Relationship Specialty Start Date End Date No Pcp, [place] [address] PCP - General Family Medicine 01/05/25 documented as of this encounter
--- OUTSIDE RECORDS SUMMARY | 2025-05-29 08:45 | XMS_ITS | Encounter Summary ---
Author Organization [facility] Address [address] [place] [address] Care Team Providers Care Tool And Die Repairer Name Role Phone Jj Mitchell FIELD REIMBURSEMENT MANAGER Unavailable Encounter Details Date Type Department Care Team (Late st Contact Info) Description 12/02/2024 Abstract [facility] [address] [place] [address] [place] [phone] Sarath Tellez DO [facility], [id number] Social History Tobacco Use Types Packs/Day Years [...] 06/01/2025 9:30 AM EDT Routine [facility] [address] [place], [place] [address] [address] Sarath Tellez DO [address] [place] [place], [id number] documented as of this encounter Visit Diagnoses Not on filedocumented in this encounter Care Teams Tool And Die Repairer Relationship Specialty Start Date End Date Jj Mitchell NP PCP - [facility] 12/09/2408/09 documented as of this encounter
--- OUTSIDE RECORDS SUMMARY | 2025-05-29 08:45 | XMS_ITS | Encounter Summary ---
Author Organization [facility] Address [address] [place] [address] Care Team Providers Care Leak Patcher Name Role Phone Jj Mitchell CP BLEACHER OPERATOR Unavailable Encounter Details Date Type Department Care Team (Late st Contact Info) Description 03/18/2025 Abstract [facility] [address] [place] [address] Dana Flores MA Social History Tobacco [...] 9:30 AM EDT Routine [facility] [address] [place] [address] Sarath Tellez DO [address] [place], [place] [id number] documented as of this encounter Visit Diagnoses Not on filedocumented in this encounter Care Teams Leak Patcher Relationship Specialty Start Date End Date Jj Mitchell NP PCP - [facility] 12/09/2408/09 documented as of this encounter
--- OUTSIDE RECORDS SUMMARY | 2025-05-29 08:45 | XMS_ITS | Encounter Summary ---
Author Organization [facility] Address [address] [place] [address] Care Team Providers Care [employer] Advisor Name Role Phone Jj Mitchell CALENDER TENDER Unavailable Encounter Details Date Type Department Care Team (Late st Contact Info) Description 02/10/2025 Orders Only [facility] [address] [facility] [place] [address] Robyn Welch LPN [address] [place] [facility] Social History Tobacco Use Types Packs/Day [...] Info) Description 06/01/2025 9:30 AM EDT Routine [facility] [address] [facility] [place] [address] Sarath Tellez DO [address] [place], [place] [address] documented as of this encounter Procedures Procedure [...] on filedocumented in this encounter Care Teams [employer] Advisor Relationship Specialty Start Date End Date Jj Mitchell [facility] ART DIRECT[facility] 12/09/2408/09 documented as of this encounter
--- OUTSIDE RECORDS SUMMARY | 2025-05-29 08:45 | XMS_ITS | Encounter Summary ---
Author Organization [employer] [facility] Address [id number] [address] [place] [address] Care Team Providers Care Trials Manager Name Role Phone No Pcp, No Pcp Primary Care Provider Unavailabl e Reason for Referral * Diagnostic Imaging (Routine) - Closed Specialty Diagnoses / Procedures Referred By Marj fields Referred To Contact Radiology Diagnoses Pain Procedures CT abdomen and pelvis with contrast [facility] [address] [place] [address] Phone: tel: fax: Referral ID Status Reason Start Date Expiration Date Visits Re quested Visits Authorized [id number] Closed 08/08/2022 08/08/2023 1 1 Encounter Details Date Type Department Care Team (Late st Contact Info) Description 08/08/2022 Orders Only [facility] [address] [place] [address] Transcribe, Orders Support User Pain [...] documented as of this encounter Care Teams Trials Manager Relationship Specialty Start Date End Date No Pcp, [place] [address] PCP - General Family Medicine 01/05/25 documented as of this encounter
--- OUTSIDE RECORDS SUMMARY | 2025-05-29 08:47 | XMS_ITS | CCD ---
Author Organization [facility] Care Team Providers Care Towel Hemmer Name Role Phone BHARATI HESS Primary Care [...] disintegrating tablet Indications: Nausea and vomiting in ([facility]) Take 1 tablet (4 mg) by [...] UA Negative Negative - 4(70) +++ mg/dL [facility] Blood, UA Negative Negative - 50 Zack/mcL [facility] Clarity, UA Clear [facility] UA Yellow [facility] Glucose, UA Negative Negative - 2000(110) ++++ mg/dL [facility] Interpretation and review of laboratory results Abnormal [facility] Ketones, UA Negative Negative - 160(16) ++++ mg/dL [facility] Leukocytes, UA Negative Negative - 500+++ Robi/mcL [facility] Nitrite, UA Negative Negative - Positive [facility] pH, UA 6.5 5 - 9 [facility] Protein, UA Trace Negative - 1999(20) ++++ mg/dL [facility] Spec Grav, UA 1.02 1 - 1.03 [facility] Urobilinogen, UA 1.0 0.2 - 12 mg/dL [facility] UA (CLEAN/CATCH) DRAUGHTSMAN/MERI RO IF IND.on 05-18-2025 BILIRUBIN URINE Negative NEGATIVE [facility] thcare BLOOD URINE Negative NEGATIVE [facility] Healthca re Clarity (U) CLEAR CLEAR [facility]ca re Color (U) LT. YELLOW YELLOW [facility] GLUCOSE URINE UA Negative NEGATIVE mg/dL [facility] Ketones Ql (U) Negative NEGATIVE mg/dL [facility] Leukocyte esterase Test strip Ql (U) Negative NEGATIVE [facility] NITRITE URINE Negative NEGATIVE [facility] Health care pH (U) 6.0 [pH] 5.0 - 9.0 [facility] PROTEIN URINE Negative NEG/TRACE mg/dL [facility] SPECIFIC GRAVITY URINE 1.015 1.005 - 1.025 [facility] URINE MICROSCOPIC INDICATED NO [facility] UROBILINOGEN URINE 1.0 EU/dL 0.2 - 1.0 EU/dL [facility] Urinalysis macro (dipstick) panel (U)on 05-12-2025 Bilirubin, UA Negative Negative - 4(70) +++ mg/dL [facility] Blood, UA Negative Negative - 50 Zack/mcL [facility] Clarity, UA Clear [facility] Healthca re Color, UA [place] [facility] Glucose, UA Negative Negative - 1999(110) ++++ mg/dL [facility] Interpretation and review of laboratory results Abnormal [facility] Ketones, UA Negative Negative - 160(16) ++++ mg/dL [facility] Leukocytes, UA Negative Negative - 500+++ Robi/mcL [facility] Nitrite, UA Negative Negative - Positive [facility] pH, UA 6 5 - 9 [facility] Protein, UA Positive Negative - 1999(20) ++++ mg/dL [facility] Spec Grav, UA 1.03 1 - 1.03 [facility] Urobilinogen, UA >=8.0 0.2 - 12 mg/dL [facility] Comment on above: 17 [facility] Urinalysis macro (dipstick) panel (U)on 04-27-2025 Bilirubin, UA Negative Negative - 4(70) +++ mg/dL [facility] Blood, UA Negative Negative - 50 Zack/mcL [facility] Clarity, UA Clear [facility] re Color, UA Yellow [facility] Glucose, UA Negative Negative - 1999(110) ++++ mg/dL [facility] Interpretation and review of laboratory results Normal [facility] Ketones, UA Negative Negative - 160(16) ++++ mg/dL [facility] Leukocytes, UA Negative Negative - 500+++ Robi/mcL [facility] Nitrite, UA Negative Negative - Positive [facility] pH, UA 5.5 5 - 9 [facility] e Protein, UA Negative Negative - 1999(20) ++++ mg/dL [facility] Spec Grav, UA 1.02 1 - 1.03 [facility] Urobilinogen, UA 1.0 0.2 - 12 mg/dL [facility] US OB FOLLOW UP [...] II, MD, PHD at 10-Apr-2025 08:25:24 AM [facility] Normal Not Available Comment on above: Order Comment: US OB SCAN FOR GROWTH Estimated Date of Delivery: 06/17/25 Gestational Age as of 03/26/2025: 28w1d URINALYSISon 04-06-2025 Bilirubin Ql (U) Negative Normal Negative [facility] Comment on above: Performed By: #### U A #### [facility] ([address] [address] VIR BLOOD/HGB Negative Normal Negative [facility] Comment on above: Performed By: #### U A #### [facility] ([address] [address] VIR Color (U) Yellow Normal Yellow, Colorless [facility] Comment on above: Performed By: #### U A #### [facility] ([address] [address] VIR Glucose Ql (U) Negative Normal Negative, 250 mg/dL [facility] Comment on above: Performed By: #### U A #### [facility] ([address] [address] VIR Ketones Ql (U) Negative Normal Negative [facility] Comment on above: Performed By: #### U A #### [facility] ([address] [address] VIR Leukocyte esterase Test strip Ql (U) Negative Normal Negative [facility] Comment on above: Performed By: #### U A #### [facility] ([address] [place] [address] VIR Nitrite Ql (U) Negative Normal Negative [facility] Comment on above: Performed By: #### U A #### [facility] ([address] [address] VIR PH,URINE 6.0 Normal 5.0-8.5 [facility] Comment on above: Performed By: #### U A #### [facility] ([address] [address] VIR Protein Ql (U) Negative Normal Negative [facility] Comment on above: Performed By: #### U A #### [facility] ([address] [address] VIR Specific gravity (U) [Rel density] 1.025 Normal 1.003-1.035 [facility] Comment on above: Performed By: #### U A #### [facility] ([address] [address] VIR TURBIDITY Clear Normal Clear [facility] Comment on above: Performed By: #### U A #### [facility] ([address] [address] VIR UROBILINOGEN 1.0 eu/dL Normal 0.2 eu/dL, 1.0 eu/dL [facility] Comment on above: Performed By: #### U A #### [facility] ([address] [address] VIR URINE CULTUREon 04-06-2025 Bacteria identified Cx Nom (U) CULTURE RESULTS 10-50,000 ORGANISMS/mL NORMAL UROGENITAL SANNA Normal [facility] Comment on above: Performed By: #### U C #### [facility] ([facility]) [address] [place] [address] VIR CBC WITH AUTO DIFFERENTIALon 03-17-2025 BASOPHILS ABSOLUTE COUNT (10*3/UL) BY AUTOMATED COUNT 0.0 10*3/uL Normal 0.0-0.2 [facility] Comment on above: Performed By: #### C BCA #### [facility] ([facility]) [address] [place] [address] VIR BASOPHILS RELATIVE PERCENT BY AUTOMATED COUNT 0.2 % Normal [facility] Comment on above: Performed By: #### C BCA #### [facility] ([facility]) [address] [place] [address] VIR CELLAVISION DIFFERENTIAL TYPE AUTOMATED DIFFERENTIAL Normal [facility] Comment on above: Performed By: #### C BCA #### [facility] ([facility]) [address] [place] [address] VIR Eosinophils (Bld) [#/Vol] 0.1 10*3/uL Normal 0.0-0.4 [facility] Comment on above: Performed By: #### C BCA #### [facility] ([facility]) [address] [place] [address] VIR EOSINOPHILS RELATIVE PERCENT BY AUTOMATED COUNT 1.2 % Normal [facility] Comment on above: Performed By: #### C BCA #### [facility] ([facility]) [address] [place] [address] VIR Erythrocyte distribution width (RBC) [Ratio] 13.2 % Normal 11.5-15 [facility] Comment on above: Performed By: #### C BCA #### [facility] ([facility]) [address] [place] [address] VIR Hematocrit (Bld) [Volume fraction] 33.3 % Low 35-47 [facility] Comment on above: Performed By: #### C BCA #### [facility] ([facility]) [address] [place] [address] VIR Hemoglobin (Bld) [Mass/Vol] 11.4 g/dL Low 11.7-15.5 [facility] Comment on above: Performed By: #### C BCA #### [facility] ([facility]) [address] [place] [address] VIR LYMPHOCYTES ABSOLUTE COUNT (10*3/UL) BY AUTOMATED COUNT 1.7 10*3/uL Normal 1.0-3.5 [facility] Comment on above: Performed By: #### C BCA #### [facility] ([facility]) [address] [place] [address] VIR LYMPHOCYTES RELATIVE PERCENT BY AUTOMATED COUNT 18.9 % Normal [facility] Comment on above: Performed By: #### C BCA #### [facility] ([facility]) [address] [place] [address] VIR MCH (RBC) [Entitic mass] 29.9 pg Normal 27-34 [facility] Comment on above: Performed By: #### C BCA #### [facility] ([facility]) [address] [place] [address] VIR MCHC (RBC) [Mass/Vol] 34.1 g/dL Normal 32-36 [facility] Comment on above: Performed By: #### C BCA #### [facility] ([facility]) [address] [place] [address] VIR MCV (RBC) [Entitic vol] 88 fL Normal 80-100 [facility] Comment on above: Performed By: #### C BCA #### [facility] ([facility]) [address] [place] [address] VIR MONOCYTES ABSOLUTE COUNT (10*3/UL) BY AUTOMATED COUNT 0.4 10*3/uL Normal 0.0-0.9 [facility] Comment on above: Performed By: #### C BCA #### [facility] ([facility]) [address] [place] [address] VIR MONOCYTES RELATIVE PERCENT BY AUTOMATED COUNT 4.8 % Normal [facility] Comment on above: Performed By: #### C BCA #### [facility] ([facility]) [address] [place] [address] VIR NEUTROPHILS ABSOLUTE COUNT BY AUTOMATED COUNT 6.6 10*3/uL Normal 1.5-6.6 [facility] Comment on above: Performed By: #### C BCA #### [facility] ([facility]) [address] [place] [address] VIR NEUTROPHILS RELATIVE PERCENT BY AUTOMATED COUNT 74.9 % Normal [facility] Comment on above: Performed By: #### C BCA #### [facility] ([facility]) [address] [place] [address] VIR Platelet mean volume (Bld) [Entitic vol] 9.1 fL Normal 7-12 [facility] Comment on above: Performed By: #### C BCA #### [facility] ([facility]) [address] [place] [address] VIR Platelets (Bld) [#/Vol] 201 10*3/uL Normal 150-450 [facility] Comment on above: Performed By: #### C BCA #### [facility] ([facility]) [address] [place] [address] VIR RBC COUNT 3.79 X10E12/L Low 3.8-5.2 [facility] Comment on above: Performed By: #### C BCA #### [facility] ([facility]) [address] [place] [address] VIR WBC (Bld) [#/Vol] 8.8 10*3/uL Normal 4-11 [facility] Comment on above: Performed By: #### C BCA #### [facility] ([facility]) [address] [place] [address] VIR GLU 1H POST 50G LOADon 03-17 GLUCOSE, 1HR POST 50GM LOAD 132 mg/dL Normal 65-139 [facility] Comment on above: Performed By: #### G L1 #### [facility] ([facility]) [address] [place] [address] VIR Urinalysis macro (dipstick) panel (U)on 03-11-2025 Bilirubin, UA Negative Negative - 4(70) +++ mg/dL [facility] Blood, UA Negative Negative - 50 Zack/mcL [facility] Clarity, UA Clear [facility] Health[facility] re Color, UA Yellow [facility] Glucose, UA Negative Negative - 1999(110) ++++ mg/dL [facility] Interpretation and review of laboratory results Normal [facility] Ketones, UA Negative Negative - 160(16) ++++ mg/dL [facility] Leukocytes, UA Negative Negative - 500+++ Robi/mcL [facility] Nitrite, UA Negative Negative - Positive [facility] pH, UA 6 5 - 9 [facility] e Protein, UA Negative Negative - 1999(20) ++++ mg/dL [facility] Spec Grav, UA 1.025 1 - 1.03 [facility] Urobilinogen, UA 1.0 0.2 - 12 mg/dL [facility] Health[facility] US OB 14+ WEEKS [...] II, MD, PHD at 13-Feb-2025 08:26:15 AM [facility] Normal Not Available Comment on above: Order Comment: US OB ANATOMY SINGLE W US OB CERVICAL LENGTH Estimated Date of Delivery: 06/17/25 Gestational Age as of 01/29/2025: 20w1d IGP,APTIMA HPV,AGE GDLNon AGE GDLN ACOG TESTING Note . [facility] Comment on above: TESTS RESULT FLAG UN ITS REF RANGE LAB Clinician Provided Cytology Information Source.............[employer] Other.............. No. of containers..01 ThinPrep Vial Age Algo ACOG Teresa... -08 10 FLAG LEGEND: L-Low Normal,H-High Normal,LL-Alert Low,HH-Alert High <-Panic Low,>-Panic High,A-Abnormal,AA-Critical Abnormal Performed at: 01 =G [facility] [address] [place] [address] Anju Capps MD, IGP, RFX APTIMA HPV ASCU Note . [facility] Comment on above: TESTS RESULT FLAG UN ITS REF RANGE LAB DIAGNOSIS: 02 NEGATIVE FOR INTRAEPITHELIAL LESION OR MALIGNANCY. THIS SPECIMEN WAS RESCREENED PART OF OUR DIETITIAN TEACHER PROGRAM. Specimen adequacy: 02 Satisfactory for evaluation. Endocervical and/or squamous metaplastic cells (endocervical component) are present. Performed by: Maru Charles Desk Reporter QC reviewed by: Maru Sargent, Desk Reporter ([facility]) . 02 Note: Note 02 The Pap [...] Low,>-Panic High,A-Abnormal,AA-Critical Abnormal Performed at: [address] [facility] [address] [address] Anju Capps MD, Performed at: =G - [facility] [address] [id number] Dining Room Host: Anju Capps MD, Phone: [phone] Performed at: WB - [facility] [address] [id number] Dining Room Host: Anju Capps MD, Phone: [phone] [facility] BASIC METABOLIC PANELon 12-10 Anion gap [Moles/Vol] 4 mmol/L Low 5-15 [facility] Comment on above: Performed By: #### B MP #### [facility] ([address] [address] VIR Calcium [Mass/Vol] 8.2 mg/dL Low 8.5-10.5 [facility] Comment on above: Performed By: #### B MP #### [facility] ([address] [address] VIR Chloride [Moles/Vol] 108 mmol/L Normal 98-109 [facility] Comment on above: Performed By: #### B MP #### [facility] ([address] [address] VIR CO2 [Moles/Vol] 21 mmol/L Low 22-32 [facility] Comment on above: Performed By: #### B MP #### [facility] ([address] [address] VIR Creatinine [Mass/Vol] 0.68 mg/dL Normal 0.40-1.00 [facility] Comment on above: Result Comment: METH OD TRACEABLE TO IDMS STANDARD Performed By: #### B MP #### [facility] ([address] [place] [address] VIR EGFR (CKD-EPI) NON-RACE DEPENDENT >^90 Normal >=60 [facility] Comment on above: Result Comment: eGFR not reported due to non-numeric value for Creatinine. Reported eGFR is based on the CKD-EPI 2020 equation that does not use a race coefficient. Performed By: #### B MP #### [facility] ([address] [place] [address] VIR Glucose [Mass/Vol] 93 mg/dL Normal 65-99 [facility] Comment on above: Performed By: #### B MP #### [address] [place] [address] VIR Potassium [Moles/Vol] 3.6 mmol/L Normal 3.5-5.0 [facility] Comment on above: Performed By: #### B MP #### [facility] ([address] [place] [address] VIR Sodium [Moles/Vol] 133 mmol/L Low 134-146 [facility] Comment on above: Performed By: #### B MP #### [facility] ([address] [place] [address] VIR Urea nitrogen [Mass/Vol] 13 mg/dL Normal 5-23 [facility] Comment on above: Performed By: #### B MP #### [facility] ([address] [place] [address] VIR CBC WITH AUTO DIFFERENTIALon 01-05-2025 BASOPHILS ABSOLUTE COUNT (10*3/UL) BY AUTOMATED COUNT 0.0 10*3/uL Normal [facility] Comment on above: Performed By: #### C BCA #### [facility] ([address] [place] [address] VIR BASOPHILS RELATIVE PERCENT BY AUTOMATED COUNT 0.3 % Normal [facility] Comment on above: Performed By: #### C BCA #### [facility] ([address] [address] VIR CELLAVISION DIFFERENTIAL TYPE AUTOMATED DIFFERENTIAL Normal [facility] Comment on above: Performed By: #### C BCA #### [facility] ([address] [address] VIR Eosinophils (Bld) [#/Vol] 0.1 10*3/uL Normal [facility] Comment on above: Performed By: #### C BCA #### [facility] ([address] [address] VIR EOSINOPHILS RELATIVE PERCENT BY AUTOMATED COUNT 1.3 % Normal [facility] Comment on above: Performed By: #### C BCA #### [facility] ([address] [address] VIR Erythrocyte distribution width (RBC) [Ratio] 13.3 % Normal 11.5-15 [facility] Comment on above: Performed By: #### C BCA #### [facility] ([address] [address] VIR Hematocrit (Bld) [Volume fraction] 31.6 % Low 35-47 [facility] Comment on above: Performed By: #### C BCA #### [facility] ([address] [address] VIR Hemoglobin (Bld) [Mass/Vol] 11.1 g/dL Low 11.7-15.5 [facility] Comment on above: Performed By: #### C BCA #### [facility] ([address] [address] VIR LYMPHOCYTES ABSOLUTE COUNT (10*3/UL) BY AUTOMATED COUNT 1.6 10*3/uL Normal [facility] Comment on above: Performed By: #### C BCA #### [facility] ([address] [place] [address] VIR LYMPHOCYTES RELATIVE PERCENT BY AUTOMATED COUNT 19.6 % Normal [facility] Comment on above: Performed By: #### C BCA #### [facility] ([address] [place] [address] VIR MCH (RBC) [Entitic mass] 30.5 pg Normal 27-34 [facility] Comment on above: Performed By: #### C BCA #### [facility] ([address] [place] [address] VIR MCHC (RBC) [Mass/Vol] 35.1 g/dL Normal 32-36 [facility] Comment on above: Performed By: #### C BCA #### [facility] ([address] [place] [address] VIR MCV (RBC) [Entitic vol] 87 fL Normal 80-100 [facility] Comment on above: Performed By: #### C BCA #### [facility] ([address] [place] [address] VIR MONOCYTES ABSOLUTE COUNT (10*3/UL) BY AUTOMATED COUNT 0.4 10*3/uL Normal [facility] Comment on above: Performed By: #### C BCA #### [facility] ([address] [place] [address] VIR MONOCYTES RELATIVE PERCENT BY AUTOMATED COUNT 5.2 % Normal [facility] Comment on above: Performed By: #### C BCA #### [facility] ([address] [place] [address] VIR NEUTROPHILS ABSOLUTE COUNT BY AUTOMATED COUNT 5.9 10*3/uL Normal [facility] Comment on above: Performed By: #### C BCA #### [facility] ([address] [place] [address] VIR NEUTROPHILS RELATIVE PERCENT BY AUTOMATED COUNT 73.6 % Normal [facility] Comment on above: Performed By: #### C BCA #### [facility] ([facility]) [address] [place], [place] [address]. [place] [address] VIR Platelet mean volume (Bld) [Entitic vol] 7.7 fL Normal 7-12 [facility] Comment on above: Performed By: #### C BCA #### [facility] ([address] [place] [address] VIR Platelets (Bld) [#/Vol] 230 10*3/uL Normal 150-450 [facility] Comment on above: Performed By: #### C BCA #### [facility] ([address] [place] [address] VIR RBC COUNT 3.64 X10E12/L Low 3.8-5.2 [facility] Comment on above: Performed By: #### C BCA #### [facility] ([address] [place] [address] VIR WBC (Bld) [#/Vol] 8.0 10*3/uL Normal 4-11 [facility] Comment on above: Performed By: #### C BCA #### [facility] ([address] [place] [address] VIR POCT NURSING URINE MACROSCOP IC UAon 01-05-2025 BILIRUBIN KYLAH Negative Normal Negative [facility] Comment on above: Performed By: #### N UM #### [facility] ([address] [place] [address] VIR BLOOD/HGB [facility] Trace Abnormal Negative [facility] Comment on above: Performed By: #### N UM #### [facility] ([facility]) [address] [place] [address]. [place] [address] VIR GLUCOSE [place] Negative Normal Negative [facility] Comment on above: Performed By: #### N UM #### [facility] ([address] [place] [address] VIR KETONES [place] Negative Normal Negative [facility] Comment on above: Performed By: #### N UM #### [facility] ([address] [place] [address] VIR LEUKOCYTE ESTERASE [facility] Negative Normal Negative [facility] Comment on above: Performed By: #### N UM #### [facility] ([address] [place] [address] VIR NITRITE [place] Negative Normal Negative [facility] Comment on above: Performed By: #### N UM #### [facility] ([address] [place] [address] VIR PH KYLAH 6.0 Normal 5.0, 6.0, 6.5, 7.0, 7.5, 8.0, 8.5, 5.5 [facility] Comment on above: Performed By: #### N UM #### [facility] ([address] [place] [address] VIR PROTEIN KYLAH 100 mg/dL Abnormal Negative [facility] Comment on above: Performed By: #### N UM #### [facility] ([address] [place] [address] VIR SPECIFIC GRAVITY KYLAH >=1.030 Abnormal (none) [facility] Comment on above: Performed By: #### N UM #### [facility] ([address] [place] [address] VIR UROBILINOGEN KYLAH 0.2 E.U./dL Normal 0.2 E.U./dL , 1.0 E.U./dL [facility] Comment on above: Performed By: #### N UM #### [facility] ([address] [place] [address] VIR Urinalysis macro (dipstick) panel (U)on 01-01-2025 Bilirubin, UA Negative Negative - 4(70) +++ mg/dL [facility] Blood, UA Negative Negative - 50 Zack/mcL [facility] Clarity, UA Clear [facility] re Color, UA Yellow [facility] Health[facility] Glucose, UA Negative Negative - 1999(110) ++++ mg/dL [facility] Interpretation and review of laboratory results Abnormal [facility] Ketones, UA Positive Negative - 160(16) ++++ mg/dL [facility] Comment on above: 160mg/dL Leukocytes, UA Negative Negative - 500+++ Robi/mcL [facility] Nitrite, UA Negative Negative - Positive [facility] pH, UA 5.5 5 - 9 [facility] e Protein, UA Positive Negative - 1999(20) ++++ mg/dL [facility] Comment on above: 30mg/dL Spec Grav, UA 1.03 1 - 1.03 [facility] Urobilinogen, UA 0.2 0.2 - 12 mg/dL [facility] ALL CBC WITH AUTO DIFFon BASOPHILS ABSOLUTE AUTO 0 [facility] Basophils/100 WBC (Bld) 0.4 % 0.2 - 2.0 % [facility] Eosinophils/100 WBC (Bld) 1.6 % 0.9 - 7.0 % [facility] Erythrocyte distribution width (RBC) [Ratio] 12.1 % 11.0 - 15.0 % [facility] Hematocrit (Bld) [Volume fraction] 31.9 % Low 36.0 - 48.0 % [facility] (Bld) [Mass/Vol] 11.3 g/dL Low 12.0 - 16.0 g/dL [facility] IMMATURE GRANULOCYTES ABS AUTO 0.02 [facility] Immature granulocytes/100 WBC (Bld) 0.4 % 0.0 - 0.5 % [facility] Interpretation and review of laboratory results Abnormal [facility] LYMPHOCYTES ABSOLUTE AUTO 1.5 [facility] Lymphocytes/100 WBC (Bld) 26.7 % 20.5 - 60.0 % [facility] MCH (RBC) [Entitic mass] 29.7 pg 26.7 - 34.0 pg [facility] MCHC (RBC) [Mass/Vol] 35.4 g/dL High 29.9 - 35.2 g/dL [facility] MCV (RBC) [Entitic vol] 83.7 fL 81.0 - 99.0 fL [facility] MONOCYTES ABSOLUTE AUTO 0.4 [facility] Monocytes/100 WBC (Bld) 7.3 % 1.7 - 12.0 % [facility] NEUTROPHILS ABSOLUTE AUTO 3.6 [facility] Neutrophils/100 WBC (Bld) 63.6 % 43.0 - 75.0 % [facility] Platelet mean volume (Bld) [Entitic vol] 9.9 fL 9.5 - 13.5 fL [facility]H EO # 0.1 [facility] TBH PLT 211 [facility] TB RBC 3.81 Low [facility] TB WBC 5.6 [facility] BOX TESTon 12-04-2024 BOX TEST SENT OUT [facility] BOX1 [facility] e BOX2 12/04/2024 [facility] BOWLEGS BOX [facility] HCG ( test) Ql (U)o n 12-04-2024 Interpretation and review of laboratory results Abnormal [facility] Preg Test, Ur Positive Negative [facility] Urinalysis macro (dipstick) panel (U)on 12-04-2024 Bilirubin, UA Negative Negative - (70) +++ mg/dL [facility] Blood, UA Negative Negative - 50 Zack/mcL [facility] Clarity, UA Clear [facility] re Color, UA Yellow [facility] Glucose, UA Negative Negative - 1999(110) ++++ mg/dL [facility] Interpretation and review of laboratory results Normal [facility] Ketones, UA Negative Negative - 160(16) ++++ mg/dL [facility] Leukocytes, UA Negative Negative - 500+++ Robi/mcL [facility] Nitrite, UA Negative Negative - Positive [facility] pH, UA 7.5 5 - 9 [facility] Protein, UA Negative Negative - 1999(20) ++++ mg/dL [facility] Spec Grav, UA 1.02 1 - 1.03 [facility] Urobilinogen, UA 1.0 0.2 - 12 mg/dL [facility] XR CHEST 2 VWSon 09-27-2024 [...] Ward MD on 06/06/2024 3:49 AM Normal [facility] CBC W MANUAL DIFFon 07-30-20 ATYPICAL LYMPH # Normal [facility] Comment on above: Performed By: #### C MP #### [facility] [address] [place] [address] Dr. Mary Ramsay ATYPICAL LYMPH % Normal [facility] Comment on above: Performed By: #### C MP #### [facility] [address] [place] [address] Dr. Mary Ramsay BAND # 2.6 103/ul Critically high 0.0-0.3 [facility] Comment on above: Performed By: #### C MP #### [facility] [address] [place] [address] Dr. Mary Ramsay BAND % 12 % Critically high 0-5 [facility] Comment on above: Performed By: #### C MP #### [facility] [address] [place] [address] Dr. Mary Ramsay BASOM # 0.00 103/ul Normal 0.00-0.10 [facility] Comment on above: Performed By: #### C MP #### [facility] [address] [place] [address] Dr. Mary Ramsay BASOM % 0.0 % Critically low 0.2-2.0 [facility] Comment on above: Performed By: #### C MP #### [facility] [address] [address] [address] Mary Ramsay BLAST # Normal [facility] Comment on above: Performed By: #### C MP #### [facility] [address] [place] [address] Dr. Mary Ramsay BLAST % Normal [facility] Comment on above: Performed By: #### C MP #### [facility] [address] [place] [address] Dr. Mary Ramsay CORRECTED WBC Normal 4.0-11.0 [facility] Comment on above: Performed By: #### C MP #### [facility] [address] [place] [address] Dr. Mary Ramsay EOS # 0.00 103/ul Normal 0.00-0.70 [facility] Comment on above: Performed By: #### C MP #### [facility] [address] [place] [address] Dr. Mary Ramsay EOS% 0.0 % Critically low 0.9-7.0 [facility] Comment on above: Performed By: #### C MP #### [facility] [address] [place] [address] Dr. Mary Ramsay HCT 34.4 % Critically low 36.0-48.0 [facility] Comment on above: Performed By: #### C MP #### [facility] [address] [place] [address] Dr. Mary Ramsay HGB 11.5 g/dl Critically low 12.0-16.0 [facility] Comment on above: Performed By: #### C MP #### [facility] [address] [place] [address] Dr. Mary Ramsay LYMPHM # 0.86 103/ul Critically low 1.20-3.80 [facility] Comment on above: Performed By: #### C MP #### [facility] [address] [place] [address] Dr. Mary Ramsay LYMPHM% 4.0 % Critically low 20.5-60.0 [facility] Comment on above: Performed By: #### C MP #### [facility] [address] [address] [address] Mary Ramsay MCH 29.6 pg Normal 26.7-34.0 [facility] Comment on above: Performed By: #### C MP #### [facility] [address] [address] [address] Mary Ramsay MCHC 33.4 g/dl Normal 29.9-35.2 [facility] Comment on above: Performed By: #### C MP #### [facility] [address] [address] [address] Mary Ramsay MCV 88.7 fL Normal 81.0-99.0 [facility] Comment on above: Performed By: #### C MP #### [facility] [address] [place] [address] Dr. Mary Ramsay METAMYELOCYTE # Normal [facility] Comment on above: Performed By: #### C MP #### [facility] [address] [place] [address] Dr. Mary Ramsay METAMYELOCYTE % Normal [facility] Comment on above: Performed By: #### C MP #### [facility] [address] [place] [address] Dr. Mary Ramsay MONOM# 0.21 103/ul Critically low 0.30-0.80 [facility] Comment on above: Performed By: #### C MP #### [facility] [address] [place] [address] Dr. Mary Ramsay MONOM% 1.0 % Critically low 1.7-12.0 [facility] Comment on above: Performed By: #### C MP #### [facility] [address] [place] [address] Dr. Mary Ramsay MPV 10.5 fL Normal 9.5-13.5 [facility] Comment on above: Performed By: #### C MP #### [facility] [address] [place] [address] Dr. Mary Ramsay MYELOCYTE # Normal [facility] Comment on above: Performed By: #### C MP #### [facility] [address] [address] [address] Mary Ramsay MYELOCYTE % Normal [facility] Comment on above: Performed By: #### C MP #### [facility] [address] [address] [address] Mary Ramsay NRBC Normal [facility] Comment on above: Performed By: #### C MP #### [facility] [address] [address] [address] Mary Ramsay PLT 195 103/ul Normal 150-450 [facility] Comment on above: Performed By: #### C MP #### [facility] [address] [address] [address] Mary Ramsay RBC 3.88 106/ul Critically low 4.20-5.40 [facility] Comment on above: Performed By: #### C MP #### [facility] [address] [place] [address] Dr. Mary Ramsay RDW 12.8 % Normal 11.0-15.0 [facility] Comment on above: Performed By: #### C MP #### [facility] [address] [address] [address] Mary Ramsay SEG # 17.76 103/ul Critically high 1.40-6.50 [facility] Comment on above: Performed By: #### C MP #### [facility] [address] [address] [address] Mary Ramsay SEG % 83.0 % Critically high 43.0-75.0 [facility] Comment on above: Performed By: #### C MP #### [facility] [address] [place] [address] Dr. Mary Ramsay WBC 21.4 103/ul Critically high 4.0-11.0 [facility] Comment on above: Performed By: #### C MP #### [facility] [address] [place] [address] Dr. Mary Ramsay IRON AND TIBCon 07-30-2022 % SATURATION 3.6 % Normal [facility] Comment on above: Performed By: #### F ETIBC, VITAD, B12FOL #### [facility] [address] [address] [address] Mary Ramsay Iron [Mass/Vol] 8.0 ug/dL Critically low 50.0-170.0 [facility] Comment on above: Performed By: #### F ETIBC, VITAD, B12FOL #### [facility] [address] [address] [address] Mary Ramsay TIBC DIRECT 221.0 ug/dL Critically low 250.0-450.0 [facility] Comment on above: Performed By: #### F ETIBC, VITAD, B12FOL #### [facility] [address] [address] [address] Mary Ramsay PROF 14(COMP METB)on 022 Albumin [Mass/Vol] 3.0 g/dL Critically low 3.4-5.0 [facility] Comment on above: Performed By: #### C MP #### [facility] [address] [place] [address] Dr. Mary Ramsay Albumin/Globulin [Mass ratio] 0.8 {ratio} Normal [facility] Comment on above: Performed By: #### C MP #### [facility] [address] [place] [address] Dr. Mary Ramsay ALP [Catalytic activity/Vol] 48 U/L Normal 46-116 [facility] Comment on above: Performed By: #### C MP #### [facility] [address] [address] [address] Mary Ramsay ALT [Catalytic activity/Vol] 9 U/L Critically low 14-59 [facility] Comment on above: Performed By: #### C MP #### [facility] [address] [address] [address] Mary Ramsay Anion gap [Moles/Vol] 12.2 mmol/L Normal [facility] Comment on above: Performed By: #### C MP #### [facility] [address] [place] [address] Dr. Mary Ramsay AST [Catalytic activity/Vol] 11 U/L Critically low 15-37 [facility] Comment on above: Performed By: #### C MP #### [facility] [address] [address] [address] Mary Ramsay Bilirubin [Mass/Vol] 0.4 mg/dL Normal 0.2-1.0 [facility] Comment on above: Performed By: #### C MP #### [facility] [address] [address] [address] Mary Ramsay Calcium [Mass/Vol] 8.2 mg/dL Critically low 8.5-10.1 [facility] Comment on above: Performed By: #### C MP #### [facility] [address] [address] [address] Mary Ramsay Chloride [Moles/Vol] 103 mmol/L Normal 98-107 [facility] Comment on above: Performed By: #### C MP #### [facility] [address] [place] [address] Dr. Mary Ramsay CO2 [Moles/Vol] 23.4 mmol/L Normal 21.0-32.0 [facility] Comment on above: Performed By: #### C MP #### [facility] [address] [address] [address] Mary Ramsay Creatinine [Mass/Vol] 0.75 mg/dL Normal 0.55-1.02 [facility] Comment on above: Performed By: #### C MP #### [facility] [address] [address] [address] Mary Ramsay EGFR-AF LATVIAN >60 Normal >=60 [facility] Comment on above: Performed By: #### C MP #### [facility] [address] [address] [address] Mary Ramsay EGFR-NON AF LATVIAN >60 Normal >=60 [facility] Comment on above: Performed By: #### C MP #### [facility] [address] [place] [address] Dr. Mary Ramsay Globulin (S) [Mass/Vol] 3.7 g/dL Normal [facility] Comment on above: Performed By: #### C MP #### [facility] [address] [address] [address] Mary Ramsay Glucose [Mass/Vol] 160 mg/dL Critically high 74-106 [facility] Comment on above: Performed By: #### C MP #### [facility] [address] [place] [address] Dr. Mary Ramsay Potassium [Moles/Vol] 3.6 mmol/L Normal 3.5-5.1 [facility] Comment on above: Performed By: #### C MP #### [facility] [address] [place] [address] Dr. Mary Ramsay Protein [Mass/Vol] 6.7 g/dL Normal 6.4-8.[address] [facility] Comment on above: Performed By: #### C MP #### [facility] [address] [place] [address] Dr. Mary Ramsay Sodium [Moles/Vol] 135 mmol/L Critically low 136-145 Th [facility] Comment on above: Performed By: #### C MP #### [facility] [address] [place] [address] Dr. Mary Ramsay Urea nitrogen [Mass/Vol] 15.0 mg/dL Normal 7.0-18.0 [facility] Comment on above: Performed By: #### C MP #### [facility] [address] [place] [address] Dr. Mary Ramsay Urea nitrogen/Creatinine [Mass ratio] 20.0 mg/mg Normal [facility] Comment on above: Performed By: #### C MP #### [facility] [address] [place] [address] Dr. Mary Ramsay VIT B12 AND FOLATEon 022 Cobalamin (Vitamin B12) [Mass/Vol] 221.0 pg/mL Normal 193.0-986.0 [facility] Comment on above: Performed By: #### F ETIBC, VITAD, B12FOL #### [facility] [address] [place] [address] Dr. Mary Ramsay FOLATE 3.00 ng/mL Critically low 8.60-58.90 [facility] Comment on above: Performed By: #### F ETIBC, VITAD, B12FOL #### [facility] [address] [place] [address] Dr. Mary Ramsay VITAMIN D 25 OHon 07-30-2022 VIT D 25-OH 6.7 ng/mL Normal [facility] Comment on above: Performed By: #### F ETIBC, VITAD, B12FOL #### [facility] [address] [place] [address] Dr. Mary Ramsay VIT D RANGES SEE BELOW Normal [facility] Comment on above: Result Comment: <20 ng/mL Vit D deficient 20 - <30 ng/mL Vit D insufficient 30 - 100 ng/mL Vit D sufficient >100 ng/mL Potential Toxicity Performed By: #### F ETIBC, VITAD, B12FOL #### [facility] [address] [place] [address] Dr. Mary Ramsay CBC W MANUAL DIFFon 07-29-20 ATYPICAL LYMPH # Normal [facility] Comment on above: Performed By: #### C MP #### [facility] [address] [place] [address] Dr. Mary Ramsay ATYPICAL LYMPH % Normal [facility] Comment on above: Performed By: #### C MP #### [facility] [address] [place] [address] Dr. Mary Ramsay BAND # 0.3 103/ul Normal 0.0-0.3 [facility] Comment on above: Performed By: #### C MP #### [facility] [address] [place] [address] Dr. Mary Ramsay BAND % 2 % Normal 0-5 [facility] Comment on above: Performed By: #### C MP #### [facility] [address] [place] [address] Dr. Mary Ramsay BASOM # 0.00 103/ul Normal 0.00-0.10 [facility] Comment on above: Performed By: #### C MP #### [facility] [address] [place] [address] Dr. Mary Ramsay BASOM % 0.0 % Critically low 0.2-2.0 [facility] Comment on above: Performed By: #### C MP #### [facility] [address] [address] [address] Mary Ramsay BLAST # Normal [facility] Comment on above: Performed By: #### C MP #### [facility] [address] [address] [address] Mary Ramsay BLAST % Normal [facility] Comment on above: Performed By: #### C MP #### [facility] [address] [address] [address] Mary Ramsay CORRECTED WBC Normal 4.0-11.0 [facility] Comment on above: Performed By: #### C MP #### [facility] [address] [place] [address] Dr. Mary Ramsay EOS # 0.00 103/ul Normal 0.00-0.70 [facility] Comment on above: Performed By: #### C MP #### [facility] [address] [place] [address] Dr. Mary Ramsay EOS% 0.0 % Critically low 0.9-7.0 [facility] Comment on above: Performed By: #### C MP #### [facility] [address] [place] [address] Dr. Mary Ramsay HCT 38.4 % Normal 36.0-48.0 [facility] Comment on above: Performed By: #### C MP #### [facility] [address] [place] [address] Dr. Mary Ramsya HGB 12.9 g/dl Normal 12.0-16.0 [facility] Comment on above: Performed By: #### C MP #### [facility] [address] [address] [address] Mary Ramsay LYMPHM # 0.64 103/ul Critically low 1.20-3.80 [facility] Comment on above: Performed By: #### C MP #### [facility] [address] [place] [address] Dr. Mary Ramsay LYMPHM% 4.0 % Critically low 20.5-60.0 [facility] Comment on above: Performed By: #### C MP #### [facility] [address] [address] [address] Mary Ramsay MCH 29.7 pg Normal 26.7-34.0 [facility] Comment on above: Performed By: #### C MP #### [facility] [address] [place] [address] Dr. Mary Ramsay MCHC 33.6 g/dl Normal 29.9-35.2 [facility] Comment on above: Performed By: #### C MP #### [facility] [address] [place] [address] Dr. Mary Ramsay MCV 88.3 fL Normal 81.0-99.0 [facility] Comment on above: Performed By: #### C MP #### [facility] [address] [place] [address] Dr. Mary Ramsay METAMYELOCYTE # Normal [facility] Comment on above: Performed By: #### C MP #### [facility] [address] [place] [address] Dr. Mary Ramsay METAMYELOCYTE % Normal [facility] Comment on above: Performed By: #### C MP #### [facility] [address] [place] [address] Dr. Mary Ramsay MONOM# 0.32 103/ul Normal 0.30-0.80 [facility] Comment on above: Performed By: #### C MP #### [facility] [address] [place] [address] Dr. Mary Ramsay MONOM% 2.0 % Normal 1.7-12.0 [facility] Comment on above: Performed By: #### C MP #### [facility] [address] [place] [address] Dr. Mary Ramsay MPV 10.1 fL Normal 9.5-13.5 [facility] Comment on above: Performed By: #### C MP #### [facility] [address] [place] [address] Dr. Mary Ramsay MYELOCYTE # Normal [facility] Comment on above: Performed By: #### C MP #### [facility] [address] [address] [address] Mary Ramsay MYELOCYTE % Normal [facility] Comment on above: Performed By: #### C MP #### [facility] [address] [address] [address] Mary Ramsay NRBC Normal [facility] Comment on above: Performed By: #### C MP #### [facility] [address] [address] [address] Mary Ramsay PLT 217 103/ul Normal 150-450 [facility] Comment on above: Performed By: #### C MP #### [facility] [address] [address] [address] Mary Ramsay RBC 4.35 106/ul Normal 4.20-5.40 [facility] Comment on above: Performed By: #### C MP #### [facility] [address] [address] [address] Mary Ramsay RDW 12.6 % Normal 11.0-15.0 [facility] Comment on above: Performed By: #### C MP #### [facility] [address] [address] [address] Mary Ramsay SEG # 14.81 103/ul Critically high 1.40-6.50 [facility] Comment on above: Performed By: #### C MP #### [facility] [address] [address] [address] Mary Ramsay SEG % 92.0 % Critically high 43.0-75.0 [facility] Comment on above: Performed By: #### C MP #### [facility] [address] [address] [address] Mary Ramsay WBC 16.1 103/ul Critically high 4.0-11.0 [facility] Comment on above: Performed By: #### C MP #### [facility] [address] [address] [address] Mary Ramsay CRPon 07-29-2022 CRP 8.1 mg/dL Critically high <=1.0 [facility] Comment on above: Performed By: #### C RP, [facility] #### [facility] [address] [address] [address] ABD/PELV W CONon [...] SHIRA MORENO Date: 2022-07-29 12:39 Normal [facility] CULTURE URINEon 07-29-2022 CULTURE URINE Culture Observations: MODERATE GROWTH OF MIXED GENITAL SANNA. NO POTENTIAL PATHOGENS SEEN. Normal [facility] Comment on above: Performed By: #### U RCX #### [facility] [address] [place], [place] [address] Dr. Mary Ramsay Covid-19 PCR ([facility])on 07-11 SARS-CoV-2 (COVID-19) RNA MAYRA+probe Ql (Unsp spec) Not detected Normal NOT DETECTED [facility] Comment on above: Result Comment: When diagnostic [...] for this test is supported by the [employer] of Health and Human Service's declaration that [...] used). Performed By: #### C MP #### [facility] [address] [address] [address] Mary Ramsay ER URINE PROFILEon 2 Bilirubin Ql (U) Negative Normal NEGATIVE [facility] Comment on above: Performed By: #### P CAMILO MILLIGAN UMICRO #### [facility] [address] [place], [place] [address] Dr. Mary Ramsay Clarity (U) SL CLOUDY Abnormal CLEAR [facility] Comment on above: Result Comment: Prev iously reported as: CLEAR On 07/29/2022 11:44 By [email or web address] Performed By: #### P CAMILO MILLIGAN UMICRO #### [facility] [address] [address] [address] Mary Ramsay Color (U) YELLOW Normal YELLOW [facility] Comment on above: Performed By: #### P REGU, ERUR, UMICRO #### [facility] [address] [address] [address] Mary HADLEY A micrscopic examination will be performed if indicated. Normal [facility] Comment on above: Performed By: #### P REGU, ERUR, UMICRO #### [facility] [address] [address] [address] Mary Ramsay Glucose Ql (U) Negative Normal NEGATIVE [facility] Comment on above: Performed By: #### P REGU, ERUR, UMICRO #### [facility] [address] [address] [address] Mary Ramsay Hemoglobin Ql (U) MODERATE Abnormal NEGATIVE [facility] Comment on above: Performed By: #### P REGU, ERUR, UMICRO #### [facility] [address] [address] [address] Mary Ramsay Ketones Ql (U) TRACE Abnormal NEGATIVE The [facility] Comment on above: Performed By: #### P REGU, ERUR, UMICRO #### [facility] [address] [place] [address] Dr. Mary Ramsay LEUKOCYTES SMALL Abnormal NEGATIVE [facility] Comment on above: Performed By: #### P REGU, ERUR, UMICRO #### [facility] [address] [address] [address] Mary Ramsay Nitrite Ql (U) Negative Normal NEGATIVE [facility] Comment on above: Performed By: #### P REGU, ERUR, UMICRO #### [facility] [address] [address] [address] Mary Ramsay pH (U) 5.5 [pH] Normal 5-9 [facility] Comment on above: Performed By: #### P REGU, ERUR, UMICRO #### [facility] [address] [address] [address] Mary Ramsay SPEC GRAVITY 1.030 Abnormal 1.005-<=1.025 [facility] Comment on above: Performed By: #### P CAMILO MILLIGAN UMICRO #### [facility] [address] [place] [address] Dr. Mary Ramsay UA PROTEIN TRACE Normal NEGATIVE/ TRACE [facility] Comment on above: Performed By: #### P REGLISSETH JordanR, UMICRO #### [facility] [address] [place] [address] Dr. Mary Ramsay UR MICRO IND INDICATED Normal [facility] Comment on above: Performed By: #### P REGLISSETH JordanR UMICRO #### [facility] [address] [place] [address] Dr. Mary Ramsay Urobilinogen Qn (U) 0.2 {Obi'U}/dL Normal 0.2 - 1. 0 [facility] Comment on above: Performed By: #### P CAMILO MILLIGAN UMICRO #### [facility] [address] [place] [address] Dr. Mary Ramsay URon 07-29-2022 , QUAL Negative Normal NEGATIVE [facility] Comment on above: Performed By: #### P CAMILO MILLIGAN, UMICRO #### [facility] [address] [place] [address] Dr. Mary Ramsay PROF 14(COMP METB)on 022 Albumin [Mass/Vol] 4.1 g/dL Normal 3.4-5.[address] [facility] Comment on above: Performed By: #### C MP #### [facility] [address] [place] [address] Dr. Mary Ramsay Albumin/Globulin [Mass ratio] 1.1 {ratio} Normal [facility] Comment on above: Performed By: #### C MP #### [facility] [address] [place] [address] Dr. Mary Ramsay ALP [Catalytic activity/Vol] 58 U/L Normal 46-116 [facility] Comment on above: Performed By: #### C MP #### [facility] [address] [address] [address] Mary Ramsay ALT [Catalytic activity/Vol] 8 U/L Critically low 14-59 [facility] Comment on above: Performed By: #### C MP #### [facility] [address] [address] [address] Mary Ramsay Anion gap [Moles/Vol] 10.1 mmol/L Normal [facility] Comment on above: Performed By: #### C MP #### [facility] [address] [address] [address] Mary Ramsay AST [Catalytic activity/Vol] 10 U/L Critically low 15-37 [facility] Comment on above: Performed By: #### C MP #### [facility] [address] [address] [address] Mary Ramsay Bilirubin [Mass/Vol] 1.1 mg/dL Critically high 0.2-1.0 [facility] Comment on above: Performed By: #### C MP #### [facility] [address] [address] [address] Mary Ramsay Calcium [Mass/Vol] 8.7 mg/dL Normal 8.5-10.[address] [facility] Comment on above: Performed By: #### C MP #### [facility] [address] [address] [address] Mary Ramsay Chloride [Moles/Vol] 104 mmol/L Normal 98-107 [facility] Comment on above: Performed By: #### C MP #### [facility] [address] [address] [address] Mary Ramsay CO2 [Moles/Vol] 26.1 mmol/L Normal 21.0-32.0 [facility] Comment on above: Performed By: #### C MP #### [facility] [address] [address] [address] Mary Ramsay Creatinine [Mass/Vol] 1.06 mg/dL Critically high 0.55-1.02 [facility] Comment on above: Performed By: #### C MP #### [facility] [address] [address] [address] Mary Ramsay EGFR-AF LATVIAN >60 Normal >=60 [facility] Comment on above: Performed By: #### C MP #### [facility] [address] [address] [address] Mary Ramsay EGFR-NON AF LATVIAN >60 Normal >=60 [facility] Comment on above: Performed By: #### C MP #### [facility] [address] [address] [address] Mary Ramsay Globulin (S) [Mass/Vol] 3.6 g/dL Normal [facility] Comment on above: Performed By: #### C MP #### [facility] [address] [address] [address] Mary Ramsay Glucose [Mass/Vol] 121 mg/dL Critically high 74-106 [facility] Comment on above: Performed By: #### C MP #### [facility] [address] [address] [address] Mary Ramsay Potassium [Moles/Vol] 3.2 mmol/L Critically low 3.5-5.1 [facility] Comment on above: Performed By: #### C MP #### [facility] [address] [address] [address] Mary Ramsay Protein [Mass/Vol] 7.7 g/dL Normal 6.4-8.2 [facility] Comment on above: Performed By: #### C MP #### [facility] [address] [address] [address] Mary Ramsay Sodium [Moles/Vol] 137 mmol/L Normal 136-145 [facility] Comment on above: Performed By: #### C MP #### [facility] [address] [address] [address] Mary Ramsay Urea nitrogen [Mass/Vol] 16.0 mg/dL Normal 7.0-18.0 [facility] Comment on above: Performed By: #### C MP #### [facility] [address] [address] [address] Mary Ramsay Urea nitrogen/Creatinine [Mass ratio] 15.1 mg/mg Normal [facility] Comment on above: Performed By: #### C MP #### [facility] [address] [address] [address] Mary Ramsay URINE MICROSCOPIC ONLYon BACTERIA SMALL Abnormal NONE SEEN [facility] Comment on above: Performed By: #### P REGU, ERUR, UMICRO #### [facility] [address] [place] [address] Dr. Mary Ramsay Bacteria identified Cx Nom (U) INDICATED Normal [facility] Comment on above: Performed By: #### P REGU, ERUR, UMICRO #### [facility] [address] [place] [address] Dr. Mary Ramsay CAST NONE SEEN Normal NONE SEEN [facility] Comment on above: Performed By: #### P REGU, ERUR, UMICRO #### [facility] [address] [place] [address] Dr. Mary Ramsay Crystals LM Nom (Urine sed) NONE SEEN Normal NONE SEEN [facility] Comment on above: Performed By: #### P REGU, ERUR, UMICRO #### [facility] [address] [place] [address] Dr. Mary Ramsay Epithelial cells LM Ql (Urine sed) FEW Abnormal NONE SEEN /RARE [facility] Comment on above: Performed By: #### P REGU, ERUR, UMICRO #### [facility] [address] [place] [address] Dr. Mary Ramsay MUCOUS TRACE Abnormal NONE SEEN [facility] Comment on above: Performed By: #### P REGU, ERUR, UMICRO #### [facility] [address] [address] [address] Mary Ramsay RBC 0-2 Normal 0-2 [facility] Comment on above: Performed By: #### P REGU, ERUR, UMICRO #### [facility] [address] [place] [address] Dr. Mary Ramsay WBC 5-10 Abnormal NONE SEEN [facility] Comment on above: Performed By: #### P REGU, ERURLESLEY #### [facility] [address] [place] [address] Dr. Mary Ramsay Vital Signs Date Time Vital Sign Value Performing Clinician Gavin coelho 05-26-2025 11:22-0400 Body mass index (BMI) [Ratio] 28.06 kg/m2 Alfonso Rosalinda DO Work Phone: [facility] 05-26-2025 11:22-0400 Body weight 71.85 kg Alfonso Rosalinda DO Work Phone: [facility] 05-26-2025 11:22-0400 Diastolic blood pressure 68 mm[Hg] Alfonso Rosalinda DO Work Phone: [facility] 05-26-2025 11:22-0400 Systolic blood pressure 106 mm[Hg] Alfonso Rosalinda DO Work Phone: [facility] 05-12-2025 11:20-0400 Body mass index (BMI) [Ratio] 26.36 kg/m2 Yee MEYERS Work Phone: [facility] 05-12-2025 11:20-0400 Body weight 67.5 kg Yee Shields PA Work Phone: [facility] 05-12-2025 11:20-0400 Diastolic blood pressure 70 mm[Hg] Yee Shields PA Work Phone: [facility] 05-12-2025 11:20-0400 Systolic blood pressure 110 mm[Hg] Yee Shields PA Work Phone: [facility] 04-27-2025 11:04-0400 Body mass index (BMI) [Ratio] 26.11 kg/m2 Alfonso Rosalinda DO Work Phone: [facility] 04-27-2025 11:04-0400 Body weight 66.86 kg Alfonso Rosalinda DO Work Phone: [facility] 04-27-2025 11:04-0400 Diastolic blood pressure 72 mm[Hg] Alfonso Rosalinda DO Work Phone: [facility] 04-27-2025 11:04-0400 Systolic blood pressure 110 mm[Hg] Alfonso Rosalinda DO Work Phone: [facility] 04-09-2025 09:37-0400 Body mass index (BMI) [Ratio] 25.86 kg/m2 Yee Clem PA Work Phone: [facility] 04-09-2025 09:37-0400 Body weight 66.22 kg Yee Clem PA Work Phone: [facility] 04-09-2025 09:37-0400 Diastolic blood pressure 74 mm[Hg] Yee [place] PA Work Phone: [facility] 04-09-2025 09:37-0400 Systolic blood pressure 116 mm[Hg] Yee [place] PA Work Phone: [facility] 03-26-2025 14:14-0400 Body mass index (BMI) [Ratio] 25.24 kg/m2 Yee Clem PA Work Phone: [facility] 03-26-2025 14:14-0400 Body weight 64.64 kg Yee Clem PA Work Phone: [facility] 03-26-2025 14:14-0400 Diastolic blood pressure 70 mm[Hg] Yee [place] PA Work Phone: [facility] 03-26-2025 14:14-0400 Systolic blood pressure 102 mm[Hg] Yee Clem PA Work Phone: [facility] 03-11-2025 16:18-0400 Body height 160 cm Alfonso Rosalinda DO Work Phone: [facility] 03-11-2025 16:17-0400 Body mass index (BMI) [Ratio] 24.98 kg/m2 Alfonso Rosalinda DO Work Phone: [facility] 03-11-2025 16:17-0400 Body weight 63.96 kg Alfonso Rosalinda DO Work Phone: [facility] 03-11-2025 16:17-0400 Diastolic blood pressure 68 mm[Hg] Alfonso Rosalinda DO Work Phone: [facility] 03-11-2025 16:17-0400 Systolic blood pressure 110 mm[Hg] Alfonso Rosalinda DO Work Phone: [facility] 01-01-2025 11:40-0400 Body weight 59.88 kg Alfonso Rosalinda DO Work Phone: [facility] 01-01-2025 11:40-0400 Diastolic blood pressure 76 mm[Hg] Alfonso Rosalinda DO Work Phone: [facility] 01-01-2025 11:40-0400 Systolic blood pressure 100 mm[Hg] Alfonso Rosalinda DO Work Phone: [facility] 12-04-2024 14:18-0400 Body weight 62.14 kg Noms Nurse [facility] 12-04-2024 14:18-0400 Diastolic blood pressure 62 mm[Hg] Noms Nurse [facility] 12-04-2024 14:18-0400 Systolic blood pressure 116 mm[Hg] [...] Comment on above: Third trimester preg scott ([facility]); 36 weeks gestation of ([facility]) Start: 05-18-2025 End: 05-18-2025 Clinisync Result [...] on above: 34 weeks gestation o f ([facility]); Third trimester ([facility]); H/O cold sores Start: 04-27-2025 End: 04-27-2025 Bamboo flowsheet Alfonso Rosalinda DO Work Phone: [facility] Start: 04-27-2025 End: 04-27-2025 Bamboo flowsheet Alfonso Rosalinda DO Work Phone: [facility] Start: 04-27-2025 End: 04-27-2025 ambulatory ALFONSO ROSALINDA Not Available Start: 04-27-2025 End: 04-27-2025 Office outpatient visit 15 minutes Alfonso Rosalinda DO Work Phone: [facility] Comment on above: Third trimester preg scott ([facility]); 32 weeks gestation of ([facility]); H/O cold sores Start: 04-09-2025 End: 04-09-2025 Office outpatient visit 15 minutes Yee MEYERS Work Phone: [facility] Comment on above: Third trimester preg scott ([facility]); 30 weeks gestation of ([facility]) Start: 04-09-2025 End: 04-09-2025 ambulatory YEE SHIELDS Not Available Start: 04-05-2025 End: 04-06-2025 ambulatory JOSH HATFIELD [facility] Start: 03-26-2025 End: 03-26-2025 Bamboo flowsheet Yee MEYERS Work Phone: [facility] Start: 03-26-2025 End: 03-26-2025 Bamboo flowsheet Yee MEYERS Work Phone: [facility] Start: 03-26-2025 End: 03-26-2025 Office outpatient visit 15 minutes Yee MEYERS Work Phone: [facility] Comment on above: Size of fetus incons istent with dates in first trimester ([facility]) (Primary Dx); Third trimester ([facility]); 28 weeks gestation of ([facility]) Start: 03-26-2025 End: 03-26-2025 ambulatory YEE SHIELDS Not Available Start: 03-17-2025 [facility] Start: 03-11-2025 End: 03-11-2025 ambulatory ALFONSO ROSALINDA Not Available Start: 03-11-2025 End: 03-11-2025 Office outpatient visit 15 minutes Alfonso Rosalinda DO Work Phone: [facility] Comment on above: Third trimester preg scott ([facility]); 26 weeks gestation of ([facility]); History of canker sores; Diabetes mellitus screening Start: 03-11-2025 End: 03-11-2025 Bamboo flowsheet Alfonso Rosalinda DO Work Phone: [facility] Start: 03-11-2025 End: 03-11-2025 Bamboo flowsheet Alfonso Rosalinda DO Work Phone: [facility] Start: 02-12-2025 End: 02-12-2025 ambulatory ALFONSO ROSALINDA Not Available Start: 01-29-2025 End: 02-03-2025 Clinisync Result Encounter Yee MEYERS Work Phone: [facility] External Department Unsolicited Start: 01-29-2025 End: 02-03-2025 Clinisync Result Encounter Yee Shields PA Work Phone: [facility] Unsolicited Start: 01-29-2025 End: 01-29-2025 ambulatory YEE SHIELDS Not Available Start: 01-05-2025 End: 01-05-2025 Emergency department patient visit NO PCP NO PCP [facility] Start: 01-01-2025 End: 01-01-2025 Bamboo flowsheet Alfonso [...] department patient visit NO PCP NO PCP [facility] Start: 06-22-2024 End: 06-22-2024 Emergency department patient visit NO PCP NO PCP [facility] Start: 06-06-2024 End: 06-06-2024 Emergency department patient visit NO PCP NO PCP [facility] Start: 07-29-2022 End: 07-30-2022 ambulatory BHARATI WESTONLER Facility:[facility]1 Procedures Date Procedure Procedure Detail Performing Clinician Start: 05-26-2025 Urnls dip stick/tabl et rgnt non-auto w/o micrscp Alfonso Rosalinda DO Work Phone: Start: 05-18-2025 TBH UA (CLEAN/CATCH) DRAUGHTSMAN/MICRO IF IND. Alfonso Rosalinda DO Work Phone: [...] 9:30 AM EDT Routine [facility] [address] [place] [address] [place] [id number] Alfonso Tellez, DO [address] [place] [address] [facility] Start: 05-26-2025 End: 05-26-2026 CULTURE, GROUP B STREP WITH SUSCEPTIBLITY CULTURE, GROUP B STREP WITH SUSCEPTIBLITY Lab Routine Third trimester ([facility]) Expected: 05/26/2025, Expires: 05/26/2026 [facility] Work Phone: Comment on above: Expected: 05/26/2025 , Expires: 05/26/2026 Start: 05-26-2025 End: 05-26-2025 Patient encounter procedure 05/26/2025 10:50 AM EDT Routine [facility] [address] [place] [phone] Alfonso Tellez, DO [address] [place] [address] [facility] Start: 05-12-2025 End: 05-12-2025 Patient encounter procedure 05/12/2025 10:50 AM EDT Routine [facility] [address] [place] [id number] Yee Shileds PA [address] [place] [address] [facility] Start: 05-11-2025 Influenza vaccination Influenza Vacc ine (#1) [facility] Start: 04-27-2025 End: 04-27-2025 Patient encounter procedure 04/27/2025 10:50 AM EDT Routine [facility] [address] [place] [phone] Alfonso Tellez, DO [address] [place], [place] [id number] [facility] [place] [facility] Start: 03-26-2025 End: 03-26-2025 Patient encounter procedure 03/26/2025 2:00 PM EDT Routine [facility] [address] [place] [phone] Yee Shields PA [address] [place], [place] [id number] [facility] Start: 03-26-2025 End: 07-27-2025 US for US OB follow up transabdominal approach Imaging Routine Size of fetus inconsistent with dates in first trimester ([facility]) Expected: 03/26/2025, Expires: 07/27/2025 [facility] Work Phone: Comment on above: Expected: 03/26/2025 , Expires: 07/27/2025 Start: 03-11-2025 End: 03-11-2026 CBC panel - Blood by Automated count CBC Lab Routine Diabetes mellitus screening Expected: 03/11/2025 (Approximate), Expires: 03/11/2026 [facility] Work Phone: Comment on above: Expected: 03/11/2025 (Approximate), Expires: 03/11/2026 Start: 03-11-2025 End: 03-11-2026 Measurement of glucose 1 hour after glucose challenge for glucose tolerance test Glucose tolerance, 1 hour Lab Routine Diabetes mellitus screening Expected: 03/11/2025 (Approximate), Expires: 03/11/2026 [facility] Comment on above: Expected: 03/11/2025 (Approximate), Expires: 03/11/2026 Start: 02-26-2025 End: 02-26-2025 Patient encounter procedure 02/26/2025 11:10 AM EDT Routine [facility] [address] [place] [phone] Alfonso Tellez DO [address] [place] [place] [address] [facility] Start: 02-12-2025 End: 02-12-2025 Professional / ancillary services management 02/12/2025 11:00 AM EDT Ancillary Procedure [facility] [address] [place] [phone] [facility] Start: 01-29-2025 End: 01-29-2025 Patient encounter procedure 01/29/2025 11:30 AM EDT Routine [facility] [address] [place] [phone] Yee Shields PA [address] [place] [address] [facility] Start: 01-01-2025 End: 01-01-2025 Patient encounter procedure 01/01/2025 11:20 AM EDT Routine [facility] [address] [place] [phone] Alfonso Tellez DO [address] [place] [place] [address] [facility] Start: 12-04-2024 End: 12-04-2025 ABO/Rh ABO/Rh Lab Routine Missed menses , unspecified gestational age Expected: 12/04/2024 (Approximate), Expires: 12/04/2025 [facility] Comment on above: Expected: 12/04/2024 (Approximate), Expires: 12/04/2025 Start: 12-04-2024 End: 12-04-2025 Blood type and Indirect antibody screen panel - Blood Type and screen Lab Routine Missed menses , unspecified gestational age Expected: 12/04/2024 (Approximate), Expires: 12/04/2025 [facility] Work Phone: Comment on above: Expected: 12/04/2024 (Approximate), Expires: 12/04/2025 Start: 12-04-2024 End: 12-04-2025 Drugs of abuse panel - Urine by Screen method Rapid drug screen, urine Lab Routine , unspecified gestational age Encounter for supervision of normal first in first trimester Expected: 12/04/2024 (Approximate), Expires: 12/04/2025 [facility] Comment on above: Expected: 12/04/2024 (Approximate), Expires: 12/04/2025 Bacteria identified in Urine by Culture Urine culture Microbiology Routine Missed menses Ordered: 12/04/2024 [facility] Comment on above: Ordered: 12/04/2024 CBC W Auto Different ial panel - Blood CBC and differential Lab Routine Missed menses , unspecified gestational age Ordered: 12/04/2024 [facility] Comment on above: Ordered: 12/04/2024 Hemoglobin A1c/Hemoglobin.total in Blood Hemoglobin A1c Lab Routine Missed menses , unspecified gestational age Ordered: 12/04/2024 [facility] Comment on above: Ordered: 12/04/2024 Hepatitis B virus surface Ag [Presence] in Serum or Plasma by Immunoassay Hepatitis B surface antigen Lab Routine Missed menses , unspecified gestational age Ordered: 12/04/2024 [facility] Comment on above: Ordered: 12/04/2024 Hepatitis C virus Ab [Presence] in Serum or Plasma by Immunoassay Hepatitis C antibody Lab Routine Missed menses , unspecified gestational age Ordered: 12/04/2024 [facility] Comment on above: Ordered: 12/04/2024 HIV-1/HIV-2 antigen/antibody combination immunoassay HIV-1 and HIV-2 antibodies Lab Routine Missed menses , unspecified gestational age Ordered: 12/04/2024 [facility] Comment on above: Ordered: 12/04/2024 Reagin Ab [Presence] in Serum by RPR RPR Lab Routine Missed menses , unspecified gestational age Ordered: 12/04/2024 [facility] Comment on above: Ordered: 12/04/2024 Rubella antibody, IgG Rubella an tibody, IgG Lab Routine Missed menses , unspecified gestational age Ordered: 12/04/2024 [facility] Comment on above: Ordered: 12/04/2024 Payers Date Payer Category Payer Medicaid (Managed Care) [employer] [id number] 1996 Unknown [id number] 2.16.840.1.270263.3.579.2. 593 1996 Unknown [id number] 2.16.840.1.214051.3.579.2. 1286 1996 Unknown [id number] 2.16.840.1.783868.3.579.2. 1285 1996 Unknown [id number] 2.16.840.1.316375.3.579.2. 1285 1996 Unknown [id number] 2.16.840.1.078921.3.579.2. 1285 1996 Unknown [id number] 2.16.840.1.999964.3.579.2. 6 1996 Unknown [id number] 2.16.840.1.189956.3.579.2. 1285 1996 Unknown [id number] 2.16.840.1.081746.3.579.2. 9 1996 Unknown [id number] 2.16.840.1.256024.3.579.2. 1258 1996 Unknown [id number] 2.16.840.1.578181.3.579.2. 9 1996 Unknown [id number] 2.16.840.1.225991.3.579.2. 1258 1996 Unknown [id number] 2.16.840.1.889586.3.579.2. 9 1996 Unknown [id number] 2.16.840.1.724939.3.579.2. 1258 1996 Unknown [id number] 2.16.840.1.230092.3.579.2. 1259 1996 Unknown [id number] 2.16.840.1.033342.3.579.2. 1259 1996 Unknown [id number] 2.16.840.1.994842.3.579.2. 1259 1996 Unknown [id number] 2.16.840.1.013859.3.579.2. 1259 1996 Unknown [id number] 2.16.840.1.839373.3.579.2. 1259 1959 Unknown [id number] Social History Date Type Detail Facility Tobacco smoking stat [facility] Tobacco smoking consumption unknown [facility] Start: 09-24-2024 [facility] Start: 1995 Sex assigned at Not on file [facility] Gender identity Not on file [facility] Clinical Notes 12-04-2024 to 05-26-2025 Julianna Cloud, [facility] - 05/26/2025 10:50 AM LUIGI Newton - 05/12/2025 10:50 AM EDTSsean Díaz CARDIOLOGY COORDINATOR - 04/27/2025 10:50 AM LUIGI Newton - [...] Diagnosis Date Noted Nausea and vomiting in ([facility]) 11/25/2024 History of canker sores 03/11/2025 Resolved [...] nursing note reviewed. Exam conducted with a fitness services manager present. Vitals: Estimated body mass index is 28.06 kg/m as calculated from the following: Height as of 03/11/25: 5' 3 . Weight as of this encounter: 158 lb 6.4 oz. BP: 106/68 Patient's last menstrual period was 10/09/2024. ASSESSMENT & PLAN ICD-10-CM 1. Third trimester ([facility]) Z34.93 POCT urinalysis dipstick manually resulted CULTURE, GROUP B STREP WITH SUSCEPTIBLITY CULTURE, GROUP B STREP WITH SUSCEPTIBLITY 2. 36 weeks gestation of ([facility]) Z3A.36 POCT urinalysis dipstick manually resulted Patient [...] for routine OB appointment Documented by Julianna Colud LPN on behalf of: Yee Shields PA-C documented in this encounter [facility] 05-12-2025 History of Presen t illness Narrative [...] Diagnosis Date Noted Nausea and vomiting in ([facility]) 11/25/2024 History of canker sores 03/11/2025 Resolved [...] PLAN ICD-10-CM 1. 34 weeks gestation of ([facility]) Z3A.34 POCT urinalysis dipstick manually resulted 2. Third trimester ([facility]) Z34.93 POCT urinalysis dipstick manually resulted 3. [...] of: LUIGI Lyons documented in this encounter [facility] 04-27-2025 History of Presen t illness [...] Diagnosis Date Noted Nausea and vomiting in ([facility]) 11/25/2024 History of canker sores 03/11/2025 [...] nursing note reviewed. Exam conducted with a fitness services manager present. Vitals: Estimated body mass index is 26.11 kg/m as calculated from the following: Height as of 03/11/25: 5' 3 . Weight as of this encounter: 147 lb 6.4 oz. BP: 110/72 Patient's last menstrual period was 10/09/2024. ASSESSMENT & PLAN ICD-10-CM 1. Third trimester ([facility]) Z34.93 POCT urinalysis dipstick manually resulted 2. 32 weeks gestation of ([facility]) Z3A.32 POCT urinalysis dipstick manually resulted Patient [...] Alfonso Tellez DO documented in this encounter [facility] 04-09-2025 History of Presen t illness [...] Diagnosis Date Noted Nausea and vomiting in ([facility]) 11/25/2024 History of canker sores 03/11/2025 Resolved [...] ASSESSMENT & PLAN ICD-10-CM 1. Third trimester ([facility]) Z34.93 2. 30 weeks gestation of ([facility]) Z3A.30 Return OB: Patient presents today for [...] of: LUIGI Lyons documented in this encounter [facility] 03-26-2025 History of Presen t illness [...] Diagnosis Date Noted Nausea and vomiting in ([facility]) 11/25/2024 History of canker sores 03/11/2025 [...] fetus inconsistent with dates in first trimester ([facility]) O26.841 US OB follow up transabdominal approach 2. Third trimester ([facility]) Z34.93 3. 28 weeks gestation of ([facility]) Z3A.28 Documented by LUIGI Lyons on behalf of: LUIGI Lyons documented in this encounter [facility] 03-11-2025 History of Presen t illness [...] Diagnosis Date Noted Nausea and vomiting in ([facility]) 11/25/2024 History of canker sores 03/11/2025 Resolved [...] nursing note reviewed. Exam conducted with a fitness services manager present. Vitals: Estimated body mass index is 24.98 kg/m as calculated from the following: Height as of this encounter: 5' 3 . Weight as of this encounter: 141 lb. BP: 110/68 Patient's last menstrual period was 10/09/2024. ASSESSMENT & PLAN ICD-10-CM 1. Third trimester ([facility]) Z34.93 POCT urinalysis dipstick manually resulted 2. 26 weeks gestation of ([facility]) Z3A.26 3. History of canker sores Z87.19 [...] Alfonso Tellez DO documented in this encounter [facility] 01-01-2025 History of Presen t illness [...] or undercooked meat, and stay away from [facility]. Patient has been consulted regarding any [...] Alfonso Tellez DO documented in this encounter [facility] 12-04-2024 History of Presen t illness [...] to be sent to pharmacy. Pt desires Gore billion to one. Pt was advised to have both the labs and Gore done at the same time. PVU. OB [...] or undercooked meat, and stay away from [facility]. Patient has also been advised to [...] Kasandra Mcdonough MA documented in this encounter [facility] Healthcare Evaluation note Diagnosis Missed menses , unspecified gestational age Encounter for supervision of normal first in first trimester documented [facility] Diagnosis Second trimester state, incidental 16 weeks gestation of Nausea Nausea alone documented [facility] Diagnosis Third trimester ([facility]) state, incidental 26 weeks gestation of ([facility]) History of canker sores Diabetes mellitus [...] and content) DATE CREATED AUTHOR 08/11/2022 [facility] DATE CREATED AUTHOR AUTHOR'S ORGANIZ ATION 04/08/2025 [facility] DATE CREATED AUTHOR AUTHOR'S ORGANIZ ATION 05/27/2025 [facility] EPIC Reason for Visit (unrecogniz ed section and content) Reason Comments Amenorrhea Reason Comments Routine Visit Care Teams (unrecognized sec tion and content) Towel Hemmer Relationship Specialty Start Date End Date Edwin Mitchell NP [facility] 12/09/2408/09 Towel Hemmer Relationship Specialty Start Date End Date Edwin Mitchell NP [facility] 12/09/2408/09 Towel Hemmer Relationship Specialty Start Date End Date Edwin Mitchell NP [facility] 12/09/2408/09 Towel Hemmer Relationship Specialty Start Date End Date Edwin Mitchell NP [facility] 12/09/2408/09 Towel Hemmer Relationship Specialty Start Date End Date Edwin Mitchell NP [facility] 12/09/2408/09 FOR RECORDS PERTAINING TO PATIENTS [...] BE BASED ON THE PRIMARY CLINICAL RECORDS. [employer] [facility]. provides no warranty or guarantee of the accuracy or completeness of information in this document.
== END 2025-05-26 19:54 | disposition home or self-care (01) ==
LOC: LAB 19:53
PROVIDERS: Visit Provider Obstetrics & Gynecology
DX: Z34.93 Encounter for supervision of normal pregnancy, unspecified, third trimester (principal)
CPT/HCPCS: 87081

== ENCOUNTER 2025-06-14 19:05 | Inpatient (IN) | payer OTHER, SELFPAY ==
[2025-06-14] VITALS (9 sets, daily range): BP systolic 124–208; BP diastolic 68–125; PULSE 63–151; TEMP 36.6–36.8
--- OUTSIDE RECORDS SUMMARY | 2025-06-14 19:08 | XMS_ITS | Encounter Summary ---
Author Organization [employer] [facility] Address [facility]-[id number] [address] [place] [address] Care Team Providers Care Car Unloader Name Role Phone No Pcp, No Pcp Primary Care Provider Unavailabl e Encounter Details Date Type Department Care Team (Late st Contact Info) Description 10/05/2020 [facility] [address] [place] [address] [address] [place] [address] Ref [place], [place] [address] Social History Tobacco Use Types Packs/Day Years [...] documented as of this encounter Care Teams Car Unloader Relationship Specialty Start Date End Date No Pcp, [place] [address] PCP - General Family Medicine 01/05/25 documented as of this encounter
--- OUTSIDE RECORDS SUMMARY | 2025-06-14 19:08 | XMS_ITS | Encounter Summary ---
Author Organization [employer] [facility] Address [facility]-[id number] [address] [place] [address] Care Team Providers Care Stamping Die Try Out Worker Name Role Phone No Pcp, No Pcp Primary Care Provider Unavailabl e Encounter Details Date Type Department Care Team (Late st Contact Info) Description 03/22/2021 Telephone [facility] [address] [place] [address] Dwight Johnson CMA Social History [...] documented as of this encounter Care Teams Stamping Die Try Out Worker Relationship Specialty Start Date End Date No Pcp, [place] [address] PCP - General Family Medicine 01/05/25 documented as of this encounter
--- OUTSIDE RECORDS SUMMARY | 2025-06-14 19:08 | XMS_ITS | Encounter Summary ---
Author Organization [employer] [facility] Address [facility]-[id number] [address] [place] [address] Care Team Providers Care Admeasurer Name Role Phone No Pcp, No Pcp Primary Care Provider Unavailabl e Reason for Referral * Diagnostic Imaging (Routine) - Closed Specialty Diagnoses / Procedures Referred By Marj fields Referred To Contact Radiology Diagnoses Pain Procedures CT abdomen and pelvis with contrast [facility] [address] [place] [address] Phone: tel: fax: Referral ID Status Reason Start Date Expiration Date Visits Re quested Visits Authorized [id number] Closed 08/08/2022 08/08/2023 1 1 Encounter Details Date Type Department Care Team (Late st Contact Info) Description 08/08/2022 Orders Only [facility] [address] [place] [address] Transcribe, Orders Support User Pain [...] documented as of this encounter Care Teams Admeasurer Relationship Specialty Start Date End Date No Pcp, [place] [address] PCP - General Family Medicine 01/05/25 documented as of this encounter
--- OUTSIDE RECORDS SUMMARY | 2025-06-14 19:08 | XMS_ITS | Clinical Summary ---
Author Organization [facility] Address [facility]-[id number] [address] [place] [address] Care Team Providers Care Manuscripts Curator Name Role Phone No Pcp, No Pcp [...] - 04/06/2025 1:31 AM EDT Hospital Encounter [facility] [address] [place] [phone] Shanelle Varma, ALEXEI-Hanna Lacey MD Discharge Disposition: [...] Yellow Yellow, Colorless 04/06/2025 1:02 AM EDT [facility] TURBIDITY Clear Clear 04/06/2025 1:02 AM EDT [facility] SPECIFIC GRAVITY 1.025 1.003 - 1.035 04/06 1:02 AM EDT [facility] NITRITE Negative Negative 04/06/2025 1:02 AM EDT [facility] PH,URINE 6.0 5.0 - 8.5 04/06/2025 1:02 AM EDT [facility] LEUKOCYTE ESTERASE Negative Negative 04/06/2025 1:02 AM EDT [facility] PROTEIN Negative Negative 04/06/2025 1:02 AM EDT [facility] KETONES (URINE) Negative Negative 1:02 AM EDT [facility] UROBILINOGEN 1.0 eu/dL 0.2 eu/dL, 1.0 eu/dL 04/06/2025 1:02 AM EDT [facility] BILIRUBIN (URINE) Negative Negative 04/06/2025 1:02 AM EDT [facility] BLOOD/HGB Negative Negative 04/06/2025 1:02 AM EDT [facility] GLUCOSE (URINE) Negative Negative, 250 mg/dL 04/06/2025 1:02 AM EDT [facility] Urine Urine specimen collection, clean catch / Unknown 04/06/2025 12:09 AM EDT 04/06/2025 12:14 AM EDT us Shanelle STEVENS URINE ORDERABLES Fin al Result [facility] [address] [place] [address], [place] * Urine Culture Urine, Clean Catch Midstream (04/06/2025 12:09 AM EDT) CULTURE RESULTS 10-50,000 ORGANISMS/mL NORMAL UROGENITAL SUNDEEP 04/07/2025 6:36 AM EDT [facility] Urine Urine specimen collection, clean catch / Unknown 04/06/2025 12:09 AM EDT 04/06/2025 12:14 AM EDT Shanelle A Kojo LIME SUPERVISOR-CNM MICROBIOLOGY - GENER AL ORDERABLES Final Result [facility] [address] [place] [address], * Glucose 1h post 50g load (03/17/2025 9:44 AM EDT) GLUCOSE, 1HR POST 50GM LOAD 132 65 - 139 mg/dL 03/17/2025 2:01 PM EDT [facility] Blood Venous blood / Unknown Venipuncture / Unknown 03/17/2025 9:44 AM EDT 03/17/2025 9:44 AM EDT us Sarath Tellez DO LAB BLOOD ORDERABLES Final Resu lt Performing Organization Address City/[facility]/ZIP Co de Phone Number [facility] [address] [place] [address], * (ABNORMAL) CBC auto differential (03/17/2025 9:44 AM EDT) WBC 8.8 4 - 11 x10E9/L 03/17/2025 1:18 PM EDT [facility] RBC Count 3.79(L) 3.8 - 5.2 X10E12/L 03/17/2025 1:18 PM EDT [facility] Hemoglobin 11.4(L) 11.7 - 15.5 g/dL 03/17/2025 1:18 PM EDT [facility] Hematocrit 33.3(L) 35 - 47 % 03/17/2025 1:18 PM EDT [facility] MCV 88 80 - 100 fL 03/17/2025 1:18 PM EDT [facility] MCH 29.9 27 - 34 pg 03/17/2025 1:18 PM EDT [facility] MCHC 34.1 32 - 36 g/dL 03/17/2025 1:18 PM EDT [facility] RDW 13.2 11.5 - 15 % 03/17/2025 1:18 PM EDT [facility] Platelet Count 201 150 - 450 X10E9/L 03/17/2025 1:18 PM EDT [facility] MPV 9.1 7 - 12 fL 03/17/2025 1:18 PM EDT [facility] Neutrophils % 74.9 % 03/17/2025 1:18 PM EDT [facility] Lymphocytes % 18.9 % 03/17/2025 1:18 PM EDT [facility] Monocytes % 4.8 % 03/17/2025 1:18 PM EDT [facility] Eosinophils % 1.2 % 03/17/2025 1:18 PM EDT [facility] Basophils % 0.2 % 03/17/2025 1:18 PM EDT [facility] Neutrophils Absolute (A) 6.6 1.5 - 6.6 10*3/uL 03/17/2025 1:18 PM EDT [facility] Lymphocytes Absolute 1.7 1.0 - 3.5 10*3/uL 03/17/2025 1:18 PM EDT [facility] Monocytes Absolute 0.4 0.0 - 0.9 10*3/uL 03/17/2025 1:18 PM EDT [facility] Eosinophils Absolute 0.1 0.0 - 0.4 10*3/uL 03/17/2025 1:18 PM EDT [facility] Basophils Absolute 0.0 0.0 - 0.2 10*3/uL 03/17/2025 1:18 PM EDT [facility] Differential Type AUTOMATED DIFFERENTIAL 03/17/2025 1:18 PM EDT [facility] Blood Venous blood / Unknown Venipuncture / Unknown 03/17/2025 9:44 AM EDT 03/17/2025 9:44 AM EDT us Sarath R Rosalinda DO LAB BLOOD ORDERABLES Final Resu lt [facility] [address] [place] [address], * Pap Smear (08/11/2021 10:45 AM EST) 08/11/2021 10:4 5 AM EST 08/12/2021 10:46 AM EST Narrative COPATH - 08/16/2021 1:56 PM EST [facility] [address] [place] [address] Gynecologic Cytology Consultation Patient Name: MELISSA RAVI : 1995 (Age: 25) Gender: F Taken: 08/11/2021 Reported: 08/16/2021 Physician(s): Jhoana Penny CNP ([phone]) Copy To: [facility]. Rec. #: [id number] Acct: # [id number] Final Cytologic Interpretation ThinPrep Pap Test (Vaginal/Cervical): Satisfactory for evaluation. A transformation zone component was not noted. NEGATIVE FOR INTRAEPITHELIAL LESION OR MALIGNANCY. Shift in sundeep suggestive of bacterial vaginosis. Anucleate squamous cells consistent with hyperkeratosis are present. Comment: This ThinPrep slide could not be successfully imaged by the [facility] Lane[facility] Imaging System so it was manually screened. [facility]/08/16/2021 Interpretation performed at [facility], [address] [place] [address], License number: [id number]. Electronically Signed Out By PILAR Emmanuel(ASCP) Date of Last Menstrual Period: 08/03/2021 Other Clinical Conditions: Z01.419 Wetlands Conservation Laborer exam wo/abn findings Source of Specimen ThinPrep Pap Test (Vaginal/Cervical) Thin Prep Pap (FACE HARDENER) Fee Code(s): G0145, G0145 <CR>, G0123 The Pap test is a screening test with an inherent, but low, probability of error. The Pap test is primarily effective for the diagnosis and prevention of squamous cell carcinoma. Regular screening is critical for prevention. ThinPrep liquid-based slides, which meet the General Ledger Bookkeeper criteria for automated screening, have been screened by the ThinPrep Imaging System (as of 05/27/07) along with an additional manual rescreening by a library consultant and, if indicated, by a pathologist. Jhoana Penny LIME SUPERVISOR-AUTOMATIC PROFILE SANDER OPERATOR PATHOLOGY/CYTOLOGY ORDERABLES Final Result COPATH from Last 3 Months or Most Recently Relevant to Health Maintenance Insurance [place] [employer] [place] [employer] Care Teams Manuscripts Curator Relationship Specialty Start Date End Date No Pcp, No Pcp [place] [address] PCP - General Family Medicine 01/05/25
--- OUTSIDE RECORDS SUMMARY | 2025-06-14 19:08 | XMS_ITS | Encounter Summary ---
Author Organization [employer] [facility] Address [facility]-[id number] [address] [place] [address] Care Team Providers Care Hostel Parent Name Role Phone No Pcp, No Pcp Primary Care Provider Unavailabl e Encounter Details Date Type Department Care Team (Late st Contact Info) Description 08/23/2021 [facility] [address] [place] [place] [address] Craig Pritchard CMA Social History [...] documented as of this encounter Care Teams Hostel Parent Relationship Specialty Start Date End Date No Pcp, [place] [address] PCP - General Family Medicine 01/05/25 documented as of this encounter
--- OUTSIDE RECORDS SUMMARY | 2025-06-14 19:08 | XMS_ITS | Encounter Summary ---
Author Organization [employer] Address [id number] [address] [place] [address] Care Team Providers Care Ship Manager Name Role Phone No Pcp, No Pcp Primary Care Provider Unavailabl e Encounter Details Date Type Department Care Team (Late st Contact Info) Description 10/05/[address] [facility] [address] [place] [phone] [place] [address] [place] [address], [address] [place] [address] Social History Tobacco Use Types [...] documented as of this encounter Care Teams Ship Manager Relationship Specialty Start Date End Date No Pcp, [place] [address] PCP - General Family Medicine 01/05/25 documented as of this encounter
--- OUTSIDE RECORDS SUMMARY | 2025-06-14 19:08 | XMS_ITS | Encounter Summary ---
Author Organization [facility]? [facility] Address [facility]-[id number] [address] [place] [address] Care Team Providers Care Account General Manager Name Role Phone No Pcp, No Pcp Primary Care Provider Unavailabl e Encounter Details Date Type Department Care Team (Late st Contact Info) Description 08/08/2022 Orders Only [facility] [address] [place] [address] [place] [address] External, Scanning Provider Social History [...] documented as of this encounter Care Teams Account General Manager Relationship Specialty Start Date End Date No Pcp, [place] [address] PCP - General Family Medicine 01/05/25 documented as of this encounter
--- OUTSIDE RECORDS SUMMARY | 2025-06-14 19:09 | XMS_ITS | CCD ---
Author Organization [facility] Care Team Providers Care Personal Fitness Trainer Name Role Phone BHARATI HESS Primary Care Unavailable DR DANNY SMITH Admitting Unavailable SARAH, DR DANNY Kerns Attending Unavailable MAGDI, DR CESAR Davila Consulting Unavailabl e RODERER, DR DANNY Kerns Consulting Unavailable SHIRA MORENO Unavailable Unavailable Primary Care Provider Unavailabl e NO PCP, NO PCP Primary Care Unavailable CHRISTINE RUSSELL Attending Unavailable NO PCP, NO PCP Primary Care Unavailable RYANN CORBETT Attending Unavailable NO PCP, NO PCP Primary Care Unavailable GUERITA CEDEÑO Attending Unavailable NO PCP, NO PCP Primary Care Unavailable RYANN CORBETT Attending Unavailable ALFNOSO TELLEZ Referring Unavailable NO PCP, NO PCP Primary Care Unavailable JOSH HATFIELD Admitting Unavailable JOSH HATFIELD Attending Unavailable NO PCP, NO PCP Primary Care Unavailable Edwin Mitchell NP Unavailable ALFONSO TELLEZ Attending Unavailable YEE SHIELDS Attending Unavailable ALFONSO TELLEZ Attending Unavailable YEE SHIELDS Attending Unavailable YEE SHIELDS Attending Unavailable ALFONSO TELLEZ Attending Unavailable YEE SHIELDS Attending Unavailable ALFONSO TELLEZ Attending Unavailable MILDRED PARKS Attending Unavailable Medications Current Medications Medication Drug [...] disintegrating tablet Indications: Nausea and vomiting in ([facility]) Take 1 tablet (4 mg) by mouth every 6 (six) hours if needed for nausea or vomiting for up to 30 doses 30 tablet 2 11/25/2024 Active Vit-Fe Fumarate-FA ( 19) chewable tablet (20 sources) Start: 12-08-2024 Vit-Fe Fumarate-FA ( 19) [...] Problem Date Documented Date Episodic/Chronic Abdominal pain (7 sources) Unspecified abdominal [...] conditions, third trimester] Onset: 04-05-2025 Episodic Other infections; including parasitic (4 sources) H/O: viral illness; Translations: [Personal history of other infectious and parasitic diseases] 04-27-2025 Episodic Other and delivery including normal (20 sources) ; Translations: [Encounter for supervision of [...] [36 weeks gestation of ] 05-26-2025 Episodic Residual codes; unclassified (2 sources) Gestation period, 38 weeks; Translations: [38 weeks gestation of ] 06-04-2025 Episodic Residual codes; unclassified (2 sources) Gestation period, 39 weeks; Translations: [39 weeks gestation of ] 06-11-2025 Episodic Unclassified (1 source) CONTACT W/AND (SUSP) [...] and menstrual cycle] Onset: 01-05-2025 Episodic Other gastrointestinal disorders (20 sources) H/O: Disorder; Translations: [Personal history of other diseases of the digestive system] Onset: 03-11-2025 03-11-2025 Episodic Other injuries and conditions due to external causes (1 source) Laceration - injury Onset: 06-22-2024 Episodic Results Test Name Value Interpretation Reference Range Facility Urinalysis macro (dipstick) panel (U)on 06-04-2025 Bilirubin, UA Negative Negative - 4(70) +++ mg/dL [facility] Healthcare Blood, UA Negative Negative - 50 Zack/mcL [facility] Healthcare Clarity, UA Clear [facility] Color, UA Yellow [facility] Glucose, UA Negative Negative - 1999(110) ++++ mg/dL [facility] Interpretation and review of laboratory results Abnormal [facility] Healthcare Ketones, UA Negative Negative - 160(16) ++++ mg/dL [facility] Healthcare Leukocytes, UA Negative Negative - 500+++ Robi/mcL [facility] Healthcare Nitrite, UA Negative Negative - Positive [facility] pH, UA 6 5 - 9 [facility] Protein, UA Positive Negative - 1999(20) ++++ mg/dL [facility] Comment on above: 1+ Spec Grav, UA 1.03 1 - 1.03 [facility] care Urobilinogen, UA 4.0 0.2 - 12 mg/dL [facility] Comment on above: Trace [facility] Urinalysis macro (dipstick) panel (U)on 05-26-2025 Bilirubin, UA Negative Negative - 4(70) +++ mg/dL [facility] Blood, UA Negative Negative - 50 Zack/mcL [facility] Healthcare Clarity, UA Clear [facility] Color, UA Yellow [facility] Glucose, UA Negative Negative - 1999(110) ++++ mg/dL [facility] Interpretation and review of laboratory results Abnormal [facility] Ketones, UA Negative Negative - 160(16) ++++ mg/dL [facility] Leukocytes, UA Negative Negative - 500+++ Robi/mcL [facility] Healthcare Nitrite, UA Negative Negative - Positive [facility] pH, UA 6.5 5 - 9 [facility] Protein, UA Trace Negative - 1999(20) ++++ mg/dL [facility] Spec Grav, UA 1.02 1 - 1.03 [facility] Urobilinogen, UA 1.0 0.2 - 12 mg/dL [facility] TBH UA (CLEAN/CATCH) PIECE WORK CHECKER/MERI RO IF IND.on 05-18-2025 BILIRUBIN URINE Negative NEGATIVE [facility] BLOOD URINE Negative NEGATIVE [facility] Clarity (U) CLEAR CLEAR [facility] Color (U) LT. YELLOW YELLOW [facility] GLUCOSE URINE UA Negative NEGATIVE mg/dL [facility] Ketones Ql (U) Negative NEGATIVE mg/dL [facility] H ealthcare Leukocyte esterase Test strip Ql (U) Negative NEGATIVE [facility] NITRITE URINE Negative NEGATIVE [facility] care pH (U) 6.0 [pH] 5.0 - 9.0 [facility] e PROTEIN URINE Negative NEG/TRACE mg/dL [facility] SPECIFIC GRAVITY URINE 1.015 1.005 - 1.025 [facility] URINE MICROSCOPIC INDICATED NO [facility] UROBILINOGEN URINE 1.0 EU/dL 0.2 - 1.0 EU/dL [facility] Urinalysis macro (dipstick) panel (U)on 05-12-2025 Bilirubin, UA Negative Negative - 4(70) +++ mg/dL [facility] Blood, UA Negative Negative - 50 Zack/mcL [facility] Clarity, UA Clear [facility] re Color, UA [facility] e Glucose, UA Negative Negative - 1999(110) ++++ mg/dL [facility] Interpretation and review of laboratory results Abnormal [facility] Ketones, UA Negative Negative - 160(16) ++++ mg/dL [facility] Leukocytes, UA Negative Negative - 500+++ Robi/mcL [facility] Nitrite, UA Negative Negative - Positive [facility] pH, UA 6 5 - 9 [facility] e Protein, UA Positive Negative - 1999(20) ++++ mg/dL [facility] Spec Grav, UA 1.03 1 - 1.03 [facility] Urobilinogen, UA >=8.0 0.2 - 12 mg/dL [facility] Comment on above: 17 [facility] Urinalysis macro (dipstick) panel (U)on 04-27-2025 Bilirubin, UA Negative Negative - 4(70) +++ mg/dL [facility] Blood, UA Negative Negative - 50 Zack/mcL [facility] Clarity, UA Clear [facility] re Color, UA Yellow [facility] Glucose, UA Negative Negative - 1999(110) ++++ mg/dL [facility] Interpretation and review of laboratory results Normal [facility] Ketones, UA Negative Negative - 160(16) ++++ mg/dL [facility] Leukocytes, UA Negative Negative - 500+++ Robi/mcL [facility] Nitrite, UA Negative Negative - Positive [facility] pH, UA 5.5 5 - 9 [facility] Protein, UA Negative Negative - 2000(20) ++++ mg/dL [facility] Spec Grav, UA 1.02 1 - 1.03 [facility] Urobilinogen, UA 1.0 0.2 - 12 mg/dL [facility] US OB FOLLOW UP TRANSABDOMIN [...] II, MD, PHD at 10-Apr-2025 08:25:24 AM [facility] Normal Not Available Comment on above: Order Comment: US OB SCAN FOR GROWTH Estimated Date of Delivery: 06/17/25 Gestational Age as of 03/26/2025: 28w1d URINALYSISon 04-06-2025 Bilirubin Ql (U) Negative Normal Negative [facility] Comment on above: Performed By: #### U A #### [facility] [address] [place] [address] VIR BLOOD/HGB Negative Normal Negative [facility] Comment on above: Performed By: #### U A #### [facility] ([address] [address] VIR Color (U) Yellow Normal Yellow, Colorless [facility] Comment on above: Performed By: #### U A #### [facility] ([address] [address] VIR Glucose Ql (U) Negative Normal Negative, 250 mg/dL [facility] Comment on above: Performed By: #### U A #### [facility] ([address] [address] VIR Ketones Ql (U) Negative Normal Negative [facility] Comment on above: Performed By: #### U A #### [facility] ([address] [address] VIR Leukocyte esterase Test strip Ql (U) Negative Normal Negative [facility] Comment on above: Performed By: #### U A #### [facility] ([address] [address] VIR Nitrite Ql (U) Negative Normal Negative [facility] Comment on above: Performed By: #### U A #### [facility] ([address] [address] VIR PH,URINE 6.0 Normal 5.0-8.5 [facility] Comment on above: Performed By: #### U A #### [facility] ([address] [address] VIR Protein Ql (U) Negative Normal Negative [facility] Comment on above: Performed By: #### U A #### [facility] ([address] [address] VIR Specific gravity (U) [Rel density] 1.025 Normal 1.003-1.035 [facility] Comment on above: Performed By: #### U A #### [facility] ([facility]) [address] [place] [address] [place] [address] VIR TURBIDITY Clear Normal Clear [facility] Comment on above: Performed By: #### U A #### [facility] ([address] [place] [address] VIR UROBILINOGEN 1.0 eu/dL Normal 0.2 eu/dL, 1.0 eu/dL [facility] Comment on above: Performed By: #### U A #### [facility] ([address] [address] VIR URINE CULTUREon 04-06-2025 Bacteria identified Cx Nom (U) CULTURE RESULTS 10-50,000 ORGANISMS/mL NORMAL UROGENITAL SANNA Normal [facility] Comment on above: Performed By: #### U C #### [facility] ([facility]) [address] [place] [address] VIR CBC WITH AUTO DIFFERENTIALon 03-17-2025 BASOPHILS ABSOLUTE COUNT (10*3/UL) BY AUTOMATED COUNT 0.0 10*3/uL Normal 0.0-0.2 [facility] Comment on above: Performed By: #### C BCA #### [facility] ([facility]) [address] [place] [address] VIR BASOPHILS RELATIVE PERCENT BY AUTOMATED COUNT 0.2 % Normal [facility] Comment on above: Performed By: #### C BCA #### [facility] ([facility]) [address] [place] [address] VIR CELLAVISION DIFFERENTIAL TYPE AUTOMATED DIFFERENTIAL Normal [facility] Comment on above: Performed By: #### C BCA #### [facility] ([facility]) [address] [place] [address] VIR Eosinophils (Bld) [#/Vol] 0.1 10*3/uL Normal 0.0-0.4 [facility] Comment on above: Performed By: #### C BCA #### [facility] ([facility]) [address] [place] [address] VIR EOSINOPHILS RELATIVE PERCENT BY AUTOMATED COUNT 1.2 % Normal [facility] Comment on above: Performed By: #### C BCA #### [facility] ([facility]) [address] [place] [address] VIR Erythrocyte distribution width (RBC) [Ratio] 13.2 % Normal 11.5-15 [facility] Comment on above: Performed By: #### C BCA #### [facility] ([facility]) [address] [place] [address] VIR Hematocrit (Bld) [Volume fraction] 33.3 % Low 35-47 [facility] Comment on above: Performed By: #### C BCA #### [facility] ([facility]) [address] [place] [address] VIR Hemoglobin (Bld) [Mass/Vol] 11.4 g/dL Low 11.7-15.5 [facility] Comment on above: Performed By: #### C BCA #### [facility] ([facility]) [address] [place] [address] VIR LYMPHOCYTES ABSOLUTE COUNT (10*3/UL) BY AUTOMATED COUNT 1.7 10*3/uL Normal 1.0-3.5 [facility] Comment on above: Performed By: #### C BCA #### [facility] ([facility]) [address] [place] [address] VIR LYMPHOCYTES RELATIVE PERCENT BY AUTOMATED COUNT 18.9 % Normal [facility] Comment on above: Performed By: #### C BCA #### [facility] ([facility]) [address] [place] [address] VIR MCH (RBC) [Entitic mass] 29.9 pg Normal 27-34 [facility] Comment on above: Performed By: #### C BCA #### [facility] ([facility]) [address] [place] [address] VIR MCHC (RBC) [Mass/Vol] 34.1 g/dL Normal 32-36 [facility] Comment on above: Performed By: #### C BCA #### [facility] ([facility]) [address] [place] [address] VIR MCV (RBC) [Entitic vol] 88 fL Normal 80-100 [facility] Comment on above: Performed By: #### C BCA #### [facility] ([facility]) [address] [place] [address] VIR MONOCYTES ABSOLUTE COUNT (10*3/UL) BY AUTOMATED COUNT 0.4 10*3/uL Normal 0.0-0.9 [facility] Comment on above: Performed By: #### C BCA #### [facility] ([facility]) [address] [place] [address] VIR MONOCYTES RELATIVE PERCENT BY AUTOMATED COUNT 4.8 % Normal [facility] Comment on above: Performed By: #### C BCA #### [facility] ([facility]) [address] [place] [address] VIR NEUTROPHILS ABSOLUTE COUNT BY AUTOMATED COUNT 6.6 10*3/uL Normal 1.5-6.6 [facility] Comment on above: Performed By: #### C BCA #### [facility] ([facility]) [address] [place] [address] VIR NEUTROPHILS RELATIVE PERCENT BY AUTOMATED COUNT 74.9 % Normal [facility] Comment on above: Performed By: #### C BCA #### [facility] ([facility]) [address] [place] [address] VIR Platelet mean volume (Bld) [Entitic vol] 9.1 fL Normal 7-12 [facility] Comment on above: Performed By: #### C BCA #### [facility] ([facility]) [address] [place] [address] VIR Platelets (Bld) [#/Vol] 201 10*3/uL Normal 150-450 [facility] Comment on above: Performed By: #### C BCA #### [facility] ([facility]) [address] [place] [address] VIR RBC COUNT 3.79 X10E12/L Low 3.8-5.2 [facility] Comment on above: Performed By: #### C BCA #### [facility] ([facility]) [address] [place] [address] VIR WBC (Bld) [#/Vol] 8.8 10*3/uL Normal 4-11 [facility] Comment on above: Performed By: #### C BCA #### [facility] ([facility]) [address] [place] [address] VIR GLU 1H POST 50G LOADon 03-17 GLUCOSE, 1HR POST 50GM LOAD 132 mg/dL Normal 65-139 [facility] Comment on above: Performed By: #### G L1 #### [facility] ([facility]) [address] [place] [address] VIR Urinalysis macro (dipstick) panel (U)on 03-11-2025 Bilirubin, UA Negative Negative - 4(70) +++ mg/dL [facility] Blood, UA Negative Negative - 50 Zack/mcL [facility] Healthcare Clarity, UA Clear [facility] Color, UA Yellow [facility] Glucose, UA Negative Negative - 1999(110) ++++ mg/dL [facility] Interpretation and review of laboratory results Normal [facility] Ketones, UA Negative Negative - 160(16) ++++ mg/dL [facility] Leukocytes, UA Negative Negative - 500+++ Robi/mcL [facility] Nitrite, UA Negative Negative - Positive [facility] pH, UA 6 5 - 9 [facility] Protein, UA Negative Negative - 1999(20) ++++ mg/dL [facility] Spec Grav, UA 1.025 1 - 1.03 [facility] Urobilinogen, UA 1.0 0.2 - 12 mg/dL [facility] US OB 14+ WEEKS ANATOMY [...] II, MD, PHD at 13-Feb-2025 08:26:15 AM [facility] Normal Not Available Comment on above: Order Comment: US OB ANATOMY SINGLE W US OB CERVICAL LENGTH Estimated Date of Delivery: 06/17/25 Gestational Age as of 01/29/2025: 20w1d IGP,APTIMA HPV,AGE GDLNon AGE GDLN ACOG TESTING Note . [facility] Comment on above: TESTS RESULT FLAG UN ITS REF RANGE LAB Clinician Provided Cytology Information Source.............[employer] Other.............. No. of containers..01 ThinPrep Vial Age Algo ACOG Teresa... FLAG LEGEND: L-Low Normal,H-High Normal,LL-Alert Low,HH-Alert High <-Panic Low,>-Panic High,A-Abnormal,AA-Critical Abnormal Performed at: 01 =G [facility] [address] Anju Capps MD, IGP, RFX APTIMA HPV ASCU Note . [facility] Comment on above: TESTS RESULT FLAG UN ITS REF RANGE LAB DIAGNOSIS: 02 NEGATIVE FOR INTRAEPITHELIAL LESION OR MALIGNANCY. THIS SPECIMEN WAS RESCREENED PART OF OUR DIRECTOR OF PATIENT SAFETY PROGRAM. Specimen adequacy: 02 Satisfactory for evaluation. Endocervical and/or squamous metaplastic cells (endocervical component) are present. Performed by: Maru Charles Residential Counselor QC reviewed by: Maru Sargent, Residential Counselor ([facility]) . 02 Note: Note 02 The [...] <-Panic Low,>-Panic High,A-Abnormal,AA-Critical Abnormal Performed at: [address] [place] [address] Anju Capps MD, Performed at: =G - [facility] [address] [id number] Personal Financial Advisor: Anju Capps MD, Phone: [phone] Performed at: - [facility] [id number] Personal Financial Advisor: Anju Capps MD, Phone: [phone] [facility] BASIC METABOLIC PANELon 12-10 Anion gap [Moles/Vol] 4 mmol/L Low 5-15 [facility] Comment on above: Performed By: #### B MP #### [facility] ([address] [place] [address] VIR Calcium [Mass/Vol] 8.2 mg/dL Low 8.5-10.5 [facility] Comment on above: Performed By: #### B MP #### [facility] ([address] [address] VIR Chloride [Moles/Vol] 108 mmol/L Normal 98-109 [facility] Comment on above: Performed By: #### B MP #### [facility] ([address] [address] VIR CO2 [Moles/Vol] 21 mmol/L Low 22-32 [facility] Comment on above: Performed By: #### B MP #### [facility] ([address] [address] VIR Creatinine [Mass/Vol] 0.68 mg/dL Normal 0.40-1.00 [facility] Comment on above: Result Comment: METH OD TRACEABLE TO IDMS STANDARD Performed By: #### B MP #### [facility] ([address] [address] VIR EGFR (CKD-EPI) NON-RACE DEPENDENT >^90 Normal >=60 [facility] Comment on above: Result Comment: eGFR not reported due to non-numeric value for Creatinine. Reported eGFR is based on the CKD-EPI 2021 equation that does not use a race coefficient. Performed By: #### B MP #### [facility] ([address] [place] [address] VIR Glucose [Mass/Vol] 93 mg/dL Normal 65-99 [facility] Comment on above: Performed By: #### B MP #### [facility] ([address] [place] [address] VIR Potassium [Moles/Vol] 3.6 mmol/L Normal 3.5-5.0 [facility] Comment on above: Performed By: #### B MP #### [facility] ([facility]) [address] [place] [address] [place] [address] VIR Sodium [Moles/Vol] 133 mmol/L Low 134-146 [facility] Comment on above: Performed By: #### B MP #### [facility] ([address] [place] [address] VIR Urea nitrogen [Mass/Vol] 13 mg/dL Normal 5-23 [facility] Comment on above: Performed By: #### B MP #### [facility] ([address] [place] [address] VIR CBC WITH AUTO DIFFERENTIALon 01-05-2025 BASOPHILS ABSOLUTE COUNT (10*3/UL) BY AUTOMATED COUNT 0.0 10*3/uL Normal [facility] Comment on above: Performed By: #### C BCA #### [facility] ([address] [place] [address] VIR BASOPHILS RELATIVE PERCENT BY AUTOMATED COUNT 0.3 % Normal [facility] Comment on above: Performed By: #### C BCA #### [facility] ([address] [place] [address] VIR CELLAVISION DIFFERENTIAL TYPE AUTOMATED DIFFERENTIAL Normal [facility] Comment on above: Performed By: #### C BCA #### [facility] ([address] [place] [address] VIR Eosinophils (Bld) [#/Vol] 0.1 10*3/uL Normal [facility] Comment on above: Performed By: #### C BCA #### [facility] ([address] [place] [address] VIR EOSINOPHILS RELATIVE PERCENT BY AUTOMATED COUNT 1.3 % Normal [facility] Comment on above: Performed By: #### C BCA #### [facility] ([address] [address] VIR Erythrocyte distribution width (RBC) [Ratio] 13.3 % Normal 11.5-15 [facility] Comment on above: Performed By: #### C BCA #### [facility] ([address] [address] VIR Hematocrit (Bld) [Volume fraction] 31.6 % Low 35-47 [facility] Comment on above: Performed By: #### C BCA #### [facility] ([address] [address] VIR Hemoglobin (Bld) [Mass/Vol] 11.1 g/dL Low 11.7-15.5 [facility] Comment on above: Performed By: #### C BCA #### [facility] ([address] [address] VIR LYMPHOCYTES ABSOLUTE COUNT (10*3/UL) BY AUTOMATED COUNT 1.6 10*3/uL Normal [facility] Comment on above: Performed By: #### C BCA #### [facility] ([address] [address] VIR LYMPHOCYTES RELATIVE PERCENT BY AUTOMATED COUNT 19.6 % Normal [facility] Comment on above: Performed By: #### C BCA #### [facility] ([address] [address] VIR MCH (RBC) [Entitic mass] 30.5 pg Normal 27-34 [facility] Comment on above: Performed By: #### C BCA #### [facility] ([address] [address] VIR MCHC (RBC) [Mass/Vol] 35.1 g/dL Normal 32-36 [facility] Comment on above: Performed By: #### C BCA #### [facility] ([address] [address] VIR MCV (RBC) [Entitic vol] 87 fL Normal 80-100 [facility] Comment on above: Performed By: #### C BCA #### [facility] ([address] [address] VIR MONOCYTES ABSOLUTE COUNT (10*3/UL) BY AUTOMATED COUNT 0.4 10*3/uL Normal [facility] Comment on above: Performed By: #### C BCA #### [facility] ([address] [address] VIR MONOCYTES RELATIVE PERCENT BY AUTOMATED COUNT 5.2 % Normal [facility] Comment on above: Performed By: #### C BCA #### [facility] ([address] [address] VIR NEUTROPHILS ABSOLUTE COUNT BY AUTOMATED COUNT 5.9 10*3/uL Normal [facility] Comment on above: Performed By: #### C BCA #### [facility] [facility] ([address] [address] VIR NEUTROPHILS RELATIVE PERCENT BY AUTOMATED COUNT 73.6 % Normal [facility] Comment on above: Performed By: #### C BCA #### [facility] ([address] [address] VIR Platelet mean volume (Bld) [Entitic vol] 7.7 fL Normal 7-12 [facility] Comment on above: Performed By: #### C BCA #### [facility] ([address] [address] VIR Platelets (Bld) [#/Vol] 230 10*3/uL Normal 150-450 [facility] Comment on above: Performed By: #### C BCA #### [facility] ([address] [place] [address] VIR RBC COUNT 3.64 X10E12/L Low 3.8-5.2 [facility] Comment on above: Performed By: #### C BCA #### [facility] ([facility]) [address] [place] [address] [place] [address] VIR WBC (Bld) [#/Vol] 8.0 10*3/uL Normal 4-11 [facility] Comment on above: Performed By: #### C BCA #### [facility] ([address] [place] [address] VIR POCT NURSING URINE MACROSCOP IC UAon 01-05-2025 BILIRUBIN [place] Negative Normal Negative [facility] Comment on above: Performed By: #### N UM #### [facility] ([address] [place] [address] VIR BLOOD/HGB [place] Trace Abnormal Negative [facility] Comment on above: Performed By: #### N UM #### [facility] ([address] [place] [address] VIR GLUCOSE [place] Negative Normal Negative [facility] Comment on above: Performed By: #### N UM #### [facility] ([address] [place] [address] VIR KETONES [place] Negative Normal Negative [facility] Comment on above: Performed By: #### N UM #### [facility] ([address] [place] [address] VIR LEUKOCYTE ESTERASE [place] Negative Normal Negative [facility] Comment on above: Performed By: #### N UM #### [facility] ([address] [place] [address] VIR NITRITE [place] Negative Normal Negative [facility] Comment on above: Performed By: #### N UM #### [facility] ([address] [place] [address] VIR PH [place] 6.0 Normal 5.0, 6.0, 6.5, 7.0, 7.5, 8.0, 8.5, 5.5 [facility] Comment on above: Performed By: #### N UM #### [facility] ([facility]) [address] [place] [address] VIR PROTEIN [place] 100 mg/dL Abnormal Negative [facility] Comment on above: Performed By: #### N UM #### [facility] ([address] [address] VIR SPECIFIC GRAVITY [place] >=1.030 Abnormal (none) [facility] Comment on above: Performed By: #### N UM #### [facility] ([address] [address] VIR UROBILINOGEN [place] 0.2 E.U./dL Normal 0.2 E.U./dL , 1.0 E.U./dL [facility] Comment on above: Performed By: #### N UM #### [facility] ([address] [address] VIR Urinalysis macro (dipstick) panel (U)on 01-01-2025 Bilirubin, UA Negative Negative - 4(70) +++ mg/dL [facility] Blood, UA Negative Negative - 50 Zack/mcL [facility] Clarity, UA Clear [facility] re Color, UA Yellow [facility] Glucose, UA Negative Negative - 1999(110) ++++ mg/dL [facility] Interpretation and review of laboratory results Abnormal [facility] Ketones, UA Positive Negative - 160(16) ++++ mg/dL [facility] Comment on above: 160mg/dL Leukocytes, UA Negative Negative - 500+++ Robi/mcL [facility] Nitrite, UA Negative Negative - Positive [facility] pH, UA 5.5 5 - 9 [facility] Protein, UA Positive Negative - 1999(20) ++++ mg/dL [facility] Comment on above: 30mg/dL Spec Grav, UA 1.03 1 - 1.03 [facility] Urobilinogen, UA 0.2 0.2 - 12 mg/dL [facility] ALL CBC WITH AUTO DIFFon BASOPHILS ABSOLUTE AUTO 0 [facility] Basophils/100 WBC (Bld) 0.4 % 0.2 - 2.0 % [facility] Eosinophils/100 WBC (Bld) 1.6 % 0.9 - 7.0 % [facility] Erythrocyte distribution width (RBC) [Ratio] 12.1 % 11.0 - 15.0 % [facility] Hematocrit (Bld) [Volume fraction] 31.9 % Low 36.0 - 48.0 % [facility] Hemoglobin (Bld) [Mass/Vol] 11.3 g/dL Low 12.0 - 16.0 g/dL [facility] IMMATURE GRANULOCYTES ABS AUTO 0.02 [facility] Immature granulocytes/100 WBC (Bld) 0.4 % 0.0 - 0.5 % [facility] Interpretation and review of laboratory results Abnormal [facility] LYMPHOCYTES ABSOLUTE AUTO 1.5 [facility] Lymphocytes/100 WBC (Bld) 26.7 % 20.5 - 60.0 % [facility] MCH (RBC) [Entitic mass] 29.7 pg 26.7 - 34.0 pg [facility] MCHC (RBC) [Mass/Vol] 35.4 g/dL High 29.9 - 35.2 g/dL [facility] MCV (RBC) [Entitic vol] 83.7 fL 81.0 - 99.0 fL [facility] MONOCYTES ABSOLUTE AUTO 0.4 [facility] Monocytes/100 WBC (Bld) 7.3 % 1.7 - 12.0 % [facility] NEUTROPHILS ABSOLUTE AUTO 3.6 [facility] Neutrophils/100 WBC (Bld) 63.6 % 43.0 - 75.0 % [facility] Platelet mean volume (Bld) [Entitic vol] 9.9 fL 9.5 - 13.5 [facility]L [facility] # [facility].1 [facility] PLT 211 [facility] TB RBC 3.81 Low [facility] TB[facility] WBC 5.6 [facility] CLINISYNC [facility] BOX TESTon 12-04-2024 BOX TEST SENT OUT [facility] [address] [facility] BOX2 12/04/2024 [facility] BOX [facility] HCG ( test) Ql (U)o n 12-04-2024 Interpretation and review of laboratory results Abnormal [facility] Preg Test, Ur Positive Negative [facility] care [facility] Urinalysis macro (dipstick) panel (U)on 12-04-2024 Bilirubin, UA Negative Negative - 4(70) +++ mg/dL [facility] Blood, UA Negative Negative - 50 Zack/mcL [facility] Clarity, UA Clear [facility] re Color, UA Yellow [facility] Glucose, UA Negative Negative - 1999(110) ++++ mg/dL [facility] Interpretation and review of laboratory results Normal [facility] Ketones, UA Negative Negative - 160(16) ++++ mg/dL [facility] Leukocytes, UA Negative Negative - 500+++ Robi/mcL [facility] Nitrite, UA Negative Negative - Positive [facility] pH, UA 7.5 5 - 9 [facility] Protein, UA Negative Negative - 1999(20) ++++ mg/dL [facility] Spec Grav, UA 1.02 1 - 1.03 [facility] Urobilinogen, UA 1.0 0.2 - 12 mg/dL [facility] XR CHEST 2 VWSon 06-06-2024 XR CHEST 2 VWS XR CHEST 2 VWS XR CHEST 2 VWS 06/06/2024 2:23 AM INDICATION: chest pain COMPARISON: None. TECHNIQUE: PA upright and lateral view(s) obtained. FINDINGS: Lines/Tubes/Devices: None. Respiratory: No pneumothorax, pleural effusion, or focal consolidation. Cardiomediastinum: Nonenlarged. IMPRESSION: * No acute pulmonary process. Approved by Resident: Fred Corrales MD on 06/06/2024 3:31 AM ICesar MD have personally reviewed the image(s) and agree with and/or edited the report Finalized by Cesar Ward MD on 06/06/2024 3:49 AM Normal [facility] CBC W MANUAL DIFFon 07-30-20 22 ATYPICAL LYMPH # Normal [facility] Comment on above: Performed By: #### C MP #### [facility] [address] [address] [address] Mary Ramsay ATYPICAL LYMPH % Normal [facility] Comment on above: Performed By: #### C MP #### [facility] [address] [address] [address] Mary Ramsay BAND # 2.6 103/ul Critically high 0.0-0.3 The [facility] Comment on above: Performed By: #### C MP #### [facility] [address] [address] [address] Mary Ramsay BAND % 12 % Critically high 0-5 [facility] Comment on above: Performed By: #### C MP #### [facility] [address] [place] [address] Dr. Mary Ramsay BASOM # 0.00 103/ul Normal 0.00-0.10 [facility] Comment on above: Performed By: #### C MP #### [facility] [address] [place] [address] Dr. Mary Ramsay BASOM % 0.0 % Critically low 0.2-2.0 [facility] Comment on above: Performed By: #### C MP #### [facility] [address] [place] [address] Dr. Mary Ramsay BLAST # Normal [facility] Comment on above: Performed By: #### C MP #### [facility] [address] [place] [address] Dr. Mary Ramsay BLAST % Normal [facility] Comment on above: Performed By: #### C MP #### [facility] [address] [place] [address] Dr. Mary Ramsay CORRECTED WBC Normal 4.0-11.0 [facility] Comment on above: Performed By: #### C MP #### [facility] [address] [place] [address] Dr. Mary Ramsay EOS # 0.00 103/ul Normal 0.00-0.70 [facility] Comment on above: Performed By: #### C MP #### [facility] [address] [address] [address] Mary Ramsay EOS% 0.0 % Critically low 0.9-7.0 [facility] Comment on above: Performed By: #### C MP #### [facility] [address] [address] [address] Mary Ramsay HCT 34.4 % Critically low 36.0-48.0 [facility] Comment on above: Performed By: #### C MP #### [facility] [address] [address] [address] Mary Ramsay HGB 11.5 g/dl Critically low 12.0-16.0 [facility] Comment on above: Performed By: #### C MP #### [facility] [address] [place] [address] Dr. Mary Ramsay LYMPHM # 0.86 103/ul Critically low 1.20-3.80 [facility] Comment on above: Performed By: #### C MP #### [facility] [address] [place] [address] Dr. Mary Ramsay LYMPHM% 4.0 % Critically low 20.5-60.0 [facility] Comment on above: Performed By: #### C MP #### [facility] [address] [place] [address] Dr. Mary Ramsay MCH 29.6 pg Normal 26.7-34.0 [facility] Comment on above: Performed By: #### C MP #### [facility] [address] [address] [address] Mary Ramsay MCHC 33.4 g/dl Normal 29.9-35.2 [facility] Comment on above: Performed By: #### C MP #### [facility] [address] [place] [address] Dr. Mary Ramsay MCV 88.7 fL Normal 81.0-99.0 [facility] Comment on above: Performed By: #### C MP #### [facility] [address] [place] [address] Dr. Mary Ramsay METAMYELOCYTE # Normal [facility] Comment on above: Performed By: #### C MP #### [facility] [address] [address] [address] Mary Ramsay METAMYELOCYTE % Normal [facility] Comment on above: Performed By: #### C MP #### [facility] [address] [address] [address] Mary Ramsay MONOM# 0.21 103/ul Critically low 0.30-0.80 [facility] Comment on above: Performed By: #### C MP #### [facility] [address] [address] [address] Mary Ramsay MONOM% 1.0 % Critically low 1.7-12.0 [facility] Comment on above: Performed By: #### C MP #### [facility] [address] [place] [address] Dr. Mary Ramsay MPV 10.5 fL Normal 9.5-13.5 [facility] Comment on above: Performed By: #### C MP #### [facility] [address] [place] [address] Dr. Mary Ramsay MYELOCYTE # Normal [facility] Comment on above: Performed By: #### C MP #### [facility] [address] [place] [address] Dr. Mary Ramsay MYELOCYTE % Normal [facility] Comment on above: Performed By: #### C MP #### [facility] [address] [place] [address] Dr. Mary Ramsay NRBC Normal [facility] Comment on above: Performed By: #### C MP #### [facility] [address] [place] [address] Dr. Mary Ramsay PLT 195 103/ul Normal 150-450 [facility] Comment on above: Performed By: #### C MP #### [facility] [address] [place] [address] Dr. Mary Ramsay RBC 3.88 106/ul Critically low 4.20-5.40 [facility] Comment on above: Performed By: #### C MP #### [facility] [address] [address] [address] Mary Ramsay RDW 12.8 % Normal 11.0-15.0 [facility] Comment on above: Performed By: #### C MP #### [facility] [address] [address] [address] Mary Ramsay SEG # 17.76 103/ul Critically high 1.40-6.50 The [facility] Comment on above: Performed By: #### C MP #### [facility] [address] [address] [address] Mary Ramsay SEG % 83.0 % Critically high 43.0-75.0 [facility] Comment on above: Performed By: #### C MP #### [facility] [address] [address] [address] Mary Ramsay WBC 21.4 103/ul Critically high 4.0-11.[address] [facility] Comment on above: Performed By: #### C MP #### [facility] [address] [address] [address] Mary Ramsay IRON AND TIBCon 07-30-2022 % SATURATION 3.6 % Normal [facility] Comment on above: Performed By: #### F ETIBC, VITAD, B12FOL #### [facility] [address] [address] [address] Mary Ramsay Iron [Mass/Vol] 8.0 ug/dL Critically low 50.0-170.0 [facility] Comment on above: Performed By: #### F ETIBC, VITAD, B12FOL #### [facility] [address] [address] [address] Mary Ramsay TIBC DIRECT 221.0 ug/dL Critically low 250.0-450.0 [facility] Comment on above: Performed By: #### F ETIBC, VITAD, B12FOL #### [facility] [address] [address] [address] Mary Ramsay PROF 14(COMP METB)on Albumin [Mass/Vol] 3.0 g/dL Critically low 3.4-5.0 [facility] Comment on above: Performed By: #### C MP #### [facility] [address] [address] [address] Mary Ramsay Albumin/Globulin [Mass ratio] 0.8 {ratio} Normal [facility] Comment on above: Performed By: #### C MP #### [facility] [address] [address] [address] Mary Ramsay ALP [Catalytic activity/Vol] 48 U/L Normal 46-116 [facility] Comment on above: Performed By: #### C MP #### [facility] [address] [address] [address] Mary Ramsay ALT [Catalytic activity/Vol] 9 U/L Critically low 14-59 [facility] Comment on above: Performed By: #### C MP #### [facility] [address] [place] [address] Dr. Mary Ramsay Anion gap [Moles/Vol] 12.2 mmol/L Normal [facility] Comment on above: Performed By: #### C MP #### [facility] [address] [place] [address] Dr. Mary Ramsay AST [Catalytic activity/Vol] 11 U/L Critically low 15-37 [facility] Comment on above: Performed By: #### C MP #### [facility] [address] [place] [address] Dr. Mary Ramsay Bilirubin [Mass/Vol] 0.4 mg/dL Normal 0.2-1.0 [facility] Comment on above: Performed By: #### C MP #### [facility] [address] [place] [address] Dr. Mary Ramsay Calcium [Mass/Vol] 8.2 mg/dL Critically low 8.5-10.1 Th [facility] Comment on above: Performed By: #### C MP #### [facility] [address] [address] [address] Mary Ramsay Chloride [Moles/Vol] 103 mmol/L Normal 98-107 [facility] Comment on above: Performed By: #### C MP #### [facility] [address] [address] [address] Mary Ramsay CO2 [Moles/Vol] 23.4 mmol/L Normal 21.0-32.0 [facility] Comment on above: Performed By: #### C MP #### [facility] [address] [address] [address] Mary Ramsay Creatinine [Mass/Vol] 0.75 mg/dL Normal 0.55-1.02 [facility] Comment on above: Performed By: #### C MP #### [facility] [address] [address] [address] Mary Ramsay EGFR-AF ALBANIAN >60 Normal >=60 [facility] Comment on above: Performed By: #### C MP #### [facility] [address] [address] [address] Mary Ramsay EGFR-NON AF ALBANIAN >60 Normal >=60 [facility] Comment on above: Performed By: #### C MP #### [facility] [address] [address] [address] Mary Ramsay Globulin (S) [Mass/Vol] 3.7 g/dL Normal [facility] Comment on above: Performed By: #### C MP #### [facility] [address] [address] [address] Mary Ramsay Glucose [Mass/Vol] 160 mg/dL Critically high 74-106 T [facility] Comment on above: Performed By: #### C MP #### [facility] [address] [address] [address] Mary Ramsay Potassium [Moles/Vol] 3.6 mmol/L Normal 3.5-5.1 [facility] Comment on above: Performed By: #### C MP #### [facility] [address] [address] [address] Mary Ramsay Protein [Mass/Vol] 6.7 g/dL Normal 6.4-8.2 [facility] Comment on above: Performed By: #### C MP #### [facility] [address] [address] [address] Mary Ramsay Sodium [Moles/Vol] 135 mmol/L Critically low 136-145 Th [facility] Comment on above: Performed By: #### C MP #### [facility] [address] [place] [address] Dr. Mary Ramsay Urea nitrogen [Mass/Vol] 15.0 mg/dL Normal 7.0-18.0 [facility] Comment on above: Performed By: #### C MP #### [facility] [address] [address] [address] Mary Ramsay Urea nitrogen/Creatinine [Mass ratio] 20.0 mg/mg Normal [facility] Comment on above: Performed By: #### C MP #### [facility] [address] [place] [address] Dr. Mary Ramsay VIT B12 AND FOLATEon 022 Cobalamin (Vitamin B12) [Mass/Vol] 221.0 pg/mL Normal 193.0-986.0 [facility] Comment on above: Performed By: #### F ETIBC, VITAD, B12FOL #### [facility] [address] [place] [address] Dr. Mary Ramsay FOLATE 3.00 ng/mL Critically low 8.60-58.90 [facility] Comment on above: Performed By: #### F ETIBC, VITAD, B12FOL #### [facility] [address] [place] [address] Dr. Mary Ramsay VITAMIN D 25 OHon 07-30-2022 VIT D 25-OH 6.7 ng/mL Normal [facility] Comment on above: Performed By: #### F ETIBC, VITAD, B12FOL #### [facility] [address] [place] [address] Dr. Mray Ramsay VIT D RANGES SEE BELOW Normal [facility] Comment on above: Result Comment: <20 ng/mL Vit D deficient 20 - <30 ng/mL Vit D insufficient 30 - 100 ng/mL Vit D sufficient >100 ng/mL Potential Toxicity Performed By: #### F ETIBC, VITAD, B12FOL #### [facility] [address] [place] [address] Dr. Mary Ramsay CBC W MANUAL DIFFon 07-29-20 22 ATYPICAL LYMPH # Normal [facility] Comment on above: Performed By: #### C MP #### [facility] [address] [address] [address] Mary Ramsay ATYPICAL LYMPH % Normal [facility] Comment on above: Performed By: #### C MP #### [facility] [address] [address] [address] Mary Ramsay BAND # 0.3 103/ul Normal 0.0-0.3 [facility] Comment on above: Performed By: #### C MP #### [facility] [address] [address] [address] Mary Ramsay BAND % 2 % Normal 0-5 [facility] Comment on above: Performed By: #### C MP #### [facility] [address] [place] [address] Dr. Mary Ramsay BASOM # 0.00 103/ul Normal 0.00-0.10 [facility] Comment on above: Performed By: #### C MP #### [facility] [address] [place] [address] Dr. Mary Ramsay BASOM % 0.0 % Critically low 0.2-2.0 [facility] Comment on above: Performed By: #### C MP #### [facility] [address] [place] [address] Dr. Mary Ramsay BLAST # Normal [facility] Comment on above: Performed By: #### C MP #### [facility] [address] [place] [address] Dr. Mary Ramsay BLAST % Normal [facility] Comment on above: Performed By: #### C MP #### [facility] [address] [place] [address] Dr. Mary Ramsay CORRECTED WBC Normal 4.0-11.0 [facility] Comment on above: Performed By: #### C MP #### [facility] [address] [address] [address] Mary Ramsay EOS # 0.00 103/ul Normal 0.00-0.70 [facility] Comment on above: Performed By: #### C MP #### [facility] [address] [address] [address] Mary Ramsay EOS% 0.0 % Critically low 0.9-7.0 [facility] Comment on above: Performed By: #### C MP #### [facility] [address] [address] [address] Mary Ramsay HCT 38.4 % Normal 36.0-48.0 [facility] Comment on above: Performed By: #### C MP #### [facility] [address] [address] [address] Mary Ramsay HGB 12.9 g/dl Normal 12.0-16.0 [facility] Comment on above: Performed By: #### C MP #### [facility] [address] [address] [address] Mary Ramsay LYMPHM # 0.64 103/ul Critically low 1.20-3.80 [facility] Comment on above: Performed By: #### C MP #### [facility] [address] [address] [address] Mary Ramsay LYMPHM% 4.0 % Critically low 20.5-60.0 [facility] Comment on above: Performed By: #### C MP #### [facility] [address] [address] [address] Mary Ramsay MCH 29.7 pg Normal 26.7-34.0 [facility] Comment on above: Performed By: #### C MP #### [facility] [address] [address] [address] Mary Ramsay MCHC 33.6 g/dl Normal 29.9-35.2 [facility] Comment on above: Performed By: #### C MP #### [facility] [address] [address] [address] Mary Ramsay MCV 88.3 fL Normal 81.0-99.0 [facility] Comment on above: Performed By: #### C MP #### [facility] [address] [place] [address] Dr. Mary Ramsay METAMYELOCYTE # Normal [facility] Comment on above: Performed By: #### C MP #### [facility] [address] [address] [address] Mary Ramsay METAMYELOCYTE % Normal [facility] Comment on above: Performed By: #### C MP #### [facility] [address] [place] [address] Dr. Mary Ramsay MONOM# 0.32 103/ul Normal 0.30-0.80 [facility] Comment on above: Performed By: #### C MP #### [facility] [address] [place] [address] Dr. Mary Ramsay MONOM% 2.0 % Normal 1.7-12.0 [facility] Comment on above: Performed By: #### C MP #### [facility] [address] [place] [address] Dr. Mary Ramsay MPV 10.1 fL Normal 9.5-13.5 [facility] Comment on above: Performed By: #### C MP #### [facility] [address] [place] [address] Dr. Mary Ramsay MYELOCYTE # Normal [facility] Comment on above: Performed By: #### C MP #### [facility] [address] [place] [address] Dr. Mary Ramsay MYELOCYTE % Normal [facility] Comment on above: Performed By: #### C MP #### [facility] [address] [place] [address] Dr. Mary Ramsay NRBC Normal [facility] Comment on above: Performed By: #### C MP #### [facility] [address] [place] [address] Dr. Mary Ramsay PLT 217 103/ul Normal 150-450 [facility] Comment on above: Performed By: #### C MP #### [facility] [address] [place] [address] Dr. Mary Ramsay RBC 4.35 106/ul Normal 4.20-5.40 [facility] Comment on above: Performed By: #### C MP #### [facility] [address] [place], [place] [address] Dr. Mary Ramsay RDW 12.6 % Normal 11.0-15.0 [facility] Comment on above: Performed By: #### C MP #### [facility] [address] [place], [place] [address] Dr. Mary Ramsay SEG # 14.81 103/ul Critically high 1.40-6.50 [facility] Comment on above: Performed By: #### C MP #### [facility] [address] [place], [place] [address] Dr. Mary Ramsay SEG % 92.0 % Critically high 43.0-75.0 [facility] Comment on above: Performed By: #### C MP #### [facility] [address] [place], [place] [address] Dr. Mary Ramsay WBC 16.1 103/ul Critically high 4.0-11.0 [facility] Comment on above: Performed By: #### C MP #### [facility] [address] [place], [place] [address] Dr. Mary Ramsay CRPon 07-29-2022 CRP 8.1 mg/dL Critically high <=1.0 The [facility] Comment on above: Performed By: #### C RP, CMP #### [facility] [address] [place], [place] [address] ABD/PELV W CONon [...] SHIRA MORENO Date: 2022-07-29 12:39 Normal [facility] CULTURE URINEon 07-29-2022 CULTURE URINE Culture Observations: MODERATE GROWTH OF MIXED GENITAL SANNA. NO POTENTIAL PATHOGENS SEEN. Normal The [facility] Comment on above: Performed By: #### U RCX #### [facility] [address] [place] [address] [address] Mary Rams[facility]11 SARS-CoV-2 (COVID-19) RNA MAYRA+probe Ql (Unsp spec) Not detected Normal NOT DETECTED [facility] Comment on above: Result Comment: When [...] for this test is supported by the [place] of Health and Human Service's declaration that [...] used). Performed By: #### C MP #### [facility] [address] [place] [address] Dr. Mary Ramsay ER URINE PROFILEon 2 Bilirubin Ql (U) Negative Normal NEGATIVE The [facility] Comment on above: Performed By: #### P REGU ERUR UMICRO #### [facility] [address] [place] [address] Dr. Mary Ramsay Clarity (U) SL CLOUDY Abnormal CLEAR [facility] Comment on above: Result Comment: Prev iously reported as: CLEAR On 07/29/2022 11:44 By [email or web address] Performed By: #### P REGU ERUR UMICRO #### [facility] [address] [place] [address] Dr. Mary Ramsay Color (U) YELLOW Normal YELLOW The [facility] Comment on above: Performed By: #### P REGU ERUR UMICRO #### [facility] [address] [place] [address] Dr. Mary HADLEY A micrscopic examination will be performed if indicated. Normal The [facility] Comment on above: Performed By: #### P REGU ERUR UMICRO #### [facility] [address] [place] [address] Dr. Mary Ramsay Glucose Ql (U) Negative Normal NEGATIVE The [facility] Comment on above: Performed By: #### P REGU, ERUR UMICRO #### [facility] [address] [place] [address] Dr. Mary Ramsay Hemoglobin Ql (U) MODERATE Abnormal NEGATIVE The [facility] Comment on above: Performed By: #### P REGU, ERUR, UMICRO #### [facility] [address] [address] [address] Mary Ramsay Ketones Ql (U) TRACE Abnormal NEGATIVE [facility] Comment on above: Performed By: #### P REGU, ERUR, UMICRO #### [facility] [address] [address] [address] Mary Ramsay LEUKOCYTES SMALL Abnormal NEGATIVE [facility] Comment on above: Performed By: #### P REGU, ERUR, UMICRO #### [facility] [address] [address] [address] Mary Ramsay Nitrite Ql (U) Negative Normal NEGATIVE The [facility] Comment on above: Performed By: #### P REGU, ERUR, UMICRO #### [facility] [address] [address] [address] Mary Ramsay pH (U) 5.5 [pH] Normal 5-9 [facility] Comment on above: Performed By: #### P REGU, ERUR, UMICRO #### [facility] [address] [address] [address] Mary Ramsay SPEC GRAVITY 1.030 Abnormal 1.005-<=1.025 The [facility] Comment on above: Performed By: #### P REGU, ERUR, UMICRO #### [facility] [address] [address] [address] Mary Ramsay UA PROTEIN TRACE Normal NEGATIVE/ TRACE The [facility] Comment on above: Performed By: #### P REGU, ERUR, UMICRO #### [facility] [address] [address] [address] Mary Ramsay UR MICRO IND INDICATED Normal [facility] Comment on above: Performed By: #### P REGU, ERUR, UMICRO #### [facility] [address] [address] [address] Mary Ramsay Urobilinogen Qn (U) 0.2 {Obi'U}/dL Normal 0.2 - 1. 0 [facility] Comment on above: Performed By: #### P CAMILO MILLIGAN UMICRO #### [facility] [address] [place] [address] Dr. Mary Ramsay URon 07-29-2022 , QUAL Negative Normal NEGATIVE The [facility] Comment on above: Performed By: #### P CAMILO MILLIGAN UMICRO #### [facility] [address] [place] [address] Dr. Mary Ramsay PROF 14(COMP METB)on 022 Albumin [Mass/Vol] 4.1 g/dL Normal 3.4-5.0 [facility] [place] Comment on above: Performed By: #### C MP #### [facility] [address] [place] [address] Dr. Mary Ramsay Albumin/Globulin [Mass ratio] 1.1 {ratio} Normal [facility] Comment on above: Performed By: #### C MP #### [facility] [address] [place] [address] Dr. Mary Ramsay ALP [Catalytic activity/Vol] 58 U/L Normal 46-116 [facility] Comment on above: Performed By: #### C MP #### [facility] [address] [place] [address] Dr. Mary Ramsay ALT [Catalytic activity/Vol] 8 U/L Critically low 14-59 [facility] Comment on above: Performed By: #### C MP #### [facility] [address] [place] [address] Dr. Mary Ramsay Anion gap [Moles/Vol] 10.1 mmol/L Normal [facility] Comment on above: Performed By: #### C MP #### [facility] [address] [place] [address] Dr. Mary Ramsay AST [Catalytic activity/Vol] 10 U/L Critically low 15-37 [facility] Comment on above: Performed By: #### C MP #### [facility] [address] [place] [address] Dr. Mary Ramsay Bilirubin [Mass/Vol] 1.1 mg/dL Critically high 0.2-1.0 [facility] Comment on above: Performed By: #### C MP #### [facility] [address] [place] [address] [address] Mary Ramsay Calcium [Mass/Vol] 8.7 mg/dL Normal 8.5-10.1 [facility] [place] Comment on above: Performed By: #### C MP #### [facility] [address] [address] [address] Mary Ramsay Chloride [Moles/Vol] 104 mmol/L Normal 98-107 [facility] Comment on above: Performed By: #### C MP #### [facility] [address] [address] [address] Mary Ramsay CO2 [Moles/Vol] 26.1 mmol/L Normal 21.0-32.0 [facility] Comment on above: Performed By: #### C MP #### [facility] [address] [place] [address] Dr. Mary Ramsay Creatinine [Mass/Vol] 1.06 mg/dL Critically high 0.55-1.02 [facility] Comment on above: Performed By: #### C MP #### [facility] [address] [place] [address] Dr. Mary Ramsay EGFR-AF ALBANIAN >60 Normal >=60 [facility] Comment on above: Performed By: #### C MP #### [facility] [address] [address] [address] Mary Ramsay EGFR-NON AF ALBANIAN >60 Normal >=60 [facility] Comment on above: Performed By: #### C MP #### [facility] [address] [place] [address] Dr. Mary Ramsay Globulin (S) [Mass/Vol] 3.6 g/dL Normal [facility] Comment on above: Performed By: #### C MP #### [facility] [address] [address] [address] Mary Ramsay Glucose [Mass/Vol] 121 mg/dL Critically high 74-106 [facility] Comment on above: Performed By: #### C MP #### [facility] [address] [address] [address] Mary Ramsay Potassium [Moles/Vol] 3.2 mmol/L Critically low 3.5-5.1 [facility] Comment on above: Performed By: #### C MP #### [facility] [address] [place] [address] [address] Mary Ramsay Protein [Mass/Vol] 7.7 g/dL Normal 6.4-8.2 [facility] [place] Comment on above: Performed By: #### C MP #### [facility] [address] [address] [address] Mary Ramsay Sodium [Moles/Vol] 137 mmol/L Normal 136-145 [facility] [place] Comment on above: Performed By: #### C MP #### [facility] [address] [place] [address] Dr. Mary Ramsay Urea nitrogen [Mass/Vol] 16.0 mg/dL Normal 7.0-18.0 [facility] Comment on above: Performed By: #### C MP #### [facility] [address] [place] [address] Dr. Mary Ramsay Urea nitrogen/Creatinine [Mass ratio] 15.1 mg/mg Normal [facility] Comment on above: Performed By: #### C MP #### [facility] [address] [place] [address] [address] Mary Ramsay URINE MICROSCOPIC ONLYon BACTERIA SMALL Abnormal NONE SEEN [facility] Comment on above: Performed By: #### P REGU, ERUR, UMICRO #### [facility] [address] [address] [address] Mary Ramsay Bacteria identified Cx Nom (U) INDICATED Normal [facility] Comment on above: Performed By: #### P REGU, ERUR, UMICRO #### [facility] [address] [address] [address] Mary Ramsay CAST NONE SEEN Normal NONE SEEN [facility] Comment on above: Performed By: #### P REGU, ERUR, UMICRO #### [facility] [address] [address] [address] Mary Ramsay Crystals LM Nom (Urine sed) NONE SEEN Normal NONE SEEN [facility] Comment on above: Performed By: #### P REGU, ERUR, UMICRO #### [facility] [address] [address] [address] Mary Ramsay Epithelial cells LM Ql (Urine sed) FEW Abnormal NONE SEEN /RARE [facility] Comment on above: Performed By: #### P REGU, ERUR, UMICRO #### [facility] [address] [address] [address] Mary Ramsay MUCOUS TRACE Abnormal NONE SEEN The [facility] Comment on above: Performed By: #### P REGU, ERUR, UMICRO #### [facility] [address] [address] [address] Mary Ramsay RBC 0-2 Normal 0-2 [facility] Comment on above: Performed By: #### P REGU, ERUR, UMICRO #### [facility] [address] [address] [address] Mary Ramsay WBC 5-10 Abnormal NONE SEEN The [facility] Comment on above: Performed By: #### P REGU, ERUR, UMICRO #### [facility] [address] [address] [address] Mary Ramsay Vital Signs Date Time Vital Sign Value Performing Clinician Gavin coelho 06-11-2025 14:27-0400 Body mass index (BMI) [Ratio] 28.13 kg/m2 Mildred Parks [employer] OFFICER Work Phone: [facility] 06-11-2025 14:27-040 Body weight 72.03 kg Mildred Parks [employer] SERVICES OFFICER Work Phone: [facility] 06-11-2025 14:27-0400 Diastolic blood pressure 74 mm[Hg] Mildred Parks [employer] SERVICES OFFICER Work Phone: [facility] 06-11-2025 14:27-0400 Systolic blood pressure 124 mm[Hg] Mildred Charly [employer] SERVICES OFFICER Work Phone: [facility] 06-04-2025 10:28-0400 Body mass index (BMI) [Ratio] 28.08 kg/m2 Mildred Charly [employer] SERVICES OFFICER Work Phone: [facility] 06-04-2025 10:28-0400 Body weight 71.89 kg Mildred Yuerly [employer] SERVICES OFFICER Work Phone: [facility] 06-04-2025 10:28-0400 Diastolic blood pressure 80 mm[Hg] Mildred Yuerly [employer] SERVICES OFFICER Work Phone: [facility] 06-04-2025 10:28-0400 Systolic blood pressure 108 mm[Hg] Mildred Charly GUEST SERVICES OFFICER Work Phone: [facility] 05-26-2025 11:22-0400 Body mass index (BMI) [Ratio] 28.06 kg/m2 Alfonso Rosalinda DO Work Phone: [facility] 05-26-2025 11:22-0400 Body weight 71.85 kg Alfonso Rosalinda DO Work Phone: [facility] 05-26-2025 11:22-0400 Diastolic blood pressure 68 mm[Hg] Alfonso Rosalinda DO Work Phone: [facility] 05-26-2025 11:22-0400 Systolic blood pressure 106 mm[Hg] Alfonso Rosalinda DO Work Phone: [facility] 05-12-2025 11:20-0400 Body mass index (BMI) [Ratio] 26.36 kg/m2 Yee MEYERS Work Phone: [facility] 05-12-2025 11:20-0400 Body weight 67.5 kg Yee MEYERS Work Phone: [facility] 05-12-2025 11:20-0400 Diastolic blood pressure 70 mm[Hg] Yee MEYERS Work Phone: [facility] 05-12-2025 11:20-0400 Systolic blood pressure 110 mm[Hg] Yee Clem PA Work Phone: [facility] 04-27-2025 11:04-0400 Body mass index (BMI) [Ratio] 26.11 kg/m2 Alfonso Rosalinda DO Work Phone: [facility] 04-27-2025 11:04-0400 Body weight 66.86 kg Alfonso Rosalinda DO Work Phone: [facility] 04-27-2025 11:04-0400 Diastolic blood pressure 72 mm[Hg] Alfonso Rosalinda DO Work Phone: [facility] 04-27-2025 11:04-0400 Systolic blood pressure 110 mm[Hg] Alfonso Rosalinda DO Work Phone: [facility] 04-09-2025 09:37-0400 Body mass index (BMI) [Ratio] 25.86 kg/m2 Yee [place] PA Work Phone: [facility] 04-09-2025 09:37-0400 Body weight 66.22 kg Yee Clem PA Work Phone: [facility] 04-09-2025 09:37-0400 Diastolic blood pressure 74 mm[Hg] Yee Clem PA Work Phone: [facility] 04-09-2025 09:37-0400 Systolic blood pressure 116 mm[Hg] Yee [place] PA Work Phone: [facility] 03-26-2025 14:14-0400 Body mass index (BMI) [Ratio] 25.24 kg/m2 Yee [place] PA Work Phone: [facility] 03-26-2025 14:14-0400 Body weight 64.64 kg Yee [place] PA Work Phone: [facility] 03-26-2025 14:14-0400 Diastolic blood pressure 70 mm[Hg] Yee Clem PA Work Phone: [facility] 03-26-2025 14:14-0400 Systolic blood pressure 102 mm[Hg] Yee [place] PA Work Phone: [facility] 03-11-2025 16:18-0400 Body height 160 cm Alfonso Rosalinda DO Work Phone: [facility] 03-11-2025 16:17-0400 Body mass index (BMI) [Ratio] 24.98 kg/m2 Alfonso Rosalinda DO Work Phone: [facility] 03-11-2025 16:17-0400 Body weight 63.96 kg Alfonso Rosalinda DO Work Phone: [facility] 03-11-2025 16:17-0400 Diastolic blood pressure 68 mm[Hg] Alfonso Rosalinda DO Work Phone: [facility] 03-11-2025 16:17-0400 Systolic blood pressure 110 mm[Hg] Alfonso Rosalinda DO Work Phone: [facility] 01-01-2025 11:40-0400 Body weight 59.88 kg Alfonso Rosalinda DO Work Phone: [facility] 01-01-2025 11:40-0400 Diastolic blood pressure 76 mm[Hg] Alfonso Rosalinda DO Work Phone: [facility] 01-01-2025 11:40-0400 Systolic blood pressure 100 mm[Hg] Alfonso Rosalinda DO Work Phone: [facility] 12-04-2024 14:18-0400 Body weight 62.14 kg Noms Nurse [facility] 12-04-2024 14:18-0400 Diastolic blood pressure 62 mm[Hg] Noms Nurse [facility] 12-04-2024 14:18-0400 Systolic blood pressure 116 mm[Hg] Noms Nurse [facility] Healthcare Encounters Encounter Date Encounter Type Care Provider Facility Start: 06-11-2025 End: 06-11-2025 Office outpatient visit 15 minutes Mildred Parks NP Work Phone: [facility] Comment on above: 39 weeks gestation o f ([facility]); Third trimester ([facility]) Start: 06-11-2025 End: 06-11-2025 Bamboo flowsheet Mildred Parks NP Work Phone: [facility] Start: 06-11-2025 End: 06-11-2025 Bamboo flowsheet Mildred Charly GUE[employer] SERVICES OFFICER Work Phone: [facility] Start: 06-04-2025 End: 06-04-2025 Bamboo flowsheet Mildred Charly [employer]UE[employer] SERVICES OFFICER Work Phone: [facility] Start: 06-04-2025 End: 06-04-2025 Bamboo flowsheet Mildred Charly [employer]UE[employer] SERVICES OFFICER Work Phone: [facility] [facility] Start: 06-04-2025 End: 06-04-2025 Office outpatient visit 15 minutes Mildred Parks [employer] SERVICES OFFICER Work Phone: [facility] Comment on above: Third trimester preg scott ([facility]); 38 weeks gestation of ([facility]) Start: 06-04-2025 End: 06-04-2025 ambulatory MILDRED CHARLY Not Available Start: 05-26-2025 End: 05-26-2025 Bamboo flowsheet Alfonso Rosalinda DO Work Phone: [facility] Start: 05-26-2025 End: 05-26-2025 Bamboo flowsheet Alfonso Rosalinda DO Work Phone: [facility] Start: 05-26-2025 End: 05-26-2025 ambulatory ALFONSO ROSALINDA Not Available Start: 05-26-2025 End: 05-26-2025 Office outpatient visit 15 minutes Alfonso Rosalinda DO Work Phone: [facility] Comment on above: Third trimester preg scott ([facility]); 36 weeks gestation of ([facility]) Start: 05-18-2025 End: 05-18-2025 Clinisync Result Encounter Alfonso Rosalinda DO Work Phone: [facility] External Department Unsolicited Start: 05-18-2025 End: 05-18-2025 Clinisync Result Encounter Alfonso Rosalinda DO Work Phone: [facility] External Department Unsolicited Start: 05-12-2025 End: 05-12-2025 Bamboo flowsheet Yee Shields PA Work Phone: [facility] Start: 05-12-2025 End: 05-12-2025 Bamboo flowsheet Yee MEYERS Work Phone: [facility] Start: 05-12-2025 End: 05-12-2025 ambulatory YEE SHIELDS Not Available Start: 05-12-2025 End: 05-12-2025 Office outpatient visit 15 minutes Yee MEYERS Work Phone: [facility] Comment on above: 34 weeks gestation o f ([facility]); Third trimester ([facility]); H/O cold sores Start: 04-27-2025 End: 04-27-2025 Bamboo flowsheet Alfonso Rosalinda DO Work Phone: [facility] Start: 04-27-2025 End: 04-27-2025 Bamboo flowsheet Alfonso Rosalinda DO Work Phone: [facility] Start: 04-27-2025 End: 04-27-2025 ambulatory ALFONSO ROSALINDA Not Available Start: 04-27-2025 End: 04-27-2025 Office outpatient visit 15 minutes Alfonso Rosalinda DO Work Phone: [facility] Comment on above: Third trimester preg scott ([facility]); 32 weeks gestation of ([facility]); H/O cold sores Start: 04-09-2025 End: 04-09-2025 Office outpatient visit 15 minutes Yee MEYERS Work Phone: [facility] [place] [facility] Comment on above: Third trimester preg scott ([facility]); 30 weeks gestation of ([facility]) Start: 04-09-2025 End: 04-09-2025 ambulatory YEE SHIELDS Not Available Start: 04-05-2025 End: 04-06-2025 ambulatory JOSH HATFIELD [facility] Start: 03-26-2025 End: 03-26-2025 Bamboo flowsheet Yee MEYERS Work Phone: [facility] Start: 03-26-2025 End: 03-26-2025 Bamboo flowsheet Yee MEYERS Work Phone: [facility] Start: 03-26-2025 End: 03-26-2025 Office outpatient visit 15 minutes Yee MEYERS Work Phone: [facility] Comment on above: Size of fetus incons istent with dates in first trimester ([facility]) (Primary Dx); Third trimester ([facility]); 28 weeks gestation of ([facility]) Start: 03-26-2025 End: 03-26-2025 ambulatory YEE SHIELDS Not Available Start: 03-17-2025 [facility] Start: 03-11-2025 End: 03-11-2025 ambulatory ALFONSO ROSALINDA Not Available Start: 03-11-2025 End: 03-11-2025 Office outpatient visit 15 minutes Alfonso Rosalinda DO Work Phone: [facility] Comment on above: Third trimester preg scott ([facility]); 26 weeks gestation of ([facility]); History of canker sores; Diabetes mellitus screening Start: 03-11-2025 End: 03-11-2025 Bamboo flowsheet Alfonso Rosalinda DO Work Phone: [facility] Start: 03-11-2025 End: 03-11-2025 Bamboo flowsheet Alfonso Rosalinda DO Work Phone: [facility] Start: 02-12-2025 End: 02-12-2025 ambulatory ALFONSO ROSALINDA Not Available Start: 01-29-2025 End: 02-03-2025 Clinisync Result Encounter Yee MEYERS Work Phone: [facility] External Department Unsolicited Start: 01-29-2025 End: 02-03-2025 Clinisync Result Encounter Yee Shields PA Work Phone: [facility] External Department Unsolicited Start: 01-29-2025 End: 01-29-2025 ambulatory YEE SHIELDS Not Available Start: 01-05-2025 End: 01-05-2025 Emergency department patient visit NO PCP NO PCP [facility] Start: 01-01-2025 End: 01-01-2025 Bamboo [...] department patient visit NO PCP NO PCP [facility] Start: 06-22-2024 End: 06-22-2024 Emergency department patient visit NO PCP NO PCP [facility] Start: 06-06-2024 End: 06-06-2024 Emergency department patient visit NO PCP NO PCP [facility] Start: 07-29-2022 End: 07-30-2022 ambulatory BHARATI WESTONLER Facility:[facility]1 Procedures Date Procedure Procedure Detail Performing Clinician Start: 06-04-2025 Urnls dip stick/tabl et rgnt non-auto w/o micrscp Mildred Parks NP Work Phone: Start: 05-26-2025 Urnls dip stick/tabl et rgnt non-auto w/o micrscp Alfonso Rosalinda DO Work Phone: Start: 05-18-2025 [facility] UA (CLEAN/CATCH) PIECE WORK CHECKER/MICRO IF IND. Alfonso Rosalinda DO Work Phone: [...] Treatment Date Care Activity Detail Author Start: 06-17-2025 End: 06-17-2025 Patient encounter procedure 06/17/2025 1:50 PM EDT Routine [facility] [address] [place] [id number] Mildred Parks, GUEST SERVICES OFFICER [address] [place] [id number] [facility] Start: 06-11-2025 End: 06-11-2025 Patient encounter procedure [facility] Comment on above: Arrived Start: 06-04-2025 End: 06-04-2025 Patient encounter procedure 06/04/2025 10:20 AM EDT Routine [facility] [address] [place] [id number] Mildred Parks, GUEST SERVICES OFFICER [address] [place] [phone] Arrived [facility] Comment on above: Arrived Start: 06-01-2025 End: 06-01-2025 Patient encounter procedure 06/01/2025 9:30 AM EDT Routine [facility] [address] [facility] [phone] Alfonso Tellez DO [address] [facility] [place] [address] [facility] Start: 05-26-2025 End: 05-26-2026 CULTURE, GROUP B STREP WITH SUSCEPTIBLITY CULTURE, GROUP B STREP WITH SUSCEPTIBLITY Lab Routine Third trimester ([facility]) Expected: 05/26/2025, Expires: 05/26/2026 [facility] Work Phone: Comment on above: Expected: 05/26/2025 , Expires: 05/26/2026 Start: 05-26-2025 End: 05-26-2025 Patient encounter procedure 05/26/2025 10:50 AM EDT Routine [facility] [address] [facility] [place] [phone] Alfonso Tellez DO [address] [facility] [place] [address] [facility] Start: 05-12-2025 End: 05-12-2025 Patient encounter procedure 05/12/2025 10:50 AM EDT Routine [facility] [address] [facility] [phone] Yee Shields, PA [address] [facility] [place] [address] [facility] Start: 05-11-2025 Influenza vaccination Influenza Vacc ine (#1) [facility] Start: 04-27-2025 End: 04-27-2025 Patient encounter procedure 04/27/2025 10:50 AM EDT Routine [facility] [address] [facility] [place] [phone] Alfonso Tellez, [address] [facility] [place] [address] [facility] Start: 03-26-2025 End: 03-26-2025 Patient encounter procedure 03/26/2025 2:00 PM EDT Routine [facility] [address] [facility] [place] [phone] Yee Shields, PA [address] [facility] [place] [address] [facility] Start: 03-26-2025 End: 07-27-2025 US for US OB follow up transabdominal approach Imaging Routine Size of fetus inconsistent with dates in first trimester ([facility]) Expected: 03/26/2025, Expires: 07/27/2025 [facility] Work Phone: Comment on above: Expected: 03/26/2025 , Expires: 07/27/2025 Start: 03-11-2025 End: 03-11-2026 CBC panel - Blood by Automated count CBC Lab Routine Diabetes mellitus screening Expected: 03/11/2025 (Approximate), Expires: 03/11/2026 [facility] Work Phone: Comment on above: Expected: 03/11/2025 (Approximate), Expires: 03/11/2026 Start: 03-11-2025 End: 03-11-2026 Measurement of glucose 1 hour after glucose challenge for glucose tolerance test Glucose tolerance, 1 hour Lab Routine Diabetes mellitus screening Expected: 03/11/2025 (Approximate), Expires: 03/11/2026 [facility] Comment on above: Expected: 03/11/2025 (Approximate), Expires: 03/11/2026 Start: 02-26-2025 End: 02-26-2025 Patient encounter procedure 02/26/2025 11:10 AM EDT Routine [facility] [address] [facility] [place] [phone] Alfonso Tellez DO [address] [place] [address] [facility] Start: 02-12-2025 End: 02-12-2025 Professional / ancillary services management 02/12/2025 11:00 AM EDT Ancillary Procedure [facility] [address] [place] [phone] [facility] Start: 01-29-2025 End: 01-29-2025 Patient encounter procedure 01/29/2025 11:30 AM EDT Routine [facility] [address] [place] [phone] Yee Shields PA [address] [place] [address] [facility] Start: 01-01-2025 End: 01-01-2025 Patient encounter procedure 01/01/2025 11:20 AM EDT Routine [facility] [address] [facility] [place] [phone] Alfonso Tellez, DO [address] [place] [address] [place] [address] [facility] Start: 12-04-2024 End: 12-04-2025 ABO/Rh ABO/Rh Lab Routine Missed menses , unspecified gestational age Expected: 12/04/2024 (Approximate), Expires: 12/04/2025 [facility] Comment on above: Expected: 12/04/2024 (Approximate), Expires: 12/04/2025 Start: 12-04-2024 End: 12-04-2025 Blood type and Indirect antibody screen panel - Blood Type and screen Lab Routine Missed menses , unspecified gestational age Expected: 12/04/2024 (Approximate), Expires: 12/04/2025 [facility] Work Phone: Comment on above: Expected: 12/04/2024 (Approximate), Expires: 12/04/2025 Start: 12-04-2024 End: 12-04-2025 Drugs of abuse panel - Urine by Screen method Rapid drug screen, urine Lab Routine , unspecified gestational age Encounter for supervision of normal first in first trimester Expected: 12/04/2024 (Approximate), Expires: 12/04/2025 [facility] Comment on above: Expected: 12/04/2024 (Approximate), Expires: 12/04/2025 Bacteria identified in Urine by Culture Urine culture Microbiology Routine Missed menses Ordered: 12/04/2024 [facility] Comment on above: Ordered: 12/04/2024 CBC W Auto Different ial panel - Blood CBC and differential Lab Routine Missed menses , unspecified gestational age Ordered: 12/04/2024 [facility] Comment on above: Ordered: 12/04/2024 Hemoglobin A1c/Hemoglobin.total in Blood Hemoglobin A1c Lab Routine Missed menses , unspecified gestational age Ordered: 12/04/2024 [facility] Comment on above: Ordered: 12/04/2024 Hepatitis B virus surface Ag [Presence] in Serum or Plasma by Immunoassay Hepatitis B surface antigen Lab Routine Missed menses , unspecified gestational age Ordered: 12/04/2024 [facility] Comment on above: Ordered: 12/04/2024 Hepatitis C virus Ab [Presence] in Serum or Plasma by Immunoassay Hepatitis C antibody Lab Routine Missed menses , unspecified gestational age Ordered: 12/04/2024 [facility] Comment on above: Ordered: 12/04/2024 HIV-1/HIV-2 antigen/antibody combination immunoassay HIV-1 and HIV-2 antibodies Lab Routine Missed menses , unspecified gestational age Ordered: 12/04/2024 [facility] Comment on above: Ordered: 12/04/2024 Reagin Ab [Presence] in Serum by RPR RPR Lab Routine Missed menses , unspecified gestational age Ordered: 12/04/2024 [facility] Comment on above: Ordered: 12/04/2024 Rubella antibody, IgG Rubella an tibody, IgG Lab Routine Missed menses , unspecified gestational age Ordered: 12/04/2024 [facility] Comment on above: Ordered: 12/04/2024 Payers Date Payer Category Payer Medicaid (Managed Care) [employer] [id number] 1996 Unknown [id number] 2..840.1.943379.3.579.2. 593 1996 Unknown [id number] 2.840.1.286454.3.579.2. 1286 1996 Unknown [id number] 2..840.1.222298.3.579.2. 1286 1996 Unknown [id number] 2.16.840.1.744208.3.579.2. 1286 1996 Unknown [id number] 2.16.840.1.435698.3.579.2. 1285 1996 Unknown [id number] 2.16.840.1.352899.3.579.2. 1285 1996 Unknown [id number] 2.16.840.1.607321.3.579.2. 1285 1996 Unknown [id number] 2.16.840.1.203118.3.579.2. 1258 1996 Unknown [id number] 2.16.840.1.064650.3.579.2. 1258 1996 Unknown [id number] 2.16.840.1.992828.3.579.2. 1258 1996 Unknown [id number] 2.16.840.1.464860.3.579.2. 1258 1996 Unknown [id number] 2.16.840.1.673162.3.579.2. 1258 1996 Unknown [id number] 2.16.840.1.278582.3.579.2. 1258 1996 Unknown [id number] 2.16.840.1.462570.3.579.2. 1258 1996 Unknown [id number] 2.16.840.1.985191.3.579.2. 1258 1996 Unknown [id number] 2.16.840.1.654568.3.579.2. 1258 1996 Unknown [id number] 2.16.840.1.282863.3.579.2. 1258 1996 Unknown [id number] 2.16.840.1.673235.3.579.2. 1258 1996 Unknown [id number] 2.16.840.1.433924.3.579.2. 9 1959 Unknown [id number] Social History Date Type Detail Facility Tobacco smoking stat [facility] Tobacco smoking consumption unknown [facility] Start: 09-24-2024 [facility] Start: 1995 Sex assigned at Not on file [facility] Gender identity Not on file [facility] Clinical Notes 12-04-2024 to 06-11-2025 Mildred Parks NP - 06/11/2025 2:20 PM EDTMildred Parks NP - 06/04/2025 10:20 AM Reilly Cloud LPN - 05/26/2025 10:50 AM LUIGI Newton - 05/12/2025 10:50 AM EDT Note Date & Type Note Facility 06-11-2025 History of Presen t illness Narrative Reason for Appointment: Patient ID: Melissa Chen is a 29 y.o. female who presents for Routine Visit (Patient is scheduled for induction on 06/18/25) Patient presents today for Return OB appointment. [...] vomiting in ([facility]) 11/25/2024 History of canker sores 03/11/2025 Resolved [...] nursing note reviewed. Exam conducted with a weasand trimmer present. Vitals: Estimated body mass index is 28.13 kg/m as calculated from the following: Height as of 03/11/25: 5' 3 . Weight as of this encounter: 158 lb 12.8 oz. BP: 124/74 Patient's last menstrual period was 10/09/2024. ASSESSMENT & PLAN ICD-10-CM 1. 39 weeks gestation of ([facility]) Z3A.39 2. Third trimester ([facility]) Z34.93 Return OB: Patient presents today for a routine obstetrics appointment. Patient is currently 39w1d . Patient states she is doing well but has complaints of being tired due to current . Patient has verbalizes frequent movement. labor precautions was discussed/given and patient was instructed to perform kick counts three times a day. Patient declines cervical dilation exam today. No orders of the defined types were placed in this encounter. Follow Up: Patient is to return to office in 1 week for routine OB appointment. Documented by Mildred Parks NP on behalf of: Mildred Parks NP documented in this encounter [facility] 06-04-2025 History of Presen t illness Narrative Reason [...] vomiting in ([facility]) 11/25/2024 History of canker sores 03/11/2025 Resolved [...] nursing note reviewed. Exam conducted with a weasand trimmer present. Vitals: Estimated body mass index is 28.08 kg/m as calculated from the following: Height as of 03/11/25: 5' 3 . Weight as of this encounter: 158 lb 8 oz. BP: 108/80 Patient's last menstrual period was 10/09/2024. ASSESSMENT & PLAN ICD-10-CM 1. Third trimester ([facility]) Z34.93 POCT urinalysis dipstick manually resulted 2. 38 weeks gestation of ([facility]) Z3A.38 Return OB: Patient presents today for a routine obstetrics appointment. Patient is currently 38w1d . Patient states she is doing well but has complaints of being tired due to current . Patient has verbalizes frequent movement. labor precautions was discussed/given and patient was instructed to perform kick counts three times a day. Orders Placed This Encounter Procedures POCT urinalysis dipstick manually resulted Follow Up: Patient is to return to office in 1 week for routine OB appointment. Documented by Mildred Parks NP on behalf of: Mildred Parks NP documented in this encounter [facility] 05-26-2025 History of Presen t illness Narrative [...] Diagnosis Date Noted Nausea and vomiting in ([facility]) 11/25/2024 History of canker sores [...] nursing note reviewed. Exam conducted with a weasand trimmer present. Vitals: Estimated body mass index is 28.06 kg/m as calculated from the following: Height as of 03/11/25: 5' 3 . Weight as of this encounter: 158 lb 6.4 oz. BP: 106/68 Patient's last menstrual period was 10/09/2024. ASSESSMENT & PLAN ICD-10-CM 1. Third trimester ([facility]) Z34.93 POCT urinalysis dipstick manually resulted CULTURE, GROUP B STREP WITH SUSCEPTIBLITY CULTURE, GROUP B STREP WITH SUSCEPTIBLITY 2. 36 weeks gestation of ([facility]) Z3A.36 POCT urinalysis dipstick manually [...] Yee Shields PA-C documented in this encounter [facility] 05-12-2025 History of Presen t [...] vomiting in ([facility]) 11/25/2024 History of canker sores 03/11/2025 Resolved [...] PLAN ICD-10-CM 1. 34 weeks gestation of ([facility]) Z3A.34 POCT urinalysis dipstick manually resulted 2. Third trimester ([facility]) Z34.93 POCT urinalysis dipstick manually [...] of: LUIGI Lyons documented in this encounter [facility] 04-27-2025 History of Presen t [...] vomiting in ([facility]) 11/25/2024 History of canker sores 03/11/2025 Resolved [...] nursing note reviewed. Exam conducted with a weasand trimmer present. Vitals: Estimated body mass index is 26.11 kg/m as calculated from the following: Height as of 03/11/25: 5' 3 . Weight as of this encounter: 147 lb 6.4 oz. BP: 110/72 Patient's last menstrual period was 10/09/2024. ASSESSMENT & PLAN ICD-10-CM 1. Third trimester ([facility]) Z34.93 POCT urinalysis dipstick manually resulted 2. 32 weeks gestation of ([facility]) Z3A.32 POCT urinalysis dipstick manually [...] Alfonso Tellez DO documented in this encounter [facility] 04-09-2025 History of Presen t [...] Diagnosis Date Noted Nausea and vomiting in ([facility]) 11/25/2024 History of canker sores [...] Third trimester ([facility]) Z34.93 2. 30 weeks gestation of ([facility]) Z3A.30 Return OB: Patient presents today for [...] of: LUIGI Lyons documented in this encounter [facility] 03-26-2025 History of Presen t [...] Diagnosis Date Noted Nausea and vomiting in ([facility]) 11/25/2024 History of canker sores [...] fetus inconsistent with dates in first trimester ([facility]) O26.841 OB follow up transabdominal approach 2. Third trimester ([facility]) Z34.93 3. 28 weeks gestation of ([facility]) Z3A.28 Documented by LUIGI Lyons on behalf of: LUIGI Lyons documented in this encounter [facility] 03-11-2025 History of Presen t [...] Diagnosis Date Noted Nausea and vomiting in ([facility]) 11/25/2024 History of canker sores [...] nursing note reviewed. Exam conducted with a weasand trimmer present. Vitals: Estimated body mass index is 24.98 kg/m as calculated from the following: Height as of this encounter: 5' 3 . Weight as of this encounter: 141 lb. BP: 110/68 Patient's last menstrual period was 10/09/2024. ASSESSMENT & PLAN ICD-10-CM 1. Third trimester ([facility]) Z34.93 POCT urinalysis dipstick manually resulted 2. 26 weeks gestation of ([facility]) Z3A.26 3. History of canker [...] Alfonso Tellez DO documented in this encounter [facility] 01-01-2025 History of Presen t [...] or undercooked meat, and stay away from [facility]. Patient has been consulted regarding any [...] Alfonso Tellez DO documented in this encounter [facility] 12-04-2024 History of Presen t [...] be sent to pharmacy. Pt desires [place] billion to one. Pt was advised to have both the labs and [place] done at the same time. PVU. OB [...] or undercooked meat, and stay away from [facility]. Patient has also been advised to [...] Kasandra Mcdonough MA documented in this encounter [facility] Evaluation note Diagnosis Missed menses [...] note* Diagnosis Third trimester ([facility]) state, incidental 38 weeks gestation of ([facility]) [facility] Diagnosis 39 weeks gestation of ([facility]) Third trimester ([facility]) state, incidental documented in this encounter [facility] Summary Purpose Family History No Family History Records FoundNo Family History Records FoundNo Family History Records Found Advance Directives No Advanced Directives Records FoundNo Advanced Directives Records FoundNo Advanced Directives Records Found Additional Source Comments INFORMATION SOURCE (unrecogn ized section and content) DATE CREATED AUTHOR 08/11/2022 [facility] DATE CREATED AUTHOR AUTHOR'S ORGANIZ ATION 04/08/2025 [facility] DATE CREATED AUTHOR AUTHOR'S ORGANIZ ATION 06/05/2025 [facility] EPIC Reason for Visit (unrecogniz ed section and content) Reason Comments Amenorrhea Reason Comments Routine Visit Reason Comments Routine Visit Patient is schedu led for induction on 06/18/25 Care Teams (unrecognized sec tion and content) Personal Fitness Trainer Relationship Specialty Start Date End Date Edwin Mitchell NP [facility] 12/09/2408/09 Personal Fitness Trainer Relationship Specialty Start Date End Date Edwin Mitchell NP [facility] 12/09/2408/09 Personal Fitness Trainer Relationship Specialty Start Date End Date Edwin Mitchell NP [facility] 12/09/2408/09 Personal Fitness Trainer Relationship Specialty Start Date End Date Edwin Mitchell NP [facility] 12/09/2408/09 Personal Fitness Trainer Relationship Specialty Start Date End Date Edwin Mitchell NP [facility] 12/09/2408/09 Personal Fitness Trainer Relationship Specialty Start Date End Date Edwin MitchellPRETTY [facility] 12/09/2408/09 FOR RECORDS PERTAINING TO PATIENTS WHO [...] BE BASED ON THE PRIMARY CLINICAL RECORDS. [facility] [employer] provides no warranty or guarantee of the accuracy or completeness of information in this document.
[2025-06-14] MEDS: 0.9 % SODIUM CHLORIDE 1,000 ML 125 ML IV (19:23)
[2025-06-14] MEDS: OXYTOCIN/0.9 % SODIUM CHLORIDE 20 UNITS/1,000 ML PLAST..BAG 125 UNIT IV (20:03)
[2025-06-14] MEDS: LIDOCAINE HCL 1% 200 MG/20 ML MDV INJ (20:15)
--- NOTE | 2025-06-14 20:43 | P.OBHP_ITS ---
OB - H&P: HPI History of Present Illness Chief complaint: LABOR : 3 Para: 1 Date of last menstrual period: 10/09/2024 Gestational age based on last menstrual period: 39w4d Narrative: 29yo [id number] at 39w4d presents in active labor completely dilated. She is not quite sure what time her contractions started today. She had intact membranes when she arrived at the hospital. She had early care since 12 weeks. 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 Labs Blood type: A (+) positive Rubella: immune RPR/VDLR: nonreactive GBS status: negative HBsAG: negative Narrative: Hep C Ab neg 1 hr glucola= 132 Review of Systems ROS Status of ROS: 10 or more systems reviewed and unremarkable except as noted in history and below [facility] Medical History (Updated 06/14/25 @ 20:43 by OLEGARIO VERDUGO MD) History of full term delivery History of induced ?Z98.890 - Other specified postprocedural states (ICD-10) Abdominal pain during ?O26.899 - Other specified related conditions, unspecified trimester (ICD-10) ?R10.9 - Unspecified abdominal pain (ICD-10) Hyperemesis gravidarum ?O21.0 - Mild hyperemesis gravidarum (ICD-10) Family History (Updated 06/14/25 @ 20:36 by OLEGARIO VERDUGO MD) Mother Family history of hypertension Social History Little interest or pleasure in doing things: not at all Feeling down, depressed, or hopeless: not at all Meds Home Medications and Allergies Home Medications ?Medication ?Instructions ?Recorded ?Confirmed ?Type valacyclovir 500 mg tablet 500 mg PO DAILY 05/18/25 History Allergies Allergy/AdvReac Type Severity Reaction Status Date / Time No Known Drug Allergies Allergy Verified 12/02/24 21:14 Exam Constitutional Vital Signs, click to edit/add: Last Vital Signs Pulse 151 H 06/14/25 20:30 BP 208/125 H 06/14/25 20:30 Common normals: oriented x3, alert and well nourished General appearance: well kempt and other (very uncomfortable with contractions) HENMT Common normals: normocephalic Eye Common normals: EOMs intact bilaterally Respiratory Common normals: normal respiratory effort and no retractions Cardio Common normals: regular rate GI Common normals: soft to palpation (gravid) Back & Pelvis Common normals: no CVA tenderness Extremity Common normals: no pedal edema Psych Common normals: affect normal Appearance: grossly normal OB - A/P Assessment and Plan (1) Active labor at term: Assessment and Plan: Expect
--- NOTE | 2025-06-14 21:04 | PM.OBPRCVD ---
Procedure Procedure: 29yo now P2 at 39w 4d delivered via over a second degree laceration which was repaired with Apgars of 8 and 9 at 1 and 5 minutes. events: Meconium Stained Fluid Intrapartal events: Precipitous Labor < 3 hours Induction method: none Delivery monitor: external FHT and external uterine Route of delivery: Episiotomy Description: none L&D Laceration Description: perineal - 2nd degree Delivery repair: Vicryl (3-0) Estimated blood loss (mL): 100 Anesthesia type: Local Disposition: floor Complications: none Infant Delivery date: 06/14/25 Gender: male presentation: vertex Placental delivery description: Spontaneous cord description: 3 Vessels, Nuchal Cord, Loose and Reduced (x 1) heart rate - 1 minute: 100 bpm or Greater respiratory effort - 1 minute: Slow Respiration/Weak Cry muscle tone - 1 minute: Active Movement reflex response - 1 minute: Prompt Response color - 1 minute: Bluish Hands or Feet total score - 1 minute: 8 heart rate - 5 minute: 100 bpm or Greater respiratory effort - 5 minute: Spontaneous/Strong Cry muscle tone - 5 minute: Active Movement reflex response - 5 minute: Prompt Response color - 5 minute: Bluish Hands or Feet total score - 5 minute: 9
[2025-06-14] MEDS: BENZOCAINE/MENTHOL 85 GRAM SPRAY BOTTLE 1 APPLIC TOPICAL (21:36)
[2025-06-14] MEDS: GLYCERIN/WITCH HAZEL PADS 1 PAD TOPICAL (21:36)
[2025-06-14] MEDS: IBUPROFEN 600 MG TABLET PO (21:37)
[2025-06-14 21:38] LABS: Hematocrit 33.4 % (36.0-48.0); Hemoglobin 11.3 g/dL (12.0-16.0); Mean Corpuscular HGB Conc 33.8 g/dL (29.9-35.2); Mean Corpuscular Hemoglobin 29.1 pg (26.7-34.0); Mean Corpuscular Volume 86.1 fL (81.0-99.0); Platelet Count 258 10^3/uL (150-450); Red Blood Count 3.88 10^6/uL (4.20-5.40); White Blood Count 11.4 10^3/uL (4.0-11.0)
[2025-06-15 02:46] VITALS: BP 143/78; PULSE 61
[2025-06-15 02:50] VITALS: PULSE 61; TEMP 37.1
[2025-06-15 06:43] LABS: Hematocrit 30.4 % (36.0-48.0); Hemoglobin 10.2 g/dL (12.0-16.0); Immature Granulocytes Abs Auto 0.04 10^3/uL (0.00-0.03); Immature Granulocytes Pct Auto 0.3 % (0.0-0.5); Lymphocytes Absolute Auto 2.0 10^3/uL (1.2-3.8); Mean Corpuscular HGB Conc 33.6 g/dL (29.9-35.2); Mean Corpuscular Hemoglobin 29.2 pg (26.7-34.0); Mean Corpuscular Volume 87.1 fL (81.0-99.0); Platelet Count 207 10^3/uL (150-450); Red Blood Count 3.49 10^6/uL (4.20-5.40); White Blood Count 12.0 10^3/uL (4.0-11.0)
[2025-06-15] MEDS: VALACYCLOVIR HCL 500 MG TABLET PO (08:13)
[2025-06-15] MEDS: DOCUSATE SODIUM 100 MG CAPSULE PO ×2 (08:13→21:18)
[2025-06-15] MEDS: FERROUS SULFATE 325 MG TABLET PO ×2 (08:13→21:18)
[2025-06-15 08:16] VITALS: BP 121/80; PULSE 88
[2025-06-15 08:20] VITALS: BP 121/81; PULSE 88
--- NOTE | 2025-06-15 10:50 | PM.OBPN ---
OB - PN: Subj Subjective Patient comments: no complaints, pain well controlled, tolerating diet and flatus present [place] status: doing well and well Exam Constitutional Vital Signs, click to edit/add: Last Vital Signs Temp 98.7 F 06/15/25 02:50 Pulse 88 06/15/25 08:20 Resp 16 06/15/25 08:16 BP 121/81 06/15/25 08:20 O2 Del Method Room Air 06/15/25 08:16 Documenting provider has reviewed patient's vital signs: yes Common normals: no apparent distress, oriented x3 and alert General appearance: cooperative and comfortable Orientation/consciousness: Yes awake HENMT Common normals: normocephalic Eye Common normals: EOMs intact bilaterally Respiratory Common normals: normal respiratory effort and no retractions Cardio Common normals: regular rate GI Inspection: normal to inspection Palpation: soft Other: fundus firm below the umbilicus Back & Pelvis Common normals: no CVA tenderness Extremity Common normals: normal to inspection and no pedal edema Psych Common normals: mental status grossly normal and thought process normal Appearance: grossly normal Attitude: calm Judgement: judgment good Results Labs Labs: Short CBC 06/14/25 06/15/25 Range/Units 19:15 06:29 WBC 11.4 H 12.0 H (4.0-11.0) 10^3/uL Hgb 11.3 L 10.2 L (12.0-16.0) g/dL Hct 33.4 L 30.4 L (36.0-48.0) % Plt Count 258 207 (150-450) 10^3/uL OB - PN: A/P Assessment and Plan (1) Spontaneous vaginal delivery: Assessment and Plan: doing well breast feeding home tomorrow (2) Iron deficiency anemia of : Assessment and Plan: iron bid Plan - Vaginal Delivery Plan: routine care Time Spent with Patient Time: Total time spent is greater than 50% in coordination of care (as documented) at patient's floor/unit and/or counseling patient: Total time spent with greater than 50% in coordination of care (as documented) at patient's floor/unit and/or counseling patient: less than 15 minutes
[2025-06-15] MEDS: IBUPROFEN 600 MG TABLET PO ×2 (12:04→21:18)
[2025-06-15 14:34] LABS: Cannabinoid Screen Urine NEGATIVE (NEGATIVE); Methamphetamines Screen Urine NEGATIVE (NEGATIVE); Tricyclic Antidepressant Urine NEGATIVE (NEGATIVE)
[2025-06-15 17:03] VITALS: BP 134/79; PULSE 86; TEMP 37
[2025-06-15 23:18] VITALS: BP 130/86; PULSE 70; TEMP 36.7
[2025-06-16] MEDS: VALACYCLOVIR HCL 500 MG TABLET PO (08:28)
[2025-06-16] MEDS: FERROUS SULFATE 325 MG TABLET PO (08:28)
[2025-06-16] MEDS: IBUPROFEN 600 MG TABLET PO ×2 (08:29→14:40)
[2025-06-16] MEDS: DOCUSATE SODIUM 100 MG CAPSULE PO (08:29)
[2025-06-16 08:31] VITALS: BP 122/77; PULSE 69
--- NOTE | 2025-06-16 11:34 | PM.OBDS ---
DS: Providers Provider Date of admission: 06/14/25 19:14 Primary care physician: Non-Staff Physician, Admitting clinician: OLEGARIO VERDUGO Attending physician on admission: OLEGARIO VERDUGO Attending physician on discharge: OLEGARIO VERDUGO Discharging clinician: OLEGARIO VERDUGO Anticipated date of discharge: 06/16/25 DS: Diagnosis Discharge Diagnosis (1) Spontaneous vaginal delivery: Assessment and plan: doing well home today (2) Iron deficiency anemia of : Assessment and plan: iron twice daily for a month OB - DS: Summary Hospital Course Hospital Course: 29yo now P2 presented in active labor completely dilated. Membranes were ruptured artificially with thick meconium. She quickly delivered over a second degree laceration which was repaired without difficulty a 6 pound 6 ounce male with Apgars 8 and 9 at 1 minute and 5 minutes. She was anemic with a Hgb of 11.3 and was started on iron. Hgb was 10.2. She was breast feeding without problems. Patient and were doing well. Peripartum Data - Vaginal Delivery Laceration description: perineal - 2nd degree Complications complications: none Delivery method: spontaneous vaginal delivery Gender: male Discharge plan: home Status at Discharge Functional status at discharge: independent ambulation Overall status at discharge: patient is progressing back to baseline Time Spent with Patient Time attestation: Total time spent providing and/or coordinating discharge services: Time spent: less than 30 minutes Exam Constitutional Vital Signs, click to edit/add: Last Vital Signs Temp 98.1 F 06/15/25 23:18 Pulse 69 06/16/25 08:31 Resp 16 06/16/25 08:40 BP 122/77 06/16/25 08:31 O2 Del Method Room Air 06/16/25 08:40 Documenting provider has reviewed patient's vital signs: yes Common normals: no apparent distress, oriented x3, alert and well nourished General appearance: cooperative, comfortable, well kempt and well developed Orientation/consciousness: Yes awake HENMT Common normals: normocephalic Eye Common normals: EOMs intact bilaterally Respiratory Common normals: normal respiratory effort and no retractions Cardio Common normals: regular rate GI Palpation: soft and other (fundus firm below umbilicus) Back & Pelvis Common normals: no CVA tenderness Extremity Common normals: no calf tenderness and no pedal edema Psych Common normals: mental status grossly normal, thought process normal, cooperative and affect normal Thought process: normal thought process DS: Data Data Completed and Pending Labs on day of discharge: Labs from last 24 hours 06/15/25 14:00 Urine Opiates Screen Negative Ur Buprenorphine Scrn Negative Ur Oxycodone Screen Negative Urine Methadone Screen Negative Ur Barbiturates Screen Negative U Tricyclic Antidepress Negative Ur Phencyclidine Scrn Negative Ur Amphetamines Screen Negative U Methamphetamines Scrn Negative U Benzodiazepines Scrn Negative Urine Cocaine Screen Negative U Cannabinoids Screen Negative Discharge Plan Discharge Disposition: Home, Self-Care Discharge Medications: New ferrous sulfate 325 mg (65 mg iron) Tablet 325 mg PO BID Qty: 60 0RF docusate sodium 100 mg Capsule 100 mg PO BID Qty: 60 0RF ibuprofen 600 mg Tablet 600 mg PO Q6H PRN (Reason: Moderate Pain) Qty: 40 0RF Continued valacyclovir 500 mg tablet 500 mg PO DAILY Activity: increase activity as tolerated Activity Detail: pelvic rest x 6 weeks Diet: regular diet Print Language: Liberian Forms: Vaginal Delivery - Discharge, Portal Instructions Follow Up Appointments: in 6 weeks for visit with Dr[address] Tellez Discharge location: to home
[2025-06-16 16:54] VITALS: BP 121/86; PULSE 74; TEMP 36.8
== END 2025-06-16 18:10 | disposition home or self-care (01) | DRG 560 ==
PROVIDERS: Admitting Provider Obstetrics & Gynecology; Visit Provider Obstetrics & Gynecology
DX: O69.81X0 Labor and delivery complicated by cord around neck, without compression, not applicable or unspecified (principal); O70.1 Second degree perineal laceration during delivery; O77.0 Labor and delivery complicated by meconium in amniotic fluid; O62.3 Precipitate labor; Z37.0 Single live birth; Z3A.39 39 weeks gestation of pregnancy; O99.02 Anemia complicating childbirth; D50.9 Iron deficiency anemia, unspecified
CPT/HCPCS: 36415; 80307; 85025; 85027; 86850; 86900; 86901